=== PATIENT | male | born 1965 | race Two or more races ===

== ENCOUNTER 2025-02-01 17:58 | Inpatient (IN) | payer OTHER, MEDICAID ==
[~2025-02-01] VITALS: Ht 167.6 cm; Wt 49.5 kg
[2025-02-01 19:24] LABS: Hematocrit 41.7 % (41.0-53.0); Hemoglobin 14.3 g/dL (13.5-17.5); Mean Corpuscular Hemoglobin 30.1 pg (28.0-32.0); Mean Corpuscular Volume 87.8 fL (80.0-100.0); Nucleated Red Blood Cells % 0.0 %
[2025-02-01 19:42] LABS: Potassium 4.9 mmol/L (3.5-5.1)
[2025-02-01 19:43] LABS: Anion Gap 16 (5-15); Calcium 9.7 mg/dL (8.7-10.4); Carbon Dioxide 25 mmol/L (20-31)
[2025-02-01 19:47] LABS: Chloride 94 mmol/L (98-107); Sodium 135 mmol/L (136-145)
--- NOTE | 2025-02-01 19:47 | ED.PDOC ---
History of Present Illness HPI Comments 59-year-old male is brought in by ambulance from private residence for chief complaint of generalized weakness and hypertension. Per EMS report, patient is a poor historian and family called on patient's behalf. 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 Patient is reported to have missed today's and last Saturday's dialysis session. Vitals were noted to have been stable within normal limits, with the exception of the blood glucose of 305 and a hypertensive blood pressure at 170's systolically. We will to ED, patient had a blood pressure of 177/116 and a blood glucose of 331. Unable to obtain further information from patient, due to him being a poor historian. Further history is limited, due to patient's current condition and absence of family/business employment specialist historians. REVIEW OF SYSTEMS: Unable to obtain ROS PHYSICAL EXAM: General: Awake, alert and oriented. No acute distress. Skin: Skin in warm, dry and intact without rashes or lesions. HEENT: The head is normocephalic and atraumatic. Conjunctivae are clear without exudates or hemorrhage. Sclera is non-icteric. Neck: Normal range of motion. No JVD. Cardiac: Regular rate Respiratory: No signs of respiratory distress. No Stridor. Extremities: Upper and lower extremities are atraumatic in appearance without deformity. Neurological: The patient is awake, alert and oriented to person, place, and ti me with normal speech. Speech is clear. There is no facial asymmetry. Psychiatric: Appropriate mood and affect. Good judgement and insight. 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 Was a procedure done?: No Differential Dx Considerations may include: Differential diagnosis considered includes but not limited to intracranial hemorrhage, stroke, head injury, seizure, metabolic disturbance, electrolyte imbalance, infection, substance intoxication, psychiatric cause, noncompliance, hypertensive emergency, hyperglycemia, other systemic illness, other X-Ray, Labs, Meds, VS Vital Signs Date Time Temp Pulse Resp B/P (MAP) Pulse Ox O2 Delivery O2 Flow Rate FiO2 02/01/25 20:17 98.6 86 17 146/95 (112) 98 98.6 02/01/25 18:00 98.0 86 18 177/116 96 98.0 Lab Test 02/01/25 19:00 Range/Units White Blood Count 9.1 4.4-10.8 10^3/uL Red Blood Count 4.75 4.5-5.90 10^6/uL Hemoglobin 14.3 13.5-17.5 g/dL Hematocrit 41.7 41.0-53.0 % Mean Corpuscular Volume 87.8 80.0-100.0 fL Mean Corpuscular Hemoglobin 30.1 28.0-32.0 pg Mean Corpuscular Hemoglobin Concent 34.3 32.0-36.0 g/dL Red Cell Distribution Width 13.9 11.8-14.3 % Platelet Count 374 140-450 10^3/uL Mean Platelet Volume 8.9 6.9-10.8 fL Neutrophils (%) (Auto) 85.8 H 37.0-80.0 % Lymphocytes (%) (Auto) 6.0 L 10.0-50.0 % Monocytes (%) (Auto) 7.5 0.0-12.0 % Eosinophils (%) (Auto) 0.2 0.0-7.0 % Basophils (%) (Auto) 0.5 0.0-2.0 % Neutrophils # (Auto) 7.8 1.6-8.6 10 ^3/uL Lymphocytes # (Auto) 0.5 0.4-5.4 10 ^3/uL Monocytes # (Auto) 0.7 0-1.3 10 ^3/uL Eosinophils # (Auto) 0 0-0.8 10 ^3/uL Basophils # (Auto) 0 0-0.2 10 ^3/uL Nucleated Red Blood Cells 0.0 % Sodium Level 135 L 136-145 mmol/L Potassium Level 4.9 3.5-5.1 mmol/L Chloride Level 94 L 98-107 mmol/L Carbon Dioxide Level 25 20-31 mmol/L Anion Gap 16 H 5-15 Blood Urea Nitrogen 112 *H 9-23 mg/dL Creatinine 6.45 H 0.700-1.30 mg/dL Glomerular Filtration Rate Calc 9 >90 mL/min BUN/Creatinine Ratio 17.4 10.0-20.0 Serum Glucose 331 H 74-106 mg/dL Calcium Level 9.7 8.7-10.4 mg/dL Troponin I High Sensitivity 7 </=54 ng/L Plasma/Serum Blood Alcohol < 3.0 <10 mg/dL Current Medications Medications (Trade) Dose Ordered Sig/Kellen Route Start Time Stop Time Status Last Admin Sodium Chloride 250 ml @ 1,000 mls/hr Q15M ONCE IV 02/01/25 22:15 02/01/25 22:29 DC 02/02/25 01:30 Time of 1ST Reevaluation: 18:42 Reevaluation 1ST: Unchanged Patient Education/Counseling: Other (Need for admission) Family Education/Counseling: No Family Present SEPSIS Sepsis Screen Date sepsis recognized/suspect: Feb 01, 2025 Time Sepsis recognized/suspect: 1800 Recent Procedure: No On Antibiotic Therapy: No Respiratory Rate >20: No Heart Rate >90: No Temp<36 C (96.8 F) or >38.3 C: No SBP <90 or MAP <65 mmHG: No New Acute Mental Status Change: No Is the patient on CPAP, BIPAP,: No Physician Orders Electrocardigram (02/01/25 18:10) Vital Signs Date Time Temp Pulse Resp B/P (MAP) Pulse Ox O2 Delivery O2 Flow Rate FiO2 02/01/25 20:17 98.6 86 17 146/95 (112) 98 98.6 02/01/25 18:00 98.0 86 18 177/116 96 98.0 Laboratory Tests Test 02/01/25 19:00 White Blood Count 9.1 10^3/uL (4.4-10.8) Medications Medications Dose Ordered Sig/Kellen Route Start Time Stop Time Status Last Admin Dose Admin Sodium Chloride 250 ml @ 1,000 mls/hr Q15M ONCE IV 02/01/25 22:15 02/01/25 22:29 DC 02/02/25 01:30 Departure 1 Departure Time of Disposition: 20:00 Impression: Primary Impression: Missed dialysis Additional Impression: Hyperglycemia Disposition: 01 HOME / SELF CARE / HOMELESS Condition: Stable Comments MDM: 59-year-old male with a history of end-stage renal disease who missed several dialysis sessions. Patient presents with altered mental status, generalized weakness. Patient admitted to hospitalist service for dialysis, further treatment, evaluation and monitoring. Extensive evaluation was performed in attempt to identify or rule out: (See differential diagnosis section) The following tests were ordered, and results were reviewed by me and discussed with patient: (See diagnostic results section) The following test were independently interpreted by me: N/A I reviewed and agreed with the following test results read by other providers: N/A I reviewed the following notes from the pt's past medical encounters: N/A Additional information was gathered from interviewing the following independent historians: EMS personnel Discussion of management or test interpretation with external physician/other qualified health customer care representative: N/A Addressed one or more chronic illnesses with severe exacerbation, progression, or side effects of treatment: End-stage renal disease, an acute or chronic illness that poses a threat to life or bodily function: Uremia Decision regarding hospitalization or escalation of hospital level of care: Risk and benefits of admission for further treatment of patient's condition was considered. Due to patient's current clinical condition, high risk of decline and poor outcome if discharged and need for further inpatient management and monitoring, patient will be admitted to the hospital. Critical Care Note Critical Care Time?: No Stability Stability form required: No Heart Score Heart Score: Heart Score Response (Comments) Value History N/A 0 EKG N/A 0 Age N/A 0 Risk Factors N/A 0 Troponin N/A 0 Total 0 I personally scribed for HALLIE PERERA MD ([email or web address]) on 02/01/25 at 19:47. Electronically submitted by Juan Veloz ([email or web address]). I personally scribed for HALLIE PERERA MD ([email or web address]) on 02/01/25 at 21:55. Electronically submitted by Juan Veloz ([email or web address]). HALLIE PERERA MD Feb 01, 2025 19:47
[2025-02-01 19:48] LABS: BUN/Creatinine Ratio 17.4 (10.0-20.0)
[2025-02-01 20:05] LABS: Glucose 331 mg/dL (74-106)
[2025-02-01 20:08] LABS: Blood Urea Nitrogen 112 mg/dL (9-23)
[2025-02-02] VITALS (8 sets, daily range): BP systolic 141–170; BP diastolic 72–96; PULSE 75–94; RESP 17–22; TEMP 97.1–98.5; O2SAT 97–99
[2025-02-02] MEDS ORDERED: DEXTROSE (50%) 50ML SYRG IV PRN (01:00)
[2025-02-02] MEDS: SODIUM CHLORIDE 0.9% 250 ML IV ONE (01:30)
[2025-02-02] MEDS: PANTOPRAZOLE 40 MG TAB PO ONE (01:30)
--- NOTE | 2025-02-02 01:44 | DVH ---
EXAM: CT HEAD WITHOUT CONTRAST INDICATION: Confusion, history of previos ACV TECHNIQUE: CT of the head without intravenous contrast. Radiation Dose : 1. Head: CT Dose: CTDI volume is 55.31 mGy. Dose-length product is 886.72 mGy*cm The dose indicators for CT are the volume Computed Tomography (CT) Dose Index (CTDIvol) and the Dose Length Product (DLP), and are measured in units of mGy and mGy-cm, respectively. These indicators are not patient dose, but values generated from the CT scanner acquisition factors. The report includes radiation exposure data for exposures received during this examination. COMPARISON: None FINDINGS: Brain: 8 mm hyperattenuating focus within the body of the right internal capsule/lateral thalamus. N o other evidence of intracranial hemorrhage. No mass effect. Numerous hypodense foci along the coron a radiata, internal capsules, and within the basal ganglia as well as senescent calcification. Mild p eriventricular white matter hypodensity and global volume loss. CSF Spaces: Mild symmetric enlargement. Bones/Soft Tissues: No acute findings. Orbits/Sinuses/Mastoids: No acute findings as visualized. Right lens replacement. IMPRESSION: 1. Subcentimeter hyperattenuating focus within the right internal capsule/thalamus may represent smal l intraparenchymal hemorrhage, or calcification. Correlate with symptoms and consider 6-8 hour follow -up head CT for reassessment. 2. Numerous hypodense foci within deep white matter and basal ganglia consistent with age indetermina te, but probably chronic lacunar infarcts. 3. Underlying sequela of mild chronic microangiopathy. The above critical finding was communicated with Dr. Balbuena at 3:41 a.m. On 02/02/2025, who communica chang understanding with positive read back. Radiation optimization: All CT scans at this facility use at least one of these dose optimization jazmin hniques: automated exposure control mA and/or kV adjustment per patient size (includes targeted exam s where dose is matched to clinical indication) or iterative reconstruction.
--- NOTE | 2025-02-02 01:51 | DVHHPRES ---
History of Present Illness Resident Creating Document: NELLY HUI RESIDENT History of Present Illness Siddhartha Whaley is a 59 year old male with past medical history of DM2, HTN, CVA (2023), Dementia and, CKD stage 5 (Dialysis MWF at [facility]). The patient was brought to the ED by the EMS team with chief complaint of 3 days of generalized weakness, difficulty to swallow and high blood pressure. Family member on site reports that the patient has missed his last 2 dialysis session due to feeling weak and tired. Initial evaluation in the ED showed blood pressure of 177/116 an d a blood glucose of 331 mg/dl. Non contrast head CT scan showed: Subcentimeter hyperattenuating focus within the right internal capsule/thalamus may represent small intraparenchymal hemorrhage, or calcification. Correlate with symptoms and consider 6-8 hour follow-up head CT for reassessment, numerous hypodense foci within deep white matter and basal ganglia consistent with age indeterminate, but probably chronic lacunar infarcts. Underlying sequela of mild chronic microangiopathy. The patient denies fever, chills, diarrhea, nausea, vomit, sick contacts or other symptoms. Cardiovascular: HTN KETTLE CLEANER: CVA (in 2023 and hx of Dementia) Renal/: Benign prostatic enlarg. Endocrine: Diabetes Past Surgical History: None Family History: Hypertension Smoke: No ALCOHOL: none Lives: with Family Review of Systems Constitutional: Yes: Weakness, Malaise; No: Fever, Chills, Sweats, Other Eyes: No: Pain, Vision change, Conjunctivae inflammation, Eyelid inflammation, Other, Redness Cardiovascular: No: Chest Pain, Palpitations, Orthopnea, Paroxysmal Noc. Dyspnea, Edema, Lt Headedness, Other Gastrointestinal: No: Nausea, Vomiting, Abdominal Pain, Diarrhea, Constipation, Melena, Hematochezia, Other Genitourinary: No Dysuria, No Frequency, No Incontinence, No Hematuria, No Retention, No Other Musculoskeletal: No: other, neck pain, shoulder pain, arm pain, back pain, hand pain, leg pain, foot pain Skin: No: Rash, Lesions, Jaundice, Bruising, Other Neurological: Weakness; No: Numbness, Incoordination, Change in speech, Confusion, Seizures, Other Allergies: Coded Allergies: NO KNOWN ALLERGIES (Unverified , 02/01/25) Medications Current Medications Medications Dose Ordered Sig/Kellen Route Start Time Stop Time Status Last Admin Dose Admin Diagnostic Test (Pha) 1 strip IQ4HR 02/02/25 04:00 Insulin Human Regular IQ4HR SC 02/02/25 04:00 Dextrose 50 ml UD PRN IV 02/02/25 01:00 Exam Vital Signs Vital Signs Date Time Temp Pulse Resp B/P (MAP) Pulse Ox O2 Delivery O2 Flow Rate FiO2 02/02/25 01:19 98.8 88 16 148/92 (110) 97 98.8 General Appearance: Alert, Cooperative, mild distress HEENT: Atraumatic, Mucous membr. moist/pink Respiratory: Clear to auscultation, Normal air movement Cardiovascular: Normal S1, Normal S2, No murmurs Abdominal: Normal bowel sounds, Soft, No tenderness, No hepatospenomegaly, No masses Extremities: No clubbing, No cyanosis, No edema, Normal pulses, No tenderness/swelling Skin: No rashes, No breakdown, No significant lesion Neuro: Normal gait, Strength at 5/5 X4 ext, Normal tone, Sensation intact, Cranial nerves 3-12 NL, Other (Slow speach, patient oriented in person and place, confused in time. ) Psych/Mental Status: Other (Memory, short term impairment.) Labs/Xrays Labs Test 02/01/25 19:00 Range/Units White Blood Count 9.1 4.4-10.8 10^3/uL Red Blood Count 4.75 4.5-5.90 10^6/uL Hemoglobin 14.3 13.5-17.5 g/dL Hematocrit 41.7 41.0-53.0 % Mean Corpuscular Volume 87.8 80.0-100.0 fL Mean Corpuscular Hemoglobin 30.1 28.0-32.0 pg Mean Corpuscular Hemoglobin Concent 34.3 32.0-36.0 g/dL Red Cell Distribution Width 13.9 11.8-14.3 % Platelet Count 374 140-450 10^3/uL Mean Platelet Volume 8.9 6.9-10.8 fL Neutrophils (%) (Auto) 85.8 H 37.0-80.0 % Lymphocytes (%) (Auto) 6.0 L 10.0-50.0 % Monocytes (%) (Auto) 7.5 0.0-12.0 % Eosinophils (%) (Auto) 0.2 0.0-7.0 % Basophils (%) (Auto) 0.5 0.0-2.0 % Neutrophils # (Auto) 7.8 1.6-8.6 10 ^3/uL Lymphocytes # (Auto) 0.5 0.4-5.4 10 ^3/uL Monocytes # (Auto) 0.7 0-1.3 10 ^3/uL Eosinophils # (Auto) 0 0-0.8 10 ^3/uL Basophils # (Auto) 0 0-0.2 10 ^3/uL Nucleated Red Blood Cells 0.0 % Sodium Level 135 L 136-145 mmol/L Potassium Level 4.9 3.5-5.1 mmol/L Chloride Level 94 L 98-107 mmol/L Carbon Dioxide Level 25 20-31 mmol/L Anion Gap 16 H 5-15 Blood Urea Nitrogen 112 *H 9-23 mg/dL Creatinine 6.45 H 0.700-1.30 mg/dL Glomerular Filtration Rate Calc 9 >90 mL/min BUN/Creatinine Ratio 17.4 10.0-20.0 Serum Glucose 331 H 74-106 mg/dL Calcium Level 9.7 8.7-10.4 mg/dL Troponin I High Sensitivity 7 </=54 ng/L Plasma/Serum Blood Alcohol < 3.0 <10 mg/dL SEPSIS Sepsis Screen Date sepsis recognized/suspect: Feb 01, 2025 Time Sepsis recognized/suspect: 1800 Recent Procedure: No On Antibiotic Therapy: No Respiratory Rate >20: No Heart Rate >90: No Temp<36 C (96.8 F) or >38.3 C: No SBP <90 or MAP <65 mmHG: No New Acute Mental Status Change: No Is the patient on CPAP, BIPAP,: No Physician Orders Electrocardigram (02/01/25 18:10) Admit (02/02/25 00:42) Code Status (02/02/25 00:42) Vital Signs .PER UNIT PROTOCOL (02/02/25 00:42) Review Orders With Adm. (02/02/25 00:42) Bedrest With Bathroom Privileg (02/02/25 00:42) [facility])Diabetes (02/02/25 Breakfast) Notify Md Of Changes From Base (02/02/25 00:42) Advance Directive (02/02/25 00:42) Urinalysis (02/02/25 00:42) Patient Condition (02/02/25 00:42) Allergies (02/02/25 00:42) Notify Md Of Changes From Base (02/02/25 00:42) Head Without Contrast (02/02/25 00:42) Complete Blood Count (02/02/25 04:00) Comprehensive Metabolic Panel (02/02/25 04:00) Blood Culture (02/02/25 00:53) Glucose Blood (Accu-Chek Comfort Curve T (02/02/25 04:00) Insulin R (Human) (Insulin R) (02/02/25 04:00) Dextrose 50% Syringe (02/02/25 01:00) Sodium Chloride 0.9% (02/02/25 01:00) Hemoglobin A1c (02/02/25 01:02) Ondansetron Hcl (Zofran) (02/02/25 02:00) * Swallow Request (02/02/25 01:49) Vital Signs Date Time Temp Pulse Resp B/P (MAP) Pulse Ox O2 Delivery O2 Flow Rate FiO2 02/02/25 01:19 98.8 88 16 148/92 (110) 97 98.8 02/01/25 20:17 98.6 86 17 146/95 (112) 98 98.6 02/01/25 18:00 98.0 86 18 177/116 96 98.0 Laboratory Tests Test 02/01/25 19:00 White Blood Count 9.1 10^3/uL (4.4-10.8) Medications Medications Dose Ordered Sig/Kellen Route Start Time Stop Time Status Last Admin Dose Admin Pantoprazole Sodium 40 mg ONCE ONCE PO 02/02/25 00:45 02/02/25 00:55 DC 02/02/25 01:30 40 MG Sodium Chloride 250 ml @ 1,000 mls/hr Q15M ONCE IV 02/01/25 22:15 02/01/25 22:29 DC 02/02/25 01:30 1,000 MLS/HR Assessment/Plan Assessment/Plan #Hypertensive urgency Amlodipine 10 mg po #Generalized weakness, rule out CVA Head CT scan #Hyponantremia IV fluids: NS #DM2 with hyperglycemia Insulin sliding scale HbA1C #CKD Stage 5 Dialysis MWF at [facility] #BPH Tamsulosin (Medication reconciliation) Low Carbohydrate/Diabetic diet DVT prophylaxis-Deambulating PUD prophylaxis Protonic Goals of care discussed with the patient > 35 min. Discussed plan of care with Dr. Fuentes Code status: DNR PCP: Does not recall name Plan discussed with: Patient, the patient agrees with admission the plan. Plan discussed with: Patient, Daughter My Orders Orders - NELLY HUI RESIDENT Procedure Category Date Status Time Admit ADMIT 02/02/25 Transmitted 00:42 Code Status CODE 02/02/25 Transmitted 00:42 Vital Signs NEHEMIAS 02/02/25 In Process 00:42 Review Orders With [facility] 02/02/25 In Process Adm.Md 00:42 Bedrest With Bathroom NEHEMIAS 02/02/25 In Process Privileg 00:42 Consistent DIET 02/02/25 Transmitted Carb(Ccho)Diabetes Breakfast Notify Md Of Changes [facility] 02/02/25 In Process From Base 00:42 Advance Directive NEHEMIAS 02/02/25 In Process 00:42 Urinalysis LAB 02/02/25 Logged 00:42 Patient Condition ORDERS 02/02/25 Transmitted 00:42 Allergies NEHEMIAS 02/02/25 In Process 00:42 Notify Md Of Changes [facility] 02/02/25 In Process From Base 00:[address] 02/02/25 Resulted 00:42 Complete Blood Count LAB 02/02/25 Logged 04:00 Comprehensive LAB 02/02/25 Logged Metabolic Panel 04:00 Blood Culture [facility] 02/02/25 In Process 00:53 Glucose Blood PHA 02/02/25 In Process (Accu-Chek Comfort 04:00 Insulin R (Human) PHA 02/02/25 In Process (Insulin R) 04:00 Dextrose 50% Syringe PHA 02/02/25 In Process 01:00 Sodium Chloride 0.9% PHA 02/02/25 In Process 01:00 Hemoglobin A1c LAB 02/02/25 Logged 01:02 Ondansetron Hcl PHA 02/02/25 In Process (Zofran) 02:00 * Swallow Request ST 02/02/25 Transmitted 01:49 Common Visit Codes: 49270-CVEFQVV INP/OBS CARE (HIGH) Secondary Visit Codes: 36143-[id number] CARE PLAN 30 MINUTES NELLY HUI RESIDENT Feb 02, 2025 01:51
[2025-02-02] MEDS: ONDANSETRON HCL 4 MG/2 ML VIAL IV ONE (02:00)
[2025-02-02] MEDS: InsuLIN REG 1unit/0.01ml Soln (100units/ml) SC SCH (04:00)
[2025-02-02] MEDS: ACCU-CHEK COMFORT CURVE STRIP VI SCH (04:00)
[2025-02-02] MEDS: SODIUM CHLORIDE 0.9% 1,000 ML IV ONE (04:10)
[2025-02-02 09:27] LABS: Hematocrit 37.5 % (41.0-53.0); Hemoglobin 13.0 g/dL (13.5-17.5); Mean Corpuscular Hemoglobin 30.2 pg (28.0-32.0); Mean Corpuscular Volume 87.3 fL (80.0-100.0); Nucleated Red Blood Cells % 0.0 %
[2025-02-02 09:34] LABS: Albumin 4.0 g/dL (3.2-4.8); Alkaline Phosphatase 61 U/L (46-116); Anion Gap 16 (5-15); BUN/Creatinine Ratio 15.8 (10.0-20.0); Calcium 9.3 mg/dL (8.7-10.4); Carbon Dioxide 23 mmol/L (20-31); Chloride 99 mmol/L (98-107); Potassium 3.9 mmol/L (3.5-5.1); Sodium 138 mmol/L (136-145); Total Protein 6.7 g/dL (5.7-8.2)
[2025-02-02 10:23] LABS: Alanine Aminotransferase < 9 U/L (7-40); Bilirubin, Total 0.3 mg/dL (0.2-1.0); Glucose 67 mg/dL (74-106)
[2025-02-02 10:25] LABS: Blood Urea Nitrogen 110 mg/dL (9-23)
--- NOTE | 2025-02-02 10:34 | DVH ---
EXAM: CT HEAD WITHOUT CONTRAST INDICATION: Reassesment, first CT inconclusive TECHNIQUE: CT of the head without intravenous contrast. Coronal and sagittal reformatted images are s ubmitted. Radiation Dose : 1. Head: CT Dose: CTDI volume is 53.68 mGy. Dose-length product is 1.71 mGy*cm The dose indicators for CT are the volume Computed Tomography (CT) Dose Index (CTDIvol) and the Dose Length Product (DLP), and are measured in units of mGy and mGy-cm, respectively. These indicators are not patient dose, but values generated from the CT scanner acquisition factors. The report includes radiation exposure data for exposures received during this examination. All CT scans at this medical facility are performed using dose modulation techniques as appropriate to a performed exam including the following: Automated exposure control was utilized; adjustment of the MA and/or KV according to patient size; and use of iterative reconstruction technique. COMPARISON: CT HEAD WITHOUT CONTRAST on DOS: 02/02/25 FINDINGS: 8 x 8 mm rounded hyperattenuating focus in the right thalamus / internal capsule is similar in appear ance and size compared to the prior study. Chronic lacunar infarcts in the bilateral basal ganglia and thalami. There are periventricular and subcortical hypodensities, nonspecific, but likely reflecting sequelae of chronic microvascular ischemic changes. The ventricles, sulci and cisterns are age appropriate. The hruley-white differentiation is intact. The visualized paranasal sinuses and mastoid air cells are clear. No depressed calvarial fracture. The surrounding soft tissues are unremarkable. IMPRESSION: 1. Stable 8 mm hyperattenuating focus in the right internal capsule/ thalamus without any significant change. The etiology remains unclear since this has not changed. Continued short-term follow-up wit h noncontrast CT of the head in 6-8 hours is suggested. 2. Additional nonacute findings similar to prior CT performed earlier same date.
[2025-02-02 11:52] LABS: COVID19 ANTIGEN SOFIA FIA NEGATIVE (NEGATIVE)
--- NOTE | 2025-02-02 17:03 | DVHINCON2 ---
Date of service: Feb 02, [address] Olsen History of Present Illness 55 minutes with the patient with significant history of end-stage renal disease on hemodialysis Saturday, CVA, dementia, diabetes type 2, hypertension who presents to the hospital by ambulance complaining of generalized weakness and reason why he could not go to his dialysis unit he missed two sessions. The patient is not a good historian but admits to feeling generalized weakness associated with the elevated blood pressure, hiccups, nausea. Patient was admitted he underwent CT scan showing chronic lacunar infarct and hypo hyperattenuating focus right internal capsule. Findings also of uremia with elevated BUN Past Medical History Diabetes type 2, hypertension, end-stage renal disease, dementia, CVA Past Surgical History Left upper arm AV fistula creation Allergies: Coded Allergies: NO KNOWN ALLERGIES (Unverified , 02/01/25) Current Medications Current Medications Medications (Trade) Dose Ordered Sig/Kellen Route PRN Reason Start Time Stop Time Status Last Admin Diagnostic Test (Pha) (Accu-Chek Comfort Curve T) 1 strip IQ4HR 02/02/25 04:00 02/02/25 16:04 Insulin Human Regular (InsuLIN R) IQ4HR SC 02/02/25 04:00 02/02/25 16:04 Dextrose 50 ml UD PRN IV Blood Sugar LESS THAN 60 02/02/25 01:00 Family History: Cerebrovascular accident (CVA) G8 FATHER FH: dementia G8 MOTHER Ischemic heart disease G8 FATHER Family History Unable to obtain patient does not recall Social History Denies smoking alcohol or drug abuse Review of Systems HEENT: Oral mucosa dry Neck no JVD Cardiovascular: Denies for chest pain denies orthopnea or PND Respiratory: Denies cough or shortness of breath Gastrointestinal: positive for hiccups and nausea Musculoskeletal: Denies myalgias Neurological: Denies focal weakness Dermatological: Denies any rash Positive for generalized weakness, hiccups The rest of the review of systems were reviewed pertinent positives and pertinent negatives are as per HPI up to 12 points review of systems H&P Exam Vital Signs/I&O Vital Sign Date Time Temp Pulse Resp B/P (MAP) Pulse Ox O2 Delivery O2 Flow Rate FiO2 02/02/25 15:43 89 148/72 (97) 02/02/25 13:00 98.5 22 97 98.5 02/02/25 08:00 Room Air* 0 21 Physical Exam Chronically ill-appearing patient HEENT: No evidence of JVD, no oral ulcers. Pulmonary: Lungs are clear on auscultation bilaterally Cardiovascular S1-S2, no S3 or S4 Abdomen: Bowel sounds positive, soft no rebound tenderness Skin: No rash Neurological: Alert, oriented, no focal weakness Actually having hiccups Labs/Diagnostic Data Labs/Diagnostic Data Laboratory Tests Test 02/02/25 15:54 02/02/25 11:40 02/02/25 09:47 02/02/25 08:30 Range/Units POC Glucose 255 H 220 H 70-106 mg/dl Influenza Type A Antigen Negative Negative Influenza Type B Antigen Negative Negative SARS-CoV-2 Antigen (Rapid) Negative NEGATIVE White Blood Count 14.4 #H 4.4-10.8 10^3/uL Red Blood Count 4.30 L 4.5-5.90 10^6/uL Hemoglobin 13.0 L 13.5-17.5 g/dL Hematocrit 37.5 #L 41.0-53.0 % Mean Corpuscular Volume 87.3 80.0-100.0 fL Mean Corpuscular Hemoglobin 30.2 28.0-32.0 pg Mean Corpuscular Hemoglobin Concent 34.6 32.0-36.0 g/dL Red Cell Distribution Width 14.0 11.8-14.3 % Platelet Count 398 140-450 10^3/uL Mean Platelet Volume 8.5 6.9-10.8 fL Neutrophils (%) (Auto) 74.4 37.0-80.0 % Lymphocytes (%) (Auto) 12.3 10.0-50.0 % Monocytes (%) (Auto) 13.0 H 0.0-12.0 % Eosinophils (%) (Auto) 0.2 0.0-7.0 % Basophils (%) (Auto) 0.1 0.0-2.0 % Neutrophils # (Auto) 10.7 H 1.6-8.6 10 ^3/uL Lymphocytes # (Auto) 1.8 0.4-5.4 10 ^3/uL Monocytes # (Auto) 1.9 H 0-1.3 10 ^3/uL Eosinophils # (Auto) 0 0-0.8 10 ^3/uL Basophils # (Auto) 0 0-0.2 10 ^3/uL Nucleated Red Blood Cells 0.0 % Sodium Level 138 136-145 mmol/L Potassium Level 3.9 3.5-5.1 mmol/L Chloride Level 99 98-107 mmol/L Carbon Dioxide Level 23 20-31 mmol/L Anion Gap 16 H 5-15 Blood Urea Nitrogen 110 *H 9-23 mg/dL Creatinine 6.97 H 0.700-1.30 mg/dL Glomerular Filtration Rate Calc 9 >90 mL/min BUN/Creatinine Ratio 15.8 10.0-20.0 Serum Glucose 67 #L 74-106 mg/dL Hemoglobin A1c 8.7 H <5.7 % A1C Calcium Level 9.3 8.7-10.4 mg/dL Total Bilirubin 0.3 0.2-1.0 mg/dL Aspartate Amino Transferase (AST) 14 13-40 U/L Alanine Aminotransferase (ALT) < 9 7-40 U/L Alkaline Phosphatase 61 46-116 U/L Ammonia < 10 L 11-32 umol/L Total Protein 6.7 5.7-8.2 g/dL Albumin 4.0 3.2-4.8 g/dL Vitamin D 25-Hydroxy 64.3 30.0-100 ng/mL Parathyroid Hormone (Intact) 94.7 H 18.4-80.1 pg/mL Test 02/02/25 07:50 02/02/25 05:00 02/01/25 19:00 Range/Units POC Glucose 127 H 333 H 70-106 mg/dl White Blood Count 9.1 4.4-10.8 10^3/uL Red Blood Count 4.75 4.5-5.90 10^6/uL Hemoglobin 14.3 13.5-17.5 g/dL Hematocrit 41.7 41.0-53.0 % Mean Corpuscular Volume 87.8 80.0-100.0 fL Mean Corpuscular Hemoglobin 30.1 28.0-32.0 pg Mean Corpuscular Hemoglobin Concent 34.3 32.0-36.0 g/dL Red Cell Distribution Width 13.9 11.8-14.3 % Platelet Count 374 140-450 10^3/uL Mean Platelet Volume 8.9 6.9-10.8 fL Neutrophils (%) (Auto) 85.8 H 37.0-80.0 % Lymphocytes (%) (Auto) 6.0 L 10.0-50.0 % Monocytes (%) (Auto) 7.5 0.0-12.0 % Eosinophils (%) (Auto) 0.2 0.0-7.0 % Basophils (%) (Auto) 0.5 0.0-2.0 % Neutrophils # (Auto) 7.8 1.6-8.6 10 ^3/uL Lymphocytes # (Auto) 0.5 0.4-5.4 10 ^3/uL Monocytes # (Auto) 0.7 0-1.3 10 ^3/uL Eosinophils # (Auto) 0 0-0.8 10 ^3/uL Basophils # (Auto) 0 0-0.2 10 ^3/uL Nucleated Red Blood Cells 0.0 % Sodium Level 135 L 136-145 mmol/L Potassium Level 4.9 3.5-5.1 mmol/L Chloride Level 94 L 98-107 mmol/L Carbon Dioxide Level 25 20-31 mmol/L Anion Gap 16 H 5-15 Blood Urea Nitrogen 112 *H 9-23 mg/dL Creatinine 6.45 H 0.700-1.30 mg/dL Glomerular Filtration Rate Calc 9 >90 mL/min BUN/Creatinine Ratio 17.4 10.0-20.0 Serum Glucose 331 H 74-106 mg/dL Calcium Level 9.7 8.7-10.4 mg/dL Troponin I High Sensitivity 7 </=54 ng/L Plasma/Serum Blood Alcohol < 3.0 <10 mg/dL CT head with hyperattenuating subcentimeter lesion on two CT Assessment End-stage renal disease Uremia Hypertension, uncontrolled Acidemia managed with dialysis Hyperkalemia managed with dialysis Subcentimeter hypoattenuating lesion on CT History of CVA Anemia of Chronic kidney disease Plan: Patient has missed two dialysis session proceed with dialysis today and tomorrow Fluid restriction less than 1 L per day Neurology consult We will not use heparin Resume antihypertensive meds Thank you very much for allowing us to participate in the care of this patient please contact if you have any questions. Plan discussed with: Patient CECIL BELL MD Feb 02, 2025 17:03
[2025-02-02] MEDS: GABAPENTIN 100 MG CAP PO ONE (18:15)
[2025-02-02] MEDS: BACLOFEN 10 MG TAB PO ONE (18:15)
[2025-02-02] MEDS ORDERED: PANT40TA2 PO (18:37)
[2025-02-02] MEDS ORDERED: DONE5TAB80 PO (18:37)
[2025-02-02] MEDS ORDERED: TAMS0.4C39 PO (18:37)
[2025-02-02] MEDS ORDERED: METO-289 PO (18:37)
[2025-02-02] MEDS ORDERED: NIFE1TAB30 PO (18:37)
[2025-02-02] MEDS ORDERED: SERT-206 PO (18:37)
[2025-02-02] MEDS ORDERED: ATOR40TA52 PO (18:37)
[2025-02-02] MEDS ORDERED: PIOG1TAB51 OR (18:37)
[2025-02-02] MEDS ORDERED: SUCR1TAB PO (18:37)
--- NOTE | 2025-02-02 18:39 | DVHPNRES ---
Progress Note Date Seen: Feb 02, 2025 Resident Creating Document: CHAU SYKES RESIDENT Medical Necessity Reason Pt with a Central, PICC or Fol: No Subjective Review of Systems Siddhartha Whaley is a 59 year old male with past medical history of DM2, HTN, CVA (2023), Dementia and, CKD stage 5 (Dialysis MWF at [facility]). The patient was brought to the ED by the EMS team with chief complaint of 3 days of generalized weakness, difficulty to swallow and high blood pressure. Family member on site reports that the patient has missed his last 2 dialysis session due to feeling weak and tired. Initial evaluation in the ED showed blood pressure of 177/116 and a blood glucose of 331 mg/dl. Non contrast head CT scan showed: Subcentimeter hyperattenuating focus within the right internal capsule/thalamus may represent small intraparenchymal hemorrhage, or calcification. Correlate with symptoms and consider 6-8 hour follow-up head CT for reassessment, numerous hypodense foci within deep white matter and basal ganglia consistent with age indeterminate, but probably chronic lacunar infarcts. Underlying sequela of mild chronic microangiopathy. The patient denies fever, chills, diarrhea, nausea, vomit, sick contacts or other symptoms. 02/02/25 Patient seen at bedside. Patient is alert times 1, he is not oriented to place or time. Patient is a poor historian. Talked to the sister and she states that the patient has been having hiccups since July, has had dementia since 1 year, and underwent a stroke last year and also started having choking symptoms and having trouble swallowing since 1 week. Last week he was walking fine but now has been having balance problems, and is a fall risk, has had no trauma to the head. Yesterday he was too weak to go to the dialysis appointment. Repeat head CT shows Stable 8 mm hyperattenuating focus in the right internal capsule/ thalamus without any significant change. The etiology remains unclear since this has not changed. Patient has undergone dialysis today. Given baclofen 5 mg b.i.d. and gabapentin 100 mg t.i.d. eval was placed. Pureed diet was started. Objective vital signs Vital Sign Date Time Temp Pulse Resp B/P (MAP) Pulse Ox O2 Delivery O2 Flow Rate FiO2 02/02/25 15:43 89 148/72 (97) 02/02/25 13:00 98.5 22 97 98.5 02/02/25 08:00 Room Air* 0 21 medications Current Medications Medications Dose Ordered Sig/Kellen Route Start Time Stop Time Status Last Admin Dose Admin Diagnostic Test (Pha) 1 strip IQ4HR 02/02/25 04:00 02/02/25 16:04 1 STRIP Insulin Human Regular IQ4HR SC 02/02/25 04:00 02/02/25 16:04 6 UNITS Dextrose 50 ml UD PRN IV 02/02/25 01:00 Examination General: Patient alert and oriented in person, place and time. Patient following commands. Constant hiccuping HEENT: Normocephalic, atraumatic, moist mucous membranes Respiratory/pulmonary: Clear lungs bilaterally, vesicular murmurs present in almost all lung islas, no associated crackles or wheezes. Cardiovascular: Normal heart sounds S1 and S2 with no associated murmurs Abdomen: Abdomen nondistended, there is no pain to palpation in any of the abdominal quadrants, no palpable masses. Extremities: There is no peripheral edema present at the lower extremities. Peripheral Pulses: 3+ Radial (R). 3+ Radial (L). 3+ Dorsalis pedis (R). 3+ Dorsalis pedis(L) Skin: Tunneled catheter, no draining pus, no signs of infection or inflammation Neurological: Intact cranial nerves with no focal neurologic deficits laboratory and microbiology Laboratory Tests 02/02/25 08:30 Test 02/02/25 08:30 Range/Units Serum Glucose 67 #L 74-106 mg/dL Problem List/Assessment/Plan Problem List/Assessment/Plan # Hypertensive urgency-resolving - Amlodipine 10 mg po - Monitor BP # Reactive leukocytosis- monitorlab # ESRD on HD # Missed HD # Non compliance with HD # Uremia # Acidemia managed with dialysis # Hyperkalemia managed with dialysis # Anemia of Chronic kidney disease from ESRD - Dialysis MWF at [facility] - Monitor lab - HD today and tommorrow # Generalized weakness, rule out CVA # Hx of CVA - Head CT scan ,stable 8 mm hyperattenuating focus in the right internal capsule/ thalamus without any significant change - ? neuro consult # Hyponantremia -monitor lab # DM2 with hyperglycemia - Insulin sliding scale - HbA1C- 8.7 Purred diet PPI prophylaxis: Protonix 40 mg DVT Prophylaxis: None Goals of care discussed with patient for 27 minutes Patient is CODE :DNR/DNI, confirmed with sister Plan discussed with Dr. Vargas Plan discussed with: Patient (RN) My Orders My Orders Orders - CHAU SYKES Procedure Category Date Status Time Drug Screen LAB 02/02/25 Logged 08:11 *Dr. [facility] -Da CONS 02/02/25 Transmitted Ingrid 08:13 Strict I & O NEHEMIAS 02/02/25 In Process 08:34 Pureed DIET 02/02/25 Transmitted Lunch Pt Request For Service PT 02/02/25 Logged 11:56 Date of Service: Feb 02, 2025 Billing Provider: KIMBER MORRIS MD Common Visit Codes: [id number] INP/OBS CARE(HIGH) CHAU SYKES Feb 02, 2025 18:39 KIMBER MORRIS MD Feb 15, 2025 02:24
--- NOTE | 2025-02-02 19:10 | DVHINCON2 ---
Date of service: Feb 02, [address] Mack Reason for Consultation Abnormal CT head History of Present Illness Mr. Torres is a 59 years old right-handed gentleman with a history of hypertension, diabetes, end-stage renal failure on hemodialysis, he was brought to the [facility] on 02/01/2025 with a chief complaint of general weakness, hypertension, dysphagia. At this time, he is awake, but is only oriented to person, place, he is a poor historian, I have interviewed his cousin, who is care provider, and his brother, both were not able to give a detailed history After he came to the hospital, the patient was found to have elevated blood pressure, with amnesia blood pressure 177/116, his CT scan showed I have attenuation in the left basal ganglia region, unknown etiology His CT scan showed multiple strokes, but he and his family only aware of one stroke in 2021, the patient has had imbalance, one-sided weakness, but they do not remember which side was affected. The patient was treated in the [facility], and he was said to have stroke. His CT brain scan showed multiple strokes involving both hemispheres and brainstem. I have reviewed his home medication, which included Lipitor 40 mg daily, but there was no aspirin, Plavix or antiplatelet or anticoagulant agents. Around 2020, his brother noticed the patient had difficulty to remember things happened within the last 10 years (such as visiting his hometown), around 2021- 2022, his family reported he developed progressive short-term memory difficulty, and he quit working because of cognitive dysfunction. According to the family, his baseline is oriented to person place only, but is with reasonable social skills. His home medication included Aricept 5 mg daily Plasma alcohol, 02/01/2025: <3 CBC, 02/01/2025: Unremarkable BUN/CR, 02/02/2025: 110/6.97 GFR, 02/02/2025: 9 HGB A1c, 02/02/2025: Able to seven CT head, 02/02/2025 0042: 1. Subcentimeter hyperattenuating focus within the right internal capsule/thalamus may represent small intraparenchymal hemorrhage, or calcification. Correlate with symptoms and consider 6-8 hour follow-up head CT for reassessment. 2. Numerous hypodense foci within deep white matter and basal ganglia consistent with age indeterminate, but probably chronic lacunar infarcts. 3. Underlying sequela of mild chronic microangiopathy. CT head, 02/02/2025 1100: 1. Stable 8 mm hyperattenuating focus in the right internal capsule/ thalamus without any significant change. The etiology remains unclear since this has not changed. Continued short-term follow-up with noncontrast CT of the head in 6-8 hours is suggested. 2. Additional nonacute findings similar to prior CT performed earlier same date. (Chronic lacunar infarcts in the bilateral basal ganglia and thalami, I also see evidence suggestive of of bilateral pontine lacunar strokes) Past Medical History Hypertension, diabetes, end-stage kidney failure, poor compliance Past Surgical History AV fistula Family History: Cerebrovascular accident (CVA) G8 FATHER FH: dementia G8 MOTHER Ischemic heart disease G8 FATHER Family History Hypertension, diabetes, coronary artery disease. Mother had stroke, she developed dementia around age of 65 after she already had stroke Social History No history of tobacco smoking, drug or alcohol abuse Allergies: Coded Allergies: NO KNOWN ALLERGIES (Unverified , 02/01/25) Home Meds Reported Medications Nifedipine (Nifedipine Er) 60 Mg Tab, 1 TAB PO DAILY, #30 TAB 5 Refills 02/02/25 Atorvastatin Calcium (ATORVASTATIN CALCIUM) 40 Mg Tab, 1 TAB PO QPM, #90 TAB 3 Refills 02/02/25 Tamsulosin Hcl (Tamsulosin Hcl) 0.4 Mg Cap, 0.4 MG PO QPM for 30 Days, MG 02/02/25 Donepezil Hydrochloride (DONEPEZIL HCL) 5 Mg Tab, 5 MG PO DAILY for 30 Days, MG 02/02/25 Pantoprazole Sodium Sesquihydr (Protonix) 40 Mg Tab, 40 MG PO, #30 TAB 02/02/25 Sucralfate (Sucralfate) 1 Gm Tab, 1 GM PO BID, GM 02/02/25 Sertraline Hcl (Sertraline Hcl) 50 Mg Tab, 50 MG PO DAILY for 30 Days, MG 02/02/25 Metoprolol Succinate (Metoprolol Succinate Er) 50 Mg Tab, 50 MG PO DAILY for 30 Days, MG 02/02/25 Pioglitazone Hydrochloride (PIOGLITAZONE HCL) 45 Mg Tab, 45 MG OR DAILY, TAB 02/02/25 Current Medications Current Medications Medications (Trade) Dose Ordered Sig/Kellen Route PRN Reason Start Time Stop Time Status Last Admin Diagnostic Test (Pha) (Accu-Chek Comfort Curve T) 1 strip IQ4HR 02/02/25 04:00 02/02/25 16:04 Insulin Human Regular (InsuLIN R) IQ4HR SC 02/02/25 04:00 02/02/25 16:04 Dextrose 50 ml UD PRN IV Blood Sugar LESS THAN 60 02/02/25 01:00 Baclofen (Liorisal Tablet) 5 mg BID PO 02/03/25 10:00 Gabapentin (Neurontin Capsule) 100 mg TID PO 02/03/25 06:00 Amlodipine Besylate (Norvasc Tablet) 10 mg DAILY PO 02/03/25 10:00 Pantoprazole Sodium (Protonix) 40 mg DAILY IV 02/03/25 10:00 Review of Systems As above, the other systems are negative Vital Signs Vital Signs Date Time Temp Pulse Resp B/P (MAP) Pulse Ox O2 Delivery O2 Flow Rate FiO2 02/02/25 17:00 98.4 85 17 141/81 (101) 99 98.4 02/02/25 08:00 Room Air* 0 21 Physical Exam GENERAL EXAM: General: the patient is well developed and nourished. No acute distress. HEENT: Normocephalic, neck is supple, no carotid bruits. No mass. The throat is Mallampati grade RESPIRATORY: Normal respiratory effort with symmetrical lung expansion. Lungs clear to auscultation. CARDIOVASCULAR: Regular rate and rhythm with no murmurs. S1, S2. ABDOMEN: Soft, nontender, normal bowel sound NEUROLOGICAL: MENTAL STATUS: Awake and alert. Oriented to person, place SPEECH, LANGUAGE, HIGHER CORTICAL FUNCTION: no aphasia or dysathria. CRANIAL NERVES: #2: Intact visual islas to confrontation. The optic discs were sharp. #3,4,6: Pupils are equal, round and reactive. EOMs full and conjugate. #5: Facial sensation intact in all three divisions bilaterally. Mandibular strength intact. #7: Facial muscles symmetrical and strength intact. #8: Hearing grossly normal to voice. #9,10: Uvula and soft palate rise in the midline. Swallow and voice are normal. #11: Trapezius and sternomastoid strength intact bilaterally. #12: Tongue midline. No fasciculations or atrophy. SENSATION: Sensation to touch and pinprick is unremarkable MOTOR: Normal tone in the upper and lower extremity. Normal muscle bulk. No fasciculations. No abnormal movements or posturing. Muscle strength of the major groups in the upper extremities is 4/5. Muscle strength of the major groups in the lower extremities is 4/5. REFLEXES: Deep tendon reflexes are symmetrical. No pathological reflexes. CEREBELLAR/COORDINATION: Finger to nose is normal bilaterally. GAIT/STATION: deferred. Labs/Diagnostic Data Labs Test 02/02/25 15:54 02/02/25 09:47 02/02/25 08:30 02/01/25 19:00 Range/Units POC Glucose 255 H 70-106 mg/dl Influenza Type A Antigen Negative Negative Influenza Type B Antigen Negative Negative SARS-CoV-2 Antigen (Rapid) Negative NEGATIVE White Blood Count 14.4 #H 4.4-10.8 10^3/uL Red Blood Count 4.30 L 4.5-5.90 10^6/uL Hemoglobin 13.0 L 13.5-17.5 g/dL Hematocrit 37.5 #L 41.0-53.0 % Mean Corpuscular Volume 87.3 80.0-100.0 fL Mean Corpuscular Hemoglobin 30.2 28.0-32.0 pg Mean Corpuscular Hemoglobin Concent 34.6 32.0-36.0 g/dL Red Cell Distribution Width 14.0 11.8-14.3 % Platelet Count 398 140-450 10^3/uL Mean Platelet Volume 8.5 6.9-10.8 fL Neutrophils (%) (Auto) 74.4 37.0-80.0 % Lymphocytes (%) (Auto) 12.3 10.0-50.0 % Monocytes (%) (Auto) 13.0 H 0.0-12.0 % Eosinophils (%) (Auto) 0.2 0.0-7.0 % Basophils (%) (Auto) 0.1 0.0-2.0 % Neutrophils # (Auto) 10.7 H 1.6-8.6 10 ^3/uL Lymphocytes # (Auto) 1.8 0.4-5.4 10 ^3/uL Monocytes # (Auto) 1.9 H 0-1.3 10 ^3/uL Eosinophils # (Auto) 0 0-0.8 10 ^3/uL Basophils # (Auto) 0 0-0.2 10 ^3/uL Nucleated Red Blood Cells 0.0 % Sodium Level 138 136-145 mmol/L Potassium Level 3.9 3.5-5.1 mmol/L Chloride Level 99 98-107 mmol/L Carbon Dioxide Level 23 20-31 mmol/L Anion Gap 16 H 5-15 Blood Urea Nitrogen 110 *H 9-23 mg/dL Creatinine 6.97 H 0.700-1.30 mg/dL Glomerular Filtration Rate Calc 9 >90 mL/min BUN/Creatinine Ratio 15.8 10.0-20.0 Serum Glucose 67 #L 74-106 mg/dL Hemoglobin A1c 8.7 H <5.7 % A1C Calcium Level 9.3 8.7-10.4 mg/dL Total Bilirubin 0.3 0.2-1.0 mg/dL Aspartate Amino Transferase (AST) 14 13-40 U/L Alanine Aminotransferase (ALT) < 9 7-40 U/L Alkaline Phosphatase 61 46-116 U/L Ammonia < 10 L 11-32 umol/L Total Protein 6.7 5.7-8.2 g/dL Albumin 4.0 3.2-4.8 g/dL Vitamin D 25-Hydroxy 64.3 30.0-100 ng/mL Parathyroid Hormone (Intact) 94.7 H 18.4-80.1 pg/mL Troponin I High Sensitivity 7 </=54 ng/L Plasma/Serum Blood Alcohol < 3.0 <10 mg/dL Assessment This is a difficult consultation Abnormal CT brain scan, the high attenuation lesion in the right basal ganglia region is likely calcification, less likely hemorrhage He had a stroke syndrome in 2020, but his CT brain scan showed multiple strokes involving bilateral basal ganglia regions, brainstem Dementia, likely vascular dementia, but need to rule out Alzheimer disease and other etiology Dysphagia, possibly secondary to multiple strokes Hypertensive encephalopathy Posterior reversible encephalopathy Plan/Recommendation Monitoring Supportive treatment Telemetry Vitamin B12, folic acid, TSH, FT4 MR head Aspirin 81 mg daily Lipitor 40 mg daily Aricept 5 mg daily Pantoprazole 40 mg daily Up to chair Physical therapy Nephrology on case/hemodialysis More recommendation per clinical course Progress: Poor This medical document was created using an electronic medical record system with [employer] dictation system. Although this document has been carefully reviewed, there may still be some phonetic and typographical errors. These areas are purely typographical due to imperfections of the software programs, and do not reflect any compromise in the patient's medical care. Plan discussed with: Other YURY MARQUEZ MD Feb 02, 2025 19:10
[2025-02-02] MEDS ORDERED: LORazepam 2MG/ML-1ML VIAL IV PRN (20:00)
[2025-02-02 20:40] LABS: Cholesterol 124 mg/dL (< 200)
[2025-02-02 20:43] LABS: HDL Cholesterol 38 mg/dL (40-59); Triglycerides 174 mg/dL (< 150)
[2025-02-02 20:44] LABS: Free T4 (Free Thyroxine) 1.26 ng/dL (0.89-1.76)
[2025-02-02] MEDS: SODIUM CHL 0.9% 1000 ML BAG XX ONE (22:29)
[2025-02-03] VITALS (8 sets, daily range): BP systolic 108–137; BP diastolic 62–83; PULSE 104–115; RESP 16–18; TEMP 97.7–98.6; O2SAT 94–99
[2025-02-03] MEDS: GABAPENTIN 100 MG CAP PO SCH (06:00)
[2025-02-03] MEDS: SODIUM CHL 0.9% 1000 ML BAG XX ONE (07:00)
[2025-02-03 08:33] LABS: Hematocrit 37.0 % (41.0-53.0); Hemoglobin 12.9 g/dL (13.5-17.5); Mean Corpuscular Hemoglobin 30.9 pg (28.0-32.0); Mean Corpuscular Volume 89.0 fL (80.0-100.0); Nucleated Red Blood Cells % 0.0 %
[2025-02-03 08:50] LABS: Anion Gap 14 (5-15); Carbon Dioxide 25 mmol/L (20-31); Potassium 3.6 mmol/L (3.5-5.1); Sodium 137 mmol/L (136-145)
[2025-02-03 08:52] LABS: Calcium 9.0 mg/dL (8.7-10.4)
[2025-02-03 08:54] LABS: Chloride 98 mmol/L (98-107)
--- NOTE | 2025-02-03 08:56 | DVH ---
EXAM: CT HEAD WITHOUT CONTRAST INDICATION: F/u on subcm focus in R IC/thalamus r/o hemmorhage TECHNIQUE: CT of the head without intravenous contrast. Coronal and sagittal reformatted images are s ubmitted. Radiation Dose : 1. Head: CT Dose: CTDI volume is 51.7 mGy. Dose-length product is 826.9 mGy*cm The dose indicators for CT are the volume Computed Tomography (CT) Dose Index (CTDIvol) and the Dose Length Product (DLP), and are measured in units of mGy and mGy-cm, respectively. These indicators are not patient dose, but values generated from the CT scanner acquisition factors. The report includes radiation exposure data for exposures received during this examination. All CT scans at this medical facility are performed using dose modulation techniques as appropriate to a performed exam including the following: Automated exposure control was utilized; adjustment of the MA and/or KV according to patient size; and use of iterative reconstruction technique. COMPARISON: CT HEAD WITHOUT CONTRAST on DOS: 02/02/25, CT HEAD WITHOUT CONTRAST on DOS: 02/02/25 FINDINGS: 8 x 8 mm rounded hyperattenuating focus in the right thalamus / internal capsule is similar in appear ance and size compared to the prior study. No new intracranial hemorrhage. There is no evidence of a cute extra-axial collection, mass effect, midline shift, herniation or hydrocephalus. Chronic lacunar infarcts in the bilateral basal ganglia and thalami. The ventricles, sulci and cisterns are age appropriate. The hurley-white differentiation is intact. The visualized paranasal sinuses and mastoid air cells are clear. No depressed calvarial fracture. The surrounding soft tissues are unremarkable. IMPRESSION: 1. No significant interval change.
[2025-02-03 08:57] LABS: BUN/Creatinine Ratio 12.1 (10.0-20.0)
[2025-02-03 09:00] LABS: Blood Urea Nitrogen 57 mg/dL (9-23); Glucose 160 mg/dL (74-106)
--- NOTE | 2025-02-03 09:46 | DVH ---
CLINICAL INDICATION: CVA, abnormal CT head COMPARISON: CT HEAD WITHOUT CONTRAST on DOS: 02/03/25, CT HEAD WITHOUT CONTRAST on DOS: 02/02/25, CT HEAD WITHOUT CONTRAST on DOS: 02/02/25 TECHNIQUE: Multisequence multiplanar MRI images of the brain were obtained without contrast. FINDINGS: Acute lacunar infarct in the right side of the nancy measuring up to 0.6 cm. Acute lacunar infarct in the left periventricular white matter adjacent to the body of the left ventricle measuring up to 0.8 cm. Multifocal small areas of hypointense gradient echo signal, including in the bilateral basal ganglia, bilateral thalami, right greater than left, posterior left temporal lobe, and nancy fr om prior hemorrhage, with likely small subacute hemorrhage in the right thalamus when correlated with recent CT exams. Scattered areas of T2/FLAIR hyperintense signal in the periventricular and subcorti calos white matter, as well as in the nancy and basal ganglia are nonspecific, but most likely sequelae of chronic small vessel ischemic disease and lacunar infarcts. No mass or midline shift. Ventricles a nd sulci are within normal limits. Basal cisterns are patent. Paranasal sinuses are clear. Right batsheva s prosthesis incidentally noted. Orbits are otherwise grossly unremarkable. IMPRESSION: 1. Small chronic lacunar infarcts are seen in the right side of the nancy and left periventricular whi te matter. 2. Multifocal chronic ischemic changes as detailed above. 3. Multifocal areas of hemosiderin deposition from prior small hemorrhages. 4. Additional findings as detailed above.
[2025-02-03 11:34] LABS: Hepatitis B Surface Antigen Negative (Negative); Hepatitis C Antibody Negative (Negative)
[2025-02-03] MEDS: PANTOPRAZOLE 40 MG/10 ML VIAL INJ IV SCH (13:54)
[2025-02-03] MEDS: BACLOFEN 10 MG TAB PO SCH (13:55)
--- NOTE | 2025-02-03 16:47 | DVHPN2 ---
Progress Note - Dictate Date Seen: Feb 03, 2025 Medical Necessity Reason Pt with a Central, PICC or Fol: No vital signs Vital Sign Date Time Temp Pulse Resp B/P (MAP) Pulse Ox O2 Delivery O2 Flow Rate FiO2 02/03/25 13:00 98.6 115 16 118/64 (82) 95 98.6 02/03/25 08:00 Room Air* 0 21 Total Intake and Output 02/02/25 02/02/25 02/03/25 15:00 23:00 07:00 Intake Total 250 ml 0 ml Output Total 450 ml 50 ml Balance -200 ml -50 ml medications Current Medications Medications Dose Ordered Sig/Kellen Route Start Time Stop Time Status Last Admin Dose Admin Diagnostic Test (Pha) 1 strip IQ4HR 02/02/25 04:00 02/03/25 12:13 1 STRIP Insulin Human Regular IQ4HR SC 02/02/25 04:00 02/03/25 12:13 2 UNITS Dextrose 50 ml UD PRN IV 02/02/25 01:00 Baclofen 5 mg BID PO 02/03/25 10:00 02/03/25 13:55 5 MG Gabapentin 100 mg TID PO 02/03/25 06:00 02/03/25 13:54 100 MG Amlodipine Besylate 10 mg DAILY PO 02/03/25 10:00 Pantoprazole Sodium 40 mg DAILY IV 02/03/25 10:00 02/03/25 13:54 40 MG Lorazepam 1 mg ONCE PRN IV 02/02/25 20:00 Aspirin 81 mg DAILY PO 02/03/25 10:00 02/03/25 13:54 81 MG Atorvastatin Calcium 40 mg HS PO 02/03/25 22:00 Donepezil HCl 5 mg HS PO 02/03/25 22:00 objective Chronically ill-appearing patient HEENT: No evidence of JVD, no oral ulcers. Pulmonary: Lungs are clear on auscultation bilaterally Cardiovascular S1-S2, no S3 or S4 Abdomen: Bowel sounds positive, soft no rebound tenderness Skin: No rash Neurological: Alert, oriented, no focal weakness laboratory and microbiology Laboratory Tests 02/03/25 06:59 Test 02/03/25 06:59 Range/Units Serum Glucose 160 H 74-106 mg/dL Assessment/Plan Assessment: End-stage renal disease Improving uremia Hypertension, uncontrolled Acidemia managed with dialysis Hyperkalemia managed with dialysis Subcentimeter hypoattenuating lesion on CT History of CVA Anemia of Chronic kidney disease Plan: Hemodialysis today then Saturday Fluid restriction less than 1 L per day Neurology consult We will not use heparin Resume antihypertensive meds Thank you very much for allowing us to participate in the care of this patient please contact if you have any questions. Plan discussed with: Patient CECIL BELL MD Feb 03, 2025 16:47
--- NOTE | 2025-02-03 19:38 | DVHPNRES ---
Progress Note Date Seen: Feb 03, 2025 Resident Creating Document: CHAU SYKES RESIDENT Medical Necessity Reason Pt with a Central, PICC or Fol: No Subjective Review of Systems Siddhartha Whaley is a 59 year old male with past medical history of DM2, HTN, CVA (2023), Dementia and, CKD stage 5 (Dialysis MWF at [facility]). The patient was brought to the ED by the EMS team with chief complaint of 3 days of generalized weakness, difficulty to swallow and high blood pressure. Family member on site reports that the patient has missed his last 2 dialysis session due to feeling weak and tired. Initial evaluation in the ED showed blood pressure of 177/116 and a blood glucose of 331 mg/dl. Non contrast head CT scan showed: Subcentimeter hyperattenuating focus within the right internal capsule/thalamus may represent small intraparenchymal hemorrhage, or calcification. Correlate with symptoms and consider 6-8 hour follow-up head CT for reassessment, numerous hypodense foci within deep white matter and basal ganglia consistent with age indeterminate, but probably chronic lacunar infarcts. Underlying sequela of mild chronic microangiopathy. The patient denies fever, chills, diarrhea, nausea, vomit, sick contacts or other symptoms. 02/02/25 Patient seen at bedside. Patient is alert times 1, he is not oriented to place or time. Patient is a poor historian. Talked to the sister and she states that the patient has been having hiccups since July, has had dementia since 1 year, and underwent a stroke last year and also started having choking symptoms and having trouble swallowing since 1 week. Last week he was walking fine but now has been having balance problems, and is a fall risk, has had no trauma to the head. Yesterday he was too weak to go to the dialysis appointment. Repeat head CT shows Stable 8 mm hyperattenuating focus in the right internal capsule/ thalamus without any significant change. The etiology remains unclear since this has not changed. Patient has undergone dialysis today. Given baclofen 5 mg b.i.d. and gabapentin 100 mg t.i.d. eval was placed. Pureed diet was started. 02/03/2025 Patient seen at bedside. Patient is alert x1. General appearance is better than yesterday. PT eval medical driver. Social service consult case SNF placement. Wound consult placed for redness in the sacrum. Alvino Francesca 5 mg p.o., atorvastatin 40 mg p.o., aspirin 81 mg p.o. started. Richardson's was placed. hepatitis panel negative, influenza and COVID negative. Neuro on board. Nephrology on board. Objective vital signs Vital Sign Date Time Temp Pulse Resp B/P (MAP) Pulse Ox O2 Delivery O2 Flow Rate FiO2 02/03/25 17:00 98.3 105 18 129/80 (96) 99 98.3 02/03/25 08:00 Room Air* 0 21 Total Intake and Output 02/02/25 02/02/25 02/03/25 15:00 23:00 07:00 Intake Total 250 ml 0 ml Output Total 450 ml 50 ml Balance -200 ml -50 ml medications Current Medications Medications Dose Ordered Sig/Kellen Route Start Time Stop Time Status Last Admin Dose Admin Diagnostic Test (Pha) 1 strip IQ4HR 02/02/25 04:00 02/03/25 16:00 1 STRIP Insulin Human Regular IQ4HR SC 02/02/25 04:00 02/03/25 17:30 2 UNITS Dextrose 50 ml UD PRN IV 02/02/25 01:00 Baclofen 5 mg BID PO 02/03/25 10:00 02/03/25 13:55 5 MG Gabapentin 100 mg TID PO 02/03/25 06:00 02/03/25 13:54 100 MG Amlodipine Besylate 10 mg DAILY PO 02/03/25 10:00 Pantoprazole Sodium 40 mg DAILY IV 02/03/25 10:00 02/03/25 13:54 40 MG Lorazepam 1 mg ONCE PRN IV 02/02/25 20:00 Aspirin 81 mg DAILY PO 02/03/25 10:00 02/03/25 13:54 81 MG Atorvastatin Calcium 40 mg HS PO 02/03/25 22:00 Donepezil HCl 5 mg HS PO 02/03/25 22:00 Examination General: Patient alert and oriented in person, place and time. Patient following commands. Constant hiccuping HEENT: Normocephalic, atraumatic, moist mucous membranes Respiratory/pulmonary: Clear lungs bilaterally, vesicular murmurs present in almost all lung islas, no associated crackles or wheezes. Cardiovascular: Normal heart sounds S1 and S2 with no associated murmurs Abdomen: Abdomen nondistended, there is no pain to palpation in any of the abdominal quadrants, no palpable masses. Extremities: There is no peripheral edema present at the lower extremities. Peripheral Pulses: 3+ Radial (R). 3+ Radial (L). 3+ Dorsalis pedis (R). 3+ Dorsalis pedis(L) Skin: Tunneled catheter, no draining pus, no signs of infection or inflammation Neurological: Intact cranial nerves with no focal neurologic deficits laboratory and microbiology Laboratory Tests 02/03/25 06:59 Test 02/03/25 06:59 Range/Units Serum Glucose 160 H 74-106 mg/dL Microbiology Date/Time Source Procedure Growth Status 02/02/25 01:36 Blood Blood Culture - Preliminary NO GROWTH AFTER 24 HOURS OF INCUBATION. Resulted Problem List/Assessment/Plan Problem List/Assessment/Plan # Hypertensive urgency-resolving - Amlodipine 10 mg po - Monitor BP # Reactive leukocytosis- monitorlab # ESRD on HD # Missed HD # Non compliance with HD # Uremia # Acidemia managed with dialysis # Hyperkalemia managed with dialysis # Anemia of Chronic kidney disease from ESRD - Dialysis MWF at [facility] - Monitor lab - HD today and [facility] - nephro consulted and stated Hemodialysis today then Saturday, Fluid restriction less than 1 L per day # Generalized weakness, rule out CVA # Hx of CVA - Head CT scan ,stable 8 mm hyperattenuating focus in the right internal capsule/ thalamus without any significant change - neuro consulted and recommended to give us a Aspirin 81 mg daily, Lipitor 40 mg daily, Aricept 5 mg daily # Hyponantremia -monitor lab # DM2 with hyperglycemia - Insulin sliding scale - HbA1C- 8.7 Purred diet PPI prophylaxis: Protonix 40 mg DVT Prophylaxis: None Goals of care discussed with patient for 27 minutes Patient is CODE :DNR/DNI, confirmed with sister Plan discussed with Dr. Vargas Plan discussed with: Patient My Orders My Orders Orders - CHAU SYKES Procedure Category Date Status Time Aspirin Tablet PHA 02/03/25 In Process 10:00 Atorvastatin (Lipitor) PHA 02/03/25 In Process 22:00 Donepezil Tablet PHA 02/03/25 In Process (Aricept Tablet) 22:00 * Wound Consult CONS 02/03/25 Transmitted * Rotary Bar Operator CONS 02/03/25 Transmitted Consult Apply Z-Guard NEHEMIAS 02/03/25 In Process 11:27 Date of Service: Feb 03, 2025 Billing Provider: KIMBER MORRIS MD Common Visit Codes: [id number] INP/OBS CARE(HIGH) CHAU SYKES RESIDENT Feb 03, 2025 19:38 KIMBER MORRIS MD Feb 15, 2025 02:44
--- NOTE | 2025-02-03 21:01 | DVHPN2 ---
Progress Note - Dictate Date Seen: Feb 03, 2025 Medical Necessity Reason Pt with a Central, PICC or Fol: No Subjective Mr. Torres is a 59 years old right-handed gentleman with a history of hypertension, diabetes, end-stage renal failure on hemodialysis, he was brought to the [facility] on 02/01/2025 with a chief complaint of general weakness, hypertension, dysphagia. I have seen and examined the patient, discussed with his nurse, he is awake, oriented to person place, his voice is very weak, he can only use sign to express himself Plasma alcohol, 02/01/2025: <3 CBC, 02/01/2025: Unremarkable BUN/CR, 02/02/2025: 110/6.97 GFR, 02/02/2025: 9 HGB A1c, 02/02/2025: Able to seven TG/HDL/LDL/HDL, 02/02/2025: 174/124/56/38 Vitamin B12, 02/03/25: 676 Folic acid, 02/03/2025: 9.28 TSH, 02/03/2025: 0.23 FT4, 02/03/2025: 1.26 CT head, 02/02/2025 0042: 1. Subcentimeter hyperattenuating focus within the right internal capsule/thalamus may represent small intraparenchymal hemorrhage, or calcification. Correlate with symptoms and consider 6-8 hour follow-up head CT for reassessment. 2. Numerous hypodense foci within deep white matter and basal ganglia consistent with age indeterminate, but probably chronic lacunar infarcts. 3. Underlying sequela of mild chronic microangiopathy. CT head, 02/02/2025 1100: 1. Stable 8 mm hyperattenuating focus in the right internal capsule/ thalamus without any significant change. The etiology remains unclear since this has not changed. Continued short-term follow-up with noncontrast CT of the head in 6-8 hours is suggested. 2. Additional nonacute findings similar to prior CT performed earlier same date. (Chronic lacunar infarcts in the bilateral basal ganglia and thalami, I also see evidence suggestive of of bilateral pontine lacunar strokes) MRI head, 02/03/2025: 1. Small chronic lacunar infarcts are seen in the right side of the nancy and left periventricular white matter. 2. Multifocal chronic ischemic changes as detailed above. 3. Multifocal areas of hemosiderin deposition from prior small hemorrhages. 4. Additional findings as detailed above. (Acute lacunar infarct in the right side of the nancy measuring up to 0.6 cm. Acute lacunar infarct in the left periventricular white matter adjacent to the body of the left ventricle measuring up to 0.8 cm.) vital signs Vital Sign Date Time Temp Pulse Resp B/P (MAP) Pulse Ox O2 Delivery O2 Flow Rate FiO2 02/03/25 20:41 98.2 112 18 108/63 (78) 98 98.2 02/03/25 08:00 Room Air* 0 21 Total Intake and Output 02/02/25 02/02/25 02/03/25 15:00 23:00 07:00 Intake Total 250 ml 0 ml Output Total 450 ml 50 ml Balance -200 ml -50 ml medications Current Medications Medications Dose Ordered Sig/Kellen Route Start Time Stop Time Status Last Admin Dose Admin Diagnostic Test (Pha) 1 strip IQ4HR 02/02/25 04:00 02/03/25 20:25 1 STRIP Insulin Human Regular IQ4HR SC 02/02/25 04:00 02/03/25 20:26 3 UNITS Dextrose 50 ml UD PRN IV 02/02/25 01:00 Baclofen 5 mg BID PO 02/03/25 10:00 02/03/25 13:55 5 MG Gabapentin 100 mg TID PO 02/03/25 06:00 02/03/25 13:54 100 MG Amlodipine Besylate 10 mg DAILY PO 02/03/25 10:00 Pantoprazole Sodium 40 mg DAILY IV 02/03/25 10:00 02/03/25 13:54 40 MG Lorazepam 1 mg ONCE PRN IV 02/02/25 20:00 Aspirin 81 mg DAILY PO 02/03/25 10:00 02/03/25 13:54 81 MG Atorvastatin Calcium 40 mg HS PO 02/03/25 22:00 Donepezil HCl 5 mg HS PO 02/03/25 22:00 objective General: the patient is well developed and nourished. No acute distress. MENTAL STATUS: Awake and alert. Oriented to person, place SPEECH, LANGUAGE, HIGHER CORTICAL FUNCTION: no aphasia or dysathria. CRANIAL NERVES: Pupils are equal, round and reactive. EOMs full and conjugate. Facial sensation intact in all three divisions bilaterally. Mandibular strength intact. Facial muscles symmetrical and strength intact. Tongue midline. No fasciculations or atrophy. SENSATION: Sensation to touch and pinprick is unremarkable MOTOR: Normal tone in the upper and lower extremity. Normal muscle bulk. No fasciculations. No abnormal movements or posturing. Muscle strength of the major groups in the extremities is 4/5. REFLEXES: Deep tendon reflexes are symmetrical. No pathological reflexes. CEREBELLAR/COORDINATION: Finger to nose is normal bilaterally. GAIT/STATION: deferred laboratory and microbiology Laboratory Tests 02/03/25 06:59 Test 02/03/25 06:59 Range/Units Serum Glucose 160 H 74-106 mg/dL Problem List A high attenuation CT lesion in the right basal ganglia region is likely calcification Acute stroke in the nancy and left basal ganglia region Chronic multiple strokes/lacunar infarcts in bilateral basal ganglia reason Dementia, likely vascular dementia, but need to rule out Alzheimer disease and other etiology Dysphagia, possibly secondary to multiple strokes Hypertensive encephalopathy Assessment/Plan Monitoring Supportive treatment Telemetry UDS SHARMILA Aspirin 81 mg daily Plavix 75 mg q.d. for 21 days Lipitor 40 mg daily Aricept 5 mg daily Pantoprazole 40 mg daily Up to chair Physical therapy Nephrology on case/hemodialysis More recommendation per clinical course This medical document was created using an electronic medical record system with [employer] dictation system. Although this document has been carefully reviewed, there may still be some phonetic and typographical errors. These areas are purely typographical due to imperfections of the software programs, and do not reflect any compromise in the patient's medical care Prognosis poor Plan discussed with: Other Total Time (mins): 35 YURY MARQUEZ MD Feb 03, 2025 21:01
--- NOTE | 2025-02-03 21:58 | DVH ---
Carotid Duplex Date: 02/03/2025 09:26 PM Clinical History: CVA Comparison: None Technique: Duplex Doppler evaluation of the extracranial carotid and vertebral arteries including col or Doppler and spectral/pulsed waveform analysis was performed. Findings: RIGHT SIDE: The peak systolic velocities are 67 cm/s in the distal CCA and 75 cm/s in the proximal ICA.The ICA/CC A ratio is normal. The distal right ICA is not visualized The external carotid artery is patent with peak systolic velocity of 67 cm/s proximally. There is appropriate antegrade flow in the right vertebral artery. LEFT SIDE: The peak systolic velocities are 72 cm/s in the distal CCA and 32 cm/s in the proximal ICA. The ICA/C CA ratio is normal. The mid and distal left ICA is not visualized The external carotid artery is patent with peak systolic velocity of 42 cm/s proximally. There is appropriate antegrade flow in the left vertebral artery. IMPRESSION: Left mid and distal ICAs are not well-visualized with the distal right ICA not well-visualized. Othe rwise, No hemodynamically significant stenosis within the visualized bilateral carotid arterial syste ms. Reference: Radiology 2003; 229:340-346
[2025-02-03] MEDS: DONEPEZIL HYDROCHLORIDE 5 MG TAB PO SCH (22:21)
[2025-02-03] MEDS: ATORVASTATIN 20 MG TAB PO SCH (22:21)
[2025-02-03] MEDS: CLOPIDOGREL BISULFATE 75 MG TAB PO ONE (22:32)
[2025-02-04] VITALS (8 sets, daily range): BP systolic 105–145; BP diastolic 62–93; PULSE 91–136; RESP 14–18; TEMP 97.4–98.2; O2SAT 94–99
[2025-02-04 06:47] LABS: Hematocrit 37.4 % (41.0-53.0); Hemoglobin 12.9 g/dL (13.5-17.5); Mean Corpuscular Hemoglobin 30.5 pg (28.0-32.0); Mean Corpuscular Volume 88.3 fL (80.0-100.0); Nucleated Red Blood Cells % 0.0 %
[2025-02-04 06:58] LABS: Potassium 3.6 mmol/L (3.5-5.1); Sodium 138 mmol/L (136-145)
[2025-02-04 06:59] LABS: Anion Gap 14 (5-15); Carbon Dioxide 28 mmol/L (20-31)
[2025-02-04 07:00] LABS: Calcium 9.0 mg/dL (8.7-10.4)
[2025-02-04 07:05] LABS: BUN/Creatinine Ratio 8.3 (10.0-20.0); Blood Urea Nitrogen 39 mg/dL (9-23); Chloride 96 mmol/L (98-107); Glucose 131 mg/dL (74-106)
--- NOTE | 2025-02-04 07:27 | ECG ---
[facility] Test Date: 2025-02-02 Test Time: 10:04:23 Pat Name: ALEJANDRA MEJIA Department: Room: 0292 A Gender: M Emt P: rubén DE JESUS : 1965 Requested By: CHAU SYKES Order Number: [id number] Reading MD: Kapil Stout Measurements Intervals Bois D Arc Rate: 87 P: 85 IL: 152 QRS: 61 QRSD: 80 T: 84 QT: 374 QTc: 450 Interpretive Statements Sinus rhythm Anteroseptal infarct, old Electronically Signed On 02-08-2025 18:31:21 PDT by Kapil Stout Please click the below link to view image of tracing.
[2025-02-04] MEDS: CLOPIDOGREL BISULFATE 75 MG TAB PO SCH (12:36)
--- NOTE | 2025-02-04 14:04 | DVHPN2 ---
Progress Note - Dictate Date Seen: Feb 04, 2025 Medical Necessity Reason Pt with a Central, PICC or Fol: No Subjective Patient is sleeping today has no complaints vital signs Vital Sign Date Time Temp Pulse Resp B/P (MAP) Pulse Ox O2 Delivery O2 Flow Rate FiO2 02/04/25 12:39 137/83 02/04/25 09:00 97.4 107 18 96 97.4 02/03/25 20:00 Room Air* 0 21 Total Intake and Output 02/03/25 02/03/25 02/04/25 15:00 23:00 07:00 Intake Total 240 ml 760 ml 175 ml Output Total 25 ml 20 ml Balance 240 ml 735 ml 155 ml medications Current Medications Medications Dose Ordered Sig/Kellen Route Start Time Stop Time Status Last Admin Dose Admin Diagnostic Test (Pha) 1 strip IQ4HR 02/02/25 04:00 02/04/25 12:00 1 STRIP Insulin Human Regular IQ4HR SC 02/02/25 04:00 02/04/25 00:12 2 UNITS Dextrose 50 ml UD PRN IV 02/02/25 01:00 Baclofen 5 mg BID PO 02/03/25 10:00 02/04/25 12:36 5 MG Gabapentin 100 mg TID PO 02/03/25 06:00 02/04/25 06:04 100 MG Amlodipine Besylate 10 mg DAILY PO 02/03/25 10:00 02/04/25 12:39 10 MG Pantoprazole Sodium 40 mg DAILY IV 02/03/25 10:00 02/04/25 12:35 40 MG Lorazepam 1 mg ONCE PRN IV 02/02/25 20:00 Aspirin 81 mg DAILY PO 02/03/25 10:00 02/04/25 12:36 81 MG Atorvastatin Calcium 40 mg HS PO 02/03/25 22:00 02/03/25 22:21 40 MG Donepezil HCl 5 mg HS PO 02/03/25 22:00 02/03/25 22:21 5 MG Clopidogrel Bisulfate 75 mg DAILY PO 02/04/25 10:00 02/24/25 09:59 02/04/25 12:36 75 MG objective Chronically ill-appearing patient HEENT: No evidence of JVD, no oral ulcers. Pulmonary: Lungs are clear on auscultation bilaterally Cardiovascular S1-S2, no S3 or S4 Abdomen: Bowel sounds positive, soft no rebound tenderness Skin: No rash Neurological: Alert, oriented, no focal weakness laboratory and microbiology Laboratory Tests 02/04/25 05:45 Test 02/04/25 05:45 Range/Units Serum Glucose 131 H 74-106 mg/dL Assessment/Plan Assessment: End-stage renal disease Improving uremia Hypertension, uncontrolled Acidemia managed with dialysis Hyperkalemia managed with dialysis Subcentimeter hypoattenuating lesion on CT History of CVA Anemia of Chronic kidney disease Plan: Hemodialysis Saturday Fluid restriction less than 1 L per day Neurology consult We will not use heparin Resume antihypertensive meds Stable from the renal perspective Thank you very much for allowing us to participate in the care of this patient please contact if you have any questions. Plan discussed with: Patient CECIL BELL MD Feb 04, 2025 14:04
--- NOTE | 2025-02-04 15:59 | DVHINCON2 ---
Date Seen: Feb 04, 2025 Referring Physician MD Sunil Reason for Consultation Multiple strokes History of Present Illness This is a 59-year-old man who presented to the emergency room via EMS with a chief complaint of generalized weakness. The patient is somewhat a poor historian, he is A&O x 2. Per records family called 911 given generalized weakness for which he underwent a blood glucose level of 305 mg/dL. It appears he missed his hemodialysis treatment this past Saturday. He underwent a brain MRI revealing a right-sided acute lacunar infarct with small chronic lacunar infarcts in the right side of the anncy and left periventricular white matter as well as multifocal chronic ischemic changes. Neurology team referring patient for a transesophageal echocardiogram to rule out cardioembolic source. A 12 lead electrocardiogram revealed a sinus rhythm suggestive of left ventricular hypertrophy. Significant medical history includes history of cerebrovascular accident, hypertension, dyslipidemia, diabetes mellitus type 2, benign prostatic hyperplasia, end-stage renal disease on hemodialysis on , and dementia. Past Medical History Past medical history reviewed. No other significant than mentioned above. Past Surgical History Right upper chest Lane catheter Family History: Cerebrovascular accident (CVA) G8 FATHER FH: dementia G8 MOTHER Ischemic heart disease G8 FATHER Family History Unknown family history. Social History Per records there is no use of illicit drugs, tobacco, or alcohol. Allergies: Coded Allergies: NO KNOWN ALLERGIES (Unverified , 02/01/25) Home Meds Reported Medications Nifedipine (Nifedipine Er) 60 Mg Tab, 1 TAB PO DAILY, #30 TAB 5 Refills 02/02/25 Atorvastatin Calcium (ATORVASTATIN CALCIUM) 40 Mg Tab, 1 TAB PO QPM, #90 TAB 3 Refills 02/02/25 Tamsulosin Hcl (Tamsulosin Hcl) 0.4 Mg Cap, 0.4 MG PO QPM for 30 Days, MG 02/02/25 Donepezil Hydrochloride (DONEPEZIL HCL) 5 Mg Tab, 5 MG PO DAILY for 30 Days, MG 02/02/25 Pantoprazole Sodium Sesquihydr (Protonix) 40 Mg Tab, 40 MG PO, #30 TAB 02/02/25 Sucralfate (Sucralfate) 1 Gm Tab, 1 GM PO BID, GM 02/02/25 Sertraline Hcl (Sertraline Hcl) 50 Mg Tab, 50 MG PO DAILY for 30 Days, MG 02/02/25 Metoprolol Succinate (Metoprolol Succinate Er) 50 Mg Tab, 50 MG PO DAILY for 30 Days, MG 02/02/25 Pioglitazone Hydrochloride (PIOGLITAZONE HCL) 45 Mg Tab, 45 MG OR DAILY, TAB 02/02/25 Home Meds Home medications reviewed. Current Medications Current Medications Medications (Trade) Dose Ordered Sig/Kellen Route PRN Reason Start Time Stop Time Status Last Admin Atorvastatin Calcium (Lipitor) 40 mg HS PO 02/03/25 22:00 02/03/25 22:21 Donepezil HCl (Aricept Tablet) 5 mg HS PO 02/03/25 22:00 02/03/25 22:21 Clopidogrel Bisulfate (Plavix) 75 mg DAILY PO 02/04/25 10:00 02/24/25 09:59 02/04/25 12:36 Review of Systems Constitutional: Generalized weakness Ears, Nose, & Throat: No symptom reported Eyes: No symptom reported Neurological: No symptoms reported Pulmonary/Respiratory: No symptom reported Cardiovascular: No symptom reported Gastrointestinal: No symptom reported Genitourinary: No symptom reported Musculoskeletal: No symptom reported Skin: No symptom reported Psychiatric: No symptom reported Endocrine: No symptom reported Hemotologic/Lymphatic: No symptom reported Vital Signs Vital Signs Date Time Temp Pulse Resp B/P (MAP) Pulse Ox O2 Delivery O2 Flow Rate FiO2 02/04/25 13:00 97.7 91 14 137/83 (101) 97 97.7 02/03/25 20:00 Room Air* 0 21 Physical Exam General Appearance: Cooperative. +Dysphagia. Thin. In no acute distress Head Exam: Normal inspection Neck Exam: Normal inspection. Non-tender. Normal alignment Pulmonary/Respiratory: Chest non-tender. Clear bilateral breath sounds Cardiovascular/Chest: Regular rate and rhythm. S1, S2. SR suggestive of LVH. No murmurs. No JVD. Peripheral Pulses: 2+ Radial (R). 2+ Radial (L). 2+ Pedal (R). 2+ Pedal (L) Abdominal Exam: Normal bowel sounds. Soft. Nontender. No hepatospenomegaly. No masses Ankle Exam: Negative ankle edema Lower extremities: Negative lower extremity edema Neuro/Mental Status: A&O x2. Somewhat non-verbal, +dysphagia Thoughts/Psych: Unable to asses. Passive Appearance: In no acute distress Skin Exam: Normal inspection. Normal color. Warm. Dry Labs/Diagnostic Data Labs Test 02/04/25 11:35 02/04/25 05:45 02/03/25 06:59 02/02/25 09:47 Range/Units POC Glucose 138 H 70-106 mg/dl White Blood Count 10.1 4.4-10.8 10^3/uL Red Blood Count 4.24 L 4.5-5.90 10^6/uL Hemoglobin 12.9 L 13.5-17.5 g/dL Hematocrit 37.4 L 41.0-53.0 % Mean Corpuscular Volume 88.3 80.0-100.0 fL Mean Corpuscular Hemoglobin 30.5 28.0-32.0 pg Mean Corpuscular Hemoglobin Concent 34.6 32.0-36.0 g/dL Red Cell Distribution Width 14.1 11.8-14.3 % Platelet Count 317 140-450 10^3/uL Mean Platelet Volume 8.6 6.9-10.8 fL Neutrophils (%) (Auto) 72.0 37.0-80.0 % Lymphocytes (%) (Auto) 13.2 10.0-50.0 % Monocytes (%) (Auto) 13.6 H 0.0-12.0 % Eosinophils (%) (Auto) 0.8 0.0-7.0 % Basophils (%) (Auto) 0.4 0.0-2.0 % Neutrophils # (Auto) 7.3 1.6-8.6 10 ^3/uL Lymphocytes # (Auto) 1.3 0.4-5.4 10 ^3/uL Monocytes # (Auto) 1.4 H 0-1.3 10 ^3/uL Eosinophils # (Auto) 0.1 0-0.8 10 ^3/uL Basophils # (Auto) 0 0-0.2 10 ^3/uL Nucleated Red Blood Cells 0.0 % Sodium Level 138 136-145 mmol/L Potassium Level 3.6 3.5-5.1 mmol/L Chloride Level 96 L 98-107 mmol/L Carbon Dioxide Level 28 20-31 mmol/L Anion Gap 14 5-15 Blood Urea Nitrogen 39 #H 9-23 mg/dL Creatinine 4.72 H 0.700-1.30 mg/dL Glomerular Filtration Rate Calc 14 >90 mL/min BUN/Creatinine Ratio 8.3 L 10.0-20.0 Serum Glucose 131 H 74-106 mg/dL Calcium Level 9.0 8.7-10.4 mg/dL Hepatitis A IgM Antibody Negative Hepatitis B Surface Antigen Negative Negative Hepatitis B Core IgM Antibody Negative Negative Hepatitis C Antibody Negative Negative Influenza Type A Antigen Negative Negative Influenza Type B Antigen Negative Negative SARS-CoV-2 Antigen (Rapid) Negative NEGATIVE Test 02/02/25 08:30 02/01/25 19:00 Range/Units Hemoglobin A1c 8.7 H <5.7 % A1C Total Bilirubin 0.3 0.2-1.0 mg/dL Aspartate Amino Transferase (AST) 14 13-40 U/L Alanine Aminotransferase (ALT) < 9 7-40 U/L Alkaline Phosphatase 61 46-116 U/L Ammonia < 10 L 11-32 umol/L Total Protein 6.7 5.7-8.2 g/dL Albumin 4.0 3.2-4.8 g/dL Triglycerides Level 174 H < 150 mg/dL Cholesterol Level 124 < 200 mg/dL LDL Cholesterol 56 < 100 mg/dL HDL Cholesterol 38 L 40-59 mg/dL Vitamin B12 Level 676 211-911 pg/mL Vitamin D 25-Hydroxy 64.3 30.0-100 ng/mL Folic Acid 9.28 >5.38 ng/mL Thyroid Stimulating Hormone (TSH) 0.23 L 0.55-4.78 uIU/mL Free Thyroxine (T4) Calculated 1.26 0.89-1.76 ng/dL Parathyroid Hormone (Intact) 94.7 H 18.4-80.1 pg/mL Troponin I High Sensitivity 7 </=54 ng/L Plasma/Serum Blood Alcohol < 3.0 <10 mg/dL Microbiology Date/Time Source Procedure Growth Status 02/02/25 01:36 Blood Blood Culture - Preliminary NO GROWTH AFTER 48 HOURS OF INCUBATION. Resulted Assessment Acute CVA rule out cardioembolic source Hx of multiple chronic strokes Hypertensive urgency Diabetes mellitus type 2 ESRD on HD Medical noncompliance (missed HD) Plan/Recommendation (Dr. Orellana) Scheduled for a transesophageal echocardiogram at first available. All risks and benefits of the procedure were discussed with next of kin Jocelyne Garcia (sister) who agrees to proceed with intervention. All questions answered. In the meantime, continue aggressive blood pressure control and neurological/Nephrology recommendations. Thank you for allowing us to participate in this patient's care. Please call if you have any questions or concerns. This medical document was created using an electronic medical record system with voice recognition software and computerized dictation system. Although this document has been carefully reviewed, there might still be some phonetic and typographical errors. Occasional wrong-word or ``sound-alike substitutions may have occurred due to the inherent limitations of voice recognition software. These areas are purely typographical due to imperfections of the software programs and do not reflect any compromise in the patient's medical care. Please read the chart carefully and recognize, using context, where these substitutions have occurred. Plan discussed with: Patient, Other NYHA Physical activity limitations: NA Date of Service: Feb 04, 2025 Billing Provider: ELBA GONZALEZ Cardiology Common Codes: [id number] INP/OBS CARE (High) ELBA GONZALEZ Feb 04, 2025 15:59
--- NOTE | 2025-02-04 17:44 | DVHPNRES ---
Progress Note Date Seen: Feb 04, 2025 Resident Creating Document: CHAU SYKES RESIDENT Medical Necessity Reason Pt with a Central, PICC or Fol: No Subjective Review of Systems Siddhartha Whaley is a 59 year old male with past medical history of DM2, HTN, CVA (2023), Dementia and, CKD stage 5 (Dialysis MWF at [facility]). The patient was brought to the ED by the EMS team with chief complaint of 3 days of generalized weakness, difficulty to swallow and high blood pressure. Family member on site reports that the patient has missed his last 2 dialysis session due to feeling weak and tired. Initial evaluation in the ED showed blood pressure of 177/116 and a blood glucose of 331 mg/dl. Non contrast head CT scan showed: Subcentimeter hyperattenuating focus within the right internal capsule/thalamus may represent small intraparenchymal hemorrhage, or calcification. Correlate with symptoms and consider 6-8 hour follow-up head CT for reassessment, numerous hypodense foci within deep white matter and basal ganglia consistent with age indeterminate, but probably chronic lacunar infarcts. Underlying sequela of mild chronic microangiopathy. The patient denies fever, chills, diarrhea, nausea, vomit, sick contacts or other symptoms. 02/02/25 Patient seen at bedside. Patient is alert times 1, he is not oriented to place or time. Patient is a poor historian. Talked to the sister and she states that the patient has been having hiccups since July, has had dementia since 1 year, and underwent a stroke last year and also started having choking symptoms and having trouble swallowing since 1 week. Last week he was walking fine but now has been having balance problems, and is a fall risk, has had no trauma to the head. Yesterday he was too weak to go to the dialysis appointment. Repeat head CT shows Stable 8 mm hyperattenuating focus in the right internal capsule/ thalamus without any significant change. The etiology remains unclear since this has not changed. Patient has undergone dialysis today. Given baclofen 5 mg b.i.d. and gabapentin 100 mg t.i.d. eval was placed. Pureed diet was started. 02/03/2025 Patient seen at bedside. Patient is alert x1. General appearance is better than yesterday. PT eval placed. Social service consult case SNF placement. Wound consult placed for redness in the sacrum. Alvino September 5 mg p.o., atorvastatin 40 mg p.o., aspirin 81 mg p.o. started. [facility] was placed. hepatitis panel negative, influenza and COVID negative. Neuro on board. Nephrology on board. 02/04/25 Patient seen at bedside. Patient is alert x1. General appearance is better than yesterday. Patient stopped hicupping, as per nurse patient had trouble s wallowing 1 pill and coughed a few times but after giving a 2nd pill slowly he was fine. PT eval placed . Neuro on board. Nephrology on board. On word and recommended TTE. Waiting for SNF placement consult. Objective vital signs Vital Sign Date Time Temp Pulse Resp B/P (MAP) Pulse Ox O2 Delivery O2 Flow Rate FiO2 02/04/25 16:57 98.1 101 18 120/69 (86) 99 98.1 02/03/25 20:00 Room Air* 0 21 Total Intake and Output 02/03/25 02/03/25 02/04/25 15:00 23:00 07:00 Intake Total 240 ml 760 ml 175 ml Output Total 25 ml 20 ml Balance 240 ml 735 ml 155 ml medications Current Medications Medications Dose Ordered Sig/Kellen Route Start Time Stop Time Status Last Admin Dose Admin Diagnostic Test (Pha) 1 strip IQ4HR 02/02/25 04:00 02/04/25 12:00 1 STRIP Insulin Human Regular IQ4HR SC 02/02/25 04:00 02/04/25 00:12 2 UNITS Dextrose 50 ml UD PRN IV 02/02/25 01:00 Baclofen 5 mg BID PO 02/03/25 10:00 02/04/25 12:36 5 MG Gabapentin 100 mg TID PO 02/03/25 06:00 02/04/25 06:04 100 MG Amlodipine Besylate 10 mg DAILY PO 02/03/25 10:00 02/04/25 12:39 10 MG Pantoprazole Sodium 40 mg DAILY IV 02/03/25 10:00 02/04/25 12:35 40 MG Lorazepam 1 mg ONCE PRN IV 02/02/25 20:00 Aspirin 81 mg DAILY PO 02/03/25 10:00 02/04/25 12:36 81 MG Atorvastatin Calcium 40 mg HS PO 02/03/25 22:00 02/03/25 22:21 40 MG Donepezil HCl 5 mg HS PO 02/03/25 22:00 02/03/25 22:21 5 MG Clopidogrel Bisulfate 75 mg DAILY PO 02/04/25 10:00 02/24/25 09:59 02/04/25 12:36 75 MG Examination General: Patient alert and oriented in person, place and time. Patient following commands. HEENT: Normocephalic, atraumatic, moist mucous membranes Respiratory/pulmonary: Clear lungs bilaterally, vesicular murmurs present in almost all lung islas, no associated crackles or wheezes. Cardiovascular: Normal heart sounds S1 and S2 with no associated murmurs Abdomen: Abdomen nondistended, there is no pain to palpation in any of the abdominal quadrants, no palpable masses. Extremities: There is no peripheral edema present at the lower extremities. Peripheral Pulses: 3+ Radial (R). 3+ Radial (L). 3+ Dorsalis pedis (R). 3+ Dorsalis pedis(L) Skin: Tunneled catheter, no draining pus, no signs of infection or inflammation Neurological: Intact cranial nerves with no focal neurologic deficits laboratory and microbiology Laboratory Tests 02/04/25 05:45 Test 02/04/25 05:45 Range/Units Serum Glucose 131 H 74-106 mg/dL Microbiology Date/Time Source Procedure Growth Status 02/02/25 01:36 Blood Blood Culture - Preliminary NO GROWTH AFTER 48 HOURS OF INCUBATION. Resulted Problem List/Assessment/Plan Problem List/Assessment/Plan # Hypertensive urgency-resolving - Amlodipine 10 mg po - Monitor BP # Reactive leukocytosis- monitorlab # ESRD on HD # Missed HD # Non compliance with HD # Uremia # Acidemia managed with dialysis # Hyperkalemia managed with dialysis # Anemia of Chronic kidney disease from ESRD - Dialysis MWF at [facility] - Monitor lab - HD today and tommorrow - nephro consulted and stated Hemodialysis today then Saturday, Fluid restriction less than 1 L per day # Generalized weakness, rule out CVA # Hx of CVA - Head CT scan ,stable 8 mm hyperattenuating focus in the right internal capsule/ thalamus without any significant change - neuro consulted and recommended to give us a Aspirin 81 mg daily, Lipitor 40 mg daily, Aricept 5 mg daily - cardio consulted and recommended transesophageal echocardiogram at first available # Hyponantremia -monitor lab # DM2 with hyperglycemia - Insulin sliding scale - HbA1C- 8.7 Purred diet PPI prophylaxis: Protonix 40 mg DVT Prophylaxis: None Goals of care discussed with patient for 27 minutes Patient is CODE :DNR/DNI, confirmed with sister Plan discussed with Dr. Vargas Plan discussed with: Patient, Other (RN) My Orders My Orders Orders - CHAU SYKES Procedure Category Date Status Time Apply [facility] 02/03/25 In Process 11:27 Date of Service: Feb 04, 2025 Billing Provider: KIMBER MORRIS MD Common Visit Codes: [id number] INP/OBS CARE(HIGH) CHAU SYKES Feb 04, 2025 17:44 KIMBER MORRIS MD Feb 15, 2025 02:52
--- NOTE | 2025-02-04 21:13 | DVHINCON2 ---
Date Seen: Feb 04, 2025 Referring Physician MD Sunil Reason for Consultation Multiple strokes History of Present Illness This is a 59-year-old male with a PMH of cerebrovascular accident, hypertension, dyslipidemia, diabetes mellitus type 2, benign prostatic hyperplasia, end-stage renal disease on hemodialysis on , and dementia who is brought in by EMS with complaint of generalized weakness. The patient is somewhat a poor historian, he is A&O x 2. Per records family called 911 given generalized weakness for which he underwent a blood glucose level of 305 mg/dL. It appears he missed his hemodialysis treatment this past Saturday. He underwent a brain MRI revealing a right-sided acute lacunar infarct with small chronic lacunar infarcts in the right side of the nancy and left periventricular white matter as well as multifocal chronic ischemic changes. Neurology team referring patient for a transesophageal echocardiogram to rule out cardioembolic source. A 12 lead electrocardiogram revealed a sinus rhythm suggestive of left ventricular hypertrophy. Past Medical History Past medical history reviewed. No other significant than mentioned above. Past Surgical History Right upper chest Lane catheter Family History: Cerebrovascular accident (CVA) G8 FATHER FH: dementia G8 MOTHER Ischemic heart disease G8 FATHER Allergies: Coded Allergies: NO KNOWN ALLERGIES (Unverified , 02/01/25) Home Meds Reported Medications Nifedipine (Nifedipine Er) 60 Mg Tab, 1 TAB PO DAILY, #30 TAB 5 Refills 02/02/25 Atorvastatin Calcium (ATORVASTATIN CALCIUM) 40 Mg Tab, 1 TAB PO QPM, #90 TAB 3 Refills 02/02/25 Tamsulosin Hcl (Tamsulosin Hcl) 0.4 Mg Cap, 0.4 MG PO QPM for 30 Days, MG 02/02/25 Donepezil Hydrochloride (DONEPEZIL HCL) 5 Mg Tab, 5 MG PO DAILY for 30 Days, MG 02/02/25 Pantoprazole Sodium Sesquihydr (Protonix) 40 Mg Tab, 40 MG PO, #30 TAB 02/02/25 Sucralfate (Sucralfate) 1 Gm Tab, 1 GM PO BID, GM 02/02/25 Sertraline Hcl (Sertraline Hcl) 50 Mg Tab, 50 MG PO DAILY for 30 Days, MG 02/02/25 Metoprolol Succinate (Metoprolol Succinate Er) 50 Mg Tab, 50 MG PO DAILY for 30 Days, MG 02/02/25 Pioglitazone Hydrochloride (PIOGLITAZONE HCL) 45 Mg Tab, 45 MG OR DAILY, TAB 02/02/25 Current Medications Current Medications Medications (Trade) Dose Ordered Sig/Kellen Route PRN Reason Start Time Stop Time Status Last Admin Atorvastatin Calcium (Lipitor) 40 mg HS PO 02/03/25 22:00 02/03/25 22:21 Donepezil HCl (Aricept Tablet) 5 mg HS PO 02/03/25 22:00 02/03/25 22:21 Clopidogrel Bisulfate (Plavix) 75 mg DAILY PO 02/04/25 10:00 02/24/25 09:59 02/04/25 12:36 Review of Systems Constitutional: Generalized weakness Ears, Nose, & Throat: No symptom reported Eyes: No symptom reported Neurological: No symptoms reported Pulmonary/Respiratory: No symptom reported Cardiovascular: No symptom reported Gastrointestinal: No symptom reported Genitourinary: No symptom reported Musculoskeletal: No symptom reported Skin: No symptom reported Psychiatric: No symptom reported Endocrine: No symptom reported Hemotologic/Lymphatic: No symptom reported Vital Signs Vital Signs Date Time Temp Pulse Resp B/P (MAP) Pulse Ox O2 Delivery O2 Flow Rate FiO2 02/04/25 16:57 98.1 101 18 120/69 (86) 99 98.1 02/04/25 08:00 Room Air* 0 21 Physical Exam GENERAL: A&O x2. Somewhat non-verbal, +dysphagia EYES: PERRL, EOMI. Anicteric. HENT: Moist mucous membranes. LUNGS: Clear to auscultation bilaterally. CARDIOVASCULAR: Regular rate and rhythm. ABDOMEN: Soft, non-tender and non-distended. EXTREMITIES: No edema. SKIN: Warm, dry. Labs/Diagnostic Data Labs Test 02/04/25 18:08 02/04/25 05:45 02/03/25 06:59 02/02/25 09:47 Range/Units POC Glucose 320 H 70-106 mg/dl White Blood Count 10.1 4.4-10.8 10^3/uL Red Blood Count 4.24 L 4.5-5.90 10^6/uL Hemoglobin 12.9 L 13.5-17.5 g/dL Hematocrit 37.4 L 41.0-53.0 % Mean Corpuscular Volume 88.3 80.0-100.0 fL Mean Corpuscular Hemoglobin 30.5 28.0-32.0 pg Mean Corpuscular Hemoglobin Concent 34.6 32.0-36.0 g/dL Red Cell Distribution Width 14.1 11.8-14.3 % Platelet Count 317 140-450 10^3/uL Mean Platelet Volume 8.6 6.9-10.8 fL Neutrophils (%) (Auto) 72.0 37.0-80.0 % Lymphocytes (%) (Auto) 13.2 10.0-50.0 % Monocytes (%) (Auto) 13.6 H 0.0-12.0 % Eosinophils (%) (Auto) 0.8 0.0-7.0 % Basophils (%) (Auto) 0.4 0.0-2.0 % Neutrophils # (Auto) 7.3 1.6-8.6 10 ^3/uL Lymphocytes # (Auto) 1.3 0.4-5.4 10 ^3/uL Monocytes # (Auto) 1.4 H 0-1.3 10 ^3/uL Eosinophils # (Auto) 0.1 0-0.8 10 ^3/uL Basophils # (Auto) 0 0-0.2 10 ^3/uL Nucleated Red Blood Cells 0.0 % Sodium Level 138 136-145 mmol/L Potassium Level 3.6 3.5-5.1 mmol/L Chloride Level 96 L 98-107 mmol/L Carbon Dioxide Level 28 20-31 mmol/L Anion Gap 14 5-15 Blood Urea Nitrogen 39 #H 9-23 mg/dL Creatinine 4.72 H 0.700-1.30 mg/dL Glomerular Filtration Rate Calc 14 >90 mL/min BUN/Creatinine Ratio 8.3 L 10.0-20.0 Serum Glucose 131 H 74-106 mg/dL Calcium Level 9.0 8.7-10.4 mg/dL Hepatitis A IgM Antibody Negative Hepatitis B Surface Antigen Negative Negative Hepatitis B Core IgM Antibody Negative Negative Hepatitis C Antibody Negative Negative Influenza Type A Antigen Negative Negative Influenza Type B Antigen Negative Negative SARS-CoV-2 Antigen (Rapid) Negative NEGATIVE Test 02/02/25 08:30 02/01/25 19:00 Range/Units Hemoglobin A1c 8.7 H <5.7 % A1C Total Bilirubin 0.3 0.2-1.0 mg/dL Aspartate Amino Transferase (AST) 14 13-40 U/L Alanine Aminotransferase (ALT) < 9 7-40 U/L Alkaline Phosphatase 61 46-116 U/L Ammonia < 10 L 11-32 umol/L Total Protein 6.7 5.7-8.2 g/dL Albumin 4.0 3.2-4.8 g/dL Triglycerides Level 174 H < 150 mg/dL Cholesterol Level 124 < 200 mg/dL LDL Cholesterol 56 < 100 mg/dL HDL Cholesterol 38 L 40-59 mg/dL Vitamin B12 Level 676 211-911 pg/mL Vitamin D 25-Hydroxy 64.3 30.0-100 ng/mL Folic Acid 9.28 >5.38 ng/mL Thyroid Stimulating Hormone (TSH) 0.23 L 0.55-4.78 uIU/mL Free Thyroxine (T4) Calculated 1.26 0.89-1.76 ng/dL Parathyroid Hormone (Intact) 94.7 H 18.4-80.1 pg/mL Troponin I High Sensitivity 7 </=54 ng/L Plasma/Serum Blood Alcohol < 3.0 <10 mg/dL Microbiology Date/Time Source Procedure Growth Status 02/02/25 01:36 Blood Blood Culture - Preliminary NO GROWTH AFTER 48 HOURS OF INCUBATION. Resulted Assessment Acute CVA rule out cardioembolic source. History of multiple chronic strokes. Hypertensive urgency. Diabetes mellitus type 2. ESRD on HD. Medical noncompliance (missed HD). Plan/Recommendation I agree with your ongoing assessment and care of plan. Patient has been seen by Henny Dominguez NP on my behalf. We have discussed the plan with the patient. Scheduled for a transesophageal echocardiogram at first available. All risks and benefits of the procedure were discussed with next of kin Jocelyne Garcia (sister) who agrees to proceed with intervention. All questions answered. In the meantime, continue aggressive blood pressure control and neurological/Nephrology recommendations. Additional plan as per the hospital course. Plan discussed with: Patient, Other NYHA Physical activity limitations: NA Date of Service: Feb 04, 2025 Billing Provider: DESIREE BERNAL MD Cardiology Common Codes: [id number] INP/OBS CARE (High) Cardiology Consultation Codes: [id number] CONSULT <45MIN DESIREE BERNAL MD Feb 04, 2025 21:13
--- NOTE | 2025-02-04 22:37 | DVHPN2 ---
Progress Note - Dictate Date Seen: Feb 04, 2025 Medical Necessity Reason Pt with a Central, PICC or Fol: No Subjective Mr. Torres is a 59 years old right-handed gentleman with a history of hypertension, diabetes, end-stage renal failure on hemodialysis, he was brought to the [facility] on 02/01/2025 with a chief complaint of general weakness, hypertension, dysphagia. I have seen and examined the patient, discussed with his nurse, he is awake, oriented to person place, his voice is very weak, he can not express him properly Cardiology input appreciated Plasma alcohol, 02/01/2025: <3 CBC, 02/01/2025: Unremarkable BUN/CR, 02/02/2025: 110/6.97 GFR, 02/02/2025: 9 HGB A1c, 02/02/2025: Able to seven TG/HDL/LDL/HDL, 02/02/2025: 174/124/56/38 Vitamin B12, 02/03/25: 676 Folic acid, 02/03/2025: 9.28 TSH, 02/03/2025: 0.23 FT4, 02/03/2025: 1.26 Carotid doctor, 02/03/2025: Left mid and distal ICAs are not well-visualized with the distal right ICA not well-visualized. Otherwise, No hemodynamically significant stenosis within the visualized bilateral carotid arterial systems CT head, 02/02/2025 0042: 1. Subcentimeter hyperattenuating focus within the right internal capsule/thalamus may represent small intraparenchymal hemorrhage, or calcification. Correlate with symptoms and consider 6-8 hour follow-up head CT for reassessment. 2. Numerous hypodense foci within deep white matter and basal ganglia consistent with age indeterminate, but probably chronic lacunar infarcts. 3. Underlying sequela of mild chronic microangiopathy. CT head, 02/02/2025 1100: 1. Stable 8 mm hyperattenuating focus in the right internal capsule/ thalamus without any significant change. The etiology remains unclear since this has not changed. Continued short-term follow-up with noncontrast CT of the head in 6-8 hours is suggested. 2. Additional nonacute findings similar to prior CT performed earlier same date. (Chronic lacunar infarcts in the bilateral basal ganglia and thalami, I also see evidence suggestive of of bilateral pontine lacunar strokes) MRI head, 02/03/2025: 1. Small chronic lacunar infarcts are seen in the right side of the nancy and left periventricular white matter. 2. Multifocal chronic ischemic changes as detailed above. 3. Multifocal areas of hemosiderin deposition from prior small hemorrhages. 4. Additional findings as detailed above. (Acute lacunar infarct in the right side of the nancy measuring up to 0.6 cm. Acute lacunar infarct in the left periventricular white matter adjacent to the body of the left ventricle measuring up to 0.8 cm.) vital signs Vital Sign Date Time Temp Pulse Resp B/P (MAP) Pulse Ox O2 Delivery O2 Flow Rate FiO2 02/04/25 21:00 97.9 136 16 136/90 (105) 94 97.9 02/04/25 08:00 Room Air* 0 21 Total Intake and Output 02/03/25 02/03/25 02/04/25 15:00 23:00 07:00 Intake Total 240 ml 760 ml 175 ml Output Total 25 ml 20 ml Balance 240 ml 735 ml 155 ml medications Current Medications Medications Dose Ordered Sig/Kellen Route Start Time Stop Time Status Last Admin Dose Admin Diagnostic Test (Pha) 1 strip IQ4HR 02/02/25 04:00 02/04/25 21:32 1 STRIP Insulin Human Regular IQ4HR SC 02/02/25 04:00 02/04/25 21:44 4 UNITS Dextrose 50 ml UD PRN IV 02/02/25 01:00 Baclofen 5 mg BID PO 02/03/25 10:00 02/04/25 21:45 5 MG Gabapentin 100 mg TID PO 02/03/25 06:00 02/04/25 06:04 100 MG Amlodipine Besylate 10 mg DAILY PO 02/03/25 10:00 02/04/25 12:39 10 MG Pantoprazole Sodium 40 mg DAILY IV 02/03/25 10:00 02/04/25 12:35 40 MG Lorazepam 1 mg ONCE PRN IV 02/02/25 20:00 Aspirin 81 mg DAILY PO 02/03/25 10:00 02/04/25 12:36 81 MG Atorvastatin Calcium 40 mg HS PO 02/03/25 22:00 02/04/25 21:45 40 MG Donepezil HCl 5 mg HS PO 02/03/25 22:00 02/04/25 21:45 5 MG Clopidogrel Bisulfate 75 mg DAILY PO 02/04/25 10:00 02/24/25 09:59 02/04/25 12:36 75 MG objective General: the patient is well developed and nourished. No acute distress. MENTAL STATUS: Awake and alert. Oriented to person, place SPEECH, LANGUAGE, HIGHER CORTICAL FUNCTION: no aphasia or dysathria. CRANIAL NERVES: Pupils are equal, round and reactive. EOMs full and conjugate. Facial sensation intact in all three divisions bilaterally. Mandibular strength intact. Facial muscles symmetrical and strength intact. Tongue midline. No fasciculations or atrophy. SENSATION: Sensation to touch and pinprick is unremarkable MOTOR: Normal tone in the upper and lower extremity. Normal muscle bulk. No fasciculations. No abnormal movements or posturing. Muscle strength of the major groups in the extremities is 4/5. REFLEXES: Deep tendon reflexes are symmetrical. No pathological reflexes. CEREBELLAR/COORDINATION: Finger to nose is normal bilaterally. GAIT/STATION: deferred laboratory and microbiology Laboratory Tests 02/04/25 05:45 Test 02/04/25 05:45 Range/Units Serum Glucose 131 H 74-106 mg/dL Problem List A high attenuation CT lesion in the right basal ganglia region is likely calcification Acute stroke in the nancy and left basal ganglia region Chronic multiple strokes/lacunar infarcts in bilateral basal ganglia reason Dementia, likely vascular dementia, but need to rule out Alzheimer disease and other etiology Dysphagia, possibly secondary to multiple strokes Hypertensive encephalopathy Assessment/Plan Monitoring Supportive treatment Telemetry UDS SHARMILA Aspirin 81 mg daily Plavix 75 mg q.d. for 21 days Lipitor 40 mg daily Aricept 5 mg daily Pantoprazole 40 mg daily Up to chair Physical therapy Nephrology on case/hemodialysis More recommendation per clinical course This medical document was created using an electronic medical record system with [employer] dictation system. Although this document has been carefully reviewed, there may still be some phonetic and typographical errors. These areas are purely typographical due to imperfections of the software programs, and do not reflect any compromise in the patient's medical care Prognosis poor Plan discussed with: Other YURY MARQUEZ MD Feb 04, 2025 22:37
[2025-02-05] VITALS (12 sets, daily range): BP systolic 110–148; BP diastolic 61–98; PULSE 66–107; RESP 14–24; TEMP 97.3–98; O2SAT 92–99
[2025-02-05 04:58] LABS: Amphetamine Screen, Urine Neg (NEGATIVE); Barbiturate Scree,Urine Neg (NEGATIVE); Benzodiazephine Screen, Urine Neg (NEGATIVE); Cannabinoid Screen, Urine Neg (NEGATIVE); Cocaine Screen, Urine Neg (NEGATIVE); Opiate Scree,Urine Neg (NEGATIVE); Phencyclidine Screen, Urine Neg (NEGATIVE)
[2025-02-05 05:02] LABS: Urine Amorphous Crystal FEW /hpf (None Seen); Urine Protein, UAD 1+ (Negative)
[2025-02-05 06:40] LABS: Hematocrit 38.8 % (41.0-53.0); Hemoglobin 13.6 g/dL (13.5-17.5); Mean Corpuscular Hemoglobin 31.2 pg (28.0-32.0); Mean Corpuscular Volume 89.0 fL (80.0-100.0); Nucleated Red Blood Cells % 0.0 %
[2025-02-05 06:50] LABS: Calcium 9.1 mg/dL (8.7-10.4); Potassium 3.8 mmol/L (3.5-5.1)
[2025-02-05 06:51] LABS: Anion Gap 12 (5-15); Carbon Dioxide 27 mmol/L (20-31)
[2025-02-05 06:52] LABS: INR 0.98 (0.9-1.15); Partial Thromboplastin Time 28.0 SEC (24.5-34.5); Prothrombin Time 10.4 sec (9.3-11.8)
[2025-02-05 06:56] LABS: BUN/Creatinine Ratio 8.8 (10.0-20.0); Glucose 99 mg/dL (74-106)
[2025-02-05 06:57] LABS: Blood Urea Nitrogen 49 mg/dL (9-23); Chloride 96 mmol/L (98-107); Sodium 135 mmol/L (136-145)
--- NOTE | 2025-02-05 08:38 | DVH ---
INDICATION: per protocol surgery TECHNIQUE: Frontal view of the chest. COMPARISON: None FINDINGS: Tunneled right hemodialysis catheter with tip in the SVC. The heart and mediastinal contours are felix sly unremarkable. There is no evidence of pleural disease. The lungs are clear. The bony structur es of the chest are intact without fracture. IMPRESSION: 1. No evidence of acute disease.
--- NOTE | 2025-02-05 09:54 | DVHPNRES ---
Progress Note Date Seen: Feb 05, 2025 Resident Creating Document: CHAU SYKES RESIDENT Medical Necessity Reason Pt with a Central, PICC or Fol: No Subjective Review of Systems Siddhartha Whaley is a 59 year old male with past medical history of DM2, HTN, CVA (2023), Dementia and, CKD stage 5 (Dialysis MWF at [facility]). The patient was brought to the ED by the EMS team with chief complaint of 3 days of generalized weakness, difficulty to swallow and high blood pressure. Family member on site reports that the patient has missed his last 2 dialysis session due to feeling weak and tired. Initial evaluation in the ED showed blood pressure of 177/116 and a blood glucose of 331 mg/dl. Non contrast head CT scan showed: Subcentimeter hyperattenuating focus within the right internal capsule/thalamus may represent small intraparenchymal hemorrhage, or calcification. Correlate with symptoms and consider 6-8 hour follow-up head CT for reassessment, numerous hypodense foci within deep white matter and basal ganglia consistent with age indeterminate, but probably chronic lacunar infarcts. Underlying sequela of mild chronic microangiopathy. The patient denies fever, chills, diarrhea, nausea, vomit, sick contacts or other symptoms. 02/02/25 Patient seen at bedside. Patient is alert times 1, he is not oriented to place or time. Patient is a poor historian. Talked to the sister and she states that the patient has been having hiccups since July, has had dementia since 1 year, and underwent a stroke last year and also started having choking symptoms and having trouble swallowing since 1 week. Last week he was walking fine but now has been having balance problems, and is a fall risk, has had no trauma to the head. Yesterday he was too weak to go to the dialysis appointment. Repeat head CT shows Stable 8 mm hyperattenuating focus in the right internal capsule/ thalamus without any significant change. The etiology remains unclear since this has not changed. Patient has undergone dialysis today. Given baclofen 5 mg b.i.d. and gabapentin 100 mg t.i.d. eval was placed. Pureed diet was started. 02/03/2025 Patient seen at bedside. Patient is alert x1. General appearance is better than yesterday. PT eval placed. Social service consult case SNF placement. Wound consult placed for redness in the sacrum. Alvino September 5 mg p.o., atorvastatin 40 mg p.o., aspirin 81 mg p.o. started. Richardson's was placed. hepatitis panel negative, influenza and COVID negative. Neuro on board. Nephrology on board. 02/04/25 Patient seen at bedside. Patient is alert x1. General appearance is better than yesterday. Patient stopped hicupping, as per nurse patient had trouble swallowing 1 pill and coughed a few times but after giving a 2nd pill slowly he was fine. PT eval placed . Neuro on board. Nephrology on board. Cardiology On word and recommended TTE. Waiting for SNF placement. 02/05/25 Patient seen at bedside. He is Alert x1, is talking and appears better. No overnight events reported. Patient is not hiccuping, still taking thickened liquids to swallow pills and sometimes has cough when swallowing. He denies any pain, nausea, vomiting. TTE pending, waiting for SNF placement. Objective vital signs Vital Sign Date Time Temp Pulse Resp B/P (MAP) Pulse Ox O2 Delivery O2 Flow Rate FiO2 02/05/25 09:00 97.5 92 20 136/98 (111) 99 97.5 02/04/25 20:00 Room Air* 0 21 Total Intake and Output 02/04/25 02/04/25 02/05/25 15:00 23:00 07:00 Intake Total 360 ml 600 ml 240 ml Output Total 125 ml 200 ml Balance 360 ml 475 ml 40 ml medications Current Medications Medications Dose Ordered Sig/Kellen Route Start Time Stop Time Status Last Admin Dose Admin Diagnostic Test (Pha) 1 strip IQ4HR 02/02/25 04:00 02/05/25 04:07 1 STRIP Insulin Human Regular IQ4HR SC 02/02/25 04:00 02/05/25 00:37 4 UNITS Dextrose 50 ml UD PRN IV 02/02/25 01:00 Baclofen 5 mg BID PO 02/03/25 10:00 02/04/25 21:45 5 MG Gabapentin 100 mg TID PO 02/03/25 06:00 02/04/25 06:04 100 MG Amlodipine Besylate 10 mg DAILY PO 02/03/25 10:00 02/04/25 12:39 10 MG Pantoprazole Sodium 40 mg DAILY IV 02/03/25 10:00 02/04/25 12:35 40 MG Lorazepam 1 mg ONCE PRN IV 02/02/25 20:00 Aspirin 81 mg DAILY PO 02/03/25 10:00 02/04/25 12:36 81 MG Atorvastatin Calcium 40 mg HS PO 02/03/25 22:00 02/04/25 21:45 40 MG Donepezil HCl 5 mg HS PO 02/03/25 22:00 02/04/25 21:45 5 MG Clopidogrel Bisulfate 75 mg DAILY PO 02/04/25 10:00 02/24/25 09:59 02/04/25 12:36 75 MG Examination General: Patient alert and oriented in person, place and time. Patient following commands. HEENT: Normocephalic, atraumatic, moist mucous membranes Respiratory/pulmonary: Clear lungs bilaterally, vesicular murmurs present in almost all lung islas, no associated crackles or wheezes. Cardiovascular: Normal heart sounds S1 and S2 with no associated murmurs Abdomen: Abdomen nondistended, there is no pain to palpation in any of the abdominal quadrants, no palpable masses. Richardson catheter in place, with yellow urine. Extremities: There is no peripheral edema present at the lower extremities. Peripheral Pulses: 3+ Radial (R). 3+ Radial (L). 3+ Dorsalis pedis (R). 3+ Dorsalis pedis(L) Skin: Tunneled catheter, no draining pus, no signs of infection or inflammation Neurological: Intact cranial nerves with no focal neurologic deficits laboratory and microbiology Laboratory Tests 02/05/25 05:40 Test 02/05/25 05:40 Range/Units Serum Glucose 99 74-106 mg/dL Microbiology Date/Time Source Procedure Growth Status 02/02/25 01:36 Blood Blood Culture - Preliminary NO GROWTH AFTER 72 HOURS OF INCUBATION. Resulted Problem List/Assessment/Plan Problem List/Assessment/Plan # Hypertensive urgency-resolving - Amlodipine 10 mg po - Monitor BP # Reactive leukocytosis- monitorlab # ESRD on HD # Missed HD # Non compliance with HD # Uremia # Acidemia managed with dialysis # Hyperkalemia managed with dialysis # Anemia of Chronic kidney disease from ESRD - Dialysis MWF at [facility] - Monitor lab - HD today and tommorrow - nephro consulted and stated Hemodialysis today then Saturday, Fluid restriction less than 1 L per day # Generalized weakness, rule out CVA # Hx of CVA - Head CT scan ,stable 8 mm hyperattenuating focus in the right internal capsule/ thalamus without any significant change - neuro consulted and recommended to give us a Aspirin 81 mg daily, Lipitor 40 mg daily, Aricept 5 mg daily - cardio consulted and recommended transesophageal echocardiogram at first availablity. TTE pending # Hyponantremia -monitor lab # DM2 with hyperglycemia - Insulin sliding scale - HbA1C- 8.7 Purred diet PPI prophylaxis: Protonix 40 mg DVT Prophylaxis: None Goals of care discussed with patient for 27 minutes Patient is CODE :DNR/DNI, confirmed with sister Plan discussed with Dr. Vargas Plan discussed with: Patient Date of Service: Feb 05, 2025 Billing Provider: KIMBER MORRIS MD Common Visit Codes: [id number] INP/OBS CARE(HIGH) CHAU SYKES RESIDENT Feb 05, 2025 09:54 KIMBER MORRIS MD Feb 15, 2025 03:24
[2025-02-05] MEDS: ONDANSETRON HCL 4 MG/2 ML VIAL IV ONE (11:30)
[2025-02-05] MEDS: LIDOCAINE VISCOUS 2% 15ML UD PO ONE (12:40)
[2025-02-05] MEDS: fentaNYL CITRATE 100 MCG/2 ML VL IV ONE (12:47)
[2025-02-05] MEDS: MIDAZOLAM HCL 2MG/2ML 2ml VIAL (1mg/ml) IV ONE (12:50)
--- NOTE | 2025-02-05 18:01 | DVHPN2 ---
Progress Note - Dictate Date Seen: Feb 05, 2025 Has the PT tested + for MRSA If YES, has PT been informed?: Yes Medical Necessity Reason Pt with a Central, PICC or Fol: Yes Subjective Patient feels generalized weakness vital signs Vital Sign Date Time Temp Pulse Resp B/P (MAP) Pulse Ox O2 Delivery O2 Flow Rate FiO2 02/05/25 17:00 97.3 95 18 144/89 (107) 92 97.3 02/05/25 08:00 Room Air* 0 21 Total Intake and Output 02/04/25 02/04/25 02/05/25 15:00 23:00 07:00 Intake Total 360 ml 600 ml 240 ml Output Total 125 ml 200 ml Balance 360 ml 475 ml 40 ml medications Current Medications Medications Dose Ordered Sig/Kellen Route Start Time Stop Time Status Last Admin Dose Admin Diagnostic Test (Pha) 1 strip IQ4HR 02/02/25 04:00 02/05/25 16:00 1 STRIP Insulin Human Regular IQ4HR SC 02/02/25 04:00 02/05/25 00:37 4 UNITS Dextrose 50 ml UD PRN IV 02/02/25 01:00 Baclofen 5 mg BID PO 02/03/25 10:00 02/04/25 21:45 5 MG Gabapentin 100 mg TID PO 02/03/25 06:00 02/04/25 06:04 100 MG Amlodipine Besylate 10 mg DAILY PO 02/03/25 10:00 02/04/25 12:39 10 MG Pantoprazole Sodium 40 mg DAILY IV 02/03/25 10:00 02/04/25 12:35 40 MG Lorazepam 1 mg ONCE PRN IV 02/02/25 20:00 Aspirin 81 mg DAILY PO 02/03/25 10:00 02/04/25 12:36 81 MG Atorvastatin Calcium 40 mg HS PO 02/03/25 22:00 02/04/25 21:45 40 MG Donepezil HCl 5 mg HS PO 02/03/25 22:00 02/04/25 21:45 5 MG Clopidogrel Bisulfate 75 mg DAILY PO 02/04/25 10:00 02/24/25 09:59 02/04/25 12:36 75 MG objective Chronically ill-appearing patient HEENT: No evidence of JVD, no oral ulcers. Pulmonary: Lungs are clear on auscultation bilaterally Cardiovascular S1-S2, no S3 or S4 Abdomen: Bowel sounds positive, soft no rebound tenderness Skin: No rash Neurological: Alert, oriented, no focal weakness laboratory and microbiology Laboratory Tests 02/05/25 05:40 Test 02/05/25 05:40 Range/Units Serum Glucose 99 74-106 mg/dL Assessment/Plan Assessment: End-stage renal disease Improving uremia Hypertension, uncontrolled Acidemia managed with dialysis Hyperkalemia managed with dialysis Subcentimeter hypoattenuating lesion on CT History of CVA Anemia of Chronic kidney disease Plan: Hemodialysis Saturday Fluid restriction less than 1 L per day Neurology consult We will not use heparin Resume antihypertensive meds Stable from the renal perspective Thank you very much for allowing us to participate in the care of this patient please contact if you have any questions. Plan discussed with: Patient CECIL BELL MD Feb 05, 2025 18:01
--- NOTE | 2025-02-05 18:22 | DVHOP ---
PROCEDURE PERFORMED: Transesophageal echocardiogram. INDICATION: CVA. DESCRIPTION OF PROCEDURE: Prior full informed consent was obtained. The patient was prepped and draped in the usual fashion. A transesophageal probe was passed without difficulty. Standard views were obtained. CONCLUSIONS: * Technically good study. The patient was in a sinus rhythm. * Chamber dimension evaluation was within normal limits. * Valves appear to be structurally normal. * Left ventricular systolic function is preserved. EF is about 55% with normal RV function. * Doppler reveals mild TR, mild MR. No intraatrial or intraventricular shunt noted. * There is a small pericardial effusion, not hemodynamically significant. * No intracardiac masses, thrombi, and/or vegetation discernible. The atrial appendage is within normal limits without thrombi. * Bubble study also performed, showing no significant abnormalities. The patient tolerated the procedure well, there were no complications. MD JOHN Leyva/KELY TID: [id number] RECEIPT: [id number]
--- NOTE | 2025-02-05 22:54 | DVHPN2 ---
Progress Note - Dictate Date Seen: Feb 05, 2025 Has the PT tested + for MRSA If YES, has PT been informed?: Yes Medical Necessity Reason Pt with a Central, PICC or Fol: Yes Subjective Patient was seen and evaluated in follow up. Patient awake, alert to self only. Transesophageal echocardiogram shows an EF of 55%. Bubble study also performed, showing no significant abnormalities. Patient taking thickened liquids to swallow pills and sometimes has cough when swallowing. Awaiting for SNF placement. vital signs Vital Sign Date Time Temp Pulse Resp B/P (MAP) Pulse Ox O2 Delivery O2 Flow Rate FiO2 02/05/25 21:00 98.0 66 15 110/75 (87) 97 98.0 02/05/25 08:00 Room Air* 0 21 Total Intake and Output 02/04/25 02/04/25 02/05/25 15:00 23:00 07:00 Intake Total 360 ml 600 ml 240 ml Output Total 125 ml 200 ml Balance 360 ml 475 ml 40 ml medications Current Medications Medications Dose Ordered Sig/Kellen Route Start Time Stop Time Status Last Admin Dose Admin Diagnostic Test (Pha) 1 strip IQ4HR 02/02/25 04:00 02/05/25 21:18 1 STRIP Insulin Human Regular IQ4HR SC 02/02/25 04:00 02/05/25 21:21 3 UNITS Dextrose 50 ml UD PRN IV 02/02/25 01:00 Baclofen 5 mg BID PO 02/03/25 10:00 02/05/25 22:11 5 MG Gabapentin 100 mg TID PO 02/03/25 06:00 02/05/25 22:11 100 MG Amlodipine Besylate 10 mg DAILY PO 02/03/25 10:00 02/04/25 12:39 10 MG Pantoprazole Sodium 40 mg DAILY IV 02/03/25 10:00 02/04/25 12:35 40 MG Lorazepam 1 mg ONCE PRN IV 02/02/25 20:00 Aspirin 81 mg DAILY PO 02/03/25 10:00 02/04/25 12:36 81 MG Atorvastatin Calcium 40 mg HS PO 02/03/25 22:00 02/05/25 22:11 40 MG Donepezil HCl 5 mg HS PO 02/03/25 22:00 02/05/25 22:11 5 MG Clopidogrel Bisulfate 75 mg DAILY PO 02/04/25 10:00 02/24/25 09:59 02/04/25 12:36 75 MG objective GENERAL: A&O x2. Somewhat non-verbal, +dysphagia EYES: PERRL, EOMI. Anicteric. HENT: Moist mucous membranes. LUNGS: Clear to auscultation bilaterally. CARDIOVASCULAR: Regular rate and rhythm. ABDOMEN: Soft, non-tender and non-distended. EXTREMITIES: No edema. SKIN: Warm, dry. laboratory and microbiology Laboratory Tests 02/05/25 05:40 Test 02/05/25 05:40 Range/Units Serum Glucose 99 74-106 mg/dL Problem List Acute CVA rule out cardioembolic source. History of multiple chronic strokes. Hypertensive urgency. Diabetes mellitus type 2. ESRD on HD. Medical noncompliance (missed HD). Assessment/Plan Continued all current supportive medical care. Amlodipine. Aspirin, Lipitor, Plavix. GI prophylactics. Additional plan as per the hospital course. Plan discussed with: Other DESIREE BERNAL MD Feb 05, 2025 22:51
[2025-02-06] VITALS (7 sets, daily range): BP systolic 123–146; BP diastolic 70–90; PULSE 87–107; RESP 15–18; TEMP 97.4–98; O2SAT 95–100
--- NOTE | 2025-02-06 00:30 | DVHPN2 ---
Progress Note - Dictate Date Seen: Feb 05, 2025 Has the PT tested + for MRSA If YES, has PT been informed?: Yes Medical Necessity Reason Pt with a Central, PICC or Fol: Yes Subjective Mr. Torres is a 59 years old right-handed gentleman with a history of hypertension, diabetes, end-stage renal failure on hemodialysis, he was brought to the [facility] on 02/01/2025 with a chief complaint of general weakness, hypertension, dysphagia. I was asked to see the patient because he has been doing well. In the room, he looks confused, he took his oxygen from his face, he took his pejama off and put it around his head, but he has reasonable social skills, he is oriented to the person, possibly to place as well Plasma alcohol, 02/01/2025: <3 UDS, 02/05/2025: Negative CBC, 02/01/2025: Unremarkable BUN/CR, 02/02/2025: 110/6.97 GFR, 02/02/2025: 9 HGB A1c, 02/02/2025: Able to seven TG/HDL/LDL/HDL, 02/02/2025: 174/124/56/38 Vitamin B12, 02/03/25: 676 Folic acid, 02/03/2025: 9.28 TSH, 02/03/2025: 0.23 FT4, 02/03/2025: 1.26 SHARMILA, 02/05/2025: * Technically good study. The patient was in a sinus rhythm. * Chamber dimension evaluation was within normal limits. * Valves appear to be structurally normal. * Left ventricular systolic function is preserved. EF is about 55% with normal RV function. * Doppler reveals mild TR, mild MR. No intraatrial or intraventricular shunt noted. * There is a small pericardial effusion, not hemodynamically significant. * No intracardiac masses, thrombi, and/or vegetation discernible. The atrial appendage is within normal limits without thrombi. * Bubble study also performed, showing no significant abnormalities Carotid doctor, 02/03/2025: Left mid and distal ICAs are not well-visualized with the distal right ICA not well-visualized. Otherwise, No hemodynamically significant stenosis within the visualized bilateral carotid arterial systems CT head, 02/02/2025 0042: 1. Subcentimeter hyperattenuating focus within the right internal capsule/thalamus may represent small intraparenchymal hemorrhage, or calcification. Correlate with symptoms and consider 6-8 hour follow-up head CT for reassessment. 2. Numerous hypodense foci within deep white matter and basal ganglia consistent with age indeterminate, but probably chronic lacunar infarcts. 3. Underlying sequela of mild chronic microangiopathy. CT head, 02/02/2025 1100: 1. Stable 8 mm hyperattenuating focus in the right internal capsule/ thalamus without any significant change. The etiology remains unclear since this has not changed. Continued short-term follow-up with noncontrast CT of the head in 6-8 hours is suggested. 2. Additional nonacute findings similar to prior CT performed earlier same date. (Chronic lacunar infarcts in the bilateral basal ganglia and thalami, I also see evidence suggestive of of bilateral pontine lacunar strokes) MRI head, 02/03/2025: 1. Small chronic lacunar infarcts are seen in the right side of the nancy and left periventricular white matter. 2. Multifocal chronic ischemic changes as detailed above. 3. Multifocal areas of hemosiderin deposition from prior small hemorrhages. 4. Additional findings as detailed above. (Acute lacunar infarct in the right side of the nancy measuring up to 0.6 cm. Acute lacunar infarct in the left periventricular white matter adjacent to the body of the left ventricle measuring up to 0.8 cm.) vital signs Vital Sign Date Time Temp Pulse Resp B/P (MAP) Pulse Ox O2 Delivery O2 Flow Rate FiO2 02/05/25 21:00 98.0 66 15 110/75 (87) 97 98.0 02/05/25 20:00 Nasal Cannula* 2 28 Total Intake and Output 02/05/25 02/05/25 02/06/25 15:00 23:00 07:00 Intake Total 650 ml Balance 650 ml medications Current Medications Medications Dose Ordered Sig/Kellen Route Start Time Stop Time Status Last Admin Dose Admin Diagnostic Test (Pha) 1 strip IQ4HR 02/02/25 04:00 02/06/25 00:23 1 STRIP Insulin Human Regular IQ4HR SC 02/02/25 04:00 02/05/25 21:21 3 UNITS Dextrose 50 ml UD PRN IV 02/02/25 01:00 Baclofen 5 mg BID PO 02/03/25 10:00 02/05/25 22:11 5 MG Gabapentin 100 mg TID PO 02/03/25 06:00 02/05/25 22:11 100 MG Amlodipine Besylate 10 mg DAILY PO 02/03/25 10:00 02/04/25 12:39 10 MG Pantoprazole Sodium 40 mg DAILY IV 02/03/25 10:00 02/04/25 12:35 40 MG Lorazepam 1 mg ONCE PRN IV 02/02/25 20:00 Aspirin 81 mg DAILY PO 02/03/25 10:00 02/04/25 12:36 81 MG Atorvastatin Calcium 40 mg HS PO 02/03/25 22:00 02/05/25 22:11 40 MG Donepezil HCl 5 mg HS PO 02/03/25 22:00 02/05/25 22:11 5 MG Clopidogrel Bisulfate 75 mg DAILY PO 02/04/25 10:00 02/24/25 09:59 02/04/25 12:36 75 MG objective General: the patient is well developed and nourished. No acute distress. MENTAL STATUS: Awake and alert. Oriented to person, place SPEECH, LANGUAGE, HIGHER CORTICAL FUNCTION: no aphasia or dysathria. CRANIAL NERVES: Pupils are equal, round and reactive. EOMs full and conjugate. Facial sensation intact in all three divisions bilaterally. Mandibular strength intact. Facial muscles symmetrical and strength intact. Tongue midline. No fasciculations or atrophy. SENSATION: Sensation to touch and pinprick is unremarkable MOTOR: Normal tone in the upper and lower extremity. Normal muscle bulk. No fasciculations. No abnormal movements or posturing. Muscle strength of the major groups in the extremities is 4/5. REFLEXES: Deep tendon reflexes are symmetrical. No pathological reflexes. CEREBELLAR/COORDINATION: Finger to nose is normal bilaterally. GAIT/STATION: deferred laboratory and microbiology Laboratory Tests 02/05/25 05:40 Test 02/05/25 05:40 Range/Units Serum Glucose 99 74-106 mg/dL Problem List A high attenuation CT lesion in the right basal ganglia region is likely calcification Acute stroke in the nancy and left basal ganglia region Chronic multiple strokes/lacunar infarcts in bilateral basal ganglia reason Dementia, likely vascular dementia, but need to rule out Alzheimer disease and other etiology Dysphagia, possibly secondary to multiple strokes Hypertensive encephalopathy Assessment/Plan Monitoring Supportive treatment Telemetry Aspirin 81 mg daily Plavix 75 mg q.d. for 21 days Lipitor 40 mg daily Aricept 5 mg daily Pantoprazole 40 mg daily Up to chair Physical therapy Nephrology on case/hemodialysis More recommendation per clinical course This medical document was created using an electronic medical record system with [employer] dictation system. Although this document has been carefully reviewed, there may still be some phonetic and typographical errors. These areas are purely typographical due to imperfections of the software programs, and do not reflect any compromise in the patient's medical care Prognosis poor Plan discussed with: Other YURY MARQUEZ MD Feb 06, 2025 00:30
[2025-02-06 07:36] LABS: Hematocrit 39.0 % (41.0-53.0); Hemoglobin 13.4 g/dL (13.5-17.5); Mean Corpuscular Hemoglobin 30.6 pg (28.0-32.0); Mean Corpuscular Volume 89.1 fL (80.0-100.0); Nucleated Red Blood Cells % 0.0 %
[2025-02-06 07:43] LABS: Anion Gap 14 (5-15); Carbon Dioxide 28 mmol/L (20-31); Potassium 4.6 mmol/L (3.5-5.1); Sodium 139 mmol/L (136-145)
[2025-02-06 07:44] LABS: Calcium 8.7 mg/dL (8.7-10.4)
[2025-02-06 07:49] LABS: BUN/Creatinine Ratio 9.0 (10.0-20.0)
[2025-02-06 07:51] LABS: Blood Urea Nitrogen 39 mg/dL (9-23); Chloride 97 mmol/L (98-107); Glucose 108 mg/dL (74-106)
--- NOTE | 2025-02-06 15:16 | DVHPN2 ---
Progress Note - Dictate Date Seen: Feb 06, 2025 Has the PT tested + for MRSA If YES, has PT been informed?: Yes Medical Necessity Reason Pt with a Central, PICC or Fol: Yes Subjective Patient overall feeling better. vital signs Vital Sign Date Time Temp Pulse Resp B/P (MAP) Pulse Ox O2 Delivery O2 Flow Rate FiO2 02/06/25 12:40 98.0 94 18 142/86 (104) 99 98.0 02/06/25 07:40 Nasal Cannula* 2 28 Total Intake and Output 02/05/25 02/05/25 02/06/25 15:00 23:00 07:00 Intake Total 650 ml 945 ml Output Total 800 ml Balance 650 ml 145 ml medications Current Medications Medications Dose Ordered Sig/Kellen Route Start Time Stop Time Status Last Admin Dose Admin Diagnostic Test (Pha) 1 strip IQ4HR 02/02/25 04:00 02/06/25 11:23 1 STRIP Insulin Human Regular IQ4HR SC 02/02/25 04:00 02/06/25 11:23 4 UNITS Dextrose 50 ml UD PRN IV 02/02/25 01:00 Baclofen 5 mg BID PO 02/03/25 10:00 02/06/25 09:21 5 MG Gabapentin 100 mg TID PO 02/03/25 06:00 02/05/25 22:11 100 MG Amlodipine Besylate 10 mg DAILY PO 02/03/25 10:00 02/06/25 09:21 10 MG Pantoprazole Sodium 40 mg DAILY IV 02/03/25 10:00 02/06/25 09:22 40 MG Lorazepam 1 mg ONCE PRN IV 02/02/25 20:00 Aspirin 81 mg DAILY PO 02/03/25 10:00 02/06/25 09:22 81 MG Atorvastatin Calcium 40 mg HS PO 02/03/25 22:00 02/05/25 22:11 40 MG Donepezil HCl 5 mg HS PO 02/03/25 22:00 02/05/25 22:11 5 MG Clopidogrel Bisulfate 75 mg DAILY PO 02/04/25 10:00 02/24/25 09:59 02/06/25 09:22 75 MG objective Chronically ill-appearing patient HEENT: No evidence of JVD, no oral ulcers. Pulmonary: Lungs are clear on auscultation bilaterally Cardiovascular S1-S2, no S3 or S4 Abdomen: Bowel sounds positive, soft no rebound tenderness Skin: No rash Neurological: Alert, oriented, no focal weakness laboratory and microbiology Laboratory Tests 02/06/25 06:22 Test 02/06/25 06:22 Range/Units Serum Glucose 108 H 74-106 mg/dL Assessment/Plan Assessment: End-stage renal disease TTS Uremia managed with dialysis Hypertension, uncontrolled Acidemia managed with dialysis Hyperkalemia managed with dialysis Subcentimeter hypoattenuating lesion on CT History of CVA Anemia of Chronic kidney disease Plan: Hemodialysis tomorrow Fluid restriction less than 1 L per day Neurology consult We will not use heparin Resume antihypertensive meds Stable from the renal perspective Thank you very much for allowing us to participate in the care of this patient please contact if you have any questions. Dietary Evaluation Review Comments: 1) Add 60g CCHO renal restriction to pureed diet 2) Initiate Nepro CarbSteady bid 3) Encourage optimal PO intake 4) Follow-up with nephrology and neurology 4) Continue to monitor I&O, labs, and skin integrity Expected Outcomes/Goals: 1) appetite and labs to improve 2) f/u in 3-5 days Plan discussed with: Patient CECIL BELL MD Feb 06, 2025 15:16
--- NOTE | 2025-02-06 16:22 | DVHPNRES ---
Progress Note Date Seen: Feb 06, 2025 Resident Creating Document: MADI CONDE RESIDENT Has the PT tested + for MRSA If YES, has PT been informed?: Yes Medical Necessity Reason Pt with a Central, PICC or Fol: Yes Subjective Review of Systems Siddhartha Whaley is a 59 year old male with past medical history of DM2, HTN, CVA (2023), Dementia and, CKD stage 5 (Dialysis MWF at [facility]). The patient was brought to the ED by the EMS team with chief complaint of 3 days of generalized weakness, difficulty to swallow and high blood pressure. Family member on site reports that the patient has missed his last 2 dialysis session due to feeling weak and tired. Initial evaluation in the ED showed blood pressure of 177/116 and a blood glucose of 331 mg/dl. Non contrast head CT scan showed: Subcentimeter hyperattenuating focus within the right internal capsule/thalamus may represent small intraparenchymal hemorrhage, or calcification. Correlate with symptoms and consider 6-8 hour follow-up head CT for reassessment, numerous hypodense foci within deep white matter and basal ganglia consistent with age indeterminate, but probably chronic lacunar infarcts. Underlying sequela of mild chronic microangiopathy. The patient denies fever, chills, diarrhea, nausea, vomit, sick contacts or other symptoms. 02/02/25 Patient seen at bedside. Patient is alert times 1, he is not oriented to place or time. Patient is a poor historian. Talked to the sister and she states that the patient has been having hiccups since July, has had dementia since 1 year, and underwent a stroke last year and also started having choking symptoms and having trouble swallowing since 1 week. Last week he was walking fine but now has been having balance problems, and is a fall risk, has had no trauma to the head. Yesterday he was too weak to go to the dialysis appointment. Repeat head CT shows Stable 8 mm hyperattenuating focus in the right internal capsule/ thalamus without any significant change. The etiology remains unclear since this has not changed. Patient has undergone dialysis today. Given baclofen 5 mg b.i.d. and gabapentin 100 mg t.i.d. eval was placed. Pureed diet was started. 02/03/2025 Patient seen at bedside. Patient is alert x1. General appearance is better than yesterday. PT eval placed. Social service consult case SNF placement. Wound consult placed for redness in the sacrum. Alvino September 5 mg p.o., atorvastatin 40 mg p.o., aspirin 81 mg p.o. started. Richardson's was placed. hepatitis panel negative, influenza and COVID negative. Neuro on board. Nephrology on board. 02/04/25 Patient seen at bedside. Patient is alert x1. General appearance is better than yesterday. Patient stopped hicupping, as per nurse patient had trouble swallowing 1 pill and coughed a few times but after giving a 2nd pill slowly he was fine. PT eval placed . Neuro on board. Nephrology on board. Cardiology On word and recommended TTE. Waiting for SNF placement. 02/05/25 Patient seen at bedside. He is Alert x1, is talking and appears better. No overnight events reported. Patient is not hiccuping, still taking thickened liquids to swallow pills and sometimes has cough when swallowing. He denies any pain, nausea, vomiting. TTE pending, waiting for SNF placement. 02/06/25 Patient was seen at the bedside. He is alert x1. No overnight events were reported. Patient is not hiccupping. He is unable to swallow much and coughs even with a few sips of water. We have ordered a swallow test with pureed diet, suggested patient can not take nectar thick pureed diet. Objective vital signs Vital Sign Date Time Temp Pulse Resp B/P (MAP) Pulse Ox O2 Delivery O2 Flow Rate FiO2 02/06/25 12:40 98.0 94 18 142/86 (104) 99 98.0 02/06/25 07:40 Nasal Cannula* 2 28 Total Intake and Output 02/05/25 02/05/25 02/06/25 15:00 23:00 07:00 Intake Total 650 ml 945 ml Output Total 800 ml Balance 650 ml 145 ml medications Current Medications Medications Dose Ordered Sig/Kellen Route Start Time Stop Time Status Last Admin Dose Admin Diagnostic Test (Pha) 1 strip IQ4HR 02/02/25 04:00 02/06/25 11:23 1 STRIP Insulin Human Regular IQ4HR SC 02/02/25 04:00 02/06/25 11:23 4 UNITS Dextrose 50 ml UD PRN IV 02/02/25 01:00 Baclofen 5 mg BID PO 02/03/25 10:00 02/06/25 09:21 5 MG Gabapentin 100 mg TID PO 02/03/25 06:00 02/05/25 22:11 100 MG Amlodipine Besylate 10 mg DAILY PO 02/03/25 10:00 02/06/25 09:21 10 MG Pantoprazole Sodium 40 mg DAILY IV 02/03/25 10:00 02/06/25 09:22 40 MG Lorazepam 1 mg ONCE PRN IV 02/02/25 20:00 Aspirin 81 mg DAILY PO 02/03/25 10:00 02/06/25 09:22 81 MG Atorvastatin Calcium 40 mg HS PO 02/03/25 22:00 02/05/25 22:11 40 MG Donepezil HCl 5 mg HS PO 02/03/25 22:00 02/05/25 22:11 5 MG Clopidogrel Bisulfate 75 mg DAILY PO 02/04/25 10:00 02/24/25 09:59 02/06/25 09:22 75 MG Examination General: Patient alert and oriented in person, place and time. Patient following commands. HEENT: Normocephalic, atraumatic, moist mucous membranes Respiratory/pulmonary: Clear lungs bilaterally, vesicular murmurs present in almost all lung islas, no associated crackles or wheezes. Cardiovascular: Normal heart sounds S1 and S2 with no associated murmurs Abdomen: Abdomen nondistended, there is no pain to palpation in any of the abdominal quadrants, no palpable masses. Richardson catheter in place, with yellow urine. Extremities: There is no peripheral edema present at the lower extremities. Peripheral Pulses: 3+ Radial (R). 3+ Radial (L). 3+ Dorsalis pedis (R). 3+ Dorsalis pedis(L) Skin: Tunneled catheter, no draining pus, no signs of infection or inflammation Neurological: Intact cranial nerves with no focal neurologic deficits laboratory and microbiology Laboratory Tests 02/06/25 06:22 Test 02/06/25 06:22 Range/Units Serum Glucose 108 H 74-106 mg/dL Microbiology Date/Time Source Procedure Growth Status 02/02/25 01:36 Blood Blood Culture - Preliminary NO GROWTH AFTER 72 HOURS OF INCUBATION. Resulted Labs and/or images reviewed: Labs reviewed by me, Image(s) reviewed by me Problem List/Assessment/Plan Problem List/Assessment/Plan # Hypertensive urgency-resolving - Amlodipine 10 mg po - Monitor BP # Reactive leukocytosis- monitorlab # ESRD on HD # Missed HD # Non compliance with HD # Uremia # Acidemia managed with dialysis # Hyperkalemia managed with dialysis # Anemia of Chronic kidney disease from ESRD - Dialysis MWF at [facility] - Monitor lab - HD today and tommorrow - nephro consulted and stated Hemodialysis today then Saturday, Fluid restriction less than 1 L per day # Generalized weakness, rule out CVA # Hx of CVA - Head CT scan ,stable 8 mm hyperattenuating focus in the right internal capsule/ thalamus without any significant change - neuro consulted and recommended to give us a Aspirin 81 mg daily, Lipitor 40 mg daily, Aricept 5 mg daily - cardio consulted and recommended transesophageal echocardiogram at first availablity. TTE pending - Swallow evaluation with puree diet, suggested patient can take nectar thick pureed diet # Hyponantremia -monitor lab # DM2 with hyperglycemia - Insulin sliding scale - HbA1C- 8.7 Pureed diet PPI prophylaxis: Protonix 40 mg DVT Prophylaxis: None Goals of care discussed with the patient for more than 27 minutes: Full code status Case discussed with , patient and nurse. Plan discussed with: Patient, Other (rn) My Orders My Orders Orders - MADI CONDE Procedure Category Date Status Time Pureed DIET 02/06/25 Transmitted Dinner Communication Order ORDERS 02/06/25 Transmitted 16:16 Dietary Evaluation Review Comments: 1) Add 60g CCHO renal restriction to pureed diet 2) Initiate Nepro CarbSteady bid 3) Encourage optimal PO intake 4) Follow-up with nephrology and neurology 4) Continue to monitor I&O, labs, and skin integrity Expected Outcomes/Goals: 1) appetite and labs to improve 2) f/u in 3-5 days Date of Service: Feb 06, 2025 Billing Provider: BRISEYDA DONALD MD Common Visit Codes: [id number] INP/OBS CARE(HIGH) MADI CONDE Feb 06, 2025 16:22 BRISEYDA DONALD MD Feb 08, 2025 21:11
--- NOTE | 2025-02-06 21:33 | DVHPN2 ---
Progress Note - Dictate Date Seen: Feb 06, 2025 Has the PT tested + for MRSA If YES, has PT been informed?: Yes Medical Necessity Reason Pt with a Central, PICC or Fol: Yes Subjective Patient was seen and evaluated in follow up. Patient is on 2 LPM NC. Patient alert to self only. [employer] recommended for nectar thick pureed diet. BUN 39, Nursing Home Director 4.32. Awaiting for SNF placement. vital signs Vital Sign Date Time Temp Pulse Resp B/P (MAP) Pulse Ox O2 Delivery O2 Flow Rate FiO2 02/06/25 17:00 97.4 87 16 146/86 (106) 95 97.4 02/06/25 07:40 Nasal Cannula* 2 28 Total Intake and Output 02/05/25 02/05/25 02/06/25 15:00 23:00 07:00 Intake Total 650 ml 945 ml Output Total 800 ml Balance 650 ml 145 ml medications Current Medications Medications Dose Ordered Sig/Kellen Route Start Time Stop Time Status Last Admin Dose Admin Diagnostic Test (Pha) 1 strip IQ4HR 02/02/25 04:00 02/06/25 20:37 1 STRIP Insulin Human Regular IQ4HR SC 02/02/25 04:00 02/06/25 20:53 4 UNITS Dextrose 50 ml UD PRN IV 02/02/25 01:00 Baclofen 5 mg BID PO 02/03/25 10:00 02/06/25 09:21 5 MG Gabapentin 100 mg TID PO 02/03/25 06:00 02/05/25 22:11 100 MG Amlodipine Besylate 10 mg DAILY PO 02/03/25 10:00 02/06/25 09:21 10 MG Pantoprazole Sodium 40 mg DAILY IV 02/03/25 10:00 02/06/25 09:22 40 MG Lorazepam 1 mg ONCE PRN IV 02/02/25 20:00 Aspirin 81 mg DAILY PO 02/03/25 10:00 02/06/25 09:22 81 MG Atorvastatin Calcium 40 mg HS PO 02/03/25 22:00 02/05/25 22:11 40 MG Donepezil HCl 5 mg HS PO 02/03/25 22:00 02/05/25 22:11 5 MG Clopidogrel Bisulfate 75 mg DAILY PO 02/04/25 10:00 02/24/25 09:59 02/06/25 09:22 75 MG objective GENERAL: A&O x2. Somewhat non-verbal, +dysphagia EYES: PERRL, EOMI. Anicteric. HENT: Moist mucous membranes. LUNGS: Clear to auscultation bilaterally. CARDIOVASCULAR: Regular rate and rhythm. ABDOMEN: Soft, non-tender and non-distended. EXTREMITIES: No edema. SKIN: Warm, dry. laboratory and microbiology Laboratory Tests 02/06/25 06:22 Test 02/06/25 06:22 Range/Units Serum Glucose 108 H 74-106 mg/dL Problem List Acute CVA rule out cardioembolic source. History of multiple chronic strokes. Hypertensive urgency. Diabetes mellitus type 2. ESRD on HD. Medical noncompliance (missed HD). Assessment/Plan Continued all current supportive medical care. Amlodipine. Aspirin, Lipitor, Plavix. GI prophylactics. Additional plan as per the hospital course. Dietary Evaluation Review Comments: 1) Add 60g CCHO renal restriction to pureed diet 2) Initiate Nepro CarbSteady bid 3) Encourage optimal PO intake 4) Follow-up with nephrology and neurology 4) Continue to monitor I&O, labs, and skin integrity Expected Outcomes/Goals: 1) appetite and labs to improve 2) f/u in 3-5 days Plan discussed with: DESIREE Shay MD Feb 06, 2025 21:33
[2025-02-07] VITALS (7 sets, daily range): BP systolic 105–153; BP diastolic 82–91; PULSE 95–108; RESP 15–20; TEMP 97.3–98; O2SAT 93–99
[2025-02-07 07:30] LABS: Hematocrit 39.5 % (41.0-53.0); Hemoglobin 13.6 g/dL (13.5-17.5); Mean Corpuscular Hemoglobin 30.6 pg (28.0-32.0); Mean Corpuscular Volume 89.0 fL (80.0-100.0); Nucleated Red Blood Cells % 0.1 %
[2025-02-07 07:43] LABS: Alkaline Phosphatase 81 U/L (46-116); Anion Gap 12 (5-15); BUN/Creatinine Ratio 6.5 (10.0-20.0); Calcium 9.1 mg/dL (8.7-10.4); Carbon Dioxide 28 mmol/L (20-31); Glucose 85 mg/dL (74-106); Potassium 3.5 mmol/L (3.5-5.1); Sodium 138 mmol/L (136-145); Total Protein 6.9 g/dL (5.7-8.2)
[2025-02-07 07:44] LABS: Alanine Aminotransferase < 9 U/L (7-40); Bilirubin, Total 0.3 mg/dL (0.2-1.0); Blood Urea Nitrogen 32 mg/dL (9-23); Chloride 98 mmol/L (98-107)
[2025-02-07 07:52] LABS: Albumin 3.9 g/dL (3.2-4.8)
--- NOTE | 2025-02-07 14:59 | DVHPN2 ---
Progress Note - Dictate Date Seen: Feb 07, 2025 Has the PT tested + for MRSA If YES, has PT been informed?: Yes Medical Necessity Reason Pt with a Central, PICC or Fol: Yes Subjective Patient undergoing dialysis, remains confused. vital signs Vital Sign Date Time Temp Pulse Resp B/P (MAP) Pulse Ox O2 Delivery O2 Flow Rate FiO2 02/07/25 09:00 98.0 98 18 136/82 (100) 97 98.0 02/07/25 08:18 Nasal Cannula* 2 28 Total Intake and Output 02/06/25 02/06/25 02/07/25 15:00 23:00 07:00 Intake Total 250 ml 345 ml Output Total 151 ml 250 ml Balance 99 ml 95 ml medications Current Medications Medications Dose Ordered Sig/Kellen Route Start Time Stop Time Status Last Admin Dose Admin Diagnostic Test (Pha) 1 strip IQ4HR 02/02/25 04:00 02/07/25 12:02 1 STRIP Insulin Human Regular IQ4HR SC 02/02/25 04:00 02/07/25 04:25 2 UNITS Dextrose 50 ml UD PRN IV 02/02/25 01:00 Baclofen 5 mg BID PO 02/03/25 10:00 02/07/25 08:52 5 MG Gabapentin 100 mg TID PO 02/03/25 06:00 02/06/25 23:01 100 MG Amlodipine Besylate 10 mg DAILY PO 02/03/25 10:00 02/07/25 08:54 10 MG Pantoprazole Sodium 40 mg DAILY IV 02/03/25 10:00 02/07/25 08:55 40 MG Lorazepam 1 mg ONCE PRN IV 02/02/25 20:00 Aspirin 81 mg DAILY PO 02/03/25 10:00 02/07/25 10:18 81 MG Atorvastatin Calcium 40 mg HS PO 02/03/25 22:00 02/06/25 23:01 40 MG Donepezil HCl 5 mg HS PO 02/03/25 22:00 02/06/25 23:01 5 MG Clopidogrel Bisulfate 75 mg DAILY PO 02/04/25 10:00 02/24/25 09:59 02/06/25 09:22 75 MG objective Chronically ill-appearing patient HEENT: No evidence of JVD, no oral ulcers. Pulmonary: Lungs are clear on auscultation bilaterally Cardiovascular S1-S2, no S3 or S4 Abdomen: Bowel sounds positive, soft no rebound tenderness Skin: No rash Neurological: Alert, oriented, no focal weakness laboratory and microbiology Laboratory Tests 02/07/25 06:40 Test 02/07/25 06:40 Range/Units Serum Glucose 85 74-106 mg/dL Assessment/Plan Assessment: End-stage renal disease TTS Uremia managed with dialysis Hypertension, uncontrolled Acidemia managed with dialysis Hyperkalemia managed with dialysis Subcentimeter hypoattenuating lesion on CT History of CVA Anemia of Chronic kidney disease Plan: Hemodialysis today then TTS Fluid restriction less than 1 L per day Neurology following We will not use heparin Resume antihypertensive meds Stable from the renal perspective Thank you very much for allowing us to participate in the care of this patient please contact if you have any questions. Dietary Evaluation Review Comments: 1) Add 60g CCHO renal restriction to pureed diet 2) Initiate Nepro CarbSteady bid 3) Encourage optimal PO intake 4) Follow-up with nephrology and neurology 4) Continue to monitor I&O, labs, and skin integrity Expected Outcomes/Goals: 1) appetite and labs to improve 2) f/u in 3-5 days Plan discussed with: Patient CECIL BELL MD Feb 07, 2025 14:59
--- NOTE | 2025-02-07 16:00 | DVHPNRES ---
Progress Note Date Seen: Feb 07, 2025 Resident Creating Document: CHAU SYKES RESIDENT Has the PT tested + for MRSA If YES, has PT been informed?: Yes Medical Necessity Reason Pt with a Central, PICC or Fol: Yes Subjective Review of Systems Siddhartha Whaley is a 59 year old male with past medical history of DM2, HTN, CVA (2023), Dementia and, CKD stage 5 (Dialysis MWF at [facility]). The patient was brought to the ED by the EMS team with chief complaint of 3 days of generalized weakness, difficulty to swallow and high blood pressure. Family member on site reports that the patient has missed his last 2 dialysis session due to feeling weak and tired. Initial evaluation in the ED showed blood pressure of 177/116 and a blood glucose of 331 mg/dl. Non contrast head CT scan showed: Subcentimeter hyperattenuating focus within the right internal capsule/thalamus may represent small intraparenchymal hemorrhage, or calcification. Correlate with symptoms and consider 6-8 hour follow-up head CT for reassessment, numerous hypodense foci within deep white matter and basal ganglia consistent with age indeterminate, but probably chronic lacunar infarcts. Underlying sequela of mild chronic microangiopathy. The patient denies fever, chills, diarrhea, nausea, vomit, sick contacts or other symptoms. 02/02/25 Patient seen at bedside. Patient is alert times 1, he is not oriented to place or time. Patient is a poor historian. Talked to the sister and she states that the patient has been having hiccups since July, has had dementia since 1 year, and underwent a stroke last year and also started having choking symptoms and having trouble swallowing since 1 week. Last week he was walking fine but now has been having balance problems, and is a fall risk, has had no trauma to the head. Yesterday he was too weak to go to the dialysis appointment. Repeat head CT shows Stable 8 mm hyperattenuating focus in the right internal capsule/ thalamus without any significant change. The etiology remains unclear since this has not changed. Patient has undergone dialysis today. Given baclofen 5 mg b.i.d. and gabapentin 100 mg t.i.d. eval was placed. Pureed diet was started. 02/03/2025 Patient seen at bedside. Patient is alert x1. General appearance is better than yesterday. PT eval placed. Social service consult case SNF placement. Wound consult placed for redness in the sacrum. Alvino September 5 mg p.o., atorvastatin 40 mg p.o., aspirin 81 mg p.o. started. Richardson's was placed. hepatitis panel negative, influenza and COVID negative. Neuro on board. Nephrology on board. 02/04/25 Patient seen at bedside. Patient is alert x1. General appearance is better than yesterday. Patient stopped hicupping, as per nurse patient had trouble swallowing 1 pill and coughed a few times but after giving a 2nd pill slowly he was fine. PT eval placed . Neuro on board. Nephrology on board. Cardiology On word and recommended TTE. Waiting for SNF placement. 02/05/25 Patient seen at bedside. He is Alert x1, is talking and appears better. No overnight events reported. Patient is not hiccuping, still taking thickened liquids to swallow pills and sometimes has cough when swallowing. He denies any pain, nausea, vomiting. TTE pending, waiting for SNF placement. 02/06/25 Patient was seen at the bedside. He is alert x1. No overnight events were reported. Patient is not hiccupping. He is unable to swallow much and coughs even with a few sips of water. We have ordered a swallow test with pureed diet, suggested patient can not take nectar thick pureed diet. 02/07/2025 Patient seen at bedside. He is alert x1, no overnight events were reported. Patient is taking pureed diet, still coughing after taking sips of water. SHARMILA shows EF of 55%. Waiting for SNF placement. Objective vital signs Vital Sign Date Time Temp Pulse Resp B/P (MAP) Pulse Ox O2 Delivery O2 Flow Rate FiO2 02/07/25 15:00 100 18 105/84 (91) 02/07/25 09:00 98.0 97 98.0 02/07/25 08:18 Nasal Cannula* 2 28 Total Intake and Output 02/06/25 02/06/25 02/07/25 15:00 23:00 07:00 Intake Total 250 ml 345 ml Output Total 151 ml 250 ml Balance 99 ml 95 ml medications Current Medications Medications Dose Ordered Sig/Kellen Route Start Time Stop Time Status Last Admin Dose Admin Diagnostic Test (Pha) 1 strip IQ4HR 02/02/25 04:00 02/07/25 12:02 1 STRIP Insulin Human Regular IQ4HR SC 02/02/25 04:00 02/07/25 04:25 2 UNITS Dextrose 50 ml UD PRN IV 02/02/25 01:00 Baclofen 5 mg BID PO 02/03/25 10:00 02/07/25 08:52 5 MG Gabapentin 100 mg TID PO 02/03/25 06:00 02/06/25 23:01 100 MG Amlodipine Besylate 10 mg DAILY PO 02/03/25 10:00 02/07/25 08:54 10 MG Pantoprazole Sodium 40 mg DAILY IV 02/03/25 10:00 02/07/25 08:55 40 MG Lorazepam 1 mg ONCE PRN IV 02/02/25 20:00 Aspirin 81 mg DAILY PO 02/03/25 10:00 02/07/25 10:18 81 MG Atorvastatin Calcium 40 mg HS PO 02/03/25 22:00 02/06/25 23:01 40 MG Donepezil HCl 5 mg HS PO 02/03/25 22:00 02/06/25 23:01 5 MG Clopidogrel Bisulfate 75 mg DAILY PO 02/04/25 10:00 02/24/25 09:59 02/06/25 09:22 75 MG Examination General: Patient alert and oriented in person, place and time. Patient following commands. HEENT: Normocephalic, atraumatic, moist mucous membranes Respiratory/pulmonary: Clear lungs bilaterally, vesicular murmurs present in almost all lung islas, no associated crackles or wheezes. Cardiovascular: Normal heart sounds S1 and S2 with no associated murmurs Abdomen: Abdomen nondistended, there is no pain to palpation in any of the abdominal quadrants, no palpable masses. Richardson catheter in place, with yellow urine. Extremities: There is no peripheral edema present at the lower extremities. Peripheral Pulses: 3+ Radial (R). 3+ Radial (L). 3+ Dorsalis pedis (R). 3+ Dorsalis pedis(L) Skin: No rashes or pruritus, there is no sacral edema present at this time. Neurological: Intact cranial nerves with no focal neurologic deficits laboratory and microbiology Laboratory Tests 02/07/25 06:40 Test 02/07/25 06:40 Range/Units Serum Glucose 85 74-106 mg/dL Microbiology Date/Time Source Procedure Growth Status 02/02/25 01:36 Blood Blood Culture - Final NO GROWTH AFTER 5 DAYS OF INCUBATION. Complete Problem List/Assessment/Plan Problem List/Assessment/Plan # Hypertensive urgency-resolving - Amlodipine 10 mg po - Monitor BP # Reactive leukocytosis- monitorlab # ESRD on HD # Missed HD # Non compliance with HD # Uremia # Acidemia managed with dialysis # Hyperkalemia managed with dialysis # Anemia of Chronic kidney disease from ESRD - Dialysis MWF at [facility] - Monitor lab - HD today and tommorrow - nephro consulted and stated Hemodialysis today then Saturday, Fluid restriction less than 1 L per day # Generalized weakness, rule out CVA # Hx of CVA - Head CT scan ,stable 8 mm hyperattenuating focus in the right internal capsule/ thalamus without any significant change - neuro consulted and recommended to give us a Aspirin 81 mg daily, Lipitor 40 mg daily, Aricept 5 mg daily - cardio consulted and recommended transesophageal echocardiogram at first availablity. TTE shows EF of 55%. # Hyponantremia -monitor lab # DM2 with hyperglycemia - Insulin sliding scale - HbA1C- 8.7 Purred diet PPI prophylaxis: Protonix 40 mg DVT Prophylaxis: None Goals of care discussed with patient for 27 minutes Patient is CODE :DNR/DNI, confirmed with sister Plan discussed with Dr. Andino Plan discussed with: Other (RN, Sister) Dietary Evaluation Review Comments: 1) Add 60g CCHO renal restriction to pureed diet 2) Initiate Nepro CarbSteady bid 3) Encourage optimal PO intake 4) Follow-up with nephrology and neurology 4) Continue to monitor I&O, labs, and skin integrity Expected Outcomes/Goals: 1) appetite and labs to improve 2) f/u in 3-5 days Date of Service: Feb 07, 2025 Billing Provider: BRISEYDA ANDINO MD Common Visit Codes: [id number] INP/OBS CARE(HIGH) CHAU SYKES RESIDENT Feb 07, 2025 16:00 BRISEYDA ANDINO MD Feb 12, 2025 21:28
--- NOTE | 2025-02-07 21:19 | DVHPN2 ---
Progress Note - Dictate Date Seen: Feb 07, 2025 Has the PT tested + for MRSA If YES, has PT been informed?: Yes Medical Necessity Reason Pt with a Central, PICC or Fol: Yes Subjective Patient was seen and evaluated in follow up. Patient is on 2 LPM NC. Patent remains confused. Patient on pureed diet. Awaiting SNF placement. BUN 32, Clin Asst 4.95. BS in the 170s. vital signs Vital Sign Date Time Temp Pulse Resp B/P (MAP) Pulse Ox O2 Delivery O2 Flow Rate FiO2 02/07/25 17:00 98.0 108 18 145/91 (109) 96 98.0 02/07/25 08:18 Nasal Cannula* 2 28 Total Intake and Output 02/06/25 02/06/25 02/07/25 15:00 23:00 07:00 Intake Total 250 ml 345 ml Output Total 151 ml 250 ml Balance 99 ml 95 ml medications Current Medications Medications Dose Ordered Sig/Kellen Route Start Time Stop Time Status Last Admin Dose Admin Diagnostic Test (Pha) 1 strip IQ4HR 02/02/25 04:00 02/07/25 19:59 1 STRIP Insulin Human Regular IQ4HR SC 02/02/25 04:00 02/07/25 20:06 3 UNITS Dextrose 50 ml UD PRN IV 02/02/25 01:00 Baclofen 5 mg BID PO 02/03/25 10:00 02/07/25 08:52 5 MG Gabapentin 100 mg TID PO 02/03/25 06:00 02/06/25 23:01 100 MG Amlodipine Besylate 10 mg DAILY PO 02/03/25 10:00 02/07/25 08:54 10 MG Pantoprazole Sodium 40 mg DAILY IV 02/03/25 10:00 02/07/25 08:55 40 MG Lorazepam 1 mg ONCE PRN IV 02/02/25 20:00 Aspirin 81 mg DAILY PO 02/03/25 10:00 02/07/25 10:18 81 MG Atorvastatin Calcium 40 mg HS PO 02/03/25 22:00 02/06/25 23:01 40 MG Donepezil HCl 5 mg HS PO 02/03/25 22:00 02/06/25 23:01 5 MG Clopidogrel Bisulfate 75 mg DAILY PO 02/04/25 10:00 02/24/25 09:59 02/06/25 09:22 75 MG objective GENERAL: A&O x2. Somewhat non-verbal, +dysphagia EYES: PERRL, EOMI. Anicteric. HENT: Moist mucous membranes. LUNGS: Clear to auscultation bilaterally. CARDIOVASCULAR: Regular rate and rhythm. ABDOMEN: Soft, non-tender and non-distended. EXTREMITIES: No edema. SKIN: Warm, dry. laboratory and microbiology Laboratory Tests 02/07/25 06:40 Test 02/07/25 06:40 Range/Units Serum Glucose 85 74-106 mg/dL Problem List Acute CVA rule out cardioembolic source. History of multiple chronic strokes. Hypertensive urgency. Diabetes mellitus type 2. ESRD on HD. Medical noncompliance (missed HD). Assessment/Plan Continued all current supportive medical care. Amlodipine. Aspirin, Lipitor, Plavix. GI prophylactics. Additional plan as per the hospital course. Dietary Evaluation Review Comments: 1) Add 60g CCHO renal restriction to pureed diet 2) Initiate Nepro CarbSteady bid 3) Encourage optimal PO intake 4) Follow-up with nephrology and neurology 4) Continue to monitor I&O, labs, and skin integrity Expected Outcomes/Goals: 1) appetite and labs to improve 2) f/u in 3-5 days Plan discussed with: DESIREE Shay MD Feb 07, 2025 21:19
[2025-02-08] VITALS (7 sets, daily range): BP systolic 121–157; BP diastolic 76–86; PULSE 91–105; RESP 16–18; TEMP 97.2–98.1; O2SAT 96–100
[2025-02-08 08:26] LABS: Hematocrit 38.6 % (41.0-53.0); Hemoglobin 12.9 g/dL (13.5-17.5); Mean Corpuscular Hemoglobin 30.3 pg (28.0-32.0); Mean Corpuscular Volume 90.8 fL (80.0-100.0); Nucleated Red Blood Cells % 0.0 %
[2025-02-08 08:42] LABS: Carbon Dioxide 22 mmol/L (20-31); Chloride 98 mmol/L (98-107); Potassium 4.7 mmol/L (3.5-5.1)
[2025-02-08 08:43] LABS: Calcium 9.3 mg/dL (8.7-10.4)
[2025-02-08 08:48] LABS: BUN/Creatinine Ratio 7.6 (10.0-20.0); Blood Urea Nitrogen 31 mg/dL (9-23); Glucose 189 mg/dL (74-106)
[2025-02-08 11:00] LABS: Anion Gap 17 (5-15); Sodium 137 mmol/L (136-145)
--- NOTE | 2025-02-08 14:55 | DVHPNRES ---
Progress Note Date Seen: Feb 08, 2025 Resident Creating Document: CHAU SYKES RESIDENT Has the PT tested + for MRSA If YES, has PT been informed?: Yes Medical Necessity Reason Pt with a Central, PICC or Fol: Yes Subjective Review of Systems Siddhartha Whaley is a 59 year old male with past medical history of DM2, HTN, CVA (2023), Dementia and, CKD stage 5 (Dialysis MWF at [facility]). The patient was brought to the ED by the EMS team with chief complaint of 3 days of generalized weakness, difficulty to swallow and high blood pressure. Family member on site reports that the patient has missed his last 2 dialysis session due to feeling weak and tired. Initial evaluation in the ED showed blood pressure of 177/116 and a blood glucose of 331 mg/dl. Non contrast head CT scan showed: Subcentimeter hyperattenuating focus within the right internal capsule/thalamus may represent small intraparenchymal hemorrhage, or calcification. Correlate with symptoms and consider 6-8 hour follow-up head CT for reassessment, numerous hypodense foci within deep white matter and basal ganglia consistent with age indeterminate, but probably chronic lacunar infarcts. Underlying sequela of mild chronic microangiopathy. The patient denies fever, chills, diarrhea, nausea, vomit, sick contacts or other symptoms. 02/02/25 Patient seen at bedside. Patient is alert times 1, he is not oriented to place or time. Patient is a poor historian. Talked to the sister and she states that the patient has been having hiccups since July, has had dementia since 1 year, and underwent a stroke last year and also started having choking symptoms and having trouble swallowing since 1 week. Last week he was walking fine but now has been having balance problems, and is a fall risk, has had no trauma to the head. Yesterday he was too weak to go to the dialysis appointment. Repeat head CT shows Stable 8 mm hyperattenuating focus in the right internal capsule/ thalamus without any significant change. The etiology remains unclear since this has not changed. Patient has undergone dialysis today. Given baclofen 5 mg b.i.d. and gabapentin 100 mg t.i.d. eval was placed. Pureed diet was started. 02/03/2025 Patient seen at bedside. Patient is alert x1. General appearance is better than yesterday. PT eval placed. Social service consult case SNF placement. Wound consult placed for redness in the sacrum. Alvino September 5 mg p.o., atorvastatin 40 mg p.o., aspirin 81 mg p.o. started. Richardson's was placed. hepatitis panel negative, influenza and COVID negative. Neuro on board. Nephrology on board. 02/04/25 Patient seen at bedside. Patient is alert x1. General appearance is better than yesterday. Patient stopped hicupping, as per nurse patient had trouble swallowing 1 pill and coughed a few times but after giving a 2nd pill slowly he was fine. PT eval placed . Neuro on board. Nephrology on board. Cardiology On word and recommended TTE. Waiting for SNF placement. 02/05/25 Patient seen at bedside. He is Alert x1, is talking and appears better. No overnight events reported. Patient is not hiccuping, still taking thickened liquids to swallow pills and sometimes has cough when swallowing. He denies any pain, nausea, vomiting. TTE pending, waiting for SNF placement. 02/06/25 Patient was seen at the bedside. He is alert x1. No overnight events were reported. Patient is not hiccupping. He is unable to swallow much and coughs even with a few sips of water. We have ordered a swallow test with pureed diet, suggested patient can not take nectar thick pureed diet. 02/07/2025 Patient seen at bedside. He is alert x1, no overnight events were reported. Patient is taking pureed diet, still coughing after taking sips of water. SHARMILA shows EF of 55%. Waiting for SNF placement. 02/07/2025 Patient seen at bedside. She is alert x1, no overnight events were reported, bedside swallow study showed and failed. GI was consulted for possible PEG tube placement. Waiting for SNF placement. Objective vital signs Vital Sign Date Time Temp Pulse Resp B/P (MAP) Pulse Ox O2 Delivery O2 Flow Rate FiO2 02/08/25 09:00 97.8 105 18 157/77 (103) 100 97.8 02/07/25 20:00 Nasal Cannula* 2 28 Total Intake and Output 02/07/25 02/07/25 02/08/25 15:00 23:00 07:00 Intake Total 430 ml 0 ml Output Total 500 ml 150 ml Balance -70 ml -150 ml medications Current Medications Medications Dose Ordered Sig/Kellen Route Start Time Stop Time Status Last Admin Dose Admin Diagnostic Test (Pha) 1 strip IQ4HR 02/02/25 04:00 02/08/25 12:34 1 STRIP Insulin Human Regular IQ4HR SC 02/02/25 04:00 02/08/25 12:34 3 UNITS Dextrose 50 ml UD PRN IV 02/02/25 01:00 Baclofen 5 mg BID PO 02/03/25 10:00 02/07/25 21:24 5 MG Gabapentin 100 mg TID PO 02/03/25 06:00 02/07/25 21:24 100 MG Amlodipine Besylate 10 mg DAILY PO 02/03/25 10:00 02/07/25 08:54 10 MG Pantoprazole Sodium 40 mg DAILY IV 02/03/25 10:00 02/08/25 09:18 40 MG Lorazepam 1 mg ONCE PRN IV 02/02/25 20:00 Aspirin 81 mg DAILY PO 02/03/25 10:00 02/07/25 10:18 81 MG Atorvastatin Calcium 40 mg HS PO 02/03/25 22:00 02/07/25 21:24 40 MG Donepezil HCl 5 mg HS PO 02/03/25 22:00 02/07/25 21:24 5 MG Clopidogrel Bisulfate 75 mg DAILY PO 02/04/25 10:00 02/24/25 09:59 02/06/25 09:22 75 MG Examination General: Patient alert and oriented in person, place and time. Patient following commands. HEENT: Normocephalic, atraumatic, moist mucous membranes Respiratory/pulmonary: Clear lungs bilaterally, vesicular murmurs present in almost all lung islas, no associated crackles or wheezes. Cardiovascular: Normal heart sounds S1 and S2 with no associated murmurs Abdomen: Abdomen nondistended, there is no pain to palpation in any of the abdominal quadrants, no palpable masses. Richardson catheter in place, with yellow urine. Extremities: There is no peripheral edema present at the lower extremities. Peripheral Pulses: 3+ Radial (R). 3+ Radial (L). 3+ Dorsalis pedis (R). 3+ Dorsalis pedis(L) Skin: No rashes or pruritus, there is no sacral edema present at this time. Neurological: Intact cranial nerves with no focal neurologic deficits laboratory and microbiology Laboratory Tests 02/08/25 08:11 Test 02/08/25 08:11 Range/Units Serum Glucose 189 #H 74-106 mg/dL Microbiology Date/Time Source Procedure Growth Status 02/02/25 01:36 Blood Blood Culture - Final NO GROWTH AFTER 5 DAYS OF INCUBATION. Complete Problem List/Assessment/Plan Problem List/Assessment/Plan # Hypertensive urgency-resolving - Amlodipine 10 mg po - Monitor BP # Reactive leukocytosis- monitorlab # ESRD on HD # Missed HD # Non compliance with HD # Uremia # Acidemia managed with dialysis # Hyperkalemia managed with dialysis # Anemia of Chronic kidney disease from ESRD - Dialysis MWF at [facility] - Monitor lab - HD today and tommorrow - nephro consulted and stated Hemodialysis today then Saturday, Fluid restriction less than 1 L per day - GI consulted for possible PEG tube placement because patient is unable to swallow # Generalized weakness, rule out CVA # Hx of CVA - Head CT scan ,stable 8 mm hyperattenuating focus in the right internal capsule/ thalamus without any significant change - neuro consulted and recommended to give us a Aspirin 81 mg daily, Lipitor 40 mg daily, Aricept 5 mg daily - cardio consulted and recommended transesophageal echocardiogram at first availablity. TTE shows EF of 55%. # Hyponantremia -monitor lab # DM2 with hyperglycemia - Insulin sliding scale - HbA1C- 8.7 Purred diet PPI prophylaxis: Protonix 40 mg DVT Prophylaxis: None Goals of care discussed with patient for 27 minutes Patient is CODE :DNR/DNI, confirmed with sister Case discussed with Dr. Gastelum Plan discussed with: Patient My Orders My Orders Orders - CHAU SYKES RESIDENT Procedure Category Date Status Time Npo (Nothing By DIET 02/08/25 Transmitted Mouth) Diet Lunch * Swallow Request ST 02/08/25 Transmitted 12:24 * Gi D[facility] [employer] CONS 02/08/25 Transmitted 14:12 Dietary Evaluation Review Comments: 1) Add 60g CCHO renal restriction to pureed diet 2) Initiate Nepro CarbSteady bid 3) Encourage optimal PO intake 4) Follow-up with nephrology and neurology 4) Continue to monitor I&O, labs, and skin integrity Expected Outcomes/Goals: 1) appetite and labs to improve 2) f/u in 3-5 days Date of Service: Feb 08, 2025 Billing Provider: SERGEY GASTELUM MD Common Visit Codes: [id number] INP/OBS CARE(HIGH) GUEROLALAAnishCHAU RESIDENT Feb 08, 2025 14:55 SERGEY GASTELUM MD Feb 09, 2025 18:09
--- NOTE | 2025-02-08 16:44 | DVHPN2 ---
Progress Note - Dictate Date Seen: Feb 08, 2025 Has the PT tested + for MRSA If YES, has PT been informed?: Yes Medical Necessity Reason Pt with a Central, PICC or Fol: Yes Subjective On and off confused vital signs Vital Sign Date Time Temp Pulse Resp B/P (MAP) Pulse Ox O2 Delivery O2 Flow Rate FiO2 02/08/25 09:00 97.8 105 18 157/77 (103) 100 97.8 02/07/25 20:00 Nasal Cannula* 2 28 Total Intake and Output 02/07/25 02/07/25 02/08/25 15:00 23:00 07:00 Intake Total 430 ml 0 ml Output Total 500 ml 150 ml Balance -70 ml -150 ml medications Current Medications Medications Dose Ordered Sig/Kellen Route Start Time Stop Time Status Last Admin Dose Admin Diagnostic Test (Pha) 1 strip IQ4HR 02/02/25 04:00 02/08/25 12:34 1 STRIP Insulin Human Regular IQ4HR SC 02/02/25 04:00 02/08/25 12:34 3 UNITS Dextrose 50 ml UD PRN IV 02/02/25 01:00 Baclofen 5 mg BID PO 02/03/25 10:00 02/07/25 21:24 5 MG Gabapentin 100 mg TID PO 02/03/25 06:00 02/07/25 21:24 100 MG Amlodipine Besylate 10 mg DAILY PO 02/03/25 10:00 02/07/25 08:54 10 MG Pantoprazole Sodium 40 mg DAILY IV 02/03/25 10:00 02/08/25 09:18 40 MG Lorazepam 1 mg ONCE PRN IV 02/02/25 20:00 Aspirin 81 mg DAILY PO 02/03/25 10:00 02/07/25 10:18 81 MG Atorvastatin Calcium 40 mg HS PO 02/03/25 22:00 02/07/25 21:24 40 MG Donepezil HCl 5 mg HS PO 02/03/25 22:00 02/07/25 21:24 5 MG Clopidogrel Bisulfate 75 mg DAILY PO 02/04/25 10:00 02/24/25 09:59 02/06/25 09:22 75 MG objective Chronically ill-appearing patient HEENT: No evidence of JVD, no oral ulcers. Pulmonary: Lungs are clear on auscultation bilaterally Cardiovascular S1-S2, no S3 or S4 Abdomen: Bowel sounds positive, soft no rebound tenderness Skin: No rash Neurological: Alert, oriented, no focal weakness laboratory and microbiology Laboratory Tests 02/08/25 08:11 Test 02/08/25 08:11 Range/Units Serum Glucose 189 #H 74-106 mg/dL Problem List Assessment: End-stage renal disease TTS Uremia managed with dialysis Hypertension, improving Acidemia managed with dialysis Hyperkalemia managed with dialysis Subcentimeter hypoattenuating lesion on CT History of CVA Anemia of Chronic kidney disease Plan: Hemodialysis to continue on TTS schedule UF goal for tomorrow: 3 L Fluid restriction less than 1 L per day Neurology following We will not use heparin Dietary Evaluation Review Comments: 1) Add 60g CCHO renal restriction to pureed diet 2) Initiate Nepro CarbSteady bid 3) Encourage optimal PO intake 4) Follow-up with nephrology and neurology 4) Continue to monitor I&O, labs, and skin integrity Expected Outcomes/Goals: 1) appetite and labs to improve 2) f/u in 3-5 days Plan discussed with: Patient SABRINA DAVALOS MD Feb 08, 2025 16:44
[2025-02-08] MEDS ORDERED: CLINIMIX PER PHARMACY 0 ML IV SCH (16:45)
[2025-02-08 17:22] LABS: Magnesium 2.4 mg/dL (1.6-2.6)
--- NOTE | 2025-02-08 18:33 | DVHCONRES ---
Date Seen: Feb 08, 2025 Resident Creating Document: VANDA SMITH RESIDENT Referring Physician CHAU SYKES RESIDENT Reason for Consultation PEG Tube placement History of Present Illness The patient is a 59-year-old male with a history of end-stage renal disease (ESRD) on hemodialysis (Saturday, Saturday, Saturday), hypertension, type 2 diabetes mellitus, hyponatremia, prior cerebrovascular accident , and dementia, who is being seen in GI consultation for evaluation and management of severe dysphagia. The patient has been experiencing difficulty swallowing solids and liquids, with coughing even after minimal sips of water, and was noted to have failed a recent bedside swallow study. Symptoms have been ongoing for approximately one week and are associated with intermittent hiccups since December . He denies odynophagia, abdominal pain, nausea, vomiting, hematemesis, melena, or hematochezia. Due to high aspiration risk and inability to meet nutritional needs orally, he has been placed NPO and started on parenteral nutrition (Clinimix) . GI has been consulted for consideration of PEG tube placement once the patient is medically optimized. All anticoagulants and antiplatelets are being held in preparation for possible endoscopic placement. The patient recently missed two hemodialysis sessions due to generalized weakness but has since resumed schedule. No fevers or signs of infection reported. Hepatitis panel and liver enzymes are within normal limits. New/relevant data today * Diet/Nutrition: NPO; Clinimix PN started (route per primaryparenteral). * Labs (latest): Na 215676, K 3.54.7, CO? 2228, BUN 3132?, Cr 4.094.95? (ESRD), Ca 9.19.3, Phos 4.7, Mg 2.4; AST 21, ALT <9, Alk Phos 81, T. bili 0.3 (all within/near normal); Albumin 3.9. HbA1c 9.1. CBC without leukocytosis; platelets adequate. * Serologies: Hep A IgM, HBsAg, HBc IgM, HCV Ab negative. * Imaging: Prior head CT with stable small hyperattenuating focus; TTE/SHARMILA EF ~55%; carotid duplex without hemodynamically significant stenosis. Past Medical History * End-stage renal disease (ESRD) on chronic hemodialysis (MWF) * Hypertension * Type 2 diabetes mellitus, uncontrolled (HbA1c 9.1%) * Hyponatremia * Cerebrovascular accident (2023) residual mild cognitive impairment * Dementia (diagnosed 1 year ago) * Generalized weakness * History of hyperkalemia, uremia, and acidemia (managed with dialysis) Past Surgical History * None reported relevant to GI tract * No prior gastrostomy or abdominal surgery noted * Dialysis access creation (date not specified) Family History: Cerebrovascular accident (CVA) G8 FATHER FH: dementia G8 MOTHER Ischemic heart disease G8 FATHER Family History * No reported family history of gastrointestinal malignancy, inflammatory bowel disease, liver disease, or pancreatic disorders * No known hereditary dysphagia or neuromuscular disorders reported Social History * Resides in a detention facility / under family supervision for daily needs * Dependent for ADLs due to functional decline and cognitive impairment * Denies current tobacco, alcohol, or recreational drug use * No known occupational exposures to hepatotoxins or GI carcinogens * Diet prior to admission: regular solids; recently pureed diet prior to NPO status * Mobility limited; increased fall risk after recent neurologic decline Allergies: Coded Allergies: NO KNOWN ALLERGIES (Unverified , 02/01/25) Home Meds Reported Medications Nifedipine (Nifedipine Er) 60 Mg Tab, 1 TAB PO DAILY, #30 TAB 5 Refills 02/02/25 Atorvastatin Calcium (ATORVASTATIN CALCIUM) 40 Mg Tab, 1 TAB PO QPM, #90 TAB 3 Refills 02/02/25 Tamsulosin Hcl (Tamsulosin Hcl) 0.4 Mg Cap, 0.4 MG PO QPM for 30 Days, MG 02/02/25 Donepezil Hydrochloride (DONEPEZIL HCL) 5 Mg Tab, 5 MG PO DAILY for 30 Days, MG 02/02/25 Pantoprazole Sodium Sesquihydr (Protonix) 40 Mg Tab, 40 MG PO, #30 TAB 02/02/25 Sucralfate (Sucralfate) 1 Gm Tab, 1 GM PO BID, GM 02/02/25 Sertraline Hcl (Sertraline Hcl) 50 Mg Tab, 50 MG PO DAILY for 30 Days, MG 02/02/25 Metoprolol Succinate (Metoprolol Succinate Er) 50 Mg Tab, 50 MG PO DAILY for 30 Days, MG 02/02/25 Pioglitazone Hydrochloride (PIOGLITAZONE HCL) 45 Mg Tab, 45 MG OR DAILY, TAB 02/02/25 Current Medications Current Medications Medications (Trade) Dose Ordered Sig/Kellen Route PRN Reason Start Time Stop Time Status Last Admin Amino Acids 0 ml @ 0 mls/hr PER PHARMACY IV 02/08/25 16:45 Diagnostic Test (Pha) (Accu-Chek Comfort Curve T) 1 strip Q6HR 02/09/25 00:00 Insulin Human Regular (InsuLIN R) FOLLOW SLIDING SCALE Q6HR SC 02/09/25 00:00 Dextrose 50 ml UD IV 02/08/25 22:00 Amino Acids/ Electrolytes/ Dextrose 1,000 ml @ 41 mls/hr DAILY@2200 IV 02/08/25 22:00 Review of Systems * Positive: Dysphagia; intermittent hiccups. * Negative: Odynophagia, heartburn/regurgitation (today), abdominal pain, nausea/vomiting, melena/hematochezia, jaundice, pruritus, ascites/bloating. Vital Signs Vital Signs Date Time Temp Pulse Resp B/P (MAP) Pulse Ox O2 Delivery O2 Flow Rate FiO2 02/08/25 17:00 97.8 91 17 137/76 (96) 100 97.8 02/08/25 08:00 Nasal Cannula* 2 28 Physical Exam * Abdomen: Soft, nondistended, nontender, no masses or organomegaly; bowel s ounds present. * Skin: No jaundice or stigmata of chronic liver disease. Labs/Diagnostic Data Labs Test 02/08/25 16:45 02/08/25 08:11 02/07/25 06:40 02/05/25 05:40 Range/Units POC Glucose 135 H 70-106 mg/dl White Blood Count 12.5 H 4.4-10.8 10^3/uL Red Blood Count 4.25 L 4.5-5.90 10^6/uL Hemoglobin 12.9 L 13.5-17.5 g/dL Hematocrit 38.6 L 41.0-53.0 % Mean Corpuscular Volume 90.8 80.0-100.0 fL Mean Corpuscular Hemoglobin 30.3 28.0-32.0 pg Mean Corpuscular Hemoglobin Concent 33.4 32.0-36.0 g/dL Red Cell Distribution Width 14.0 11.8-14.3 % Platelet Count 482 H 140-450 10^3/uL Mean Platelet Volume 7.6 6.9-10.8 fL Neutrophils (%) (Auto) 84.4 H 37.0-80.0 % Lymphocytes (%) (Auto) 6.7 L 10.0-50.0 % Monocytes (%) (Auto) 7.7 0.0-12.0 % Eosinophils (%) (Auto) 0.9 0.0-7.0 % Basophils (%) (Auto) 0.3 0.0-2.0 % Neutrophils # (Auto) 10.5 H 1.6-8.6 10 ^3/uL Lymphocytes # (Auto) 0.8 0.4-5.4 10 ^3/uL Monocytes # (Auto) 1.0 0-1.3 10 ^3/uL Eosinophils # (Auto) 0.1 0-0.8 10 ^3/uL Basophils # (Auto) 0 0-0.2 10 ^3/uL Nucleated Red Blood Cells 0.0 % Sodium Level 137 136-145 mmol/L Potassium Level 4.7 3.5-5.1 mmol/L Chloride Level 98 98-107 mmol/L Carbon Dioxide Level 22 20-31 mmol/L Anion Gap 17 H 5-15 Blood Urea Nitrogen 31 H 9-23 mg/dL Creatinine 4.09 H 0.700-1.30 mg/dL Glomerular Filtration Rate Calc 16 >90 mL/min BUN/Creatinine Ratio 7.6 L 10.0-20.0 Serum Glucose 189 #H 74-106 mg/dL Calcium Level 9.3 8.7-10.4 mg/dL Phosphorus Level 4.7 2.4-5.1 mg/dL Magnesium Level 2.4 1.6-2.6 mg/dL Total Bilirubin 0.3 0.2-1.0 mg/dL Aspartate Amino Transferase (AST) 21 13-40 U/L Alanine Aminotransferase (ALT) < 9 7-40 U/L Alkaline Phosphatase 81 46-116 U/L Total Protein 6.9 5.7-8.2 g/dL Albumin 3.9 3.2-4.8 g/dL Prothrombin Time 10.4 9.3-11.8 sec Prothrombin Time INR 0.98 0.9-1.15 Activated Partial Thromboplast Time 28.0 24.5-34.5 SEC Test 02/05/25 04:00 02/03/25 06:59 02/02/25 09:47 02/02/25 08:30 Range/Units Urine Color Colorless Yellow Urine Clarity Turbid H Clear Urine pH 5.5 5.0-9.0 Urine Specific Taylor 1.014 1.001-1.035 Urine Protein 1+ H Negative Urine Ketones Negative Negative Urine Blood 3+ H Negative /uL Urine Nitrite Negative Negative Urine Bilirubin Negative Negative Urine Urobilinogen Normal Negative mg/dL Urine Leukocyte Esterase Trace Negative /uL Urine RBC 267 0 - 3 /hpf Urine Microscopic WBC 21 H 0-3 /HPF Urine Squamous Epithelial Cells Few <5 /hpf Urine Amorphous Crystals Few None Seen /hpf Urine Bacteria Few H None Seen /hpf Urine Hyaline Casts Few 0 - 2 /lpf Urine Glucose 2+ H Normal mg/dL Urine Opiates Screen Neg NEGATIVE Urine Fentanyl Screen Neg NEGATIVE Urine Barbiturates Screen Neg NEGATIVE Urine Phencyclidine Screen Neg NEGATIVE Urine Amphetamines Screen Neg NEGATIVE Urine Benzodiazepines Screen Neg NEGATIVE Urine Cocaine Screen Neg NEGATIVE Urine Cannabinoids Screen Neg NEGATIVE Hepatitis A IgM Antibody Negative Hepatitis B Surface Antigen Negative Negative Hepatitis B Core IgM Antibody Negative Negative Hepatitis C Antibody Negative Negative Influenza Type A Antigen Negative Negative Influenza Type B Antigen Negative Negative SARS-CoV-2 Antigen (Rapid) Negative NEGATIVE Hemoglobin A1c 8.7 H <5.7 % A1C Ammonia < 10 L 11-32 umol/L Triglycerides Level 174 H < 150 mg/dL Cholesterol Level 124 < 200 mg/dL LDL Cholesterol 56 < 100 mg/dL HDL Cholesterol 38 L 40-59 mg/dL Vitamin B12 Level 676 211-911 pg/mL Vitamin D 25-Hydroxy 64.3 30.0-100 ng/mL Folic Acid 9.28 >5.38 ng/mL Thyroid Stimulating Hormone (TSH) 0.23 L 0.55-4.78 uIU/mL Free Thyroxine (T4) Calculated 1.26 0.89-1.76 ng/dL Parathyroid Hormone (Intact) 94.7 H 18.4-80.1 pg/mL Test 02/01/25 19:00 Range/Units Troponin I High Sensitivity 7 </=54 ng/L Plasma/Serum Blood Alcohol < 3.0 <10 mg/dL Microbiology Date/Time Source Procedure Growth Status 02/02/25 01:36 Blood Blood Culture - Final NO GROWTH AFTER 5 DAYS OF INCUBATION. Complete Assessment 1. Oropharyngeal dysphagia with failed bedside swallow; high aspiration risk * Ruled in by failed bedside swallow, cough with minimal sips, medication swallowing difficulty. * /Consider: Esophageal structural disease (stricture/web/tumor), candidal esophagitis (immunocompromise not evident), dysmotility, cricopharyngeal dysfunction, post-CVA neurogenic dysphagia. * Needs durable enteral access for nutrition/meds. 2. Nutrition compromise in a hemodialysis patient; currently NPO on parenteral nutrition * At risk of protein-calorie malnutrition given prolonged poor PO and low body weight. 3. Reflux/GERD component & hiccups (intermittent) * Hiccups improved; reflux may contribute. * LFTs normal; hepatitis panel negativeno evidence of hepatic cause. 4. Luly-procedural anticoagulation/antiplatelet management for PEG * Procedure carries bleeding risk; hemodialysis also adds uremic platelet dysfunction risk. Plan/Recommendation Dysphagia / Enteral Access * EGD PEG placement once medically optimized. *continue current NPO otherwise. * Hold antiplatelets/anticoagulants *Monitor labs closely Nutrition (with ESRD) * Current feeds: NPO; Clinimix parenteral nutrition running per primary (route/infusion per order). Reflux & Hiccups * Continue IV pantoprazole 40 mg daily (stress/GERD prophylaxis). * Aspiration precautions: HOB >30, oral suction PRN, no PO meds. * For persistent hiccups impacting comfort: options low-dose chlorpromazine 1025 mg IV/PO (renal neutral) OR baclofen 5 mg with renal adjustment and monitoring for sedation; coordinate with nephrology. Case discussed in detail with the attending physician, including the clinical presentation, diagnostic workup, and comprehensive management plan. Plan discussed with: Other (RN) VANDA SMITH RESIDENT Feb 08, 2025 18:33
[2025-02-08] MEDS: AMINO ACID INFUSION IN D10W 1,000 ML IV SCH (21:20)
[2025-02-08] MEDS ORDERED: DEXTROSE (50%) 50ML SYRG IV SCH (22:00)
--- NOTE | 2025-02-08 23:44 | DVHPN2 ---
Progress Note - Dictate Date Seen: Feb 08, 2025 Has the PT tested + for MRSA If YES, has PT been informed?: Yes Medical Necessity Reason Pt with a Central, PICC or Fol: Yes Subjective Patient was seen and evaluated in follow up. Patient is on 2 LPM NC. Patent confused, failed swallow eval. GI was consulted for possible PEG tube placement. Waiting for SNF placement. vital signs Vital Sign Date Time Temp Pulse Resp B/P (MAP) Pulse Ox O2 Delivery O2 Flow Rate FiO2 02/08/25 21:00 98.1 100 17 140/81 (100) 99 98.1 02/08/25 20:00 Nasal Cannula* 2 28 Total Intake and Output 02/07/25 02/07/25 02/08/25 15:00 23:00 07:00 Intake Total 430 ml 0 ml Output Total 500 ml 150 ml Balance -70 ml -150 ml medications Current Medications Medications Dose Ordered Sig/Kellen Route Start Time Stop Time Status Last Admin Dose Admin Dextrose 50 ml UD PRN IV 02/02/25 01:00 Cancel Baclofen 5 mg BID PO 02/03/25 10:00 02/07/25 21:24 5 MG Gabapentin 100 mg TID PO 02/03/25 06:00 02/07/25 21:24 100 MG Amlodipine Besylate 10 mg DAILY PO 02/03/25 10:00 02/07/25 08:54 10 MG Pantoprazole Sodium 40 mg DAILY IV 02/03/25 10:00 02/08/25 09:18 40 MG Lorazepam 1 mg ONCE PRN IV 02/02/25 20:00 Atorvastatin Calcium 40 mg HS PO 02/03/25 22:00 02/07/25 21:24 40 MG Donepezil HCl 5 mg HS PO 02/03/25 22:00 02/07/25 21:24 5 MG Amino Acids 0 ml @ 0 mls/hr PER PHARMACY IV 02/08/25 16:45 Diagnostic Test (Pha) 1 strip Q6HR 02/09/25 00:00 Insulin Human Regular FOLLOW SLIDING SCALE Q6HR SC 02/09/25 00:00 Dextrose 50 ml UD IV 02/08/25 22:00 Amino Acids/ Electrolytes/ Dextrose 1,000 ml @ 41 mls/hr DAILY@2200 IV 02/08/25 22:00 02/08/25 21:20 41 MLS/HR objective GENERAL: A&O x2. Somewhat non-verbal, +dysphagia EYES: PERRL, EOMI. Anicteric. HENT: Moist mucous membranes. LUNGS: Clear to auscultation bilaterally. CARDIOVASCULAR: Regular rate and rhythm. ABDOMEN: Soft, non-tender and non-distended. EXTREMITIES: No edema. SKIN: Warm, dry. laboratory and microbiology Laboratory Tests 02/08/25 08:11 Test 02/08/25 08:11 Range/Units Serum Glucose 189 #H 74-106 mg/dL Problem List Acute CVA rule out cardioembolic source. History of multiple chronic strokes. Hypertensive urgency. Diabetes mellitus type 2. ESRD on HD. Medical noncompliance (missed HD). Assessment/Plan Continued all current supportive medical care. Amlodipine. Aspirin, Lipitor, Plavix. GI prophylactics. Additional plan as per the hospital course. Dietary Evaluation Review Comments: 1) Add 60g CCHO renal restriction to pureed diet 2) Initiate Nepro CarbSteady bid 3) Encourage optimal PO intake 4) Follow-up with nephrology and neurology 4) Continue to monitor I&O, labs, and skin integrity Expected Outcomes/Goals: 1) appetite and labs to improve 2) f/u in 3-5 days Plan discussed with: Other DESIREE BERNAL MD Feb 08, 2025 23:44
[2025-02-09] VITALS (8 sets, daily range): BP systolic 111–145; BP diastolic 62–92; PULSE 90–127; RESP 16–20; TEMP 97.8–98.1; O2SAT 96–100
[2025-02-09] MEDS: InsuLIN REG 1unit/0.01ml Soln (100units/ml) SC SCH
[2025-02-09] MEDS: ACCU-CHEK COMFORT CURVE STRIP VI SCH
[2025-02-09 07:49] LABS: Hematocrit 35.9 % (41.0-53.0); Hemoglobin 12.3 g/dL (13.5-17.5); Mean Corpuscular Hemoglobin 30.4 pg (28.0-32.0); Mean Corpuscular Volume 88.5 fL (80.0-100.0); Nucleated Red Blood Cells % 0.0 %
[2025-02-09 07:51] LABS: Albumin 4.0 g/dL (3.2-4.8); Alkaline Phosphatase 78 U/L (46-116); Anion Gap 13 (5-15); BUN/Creatinine Ratio 8.0 (10.0-20.0); Calcium 9.2 mg/dL (8.7-10.4); Carbon Dioxide 26 mmol/L (20-31); Chloride 98 mmol/L (98-107); Magnesium 2.4 mg/dL (1.6-2.6); Potassium 4.2 mmol/L (3.5-5.1); Sodium 137 mmol/L (136-145); Total Protein 7.0 g/dL (5.7-8.2)
[2025-02-09 07:52] LABS: Alanine Aminotransferase < 9 U/L (7-40); Bilirubin, Total 0.3 mg/dL (0.2-1.0); Blood Urea Nitrogen 45 mg/dL (9-23); Glucose 248 mg/dL (74-106)
--- NOTE | 2025-02-09 14:09 | DVHPN2 ---
Progress Note - Dictate Date Seen: Feb 09, 2025 Has the PT tested + for MRSA If YES, has PT been informed?: Yes Medical Necessity Reason Pt with a Central, PICC or Fol: Yes Subjective Less confused today vital signs Vital Sign Date Time Temp Pulse Resp B/P (MAP) Pulse Ox O2 Delivery O2 Flow Rate FiO2 02/09/25 13:00 97.8 114 19 115/62 (79) 97 97.8 02/09/25 08:00 Nasal Cannula* 2 28 Total Intake and Output 02/08/25 02/08/25 02/09/25 15:00 23:00 07:00 Intake Total 0 ml 0 ml Output Total 100 ml 450 ml Balance -100 ml -450 ml medications Current Medications Medications Dose Ordered Sig/Kellen Route Start Time Stop Time Status Last Admin Dose Admin Dextrose 50 ml UD PRN IV 02/02/25 01:00 Cancel Baclofen 5 mg BID PO 02/03/25 10:00 02/07/25 21:24 5 MG Gabapentin 100 mg TID PO 02/03/25 06:00 02/07/25 21:24 100 MG Amlodipine Besylate 10 mg DAILY PO 02/03/25 10:00 02/07/25 08:54 10 MG Pantoprazole Sodium 40 mg DAILY IV 02/03/25 10:00 02/09/25 08:31 40 MG Lorazepam 1 mg ONCE PRN IV 02/02/25 20:00 Atorvastatin Calcium 40 mg HS PO 02/03/25 22:00 02/07/25 21:24 40 MG Donepezil HCl 5 mg HS PO 02/03/25 22:00 02/07/25 21:24 5 MG Amino Acids 0 ml @ 0 mls/hr PER PHARMACY IV 02/08/25 16:45 Diagnostic Test (Pha) 1 strip Q6HR 02/09/25 00:00 02/09/25 11:49 1 STRIP Insulin Human Regular FOLLOW SLIDING SCALE Q6HR SC 02/09/25 00:00 02/09/25 05:42 16 UNITS Dextrose 50 ml UD IV 02/08/25 22:00 Amino Acids/ Electrolytes/ Dextrose 1,000 ml @ 41 mls/hr DAILY@2200 IV 02/08/25 22:00 02/08/25 21:20 41 MLS/HR objective Chronically ill-appearing patient HEENT: No evidence of JVD, no oral ulcers. Pulmonary: Lungs are clear on auscultation bilaterally Cardiovascular S1-S2, no S3 or S4 Abdomen: Bowel sounds positive, soft no rebound tenderness Skin: No rash Neurological: Alert, oriented, no focal weakness laboratory and microbiology Laboratory Tests 02/09/25 07:01 Test 02/09/25 07:01 Range/Units Serum Glucose 248 H 74-106 mg/dL Problem List Assessment: End-stage renal disease TTS Uremia managed with dialysis Hypertension, better controlled Hyperkalemia improved Subcentimeter hypoattenuating lesion on CT History of CVA Anemia of Chronic kidney disease Plan: Hemodialysis to continue on TTS schedule Fluid restriction less than 1 L per day Neurology following Dietary Evaluation Review Comments: 1) Add 60g CCHO renal restriction to pureed diet 2) Initiate Nepro CarbSteady bid 3) Encourage optimal PO intake 4) Follow-up with nephrology and neurology 4) Continue to monitor I&O, labs, and skin integrity Expected Outcomes/Goals: 1) appetite and labs to improve 2) f/u in 3-5 days Plan discussed with: Patient SABRINA DAVALOS MD Feb 09, 2025 14:09
--- NOTE | 2025-02-09 16:53 | DVHPNRES ---
Progress Note Date Seen: Feb 09, 2025 Resident Creating Document: CHAU SYKES RESIDENT Has the PT tested + for MRSA If YES, has PT been informed?: Yes Medical Necessity Reason Pt with a Central, PICC or Fol: Yes Subjective Review of Systems Siddhartha Whaley is a 59 year old male with past medical history of DM2, HTN, CVA (2023), Dementia and, CKD stage 5 (Dialysis MWF at [facility]). The patient was brought to the ED by the EMS team with chief complaint of 3 days of generalized weakness, difficulty to swallow and high blood pressure. Family member on site reports that the patient has missed his last 2 dialysis session due to feeling weak and tired. Initial evaluation in the ED showed blood pressure of 177/116 and a blood glucose of 331 mg/dl. Non contrast head CT scan showed: Subcentimeter hyperattenuating focus within the right internal capsule/thalamus may represent small intraparenchymal hemorrhage, or calcification. Correlate with symptoms and consider 6-8 hour follow-up head CT for reassessment, numerous hypodense foci within deep white matter and basal ganglia consistent with age indeterminate, but probably chronic lacunar infarcts. Underlying sequela of mild chronic microangiopathy. The patient denies fever, chills, diarrhea, nausea, vomit, sick contacts or other symptoms. 02/02/25 Patient seen at bedside. Patient is alert times 1, he is not oriented to place or time. Patient is a poor historian. Talked to the sister and she states that the patient has been having hiccups since July, has had dementia since 1 year, and underwent a stroke last year and also started having choking symptoms and having trouble swallowing since 1 week. Last week he was walking fine but now has been having balance problems, and is a fall risk, has had no trauma to the head. Yesterday he was too weak to go to the dialysis appointment. Repeat head CT shows Stable 8 mm hyperattenuating focus in the right internal capsule/ thalamus without any significant change. The etiology remains unclear since this has not changed. Patient has undergone dialysis today. Given baclofen 5 mg b.i.d. and gabapentin 100 mg t.i.d. eval was placed. Pureed diet was started. 02/03/2025 Patient seen at bedside. Patient is alert x1. General appearance is better than yesterday. PT eval placed. Social service consult case SNF placement. Wound consult placed for redness in the sacrum. Alvino September 5 mg p.o., atorvastatin 40 mg p.o., aspirin 81 mg p.o. started. Richardson's was placed. hepatitis panel negative, influenza and COVID negative. Neuro on board. Nephrology on board. 02/04/25 Patient seen at bedside. Patient is alert x1. General appearance is better than yesterday. Patient stopped hicupping, as per nurse patient had trouble swallowing 1 pill and coughed a few times but after giving a 2nd pill slowly he was fine. PT eval placed . Neuro on board. Nephrology on board. Cardiology On word and recommended TTE. Waiting for SNF placement. 02/05/25 Patient seen at bedside. He is Alert x1, is talking and appears better. No overnight events reported. Patient is not hiccuping, still taking thickened liquids to swallow pills and sometimes has cough when swallowing. He denies any pain, nausea, vomiting. TTE pending, waiting for SNF placement. 02/06/25 Patient was seen at the bedside. He is alert x1. No overnight events were reported. Patient is not hiccupping. He is unable to swallow much and coughs even with a few sips of water. We have ordered a swallow test with pureed diet, suggested patient can not take nectar thick pureed diet. 02/07/2025 Patient seen at bedside. He is alert x1, no overnight events were reported. Patient is taking pureed diet, still coughing after taking sips of water. SHARMILA shows EF of 55%. Waiting for SNF placement. 02/08/2025 Patient seen at bedside. He is alert x1, no overnight events were reported, bedside swallow study showed and failed. GI was consulted for possible PEG tube placement. Waiting for SNF placement. 02/09/25 Patient seen at bedside. He is alert x1, no overnight events were reported or. GI was consulted and pending PEG tube placement. Called the sister and informed of patient's condition. Waiting for SNF placement Objective vital signs Vital Sign Date Time Temp Pulse Resp B/P (MAP) Pulse Ox O2 Delivery O2 Flow Rate FiO2 02/09/25 13:00 97.8 114 19 115/62 (79) 97 97.8 02/09/25 08:00 Nasal Cannula* 2 28 Total Intake and Output 02/08/25 02/08/25 02/09/25 15:00 23:00 07:00 Intake Total 0 ml 0 ml Output Total 100 ml 450 ml Balance -100 ml -450 ml medications Current Medications Medications Dose Ordered Sig/Kellen Route Start Time Stop Time Status Last Admin Dose Admin Dextrose 50 ml UD PRN IV 02/02/25 01:00 Cancel Baclofen 5 mg BID PO 02/03/25 10:00 02/07/25 21:24 5 MG Gabapentin 100 mg TID PO 02/03/25 06:00 02/07/25 21:24 100 MG Amlodipine Besylate 10 mg DAILY PO 02/03/25 10:00 02/07/25 08:54 10 MG Pantoprazole Sodium 40 mg DAILY IV 02/03/25 10:00 02/09/25 08:31 40 MG Lorazepam 1 mg ONCE PRN IV 02/02/25 20:00 Atorvastatin Calcium 40 mg HS PO 02/03/25 22:00 02/07/25 21:24 40 MG Donepezil HCl 5 mg HS PO 02/03/25 22:00 02/07/25 21:24 5 MG Amino Acids 0 ml @ 0 mls/hr PER PHARMACY IV 02/08/25 16:45 Diagnostic Test (Pha) 1 strip Q6HR 02/09/25 00:00 02/09/25 11:49 1 STRIP Insulin Human Regular FOLLOW SLIDING SCALE Q6HR SC 02/09/25 00:00 02/09/25 05:42 16 UNITS Dextrose 50 ml UD IV 02/08/25 22:00 Amino Acids/ Electrolytes/ Dextrose 1,000 ml @ 41 mls/hr DAILY@2200 IV 02/08/25 22:00 02/08/25 21:20 41 MLS/HR Examination General: Patient alert and oriented in person, place and time. Patient following commands. HEENT: Normocephalic, atraumatic, moist mucous membranes Respiratory/pulmonary: Clear lungs bilaterally, vesicular murmurs present in almost all lung islas, no associated crackles or wheezes. Cardiovascular: Normal heart sounds S1 and S2 with no associated murmurs Abdomen: Abdomen nondistended, there is no pain to palpation in any of the abdominal quadrants, no palpable masses. Richardson catheter in place, with yellow urine. Extremities: There is no peripheral edema present at the lower extremities. Peripheral Pulses: 3+ Radial (R). 3+ Radial (L). 3+ Dorsalis pedis (R). 3+ Dorsalis pedis(L) Skin: No rashes or pruritus, there is no sacral edema present at this time. Neurological: Intact cranial nerves with no focal neurologic deficits laboratory and microbiology Laboratory Tests 02/09/25 07:01 Test 02/09/25 07:01 Range/Units Serum Glucose 248 H 74-106 mg/dL Microbiology Date/Time Source Procedure Growth Status 02/02/25 01:36 Blood Blood Culture - Final NO GROWTH AFTER 5 DAYS OF INCUBATION. Complete Problem List/Assessment/Plan Problem List/Assessment/Plan # Hypertensive urgency-resolving - Amlodipine 10 mg po - Monitor BP # Reactive leukocytosis- monitorlab # ESRD on HD # Missed HD # Non compliance with HD # Uremia # Acidemia managed with dialysis # Hyperkalemia managed with dialysis # Anemia of Chronic kidney disease from ESRD - Dialysis MWF at [facility] - Monitor lab - HD today and tommorrow - nephro consulted and stated Hemodialysis today then Saturday, Fluid restriction less than 1 L per day - GI consulted for possible PEG tube placement because patient is unable to swallow # Generalized weakness, rule out CVA # Hx of CVA - Head CT scan ,stable 8 mm hyperattenuating focus in the right internal capsule/ thalamus without any significant change - neuro consulted and recommended to give us a Aspirin 81 mg daily, Lipitor 40 mg daily, Aricept 5 mg daily - cardio consulted and recommended transesophageal echocardiogram at first availablity. TTE shows EF of 55%. # Hyponantremia -monitor lab # DM2 with hyperglycemia - Insulin sliding scale - HbA1C- 8.7 Purred diet PPI prophylaxis: Protonix 40 mg DVT Prophylaxis: None Goals of care discussed with patient for 27 minutes Patient is CODE :DNR/DNI, confirmed with sister Case discussed with Dr. Gastelum Plan discussed with: Other (RN, sister) Dietary Evaluation Review Comments: 1) Add 60g CCHO renal restriction to pureed diet 2) Initiate Nepro CarbSteady bid 3) Encourage optimal PO intake 4) Follow-up with nephrology and neurology 4) Continue to monitor I&O, labs, and skin integrity Expected Outcomes/Goals: 1) appetite and labs to improve 2) f/u in 3-5 days Date of Service: Feb 09, 2025 Billing Provider: SERGEY GASTELUM MD Common Visit Codes: [id number] INP/OBS CARE(HIGH) CHAU SYKES RESIDENT Feb 09, 2025 16:53 SERGEY GASTELUM MD Feb 09, 2025 18:11
--- NOTE | 2025-02-09 18:52 | DVHPN2 ---
Progress Note Date Seen: Feb 09, 2025 Resident Creating Document: VANDA SMITH RESIDENT Has the PT tested + for MRSA If YES, has PT been informed?: Yes Medical Necessity Reason Pt with a Central, PICC or Fol: Yes Subjective Review of Systems Today's progress- He remains nonverbal, intermittent grunting and discomfort, and appears somnolent but arousable. He underwent hemodialysis today with 2 L removal. Bedside swallow study remains failed, with high aspiration risk. He is currently NPO and receiving parenteral nutrition with Clinimix on IV route. No enteral feeds at present. No vomiting, hematemesis or abdominal pain reported. Plan is for PEG tube placement tomorrow with NPO after midnight. All anticoagulants and antiplatelets have been held in preparation. Post PEG, goal is to resume enteral renal appropriate formula feed and discontinue PN once stable Patient is being considered for SNF placement after PEG tube for ongoing care and dialysis coordination. Objective vital signs Vital Sign Date Time Temp Pulse Resp B/P (MAP) Pulse Ox O2 Delivery O2 Flow Rate FiO2 02/09/25 17:00 97.9 114 18 111/78 (89) 98 97.9 02/09/25 08:00 Nasal Cannula* 2 28 Total Intake and Output 02/08/25 02/08/25 02/09/25 15:00 23:00 07:00 Intake Total 0 ml 0 ml Output Total 100 ml 450 ml Balance -100 ml -450 ml medications Current Medications Medications Dose Ordered Sig/Kellen Route Start Time Stop Time Status Last Admin Dose Admin Dextrose 50 ml UD PRN IV 02/02/25 01:00 Cancel Baclofen 5 mg BID PO 02/03/25 10:00 02/07/25 21:24 5 MG Gabapentin 100 mg TID PO 02/03/25 06:00 02/07/25 21:24 100 MG Amlodipine Besylate 10 mg DAILY PO 02/03/25 10:00 02/07/25 08:54 10 MG Pantoprazole Sodium 40 mg DAILY IV 02/03/25 10:00 02/09/25 08:31 40 MG Lorazepam 1 mg ONCE PRN IV 02/02/25 20:00 Atorvastatin Calcium 40 mg HS PO 02/03/25 22:00 02/07/25 21:24 40 MG Donepezil HCl 5 mg HS PO 02/03/25 22:00 02/07/25 21:24 5 MG Amino Acids 0 ml @ 0 mls/hr PER PHARMACY IV 02/08/25 16:45 Diagnostic Test (Pha) 1 strip Q6HR 02/09/25 00:00 02/09/25 17:50 1 STRIP Insulin Human Regular FOLLOW SLIDING SCALE Q6HR SC 02/09/25 00:00 02/09/25 17:50 12 UNITS Dextrose 50 ml UD IV 02/08/25 22:00 Amino Acids/ Electrolytes/ Dextrose 1,000 ml @ 41 mls/hr DAILY@2200 IV 02/08/25 22:00 02/08/25 21:20 41 MLS/HR Examination * Abdomen: Soft, nondistended, nontender, no masses or organomegaly; bowel sounds present. * Skin: No jaundice or stigmata of chronic liver disease. laboratory and microbiology Laboratory Tests 02/09/25 07:01 Test 02/09/25 07:01 Range/Units Serum Glucose 248 H 74-106 mg/dL Microbiology Date/Time Source Procedure Growth Status 02/02/25 01:36 Blood Blood Culture - Final NO GROWTH AFTER 5 DAYS OF INCUBATION. Complete Problem List/Assessment/Plan Problem List/Assessment/Plan 1. Oropharyngeal dysphagia with failed bedside swallow; high aspiration risk * Ruled in by failed bedside swallow, cough with minimal sips, medication swallowing difficulty. * /Consider: Esophageal structural disease (stricture/web/tumor), candidal esophagitis (immunocompromise not evident), dysmotility, cricopharyngeal dysfunction, post-CVA neurogenic dysphagia. * Needs durable enteral access for nutrition/meds. 2. Nutrition compromise in a hemodialysis patient; currently NPO on parenteral nutrition * At risk of protein-calorie malnutrition given prolonged poor PO and low body weight. 3. Reflux/GERD component & hiccups (intermittent) * Hiccups improved; reflux may contribute. * LFTs normal; hepatitis panel negativeno evidence of hepatic cause. 4. Luly-procedural anticoagulation/antiplatelet management for PEG * Procedure carries bleeding risk; hemodialysis also adds uremic platelet dysfunction risk. Plan/Recommendation Dysphagia / Enteral Access * EGD PEG placement TOMORROW. NPO after midnight. *continue current NPO otherwise. * Hold antiplatelets/anticoagulants *Monitor labs closely Nutrition (with ESRD) * Current feeds: NPO; Clinimix parenteral nutrition running per primary (route/infusion per order). Reflux & Hiccups * Continue IV pantoprazole 40 mg daily (stress/GERD prophylaxis). * Aspiration precautions: HOB >30, oral suction PRN, no PO meds. * For persistent hiccups impacting comfort: options low-dose chlorpromazine 1025 mg IV/PO (renal neutral) OR baclofen 5 mg with renal adjustment and monitoring for sedation; coordinate with nephrology. Case discussed in detail with the attending physician, including the clinical presentation, diagnostic workup, and comprehensive management sully Plan discussed with: Other (RN) My Orders My Orders Orders - VANDA SMITH RESIDENT Procedure Category Date Status Time Npo After Midnight NEHEMIAS 02/09/25 Verified 18:49 Npo (Nothing By DIET 02/10/25 Verified Mouth) Diet Breakfast Dietary Evaluation Review Comments: 1) Add 60g CCHO renal restriction to pureed diet 2) Initiate Nepro CarbSteady bid 3) Encourage optimal PO intake 4) Follow-up with nephrology and neurology 4) Continue to monitor I&O, labs, and skin integrity Expected Outcomes/Goals: 1) appetite and labs to improve 2) f/u in 3-5 days VANDA SMITH RESIDENT Feb 09, 2025 18:52
[2025-02-09] MEDS: ceFAZolin 1GM/50ML 50 ML IV ONE (22:46)
--- NOTE | 2025-02-09 23:06 | DVHPN2 ---
Progress Note - Dictate Date Seen: Feb 09, 2025 Has the PT tested + for MRSA If YES, has PT been informed?: Yes Medical Necessity Reason Pt with a Central, PICC or Fol: Yes Subjective Patient was seen and evaluated in follow up. Patient is on 2 LPM NC. Patent is nonverbal, intermittent grunting and discomfort, and appears somnolent but arousable. He received HD with 2 L removed. Patient is scheduled for PEG tube placement tomorrow. Pending SNF after PEG tube. vital signs Vital Sign Date Time Temp Pulse Resp B/P (MAP) Pulse Ox O2 Delivery O2 Flow Rate FiO2 02/09/25 21:00 127 19 134/86 (102) 97 02/09/25 17:00 97.9 97.9 02/09/25 08:00 Nasal Cannula* 2 28 Total Intake and Output 02/08/25 02/08/25 02/09/25 15:00 23:00 07:00 Intake Total 0 ml 0 ml Output Total 100 ml 450 ml Balance -100 ml -450 ml medications Current Medications Medications Dose Ordered Sig/Kellen Route Start Time Stop Time Status Last Admin Dose Admin Dextrose 50 ml UD PRN IV 02/02/25 01:00 Cancel Baclofen 5 mg BID PO 02/03/25 10:00 02/07/25 21:24 5 MG Gabapentin 100 mg TID PO 02/03/25 06:00 02/07/25 21:24 100 MG Amlodipine Besylate 10 mg DAILY PO 02/03/25 10:00 02/07/25 08:54 10 MG Pantoprazole Sodium 40 mg DAILY IV 02/03/25 10:00 02/09/25 08:31 40 MG Lorazepam 1 mg ONCE PRN IV 02/02/25 20:00 Atorvastatin Calcium 40 mg HS PO 02/03/25 22:00 02/07/25 21:24 40 MG Donepezil HCl 5 mg HS PO 02/03/25 22:00 02/07/25 21:24 5 MG Amino Acids 0 ml @ 0 mls/hr PER PHARMACY IV 02/08/25 16:45 Diagnostic Test (Pha) 1 strip Q6HR 02/09/25 00:00 02/09/25 23:00 1 STRIP Insulin Human Regular FOLLOW SLIDING SCALE Q6HR SC 02/09/25 00:00 02/09/25 17:50 12 UNITS Dextrose 50 ml UD IV 02/08/25 22:00 Amino Acids/ Electrolytes/ Dextrose 1,000 ml @ 41 mls/hr DAILY@2200 IV 02/08/25 22:00 02/09/25 22:46 41 MLS/HR objective GENERAL: A&O x2. Somewhat non-verbal, +dysphagia EYES: PERRL, EOMI. Anicteric. HENT: Moist mucous membranes. LUNGS: Clear to auscultation bilaterally. CARDIOVASCULAR: Regular rate and rhythm. ABDOMEN: Soft, non-tender and non-distended. EXTREMITIES: No edema. SKIN: Warm, dry. laboratory and microbiology Laboratory Tests 02/09/25 07:01 Test 02/09/25 07:01 Range/Units Serum Glucose 248 H 74-106 mg/dL Problem List Acute CVA rule out cardioembolic source. History of multiple chronic strokes. Hypertensive urgency. Diabetes mellitus type 2. ESRD on HD. Medical noncompliance (missed HD). Assessment/Plan Continued all current supportive medical care. Amlodipine. Aspirin, Lipitor, Plavix. GI prophylactics. Additional plan as per the hospital course. Dietary Evaluation Review Comments: 1) Add 60g CCHO renal restriction to pureed diet 2) Initiate Nepro CarbSteady bid 3) Encourage optimal PO intake 4) Follow-up with nephrology and neurology 4) Continue to monitor I&O, labs, and skin integrity Expected Outcomes/Goals: 1) appetite and labs to improve 2) f/u in 3-5 days Plan discussed with: DESIREE Shay MD Feb 09, 2025 23:06
--- NOTE | 2025-02-09 23:31 | DVHPN2 ---
Progress Note - Dictate Date Seen: Feb 09, 2025 Has the PT tested + for MRSA If YES, has PT been informed?: Yes Medical Necessity Reason Pt with a Central, PICC or Fol: Yes Subjective Mr. Torres is a 59 years old right-handed gentleman with a history of hypertension, diabetes, end-stage renal failure on hemodialysis, he was brought to the [facility] on 02/01/2025 with a chief complaint of general weakness, hypertension, dysphagia. I have seen examined the patient, I have talked his nurse, he was sleepy today, this evening, he is responsive to verbal stimuli, but he does not talk, only follows a little bit. He may only oriented to himself He used sign or gesture to asking me to turn off the lights Plasma alcohol, 02/01/2025: <3 UDS, 02/05/2025: Negative CBC, 02/01/2025: Unremarkable BUN/CR, 02/02/2025: 110/6.97 GFR, 02/02/2025: 9 HGB A1c, 02/02/2025: Able to seven TG/HDL/LDL/HDL, 02/02/2025: 174/124/56/38 Vitamin B12, 02/03/25: 676 Folic acid, 02/03/2025: 9.28 TSH, 02/03/2025: 0.23 FT4, 02/03/2025: 1.26 SHARMILA, 02/05/2025: * Technically good study. The patient was in a sinus rhythm. * Chamber dimension evaluation was within normal limits. * Valves appear to be structurally normal. * Left ventricular systolic function is preserved. EF is about 55% with normal RV function. * Doppler reveals mild TR, mild MR. No intraatrial or intraventricular shunt noted. * There is a small pericardial effusion, not hemodynamically significant. * No intracardiac masses, thrombi, and/or vegetation discernible. The atrial appendage is within normal limits without thrombi. * Bubble study also performed, showing no significant abnormalities Carotid doctor, 02/03/2025: Left mid and distal ICAs are not well-visualized with the distal right ICA not well-visualized. Otherwise, No hemodynamically significant stenosis within the visualized bilateral carotid arterial systems CT head, 02/02/2025 0042: 1. Subcentimeter hyperattenuating focus within the right internal capsule/thalamus may represent small intraparenchymal hemorrhage, or calcification. Correlate with symptoms and consider 6-8 hour follow-up head CT for reassessment. 2. Numerous hypodense foci within deep white matter and basal ganglia consistent with age indeterminate, but probably chronic lacunar infarcts. 3. Underlying sequela of mild chronic microangiopathy. CT head, 02/02/2025 1100: 1. Stable 8 mm hyperattenuating focus in the right internal capsule/ thalamus without any significant change. The etiology remains unclear since this has not changed. Continued short-term follow-up with noncontrast CT of the head in 6-8 hours is suggested. 2. Additional nonacute findings similar to prior CT performed earlier same date. (Chronic lacunar infarcts in the bilateral basal ganglia and thalami, I also see evidence suggestive of of bilateral pontine lacunar strokes) MRI head, 02/03/2025: 1. Small chronic lacunar infarcts are seen in the right side of the nancy and left periventricular white matter. 2. Multifocal chronic ischemic changes as detailed above. 3. Multifocal areas of hemosiderin deposition from prior small hemorrhages. 4. Additional findings as detailed above. (Acute lacunar infarct in the right side of the nancy measuring up to 0.6 cm. Acute lacunar infarct in the left periventricular white matter adjacent to the body of the left ventricle measuring up to 0.8 cm.) vital signs Vital Sign Date Time Temp Pulse Resp B/P (MAP) Pulse Ox O2 Delivery O2 Flow Rate FiO2 02/09/25 21:00 127 19 134/86 (102) 97 02/09/25 17:00 97.9 97.9 02/09/25 08:00 Nasal Cannula* 2 28 Total Intake and Output 02/08/25 02/08/25 02/09/25 15:00 23:00 07:00 Intake Total 0 ml 0 ml Output Total 100 ml 450 ml Balance -100 ml -450 ml medications Current Medications Medications Dose Ordered Sig/Kellen Route Start Time Stop Time Status Last Admin Dose Admin Dextrose 50 ml UD PRN IV 02/02/25 01:00 Cancel Baclofen 5 mg BID PO 02/03/25 10:00 02/07/25 21:24 5 MG Gabapentin 100 mg TID PO 02/03/25 06:00 02/07/25 21:24 100 MG Amlodipine Besylate 10 mg DAILY PO 02/03/25 10:00 02/07/25 08:54 10 MG Pantoprazole Sodium 40 mg DAILY IV 02/03/25 10:00 02/09/25 08:31 40 MG Lorazepam 1 mg ONCE PRN IV 02/02/25 20:00 Atorvastatin Calcium 40 mg HS PO 02/03/25 22:00 02/07/25 21:24 40 MG Donepezil HCl 5 mg HS PO 02/03/25 22:00 02/07/25 21:24 5 MG Amino Acids 0 ml @ 0 mls/hr PER PHARMACY IV 02/08/25 16:45 Diagnostic Test (Pha) 1 strip Q6HR 02/09/25 00:00 02/09/25 23:00 1 STRIP Insulin Human Regular FOLLOW SLIDING SCALE Q6HR SC 02/09/25 00:00 02/09/25 17:50 12 UNITS Dextrose 50 ml UD IV 02/08/25 22:00 Amino Acids/ Electrolytes/ Dextrose 1,000 ml @ 41 mls/hr DAILY@2200 IV 02/08/25 22:00 02/09/25 22:46 41 MLS/HR objective General: the patient is well developed and nourished. No acute distress. MENTAL STATUS: Awake and alert. Oriented to person, place SPEECH, LANGUAGE, HIGHER CORTICAL FUNCTION: no aphasia or dysathria. CRANIAL NERVES: Pupils are equal, round and reactive. EOMs full and conjugate. Facial sensation intact in all three divisions bilaterally. Mandibular strength intact. Facial muscles symmetrical and strength intact. Tongue midline. No fasciculations or atrophy. SENSATION: Sensation to touch and pinprick is unremarkable MOTOR: Normal tone in the upper and lower extremity. Normal muscle bulk. No fasciculations. No abnormal movements or posturing. Muscle strength of the major groups in the extremities is 4/5. REFLEXES: Deep tendon reflexes are symmetrical. No pathological reflexes. CEREBELLAR/COORDINATION: Finger to nose is normal bilaterally. GAIT/STATION: deferred laboratory and microbiology Laboratory Tests 02/09/25 07:01 Test 02/09/25 07:01 Range/Units Serum Glucose 248 H 74-106 mg/dL Problem List A high attenuation CT lesion in the right basal ganglia region is likely calcification Acute stroke in the nancy and left basal ganglia region Chronic multiple strokes/lacunar infarcts in bilateral basal ganglia reason Dementia, likely vascular dementia, but need to rule out Alzheimer disease and other etiology Dysphagia, possibly secondary to multiple strokes Hypertensive encephalopathy Assessment/Plan Monitoring Supportive treatment Telemetry Aspirin 81 mg daily Plavix 75 mg q.d. for 21 days Lipitor 40 mg daily Aricept 5 mg daily Pantoprazole 40 mg daily Up to chair Physical therapy Nephrology on case/hemodialysis More recommendation per clinical course This medical document was created using an electronic medical record system with [employer] dictation system. Although this document has been carefully reviewed, there may still be some phonetic and typographical errors. These areas are purely typographical due to imperfections of the software programs, and do not reflect any compromise in the patient's medical care Prognosis poor Dietary Evaluation Review Comments: 1) Add 60g CCHO renal restriction to pureed diet 2) Initiate Nepro CarbSteady bid 3) Encourage optimal PO intake 4) Follow-up with nephrology and neurology 4) Continue to monitor I&O, labs, and skin integrity Expected Outcomes/Goals: 1) appetite and labs to improve 2) f/u in 3-5 days Plan discussed with: Other YURY MARQUEZ MD Feb 09, 2025 23:31
[2025-02-10] VITALS (16 sets, daily range): BP systolic 90–143; BP diastolic 52–89; PULSE 78–113; RESP 12–20; TEMP 97.4–98.8; O2SAT 96–100
[2025-02-10] MEDS: SODIUM CHL 0.9% 1000 ML BAG XX ONE ×2 (07:15)
[2025-02-10 07:21] LABS: Albumin 3.7 g/dL (3.2-4.8); Alkaline Phosphatase 75 U/L (46-116); Anion Gap 15 (5-15); BUN/Creatinine Ratio 7.9 (10.0-20.0); Calcium 8.9 mg/dL (8.7-10.4); Carbon Dioxide 25 mmol/L (20-31); Magnesium 2.0 mg/dL (1.6-2.6); Potassium 3.7 mmol/L (3.5-5.1); Total Protein 6.9 g/dL (5.7-8.2)
[2025-02-10 07:22] LABS: Bilirubin, Total 0.3 mg/dL (0.2-1.0)
[2025-02-10 07:29] LABS: Alanine Aminotransferase < 9 U/L (7-40); Blood Urea Nitrogen 42 mg/dL (9-23); Chloride 94 mmol/L (98-107); Glucose 270 mg/dL (74-106); Sodium 134 mmol/L (136-145)
[2025-02-10 07:31] LABS: Hemoglobin 12.2 g/dL (13.5-17.5)
[2025-02-10 07:35] LABS: Hematocrit 35.1 % (41.0-53.0); Mean Corpuscular Hemoglobin 30.7 pg (28.0-32.0); Mean Corpuscular Volume 88.2 fL (80.0-100.0); Nucleated Red Blood Cells % 0.0 %
[2025-02-10 07:46] LABS: INR 1.03 (0.9-1.15); Partial Thromboplastin Time 32.0 SEC (24.5-34.5); Prothrombin Time 10.9 sec (9.3-11.8)
--- NOTE | 2025-02-10 12:47 | DVHPN2 ---
Progress Note - Dictate Date Seen: Feb 10, 2025 Has the PT tested + for MRSA If YES, has PT been informed?: Yes Medical Necessity Reason Pt with a Central, PICC or Fol: Yes Subjective Alert and oriented x 1 vital signs Vital Sign Date Time Temp Pulse Resp B/P (MAP) Pulse Ox O2 Delivery O2 Flow Rate FiO2 02/10/25 09:00 97.4 102 20 129/89 (102) 100 97.4 02/10/25 08:00 Nasal Cannula* 2 28 Total Intake and Output 02/09/25 02/09/25 02/10/25 15:00 23:00 07:00 Intake Total 0 ml 0 ml Output Total 50 ml 100 ml Balance -50 ml -100 ml medications Current Medications Medications Dose Ordered Sig/Kellen Route Start Time Stop Time Status Last Admin Dose Admin Dextrose 50 ml UD PRN IV 02/02/25 01:00 Cancel Baclofen 5 mg BID PO 02/03/25 10:00 02/07/25 21:24 5 MG Gabapentin 100 mg TID PO 02/03/25 06:00 02/07/25 21:24 100 MG Amlodipine Besylate 10 mg DAILY PO 02/03/25 10:00 02/07/25 08:54 10 MG Pantoprazole Sodium 40 mg DAILY IV 02/03/25 10:00 02/10/25 08:58 40 MG Lorazepam 1 mg ONCE PRN IV 02/02/25 20:00 Atorvastatin Calcium 40 mg HS PO 02/03/25 22:00 02/07/25 21:24 40 MG Donepezil HCl 5 mg HS PO 02/03/25 22:00 02/07/25 21:24 5 MG Amino Acids 0 ml @ 0 mls/hr PER PHARMACY IV 02/08/25 16:45 Diagnostic Test (Pha) 1 strip Q6HR 02/09/25 00:00 02/10/25 06:28 1 STRIP Insulin Human Regular FOLLOW SLIDING SCALE Q6HR SC 02/09/25 00:00 02/10/25 06:32 16 UNITS Dextrose 50 ml UD IV 02/08/25 22:00 Amino Acids/ Electrolytes/ Dextrose 1,000 ml @ 41 mls/hr DAILY@2200 IV 02/08/25 22:00 02/09/25 22:46 41 MLS/HR objective Chronically ill-appearing patient HEENT: No evidence of JVD, no oral ulcers. Pulmonary: Lungs are clear on auscultation bilaterally Cardiovascular S1-S2, no S3 or S4 Abdomen: Bowel sounds positive, soft no rebound tenderness Skin: No rash Neurological: Alert, oriented, no focal weakness laboratory and microbiology Laboratory Tests 02/10/25 04:43 Test 02/10/25 04:43 Range/Units Serum Glucose 270 H 74-106 mg/dL Problem List Assessment: End-stage renal disease TTS Uremia managed with dialysis Hypertension, better controlled Hyperkalemia improved Subcentimeter hypoattenuating lesion on CT, acute CVA History of CVA Anemia of Chronic kidney disease Plan: Hemodialysis to continue on TTS schedule Fluid restriction less than 1 L per day Neurology following Will need PEG tune placement and disposition to SNF Dietary Evaluation Review Comments: 1) Add 60g CCHO renal restriction to pureed diet 2) Initiate Nepro CarbSteady bid 3) Encourage optimal PO intake 4) Follow-up with nephrology and neurology 4) Continue to monitor I&O, labs, and skin integrity Expected Outcomes/Goals: 1) appetite and labs to improve 2) f/u in 3-5 days Plan discussed with: Patient SABRINA DAVALOS MD Feb 10, 2025 12:47
[2025-02-10] MEDS ORDERED: MIDAZOLAM HCL 2MG/2ML 2ml VIAL (1mg/ml) ONE (18:13)
[2025-02-10] MEDS ORDERED: fentaNYL CITRATE 100 MCG/2 ML VL ONE (18:13)
[2025-02-10] MEDS ORDERED: KETAMINE 50mg/ML 1ml syringe ONE (18:13)
--- NOTE | 2025-02-10 18:14 | DVHINCON2 ---
Date of service: Feb 10, 2025 Family History: Cerebrovascular accident (CVA) G8 FATHER FH: dementia G8 MOTHER Ischemic heart disease G8 FATHER Allergies: Coded Allergies: NO KNOWN ALLERGIES (Unverified , 02/01/25) Home Meds Reported Medications Nifedipine (Nifedipine Er) 60 Mg Tab, 1 TAB PO DAILY, #30 TAB 5 Refills 02/02/25 Atorvastatin Calcium (ATORVASTATIN CALCIUM) 40 Mg Tab, 1 TAB PO QPM, #90 TAB 3 Refills 02/02/25 Tamsulosin Hcl (Tamsulosin Hcl) 0.4 Mg Cap, 0.4 MG PO QPM for 30 Days, MG 02/02/25 Donepezil Hydrochloride (DONEPEZIL HCL) 5 Mg Tab, 5 MG PO DAILY for 30 Days, MG 02/02/25 Pantoprazole Sodium Sesquihydr (Protonix) 40 Mg Tab, 40 MG PO, #30 TAB 02/02/25 Sucralfate (Sucralfate) 1 Gm Tab, 1 GM PO BID, GM 02/02/25 Sertraline Hcl (Sertraline Hcl) 50 Mg Tab, 50 MG PO DAILY for 30 Days, MG 02/02/25 Metoprolol Succinate (Metoprolol Succinate Er) 50 Mg Tab, 50 MG PO DAILY for 30 Days, MG 02/02/25 Pioglitazone Hydrochloride (PIOGLITAZONE HCL) 45 Mg Tab, 45 MG OR DAILY, TAB 02/02/25 Vital Signs Vital Signs Date Time Temp Pulse Resp B/P (MAP) Pulse Ox O2 Delivery O2 Flow Rate FiO2 02/10/25 12:47 97.4 93 19 138/86 (103) 100 97.4 02/10/25 08:00 Nasal Cannula* 2 28 Labs/Diagnostic Data Labs Test 02/10/25 11:57 02/10/25 04:43 02/09/25 07:01 02/05/25 04:00 Range/Units POC Glucose 113 H 70-106 mg/dl White Blood Count 13.2 H 4.4-10.8 10^3/uL Red Blood Count 3.97 L 4.5-5.90 10^6/uL Hemoglobin 12.2 L 13.5-17.5 g/dL Hematocrit 35.1 L 41.0-53.0 % Mean Corpuscular Volume 88.2 80.0-100.0 fL Mean Corpuscular Hemoglobin 30.7 28.0-32.0 pg Mean Corpuscular Hemoglobin Concent 34.8 32.0-36.0 g/dL Red Cell Distribution Width 14.0 11.8-14.3 % Platelet Count 491 H 140-450 10^3/uL Mean Platelet Volume 7.7 6.9-10.8 fL Neutrophils (%) (Auto) 85.6 H 37.0-80.0 % Lymphocytes (%) (Auto) 5.9 L 10.0-50.0 % Monocytes (%) (Auto) 7.9 0.0-12.0 % Eosinophils (%) (Auto) 0.4 0.0-7.0 % Basophils (%) (Auto) 0.2 0.0-2.0 % Neutrophils # (Auto) 11.3 H 1.6-8.6 10 ^3/uL Lymphocytes # (Auto) 0.8 0.4-5.4 10 ^3/uL Monocytes # (Auto) 1.0 0-1.3 10 ^3/uL Eosinophils # (Auto) 0 0-0.8 10 ^3/uL Basophils # (Auto) 0 0-0.2 10 ^3/uL Nucleated Red Blood Cells 0.0 % Prothrombin Time 10.9 9.3-11.8 sec Prothrombin Time INR 1.03 0.9-1.15 Activated Partial Thromboplast Time 32.0 24.5-34.5 SEC Sodium Level 134 L 136-145 mmol/L Potassium Level 3.7 3.5-5.1 mmol/L Chloride Level 94 L 98-107 mmol/L Carbon Dioxide Level 25 20-31 mmol/L Anion Gap 15 5-15 Blood Urea Nitrogen 42 H 9-23 mg/dL Creatinine 5.31 H 0.700-1.30 mg/dL Glomerular Filtration Rate Calc 12 >90 mL/min BUN/Creatinine Ratio 7.9 L 10.0-20.0 Serum Glucose 270 H 74-106 mg/dL Calcium Level 8.9 8.7-10.4 mg/dL Magnesium Level 2.0 1.6-2.6 mg/dL Total Bilirubin 0.3 0.2-1.0 mg/dL Aspartate Amino Transferase (AST) 27 13-40 U/L Alanine Aminotransferase (ALT) < 9 7-40 U/L Alkaline Phosphatase 75 46-116 U/L Total Protein 6.9 5.7-8.2 g/dL Albumin 3.7 3.2-4.8 g/dL Phosphorus Level 4.1 2.4-5.1 mg/dL Urine Color Colorless Yellow Urine Clarity Turbid H Clear Urine pH 5.5 5.0-9.0 Urine Specific Ribera 1.014 1.001-1.035 Urine Protein 1+ H Negative Urine Ketones Negative Negative Urine Blood 3+ H Negative /uL Urine Nitrite Negative Negative Urine Bilirubin Negative Negative Urine Urobilinogen Normal Negative mg/dL Urine Leukocyte Esterase Trace Negative /uL Urine RBC 267 0 - 3 /hpf Urine Microscopic WBC 21 H 0-3 /HPF Urine Squamous Epithelial Cells Few <5 /hpf Urine Amorphous Crystals Few None Seen /hpf Urine Bacteria Few H None Seen /hpf Urine Hyaline Casts Few 0 - 2 /lpf Urine Glucose 2+ H Normal mg/dL Urine Opiates Screen Neg NEGATIVE Urine Fentanyl Screen Neg NEGATIVE Urine Barbiturates Screen Neg NEGATIVE Urine Phencyclidine Screen Neg NEGATIVE Urine Amphetamines Screen Neg NEGATIVE Urine Benzodiazepines Screen Neg NEGATIVE Urine Cocaine Screen Neg NEGATIVE Urine Cannabinoids Screen Neg NEGATIVE Test 02/03/25 06:59 02/02/25 09:47 02/02/25 08:30 02/01/25 19:00 Range/Units Hepatitis A IgM Antibody Negative Hepatitis B Surface Antigen Negative Negative Hepatitis B Core IgM Antibody Negative Negative Hepatitis C Antibody Negative Negative Influenza Type A Antigen Negative Negative Influenza Type B Antigen Negative Negative SARS-CoV-2 Antigen (Rapid) Negative NEGATIVE Hemoglobin A1c 8.7 H <5.7 % A1C Ammonia < 10 L 11-32 umol/L Triglycerides Level 174 H < 150 mg/dL Cholesterol Level 124 < 200 mg/dL LDL Cholesterol 56 < 100 mg/dL HDL Cholesterol 38 L 40-59 mg/dL Vitamin B12 Level 676 211-911 pg/mL Vitamin D 25-Hydroxy 64.3 30.0-100 ng/mL Folic Acid 9.28 >5.38 ng/mL Thyroid Stimulating Hormone (TSH) 0.23 L 0.55-4.78 uIU/mL Free Thyroxine (T4) Calculated 1.26 0.89-1.76 ng/dL Parathyroid Hormone (Intact) 94.7 H 18.4-80.1 pg/mL Troponin I High Sensitivity 7 </=54 ng/L Plasma/Serum Blood Alcohol < 3.0 <10 mg/dL Microbiology Date/Time Source Procedure Growth Status 02/02/25 01:36 Blood Blood Culture - Final NO GROWTH AFTER 5 DAYS OF INCUBATION. Complete Assessment [id number] DEHYDRATION MALNUTRITION NEUROLOGIC ISSUE CONSIDER PEG PLACEMENT IN CONJUNCTION WITH DR Sirena BHAKTA EGD Plan discussed with: ALISHA Garcia MD Feb 10, 2025 18:14
--- NOTE | 2025-02-10 18:20 | DVHINCON2 ---
DATE OF CONSULTATION: 02/10/2025 HISTORY OF PRESENT ILLNESS: This patient is 59 years old right-handed gentleman with history of hypertension, diabetes, end-stage renal failure, on hemodialysis, brought to the hospital with generalized weakness, hypertension, dysphagia and he is a poor historian. Most of the information obtained from the chart and CT of the head showed a left basal ganglia region, unknown etiology and a CT scan showed multiple strokes as well. He is on a lot of support due to his memory difficulty and cognitive dysfunction and I was asked to see him in regards to the placement of a PEG due to malnutrition and dehydration and unable to swallow. PHYSICAL EXAMINATION: VITAL SIGNS: Afebrile, stable signs. HEENT: With no evidence of pallor, cyanosis or jaundice. NECK: Supple and nontender, with no thyromegaly or lymphadenopathy. CHEST AND LUNGS: Clear. HEART: Within normal limits. NEUROLOGIC: Not assessed. CLINICAL IMPRESSION: Hypertension, diabetes, end-stage renal failure with dehydration and malnutrition. PLAN: Placement of PEG in conjunction with Dr. Mino Portillo's endoscopy. MD CHRISTINA Mijares/JUANA TID: [id number] RECEIPT: [id number] cc: Ken Joe
--- NOTE | 2025-02-10 18:38 | DVHOP2 ---
Operative Report [id number] DEHYDRATION MALNUTRITION PEG PLACEMENT EGD DR Sirena BHAKTA EBL 1 CC NO DRAINS NO COMPLICATION STABLE TRANSFER TO RECOVERY ROOM ALISHA BHAKTA MD Feb 10, 2025 18:38
--- NOTE | 2025-02-10 19:08 | DVHOP ---
DATE OF SURGERY: 02/10/2025 PREOPERATIVE DIAGNOSES: Dehydration and malnutrition. POSTOPERATIVE DIAGNOSES: Dehydration and malnutrition. PROCEDURE: Placement of PEG in conjunction with Dr. Mino Portillo's endoscopy. SURGEON: Harinder Portillo MD. CO-SURGEON: Dr. Mino Portillo. GEOTHERMAL SHEET METAL WORKER: None. ANESTHESIA: Local IV sedation. DESCRIPTION OF PROCEDURE: The patient was prepped and draped in the usual sterile fashion in the supine position. The upper abdomen was exposed and endoscopy was carried out and the light was seen shining through. A stool blood spot was selected in the upper abdomen. Lidocaine was infiltrated in the vicinity and a small incision was applied to allow the angiocatheter to be introduced into the anterior wall of the stomach. It was visualized by the endoscope. The needle was withdrawn. The trocar was left in place and the guidewire was advanced into position and grabbed by the endoscope pull out of the mouth and the PEG tube was engaged with the guidewire and pulled back into the mouth and into the anterior wall of the stomach. The cuff was well positioned. The PEG tube was obviously brought out through the anterior wall of the abdomen and final connection was established with a dressing applied. The patient tolerated the procedure well with no complications. MD CHRISTINA Mijares/ISAAK TID: [id number] RECEIPT: [id number] cc: Allison Portillo MD, Dr. Ken Joe
--- NOTE | 2025-02-10 20:00 | DVH ---
CHEST RADIOGRAPH Indication: POSTOP DESATURATIONS Technique: Single frontal view of the chest was obtained COMPARISON: XY CHEST PORTABLE on DOS: 02/05/25 FINDINGS: Lines and Tubes: Right tunneled central venous catheter in satisfactory position. Lungs: Clear Pleura: No effusion. No pneumothorax. Cardiomediastinal contours: Suggestion of possible trace free intraperitoneal air. Bones: Unremarkable IMPRESSION: Suggestion of possible trace free air under the diaphragm. This may be postoperative versus artifact. Clinical correlation advised. Otherwise, no acute findings.
[2025-02-10] MEDS ORDERED: PANTOPRAZOLE 40 MG/10 ML VIAL INJ IV ONE (20:15)
--- NOTE | 2025-02-10 20:30 | DVHPNRES ---
Progress Note Date Seen: Feb 10, 2025 Resident Creating Document: CHAU SYKES RESIDENT Has the PT tested + for MRSA If YES, has PT been informed?: Yes Medical Necessity Reason Pt with a Central, PICC or Fol: Yes Subjective Review of Systems Siddhartha Whaley is a 59 year old male with past medical history of DM2, HTN, CVA (2023), Dementia and, CKD stage 5 (Dialysis MWF at [facility]). The patient was brought to the ED by the EMS team with chief complaint of 3 days of generalized weakness, difficulty to swallow and high blood pressure. Family member on site reports that the patient has missed his last 2 dialysis session due to feeling weak and tired. Initial evaluation in the ED showed blood pressure of 177/116 and a blood glucose of 331 mg/dl. Non contrast head CT scan showed: Subcentimeter hyperattenuating focus within the right internal capsule/thalamus may represent small intraparenchymal hemorrhage, or calcification. Correlate with symptoms and consider 6-8 hour follow-up head CT for reassessment, numerous hypodense foci within deep white matter and basal ganglia consistent with age indeterminate, but probably chronic lacunar infarcts. Underlying sequela of mild chronic microangiopathy. The patient denies fever, chills, diarrhea, nausea, vomit, sick contacts or other symptoms. 02/02/25 Patient seen at bedside. Patient is alert times 1, he is not oriented to place or time. Patient is a poor historian. Talked to the sister and she states that the patient has been having hiccups since July, has had dementia since 1 year, and underwent a stroke last year and also started having choking symptoms and having trouble swallowing since 1 week. Last week he was walking fine but now has been having balance problems, and is a fall risk, has had no trauma to the head. Yesterday he was too weak to go to the dialysis appointment. Repeat head CT shows Stable 8 mm hyperattenuating focus in the right internal capsule/ thalamus without any significant change. The etiology remains unclear since this has not changed. Patient has undergone dialysis today. Given baclofen 5 mg b.i.d. and gabapentin 100 mg t.i.d. eval was placed. Pureed diet was started. 02/03/2025 Patient seen at bedside. Patient is alert x1. General appearance is better than yesterday. PT eval placed. Social service consult case SNF placement. Wound consult placed for redness in the sacrum. Alvino September 5 mg p.o., atorvastatin 40 mg p.o., aspirin 81 mg p.o. started. Richadrson's was placed. hepatitis panel negative, influenza and COVID negative. Neuro on board. Nephrology on board. 02/04/25 Patient seen at bedside. Patient is alert x1. General appearance is better than yesterday. Patient stopped hicupping, as per nurse patient had trouble swallowing 1 pill and coughed a few times but after giving a 2nd pill slowly he was fine. PT eval placed . Neuro on board. Nephrology on board. Cardiology On word and recommended TTE. Waiting for SNF placement. 02/05/25 Patient seen at bedside. He is Alert x1, is talking and appears better. No overnight events reported. Patient is not hiccuping, still taking thickened liquids to swallow pills and sometimes has cough when swallowing. He denies any pain, nausea, vomiting. TTE pending, waiting for SNF placement. 02/06/25 Patient was seen at the bedside. He is alert x1. No overnight events were reported. Patient is not hiccupping. He is unable to swallow much and coughs even with a few sips of water. We have ordered a swallow test with pureed diet, suggested patient can not take nectar thick pureed diet. 02/07/2025 Patient seen at bedside. He is alert x1, no overnight events were reported. Patient is taking pureed diet, still coughing after taking sips of water. SHARMILA shows EF of 55%. Waiting for SNF placement. 02/08/2025 Patient seen at bedside. He is alert x1, no overnight events were reported, bedside swallow study showed and failed. GI was consulted for possible PEG tube placement. Waiting for SNF placement. 02/09/25 Patient seen at bedside. He is alert x1, no overnight events were reported or. GI was consulted and pending PEG tube placement. Called the sister and informed of patient's condition. Waiting for SNF placement 02/10/25 Patient seen at Bedside. He is alert x1, no overnight event were reported. EGD, peg tube was placed. Waiting for SNF placement. Objective vital signs Vital Sign Date Time Temp Pulse Resp B/P (MAP) Pulse Ox O2 Delivery O2 Flow Rate FiO2 8/13/25 19:56 97.4 113 20 107/70 96 40 97.4 02/10/25 19:53 Facial BiPAP Mask 02/10/25 08:00 2 Total Intake and Output 02/09/25 02/09/25 02/10/25 15:00 23:00 07:00 Intake Total 0 ml 0 ml Output Total 50 ml 100 ml Balance -50 ml -100 ml medications Current Medications Medications Dose Ordered Sig/Kellen Route Start Time Stop Time Status Last Admin Dose Admin Dextrose 50 ml UD PRN IV 02/02/25 01:00 Cancel Baclofen 5 mg BID PO 02/03/25 10:00 02/07/25 21:24 5 MG Gabapentin 100 mg TID PO 02/03/25 06:00 02/07/25 21:24 100 MG Amlodipine Besylate 10 mg DAILY PO 02/03/25 10:00 02/07/25 08:54 10 MG Lorazepam 1 mg ONCE PRN IV 02/02/25 20:00 Atorvastatin Calcium 40 mg HS PO 02/03/25 22:00 02/07/25 21:24 40 MG Donepezil HCl 5 mg HS PO 02/03/25 22:00 02/07/25 21:24 5 MG Amino Acids 0 ml @ 0 mls/hr PER PHARMACY IV 02/08/25 16:45 Diagnostic Test (Pha) 1 strip Q6HR 02/09/25 00:00 02/10/25 12:00 1 STRIP Insulin Human Regular FOLLOW SLIDING SCALE Q6HR SC 02/09/25 00:00 02/10/25 06:32 16 UNITS Dextrose 50 ml UD IV 02/08/25 22:00 Amino Acids/ Electrolytes/ Dextrose 1,000 ml @ 41 mls/hr DAILY@2200 IV 02/08/25 22:00 02/09/25 22:46 41 MLS/HR Enteral Nutritional Formula 240 ml Q6HR PO 02/11/25 06:00 UNV Pantoprazole Sodium 40 mg BID IV 02/10/25 22:00 UNV Heparin Sodium (Porcine) 5,000 units Q12HR SC 02/10/25 22:00 UNV Pantoprazole Sodium 40 mg DAILY IV 02/11/25 10:00 UNV Examination General: Patient alert and oriented in person, place and time. Patient following commands. HEENT: Normocephalic, atraumatic, moist mucous membranes Respiratory/pulmonary: Clear lungs bilaterally, vesicular murmurs present in almost all lung islas, no associated crackles or wheezes. Cardiovascular: Normal heart sounds S1 and S2 with no associated murmurs Abdomen: Abdomen nondistended, there is no pain to palpation in any of the abdominal quadrants, no palpable masses. Richardson catheter in place, with yellow urine. Extremities: There is no peripheral edema present at the lower extremities. Peripheral Pulses: 3+ Radial (R). 3+ Radial (L). 3+ Dorsalis pedis (R). 3+ Dorsalis pedis(L) Skin: No rashes or pruritus, there is no sacral edema present at this time. Neurological: Intact cranial nerves with no focal neurologic deficits laboratory and microbiology Laboratory Tests 02/10/25 04:43 Test 02/10/25 04:43 Range/Units Serum Glucose 270 H 74-106 mg/dL Microbiology Date/Time Source Procedure Growth Status 02/02/25 01:36 Blood Blood Culture - Final NO GROWTH AFTER 5 DAYS OF INCUBATION. Complete Problem List/Assessment/Plan Problem List/Assessment/Plan # Hypertensive urgency-resolving - Amlodipine 10 mg po - Monitor BP # Reactive leukocytosis- monitorlab # ESRD on HD # Missed HD # Non compliance with HD # Uremia # Acidemia managed with dialysis # Hyperkalemia managed with dialysis # Anemia of Chronic kidney disease from ESRD - Dialysis MWF at [facility] - Monitor lab - HD today and tommorrow - nephro consulted and stated Hemodialysis today then Saturday, Fluid restriction less than 1 L per day - GI consulted for possible PEG tube placement because patient is unable to swallow # Generalized weakness, rule out CVA # Hx of CVA - Head CT scan ,stable 8 mm hyperattenuating focus in the right internal capsule/ thalamus without any significant change - neuro consulted and recommended to give us a Aspirin 81 mg daily, Lipitor 40 mg daily, Aricept 5 mg daily - cardio consulted and recommended transesophageal echocardiogram at first availablity. TTE shows EF of 55%. -EGD, PEG tube has been place. GI on board # Hyponantremia -monitor lab # DM2 with hyperglycemia - Insulin sliding scale - HbA1C- 8.7 Purred diet PPI prophylaxis: Protonix 40 mg DVT Prophylaxis: Heparin 5000, q.12 Goals of care discussed with patient for 27 minutes Patient is CODE :DNR/DNI, confirmed with sister Case discussed with Dr. Gastelum Plan discussed with: Patient, Other (RN) Dietary Evaluation Review Comments: 1) Add 60g CCHO renal restriction to pureed diet 2) Initiate Nepro CarbSteady bid 3) Encourage optimal PO intake 4) Follow-up with nephrology and neurology 4) Continue to monitor I&O, labs, and skin integrity Expected Outcomes/Goals: 1) appetite and labs to improve 2) f/u in 3-5 days Date of Service: Feb 10, 2025 Billing Provider: SERGEY GASTELUM MD Common Visit Codes: [id number] INP/OBS CARE(HIGH) CHAU SYKES RESIDENT Feb 10, 2025 20:30 SERGEY GASTELUM MD Feb 10, 2025 23:52
[2025-02-10] MEDS: PANTOPRAZOLE 40 MG/10 ML VIAL INJ IV SCH (22:35)
--- NOTE | 2025-02-10 22:36 | DVHOP2 ---
Operative Report DATE OF OPERATION: 02/10/25 6.30 pm PROCEDURE: Upper Endoscopy with PEG tube placement. PREOPERATIVE INDICATION: The patient is a 59 -year-old male undergoing endoscopy for altered level of consciousness oropharyngeal dysphagia hx CVA and to thrive POSTOPERATIVE DIAGNOSES: 1. 2-3 cm sliding-type hiatal hernia with moderate grade B to C erosive circumferential esophagitis extending half-way into the esophagus; biopsies obtained to rule out viral esophagitis 2. Mild gastritis otherwise normal examination up to the 2nd and 3rd part of the duodenal 3. PEG tube placed into the distal body of the stomach as per standard protocol using endoscopic guidance and assistance and placement of the tube was confirmed by repeat endoscopy PROCEDURE PERFORMED BY: Deborah Portillo GI NURSE: Silvia SCOPE: Olympus videoendoscope. ASA CLASS: 3. PREOPERATIVE MEDICATIONS: Mikey salazar, Dr. Brooks PROCEDURE IN DETAIL: After obtaining an informed consent, the patient was placed on left lateral decubitus position. The patient was then sedated with the above medications. A bite block was placed between his teeth. The endoscope was then passed through the oropharynx, into the esophagus, and through the stomach and pylorus up to the second and third part of the duodenum. The endoscope was then withdrawn. The 2nd and 3rd part of the duodenum and the duodenal bulb were normal. The pre-pyloric area antrum and body showed mild gastritis. On retroflexion the fundus and cardia were normal. Gastric biopsies were obtained The endoscope was then withdrawn into the distal esophagus where he had a 2-3 cm sliding-type hiatal hernia evidence of some hyperemia erythema mucosal edema Patient had circumferential esophagitis extending half-way up into the esophagus. Esophageal biopsies were obtained to rule out viral esophagitis The endoscope was passed back into the stomach and stomach was insufflated. Using the light from the endoscope a percutaneous gastrostomy tube was placed through the anterior abdominal wall under sterile conditions using endoscopic guidance and assistance as per standard protocol Repeat endoscopy was performed to confirmed adequate placement.The patient elvia erated the procedure well without difficulty accept were episodes of some sleep apnea Patient was being monitored carefully by anesthesia throughout the procedure. COMPLICATIONS : None SPECIMENS: Gastric biopsies Esophageal biopsies DISPOSITION: Transfer back to the floor Stable, transferred to [facility] for observation and CPAP use PLAN: 1. Await for biopsy result 2. Will place pt on Protonix 40 mg bid IV 3. Consider IV acyclovir pending biopsy results 4. See post PEG tube placement instructions 5. Monitor labs and supportive care DEBORAH PORTILLO MD Feb 10, 2025 22:36
[2025-02-10] MEDS: HEPARIN SODIUM (PORCINE) 5000 UNITS/ML 1ML VIAL SC SCH (22:43)
--- NOTE | 2025-02-10 23:10 | DVHPN2 ---
Progress Note - Dictate Date Seen: Feb 10, 2025 Has the PT tested + for MRSA If YES, has PT been informed?: Yes Medical Necessity Reason Pt with a Central, PICC or Fol: Yes Subjective Patient was seen and evaluated in follow up in the [facility]. Patient is on 2 LPM NC. Patent underwent upper endoscopy with PEG tube placement. Endoscopy showed a 2- 3 cm sliding-type hiatal hernia with moderate grade B to C erosive circumferential esophagitis extending care home into the esophagus and mild gastritis otherwise normal examination up to the 2nd and 3rd part of the duodenal. WBC 13.2, BUN 42, EMERGENCY MEDICINE NURSE PRACTITIONER 5.31. vital signs Vital Sign Date Time Temp Pulse Resp B/P (MAP) Pulse Ox O2 Delivery O2 Flow Rate FiO2 02/10/25 12:47 97.4 93 19 138/86 (103) 100 97.4 02/10/25 08:00 Nasal Cannula* 2 28 Total Intake and Output 02/09/25 02/09/25 02/10/25 15:00 23:00 07:00 Intake Total 0 ml 0 ml Output Total 50 ml 100 ml Balance -50 ml -100 ml medications Current Medications Medications Dose Ordered Sig/Kellen Route Start Time Stop Time Status Last Admin Dose Admin Dextrose 50 ml UD PRN IV 02/02/25 01:00 Cancel Baclofen 5 mg BID PO 02/03/25 10:00 02/07/25 21:24 5 MG Gabapentin 100 mg TID PO 02/03/25 06:00 02/07/25 21:24 100 MG Amlodipine Besylate 10 mg DAILY PO 02/03/25 10:00 02/07/25 08:54 10 MG Pantoprazole Sodium 40 mg DAILY IV 02/03/25 10:00 02/10/25 08:58 40 MG Lorazepam 1 mg ONCE PRN IV 02/02/25 20:00 Atorvastatin Calcium 40 mg HS PO 02/03/25 22:00 02/07/25 21:24 40 MG Donepezil HCl 5 mg HS PO 02/03/25 22:00 02/07/25 21:24 5 MG Amino Acids 0 ml @ 0 mls/hr PER PHARMACY IV 02/08/25 16:45 Diagnostic Test (Pha) 1 strip Q6HR 02/09/25 00:00 02/10/25 12:00 1 STRIP Insulin Human Regular FOLLOW SLIDING SCALE Q6HR SC 02/09/25 00:00 02/10/25 06:32 16 UNITS Dextrose 50 ml UD IV 02/08/25 22:00 Amino Acids/ Electrolytes/ Dextrose 1,000 ml @ 41 mls/hr DAILY@2200 IV 02/08/25 22:00 02/09/25 22:46 41 MLS/HR objective GENERAL: A&O x2. Somewhat non-verbal, +dysphagia EYES: PERRL, EOMI. Anicteric. HENT: Moist mucous membranes. LUNGS: Clear to auscultation bilaterally. CARDIOVASCULAR: Regular rate and rhythm. ABDOMEN: Soft, non-tender and non-distended. EXTREMITIES: No edema. SKIN: Warm, dry. laboratory and microbiology Laboratory Tests 02/10/25 04:43 Test 02/10/25 04:43 Range/Units Serum Glucose 270 H 74-106 mg/dL Problem List Acute CVA rule out cardioembolic source. History of multiple chronic strokes. Hypertensive urgency. Diabetes mellitus type 2. ESRD on HD. Medical noncompliance (missed HD). Assessment/Plan Continued all current supportive medical care. Amlodipine. Lipitor. GI prophylactics. Additional plan as per the hospital course. Critical care time of 45 minutes provided to include time spent evaluation of patient at bedside, when appropriate patient/family education for diagnosis, treatment plan, review of pertinent medical information and discussion of care with specialty providers and PCP Dietary Evaluation Review Comments: 1) Add 60g CCHO renal restriction to pureed diet 2) Initiate Nepro CarbSteady bid 3) Encourage optimal PO intake 4) Follow-up with nephrology and neurology 4) Continue to monitor I&O, labs, and skin integrity Expected Outcomes/Goals: 1) appetite and labs to improve 2) f/u in 3-5 days Plan discussed with: DESIREE Shay MD Feb 10, 2025 14:42
[2025-02-11] VITALS (51 sets, daily range): BP systolic 93–139; BP diastolic 32–101; PULSE 75–115; RESP 10–20; TEMP 97.7–98.2; O2SAT 96–100
[2025-02-11] MEDS: ENSURE CLEAR Apple 8oz Carton PO SCH (05:33)
[2025-02-11 06:45] LABS: Alanine Aminotransferase < 9 U/L (7-40); Albumin 3.5 g/dL (3.2-4.8); Alkaline Phosphatase 68 U/L (46-116); Anion Gap 15 (5-15); BUN/Creatinine Ratio 10.1 (10.0-20.0); Blood Urea Nitrogen 66 mg/dL (9-23); Calcium 8.7 mg/dL (8.7-10.4); Carbon Dioxide 22 mmol/L (20-31); Chloride 93 mmol/L (98-107); Glucose 286 mg/dL (74-106); Magnesium 2.1 mg/dL (1.6-2.6); Potassium 3.9 mmol/L (3.5-5.1); Sodium 130 mmol/L (136-145); Total Protein 6.4 g/dL (5.7-8.2)
[2025-02-11 06:47] LABS: Bilirubin, Total 0.3 mg/dL (0.2-1.0)
[2025-02-11] MEDS: SODIUM CHL 0.9% 1000 ML BAG XX ONE (07:00)
[2025-02-11] MEDS ORDERED: PANTOPRAZOLE 40 MG/10 ML VIAL INJ IV SCH (10:00)
--- NOTE | 2025-02-11 10:44 | DVHPN2 ---
Progress Note - Dictate Date Seen: Feb 11, 2025 Has the PT tested + for MRSA If YES, has PT been informed?: Yes Medical Necessity Reason Pt with a Central, PICC or Fol: Yes Subjective Mr. Torres is a 59 years old right-handed gentleman with a history of hypertension, diabetes, end-stage renal failure on hemodialysis, he was brought to the [facility] on 02/01/2025 with a chief complaint of general weakness, hypertension, dysphagia. I have seen examined the patient in the [facility], I have talked his nurse, he is awake, he recognized me, he waved his hand to me He was transferred to [facility] for respiratory distress He has a PEG tube insertion on 02/10/2025 Plasma alcohol, 02/01/2025: <3 UDS, 02/05/2025: Negative CBC, 02/01/2025: Unremarkable BUN/CR, 02/02/2025: 110/6.97 GFR, 02/02/2025: 9 HGB A1c, 02/02/2025: Able to seven TG/HDL/LDL/HDL, 02/02/2025: 174/124/56/38 Vitamin B12, 02/03/25: 676 Folic acid, 02/03/2025: 9.28 TSH, 02/03/2025: 0.23 FT4, 02/03/2025: 1.26 SHARMILA, 02/05/2025: * Technically good study. The patient was in a sinus rhythm. * Chamber dimension evaluation was within normal limits. * Valves appear to be structurally normal. * Left ventricular systolic function is preserved. EF is about 55% with normal RV function. * Doppler reveals mild TR, mild MR. No intraatrial or intraventricular shunt noted. * There is a small pericardial effusion, not hemodynamically significant. * No intracardiac masses, thrombi, and/or vegetation discernible. The atrial appendage is within normal limits without thrombi. * Bubble study also performed, showing no significant abnormalities Carotid doctor, 02/03/2025: Left mid and distal ICAs are not well-visualized with the distal right ICA not well-visualized. Otherwise, No hemodynamically significant stenosis within the visualized bilateral carotid arterial systems CT head, 02/02/2025 0042: 1. Subcentimeter hyperattenuating focus within the right internal capsule/thalamus may represent small intraparenchymal hemorrhage, or calcification. Correlate with symptoms and consider 6-8 hour follow-up head CT for reassessment. 2. Numerous hypodense foci within deep white matter and basal ganglia consistent with age indeterminate, but probably chronic lacunar infarcts. 3. Underlying sequela of mild chronic microangiopathy. CT head, 02/02/2025 1100: 1. Stable 8 mm hyperattenuating focus in the right internal capsule/ thalamus without any significant change. The etiology remains unclear since this has not changed. Continued short-term follow-up with noncontrast CT of the head in 6-8 hours is suggested. 2. Additional nonacute findings similar to prior CT performed earlier same date. (Chronic lacunar infarcts in the bilateral basal ganglia and thalami, I also see evidence suggestive of of bilateral pontine lacunar strokes) MRI head, 02/03/2025: 1. Small chronic lacunar infarcts are seen in the right side of the nancy and left periventricular white matter. 2. Multifocal chronic ischemic changes as detailed above. 3. Multifocal areas of hemosiderin deposition from prior small hemorrhages. 4. Additional findings as detailed above. (Acute lacunar infarct in the right side of the nancy measuring up to 0.6 cm. Acute lacunar infarct in the left periventricular white matter adjacent to the body of the left ventricle measuring up to 0.8 cm.) vital signs Vital Sign Date Time Temp Pulse Resp B/P (MAP) Pulse Ox O2 Delivery O2 Flow Rate FiO2 02/11/25 10:00 17 100 Oxymizer 6 N/A 02/11/25 10:00 81 127/73 (91) 02/11/25 08:00 97.7 97.7 Total Intake and Output 02/10/25 02/10/25 02/11/25 15:00 23:00 07:00 Intake Total 91 ml 328 ml Output Total 200 ml Balance 91 ml 128 ml medications Current Medications Medications Dose Ordered Sig/Kellen Route Start Time Stop Time Status Last Admin Dose Admin Dextrose 50 ml UD PRN IV 02/02/25 01:00 Cancel Baclofen 5 mg BID PO 02/03/25 10:00 02/07/25 21:24 5 MG Gabapentin 100 mg TID PO 02/03/25 06:00 02/07/25 21:24 100 MG Amlodipine Besylate 10 mg DAILY PO 02/03/25 10:00 02/07/25 08:54 10 MG Lorazepam 1 mg ONCE PRN IV 02/02/25 20:00 Atorvastatin Calcium 40 mg HS PO 02/03/25 22:00 02/07/25 21:24 40 MG Donepezil HCl 5 mg HS PO 02/03/25 22:00 02/07/25 21:24 5 MG Amino Acids 0 ml @ 0 mls/hr PER PHARMACY IV 02/08/25 16:45 Diagnostic Test (Pha) 1 strip Q6HR 02/09/25 00:00 02/11/25 05:32 1 STRIP Insulin Human Regular FOLLOW SLIDING SCALE Q6HR SC 02/09/25 00:00 02/11/25 05:34 16 UNITS Dextrose 50 ml UD IV 02/08/25 22:00 Amino Acids/ Electrolytes/ Dextrose 1,000 ml @ 41 mls/hr DAILY@2200 IV 02/08/25 22:00 02/10/25 22:36 41 MLS/HR Enteral Nutritional Formula 240 ml Q6HR PO 02/11/25 06:00 Pantoprazole Sodium 40 mg BID IV 02/10/25 22:00 02/11/25 09:28 40 MG Heparin Sodium (Porcine) 5,000 units Q12HR SC 02/10/25 22:00 02/11/25 09:28 5,000 UNITS Pantoprazole Sodium 40 mg DAILY IV 02/11/25 10:00 UNV objective General: the patient is well developed and nourished. No acute distress. MENTAL STATUS: Awake and alert. Oriented to person, place SPEECH, LANGUAGE, HIGHER CORTICAL FUNCTION: no aphasia or dysathria. CRANIAL NERVES: Pupils are equal, round and reactive. EOMs full and conjugate. Facial sensation intact in all three divisions bilaterally. Mandibular strength intact. Facial muscles symmetrical and strength intact. Tongue midline. No fasciculations or atrophy. SENSATION: Sensation to touch and pinprick is unremarkable MOTOR: Normal tone in the upper and lower extremity. Normal muscle bulk. No fasciculations. No abnormal movements or posturing. Muscle strength of the major groups in the extremities is 4/5. REFLEXES: Deep tendon reflexes are symmetrical. No pathological reflexes. CEREBELLAR/COORDINATION: Finger to nose is normal bilaterally. GAIT/STATION: deferred laboratory and microbiology Laboratory Tests 02/11/25 05:36 02/10/25 04:43 Test 02/11/25 05:36 Range/Units Serum Glucose 286 H 74-106 mg/dL Problem List A high attenuation CT lesion in the right basal ganglia region is likely calcification Acute stroke in the nancy and left basal ganglia region Chronic multiple strokes/lacunar infarcts in bilateral basal ganglia reason Dementia, likely vascular dementia, but need to rule out Alzheimer disease and other etiology Dysphagia, possibly secondary to multiple strokes Hypertensive encephalopathy Dysphagia status post PEG feeding tube Assessment/Plan Monitoring Supportive treatment [facility] care Aspirin 81 mg daily Plavix 75 mg q.d. for 21 days Lipitor 40 mg daily Aricept 5 mg daily Pantoprazole 40 mg daily Up to chair Physical therapy Nephrology on case/hemodialysis More recommendation per clinical course This medical document was created using an electronic medical record system with [employer] dictation system. Although this document has been carefully reviewed, there may still be some phonetic and typographical errors. These areas are purely typographical due to imperfections of the software programs, and do not reflect any compromise in the patient's medical care Prognosis poor Dietary Evaluation Review Comments: 1) Add 60g CCHO renal restriction to pureed diet 2) Initiate Nepro CarbSteady bid 3) Encourage optimal PO intake 4) Follow-up with nephrology and neurology 4) Continue to monitor I&O, labs, and skin integrity Expected Outcomes/Goals: 1) appetite and labs to improve 2) f/u in 3-5 days Plan discussed with: Other YURY MARQUEZ MD Feb 11, 2025 10:44
--- NOTE | 2025-02-11 19:51 | DVHPNRES ---
Progress Note Date Seen: Feb 11, 2025 Resident Creating Document: CHAU SYKES RESIDENT Has the PT tested + for MRSA If YES, has PT been informed?: Yes Medical Necessity Reason Pt with a Central, PICC or Fol: Yes Subjective Review of Systems Siddhartha Whaley is a 59 year old male with past medical history of DM2, HTN, CVA (2023), Dementia and, CKD stage 5 (Dialysis MWF at [facility]). The patient was brought to the ED by the EMS team with chief complaint of 3 days of generalized weakness, difficulty to swallow and high blood pressure. Family member on site reports that the patient has missed his last 2 dialysis session due to feeling weak and tired. Initial evaluation in the ED showed blood pressure of 177/116 and a blood glucose of 331 mg/dl. Non contrast head CT scan showed: Subcentimeter hyperattenuating focus within the right internal capsule/thalamus may represent small intraparenchymal hemorrhage, or calcification. Correlate with symptoms and consider 6-8 hour follow-up head CT for reassessment, numerous hypodense foci within deep white matter and basal ganglia consistent with age indeterminate, but probably chronic lacunar infarcts. Underlying sequela of mild chronic microangiopathy. The patient denies fever, chills, diarrhea, nausea, vomit, sick contacts or other symptoms. 02/02/25 Patient seen at bedside. Patient is alert times 1, he is not oriented to place or time. Patient is a poor historian. Talked to the sister and she states that the patient has been having hiccups since July, has had dementia since 1 year, and underwent a stroke last year and also started having choking symptoms and having trouble swallowing since 1 week. Last week he was walking fine but now has been having balance problems, and is a fall risk, has had no trauma to the head. Yesterday he was too weak to go to the dialysis appointment. Repeat head CT shows Stable 8 mm hyperattenuating focus in the right internal capsule/ thalamus without any significant change. The etiology remains unclear since this has not changed. Patient has undergone dialysis today. Given baclofen 5 mg b.i.d. and gabapentin 100 mg t.i.d. eval was placed. Pureed diet was started. 02/03/2025 Patient seen at bedside. Patient is alert x1. General appearance is better than yesterday. PT eval placed. Social service consult case SNF placement. Wound consult placed for redness in the sacrum. Alvino September 5 mg p.o., atorvastatin 40 mg p.o., aspirin 81 mg p.o. started. Richardson's was placed. hepatitis panel negative, influenza and COVID negative. Neuro on board. Nephrology on board. 02/04/25 Patient seen at bedside. Patient is alert x1. General appearance is better than yesterday. Patient stopped hicupping, as per nurse patient had trouble swallowing 1 pill and coughed a few times but after giving a 2nd pill slowly he was fine. PT eval placed . Neuro on board. Nephrology on board. Cardiology On word and recommended TTE. Waiting for SNF placement. 02/05/25 Patient seen at bedside. He is Alert x1, is talking and appears better. No overnight events reported. Patient is not hiccuping, still taking thickened liquids to swallow pills and sometimes has cough when swallowing. He denies any pain, nausea, vomiting. TTE pending, waiting for SNF placement. 02/06/25 Patient was seen at the bedside. He is alert x1. No overnight events were reported. Patient is not hiccupping. He is unable to swallow much and coughs even with a few sips of water. We have ordered a swallow test with pureed diet, suggested patient can not take nectar thick pureed diet. 02/07/2025 Patient seen at bedside. He is alert x1, no overnight events were reported. Patient is taking pureed diet, still coughing after taking sips of water. SHARMILA shows EF of 55%. Waiting for SNF placement. 02/08/2025 Patient seen at bedside. He is alert x1, no overnight events were reported, bedside swallow study showed and failed. GI was consulted for possible PEG tube placement. Waiting for SNF placement. 02/09/25 Patient seen at bedside. He is alert x1, no overnight events were reported or. GI was consulted and pending PEG tube placement. Called the sister and informed of patient's condition. Waiting for SNF placement 02/10/25 Patient seen at Bedside. He is alert x1, no overnight event were reported. EGD, peg tube was placed. Waiting for SNF placement. 02/11/25 Bedside patient seen at bedside. Patient is moved to the [facility]. Patient is started feeding from the PEG tube with Napro 50 mL/hour. Objective vital signs Vital Sign Date Time Temp Pulse Resp B/P (MAP) Pulse Ox O2 Delivery O2 Flow Rate FiO2 02/11/25 18:00 103 13 104/69 (81) 100 02/11/25 18:00 Oxymizer 6 N/A 02/11/25 16:00 98.0 98.0 Total Intake and Output 02/10/25 02/10/25 02/11/25 15:00 23:00 07:00 Intake Total 91 ml 328 ml Output Total 200 ml Balance 91 ml 128 ml medications Current Medications Medications Dose Ordered Sig/Kellen Route Start Time Stop Time Status Last Admin Dose Admin Dextrose 50 ml UD PRN IV 02/02/25 01:00 Cancel Baclofen 5 mg BID PO 02/03/25 10:00 02/07/25 21:24 5 MG Gabapentin 100 mg TID PO 02/03/25 06:00 02/11/25 14:00 100 MG Amlodipine Besylate 10 mg DAILY PO 02/03/25 10:00 02/07/25 08:54 10 MG Lorazepam 1 mg ONCE PRN IV 02/02/25 20:00 Atorvastatin Calcium 40 mg HS PO 02/03/25 22:00 02/07/25 21:24 40 MG Donepezil HCl 5 mg HS PO 02/03/25 22:00 02/07/25 21:24 5 MG Amino Acids 0 ml @ 0 mls/hr PER PHARMACY IV 02/08/25 16:45 Diagnostic Test (Pha) 1 strip Q6HR 02/09/25 00:00 02/11/25 17:55 1 STRIP Insulin Human Regular FOLLOW SLIDING SCALE Q6HR SC 02/09/25 00:00 02/11/25 17:56 2 UNITS Dextrose 50 ml UD IV 02/08/25 22:00 Amino Acids/ Electrolytes/ Dextrose 1,000 ml @ 41 mls/hr DAILY@2200 IV 02/08/25 22:00 02/10/25 22:36 41 MLS/HR Enteral Nutritional Formula 240 ml Q6HR PO 02/11/25 06:00 Pantoprazole Sodium 40 mg BID IV 02/10/25 22:00 02/11/25 09:28 40 MG Heparin Sodium (Porcine) 5,000 units Q12HR SC 02/10/25 22:00 02/11/25 09:28 5,000 UNITS Pantoprazole Sodium 40 mg DAILY IV 02/11/25 10:00 UNV Aspirin 81 mg DAILY PO 02/12/25 10:00 Clopidogrel Bisulfate 75 mg DAILY PO 02/12/25 10:00 02/24/25 23:00 Examination General: Patient alert and oriented in person, place and time. Patient following commands. HEENT: Normocephalic, atraumatic, moist mucous membranes Respiratory/pulmonary: Clear lungs bilaterally, vesicular murmurs present in almost all lung islas, no associated crackles or wheezes. Cardiovascular: Normal heart sounds S1 and S2 with no associated murmurs Abdomen: Peg tube placed for nutrition. Richardson catheter in place, with yellow urine. Extremities: There is no peripheral edema present at the lower extremities. Peripheral Pulses: 3+ Radial (R). 3+ Radial (L). 3+ Dorsalis pedis (R). 3+ Dorsalis pedis(L) Skin: No rashes or pruritus, there is no sacral edema present at this time. Neurological: Intact cranial nerves with no focal neurologic deficits laboratory and microbiology Laboratory Tests 02/11/25 05:36 02/10/25 04:43 Test 02/11/25 05:36 Range/Units Serum Glucose 286 H 74-106 mg/dL Microbiology Date/Time Source Procedure Growth Status 02/10/25 21:30 Nose MRSA Screen - Final Complete 02/02/25 01:36 Blood Blood Culture - Final NO GROWTH AFTER 5 DAYS OF INCUBATION. Complete Problem List/Assessment/Plan Problem List/Assessment/Plan # Hypertensive urgency-resolving - Amlodipine 10 mg po - Monitor BP # Reactive leukocytosis- monitorlab # ESRD on HD # Missed HD # Non compliance with HD # Uremia # Acidemia managed with dialysis # Hyperkalemia managed with dialysis # Anemia of Chronic kidney disease from ESRD - Dialysis MWF at [facility] - Monitor lab - HD today and tommorrow - nephro consulted and stated Hemodialysis today then Saturday, Fluid restriction less than 1 L per day - GI consulted for possible PEG tube placement because patient is unable to swallow # Generalized weakness, rule out CVA # Hx of CVA - Head CT scan ,stable 8 mm hyperattenuating focus in the right internal capsule/ thalamus without any significant change - neuro consulted and recommended to give us a Aspirin 81 mg daily, Lipitor 40 mg daily, Aricept 5 mg daily - cardio consulted and recommended transesophageal echocardiogram at first availablity. TTE shows EF of 55%. -EGD, PEG tube has been place. GI on board - patient started on Nepro # Hyponantremia -monitor lab # DM2 with hyperglycemia - Insulin sliding scale - HbA1C- 8.7 Purred diet PPI prophylaxis: Protonix 40 mg DVT Prophylaxis: Heparin 5000, q.12 Goals of care discussed with patient for 27 minutes Patient is CODE :DNR/DNI, confirmed with sister Case discussed with Dr. Gastelum Plan discussed with: Other (sister) Dietary Evaluation Review Comments: 1) Add 60g CCHO renal restriction to pureed diet 2) Initiate Nepro CarbSteady bid 3) Encourage optimal PO intake 4) Follow-up with nephrology and neurology 4) Continue to monitor I&O, labs, and skin integrity Expected Outcomes/Goals: 1) appetite and labs to improve 2) f/u in 3-5 days Date of Service: Feb 11, 2025 Billing Provider: SERGEY GASTELUM MD Common Visit Codes: [id number] INP/OBS CARE(HIGH) CHAU SYKES RESIDENT Feb 11, 2025 19:51 SERGEY GASTELUM MD Feb 11, 2025 21:27
--- NOTE | 2025-02-11 21:35 | DVHPN2 ---
Progress Note - Dictate Date Seen: Feb 11, 2025 Has the PT tested + for MRSA If YES, has PT been informed?: Yes Medical Necessity Reason Pt with a Central, PICC or Fol: Yes Subjective No new complaints Patient is awake and arousable Postop day 1. S/P endoscopy and PEG tube placement vital signs Vital Sign Date Time Temp Pulse Resp B/P (MAP) Pulse Ox O2 Delivery O2 Flow Rate FiO2 02/11/25 20:00 98.1 86 14 116/59 (78) 100 98.1 02/11/25 20:00 Oxymizer 6 N/A Total Intake and Output 02/10/25 02/10/25 02/11/25 15:00 23:00 07:00 Intake Total 91 ml 328 ml Output Total 200 ml Balance 91 ml 128 ml medications Current Medications Medications Dose Ordered Sig/Kellen Route Start Time Stop Time Status Last Admin Dose Admin Dextrose 50 ml UD PRN IV 02/02/25 01:00 Cancel Baclofen 5 mg BID PO 02/03/25 10:00 02/07/25 21:24 5 MG Gabapentin 100 mg TID PO 02/03/25 06:00 02/11/25 14:00 100 MG Amlodipine Besylate 10 mg DAILY PO 02/03/25 10:00 02/07/25 08:54 10 MG Lorazepam 1 mg ONCE PRN IV 02/02/25 20:00 Atorvastatin Calcium 40 mg HS PO 02/03/25 22:00 02/07/25 21:24 40 MG Donepezil HCl 5 mg HS PO 02/03/25 22:00 02/07/25 21:24 5 MG Amino Acids 0 ml @ 0 mls/hr PER PHARMACY IV 02/08/25 16:45 Diagnostic Test (Pha) 1 strip Q6HR 02/09/25 00:00 02/11/25 17:55 1 STRIP Insulin Human Regular FOLLOW SLIDING SCALE Q6HR SC 02/09/25 00:00 02/11/25 17:56 2 UNITS Dextrose 50 ml UD IV 02/08/25 22:00 Amino Acids/ Electrolytes/ Dextrose 1,000 ml @ 41 mls/hr DAILY@2200 IV 02/08/25 22:00 02/10/25 22:36 41 MLS/HR Enteral Nutritional Formula 240 ml Q6HR PO 02/11/25 06:00 Pantoprazole Sodium 40 mg BID IV 02/10/25 22:00 02/11/25 09:28 40 MG Heparin Sodium (Porcine) 5,000 units Q12HR SC 02/10/25 22:00 02/11/25 09:28 5,000 UNITS Pantoprazole Sodium 40 mg DAILY IV 02/11/25 10:00 UNV Aspirin 81 mg DAILY PO 02/12/25 10:00 Clopidogrel Bisulfate 75 mg DAILY PO 02/12/25 10:00 02/24/25 23:00 objective Awake and arousable, no acute distress Cardiovascular S1-S2 regular rate rhythm Abdomen is soft G-tube site is clean Extremities without clubbing cyanosis or edema laboratory and microbiology Laboratory Tests 02/11/25 05:36 02/10/25 04:43 Test 02/11/25 05:36 Range/Units Serum Glucose 286 H 74-106 mg/dL Problems(with codes): (1) Oropharyngeal dysphagia (2) Generalized weakness (3) Hyponatremia (4) Acute lacunar stroke Prognosis Plan Continue supportive care G-tube care by rotating G-tube twice a day and cleaning with dilute hydrogen peroxide Patient could be started on Nepro to 240 mL q.4 hours as bolus feedings At the moment patient has been started on Nepro via gastrostomy tube at 50 mL/hour I will follow up patient with you Dietary Evaluation Review Comments: 1) Add 60g CCHO renal restriction to pureed diet 2) Initiate Nepro CarbSteady bid 3) Encourage optimal PO intake 4) Follow-up with nephrology and neurology 4) Continue to monitor I&O, labs, and skin integrity Expected Outcomes/Goals: 1) appetite and labs to improve 2) f/u in 3-5 days Plan discussed with: Patient, Other (Nurse) DEBORAH BHAKTA MD Feb 11, 2025 21:35
--- NOTE | 2025-02-11 23:22 | DVHPN2 ---
Progress Note - Dictate Date Seen: Feb 11, 2025 Has the PT tested + for MRSA If YES, has PT been informed?: Yes Medical Necessity Reason Pt with a Central, PICC or Fol: Yes Subjective Patient was seen and evaluated in follow up in the [facility]. Patient is on 6 L Oxymizer. Patient appears sleepy. Patient is working with PT. CM is working on SNF placement, awaiting skilled to correction bed availability. BUN 66, MEDICAL FEE CLERK 6.51, GLUC 206. vital signs Vital Sign Date Time Temp Pulse Resp B/P (MAP) Pulse Ox O2 Delivery O2 Flow Rate FiO2 02/11/25 12:02 98.2 92 17 139/74 (95) 100 98.2 02/11/25 10:00 Oxymizer 6 N/A Total Intake and Output 02/10/25 02/10/25 02/11/25 14:59 22:59 06:59 Intake Total 50 ml 328 ml Output Total 200 ml Balance 50 ml 128 ml medications Current Medications Medications Dose Ordered Sig/Kellen Route Start Time Stop Time Status Last Admin Dose Admin Dextrose 50 ml UD PRN IV 02/02/25 01:00 Cancel Baclofen 5 mg BID PO 02/03/25 10:00 02/07/25 21:24 5 MG Gabapentin 100 mg TID PO 02/03/25 06:00 02/07/25 21:24 100 MG Amlodipine Besylate 10 mg DAILY PO 02/03/25 10:00 02/07/25 08:54 10 MG Lorazepam 1 mg ONCE PRN IV 02/02/25 20:00 Atorvastatin Calcium 40 mg HS PO 02/03/25 22:00 02/07/25 21:24 40 MG Donepezil HCl 5 mg HS PO 02/03/25 22:00 02/07/25 21:24 5 MG Amino Acids 0 ml @ 0 mls/hr PER PHARMACY IV 02/08/25 16:45 Diagnostic Test (Pha) 1 strip Q6HR 02/09/25 00:00 02/11/25 11:34 1 STRIP Insulin Human Regular FOLLOW SLIDING SCALE Q6HR SC 02/09/25 00:00 02/11/25 11:39 8 UNITS Dextrose 50 ml UD IV 02/08/25 22:00 Amino Acids/ Electrolytes/ Dextrose 1,000 ml @ 41 mls/hr DAILY@2200 IV 02/08/25 22:00 02/10/25 22:36 41 MLS/HR Enteral Nutritional Formula 240 ml Q6HR PO 02/11/25 06:00 Pantoprazole Sodium 40 mg BID IV 02/10/25 22:00 02/11/25 09:28 40 MG Heparin Sodium (Porcine) 5,000 units Q12HR SC 02/10/25 22:00 02/11/25 09:28 5,000 UNITS Pantoprazole Sodium 40 mg DAILY IV 02/11/25 10:00 UNV Aspirin 81 mg DAILY PO 02/12/25 10:00 Clopidogrel Bisulfate 75 mg DAILY PO 02/12/25 10:00 02/24/25 23:00 objective GENERAL: A&O x2. Somewhat non-verbal, +dysphagia EYES: PERRL, EOMI. Anicteric. HENT: Moist mucous membranes. LUNGS: Clear to auscultation bilaterally. CARDIOVASCULAR: Regular rate and rhythm. ABDOMEN: Soft, non-tender and non-distended. EXTREMITIES: No edema. SKIN: Warm, dry. laboratory and microbiology Laboratory Tests 02/11/25 05:36 02/10/25 04:43 Test 02/11/25 05:36 Range/Units Serum Glucose 286 H 74-106 mg/dL Problem List Acute CVA rule out cardioembolic source. History of multiple chronic strokes. Hypertensive urgency. Diabetes mellitus type 2. ESRD on HD. Medical noncompliance (missed HD). Assessment/Plan Continued all current supportive medical care. Aspirin, Plavix. GI prophylactics. Additional plan as per the hospital course. Critical care time of 45 minutes provided to include time spent evaluation of patient at bedside, when appropriate patient/family education for diagnosis, treatment plan, review of pertinent medical information and discussion of care with specialty providers and PCP Dietary Evaluation Review Comments: 1) Add 60g CCHO renal restriction to pureed diet 2) Initiate Nepro CarbSteady bid 3) Encourage optimal PO intake 4) Follow-up with nephrology and neurology 4) Continue to monitor I&O, labs, and skin integrity Expected Outcomes/Goals: 1) appetite and labs to improve 2) f/u in 3-5 days Plan discussed with: Patient DESIREE BERNAL MD Feb 11, 2025 12:54
[2025-02-12] VITALS (31 sets, daily range): BP systolic 94–134; BP diastolic 46–68; PULSE 62–116; RESP 9–21; TEMP 97.8–98.5; O2SAT 94–100
[2025-02-12 06:07] LABS: Hematocrit 34.1 % (41.0-53.0); Hemoglobin 11.5 g/dL (13.5-17.5); Mean Corpuscular Hemoglobin 30.9 pg (28.0-32.0); Mean Corpuscular Volume 91.2 fL (80.0-100.0); Nucleated Red Blood Cells % 0.1 %
[2025-02-12 06:20] LABS: Albumin 3.2 g/dL (3.2-4.8); Alkaline Phosphatase 79 U/L (46-116); Anion Gap 14 (5-15); BUN/Creatinine Ratio 11.5 (10.0-20.0); Carbon Dioxide 25 mmol/L (20-31); Magnesium 2.0 mg/dL (1.6-2.6); Total Protein 6.0 g/dL (5.7-8.2)
[2025-02-12 06:30] LABS: Alanine Aminotransferase < 9 U/L (7-40); Bilirubin, Total 0.3 mg/dL (0.2-1.0); Blood Urea Nitrogen 57 mg/dL (9-23); Calcium 8.5 mg/dL (8.7-10.4); Chloride 95 mmol/L (98-107); Glucose 167 mg/dL (74-106); Potassium 3.3 mmol/L (3.5-5.1); Sodium 134 mmol/L (136-145)
[2025-02-12] MEDS: POTASSIUM EFFERVESENT TAB 25 MEQ GT ONE (07:46)
[2025-02-12] MEDS ORDERED: Nepro With Carb Steady 1 Liter Bottle GT SCH (08:00)
[2025-02-12] MEDS: CLOPIDOGREL BISULFATE 75 MG TAB PO SCH (09:35)
[2025-02-12] MEDS ORDERED: Nepro With Carbsteady ButterPecan 8oz Carton PO SCH (12:00)
[2025-02-12] MEDS: Nepro With Carbsteady ButterPecan 8oz Carton PEG SCH (12:30)
--- NOTE | 2025-02-12 13:01 | DVHPN2 ---
Progress Note - Dictate Date Seen: Feb 12, 2025 Has the PT tested + for MRSA If YES, has PT been informed?: Yes Medical Necessity Reason Pt with a Central, PICC or Fol: Yes Subjective Alert and oriented x 1 vital signs Vital Sign Date Time Temp Pulse Resp B/P (MAP) Pulse Ox O2 Delivery O2 Flow Rate FiO2 02/12/25 12:00 98.2 90 15 131/65 (87) 96 98.2 02/12/25 10:00 Oxymizer 4 N/A Total Intake and Output 02/11/25 02/11/25 02/12/25 15:00 23:00 07:00 Intake Total 328 ml 287 ml 328 ml Output Total 100 ml Balance 328 ml 287 ml 228 ml medications Current Medications Medications Dose Ordered Sig/Kellen Route Start Time Stop Time Status Last Admin Dose Admin Dextrose 50 ml UD PRN IV 02/02/25 01:00 Cancel Baclofen 5 mg BID PO 02/03/25 10:00 02/12/25 09:35 5 MG Gabapentin 100 mg TID PO 02/03/25 06:00 02/12/25 05:39 100 MG Amlodipine Besylate 10 mg DAILY PO 02/03/25 10:00 02/07/25 08:54 10 MG Lorazepam 1 mg ONCE PRN IV 02/02/25 20:00 Atorvastatin Calcium 40 mg HS PO 02/03/25 22:00 02/11/25 21:47 40 MG Donepezil HCl 5 mg HS PO 02/03/25 22:00 02/11/25 21:47 5 MG Diagnostic Test (Pha) 1 strip Q6HR 02/09/25 00:00 02/12/25 11:31 1 STRIP Insulin Human Regular FOLLOW SLIDING SCALE Q6HR SC 02/09/25 00:00 02/12/25 11:35 8 UNITS Dextrose 50 ml UD IV 02/08/25 22:00 Amino Acids/ Electrolytes/ Dextrose 1,000 ml @ 41 mls/hr DAILY@2200 IV 02/08/25 22:00 02/11/25 21:46 41 MLS/HR Pantoprazole Sodium 40 mg BID IV 02/10/25 22:00 02/12/25 09:34 40 MG Heparin Sodium (Porcine) 5,000 units Q12HR SC 02/10/25 22:00 02/12/25 09:37 5,000 UNITS Pantoprazole Sodium 40 mg DAILY IV 02/11/25 10:00 UNV Aspirin 81 mg DAILY PO 02/12/25 10:00 02/12/25 09:44 81 MG Clopidogrel Bisulfate 75 mg DAILY PO 02/12/25 10:00 02/24/25 23:00 02/12/25 09:35 75 MG Enteral Nutritional Formula 240 ml IQ4HR PEG 02/12/25 12:00 02/12/25 12:30 240 ML objective Chronically ill-appearing patient HEENT: No evidence of JVD, no oral ulcers. Pulmonary: Lungs are clear on auscultation bilaterally Cardiovascular S1-S2, no S3 or S4 Abdomen: Bowel sounds positive, soft no rebound tenderness Skin: No rash Neurological: Alert, oriented, no focal weakness laboratory and microbiology Laboratory Tests 02/12/25 05:19 Test 02/12/25 05:19 Range/Units Serum Glucose 167 #H 74-106 mg/dL Problem List Assessment: End-stage renal disease TTS Uremia managed with dialysis Hypertension, better controlled Hyperkalemia improved Subcentimeter hypoattenuating lesion on CT, acute CVA History of CVA Anemia of Chronic kidney disease Plan: Hemodialysis to continue on TTS schedule Fluid restriction less than 1 L per day Neurology following Will need PEG tune placement and disposition to SNF Dietary Evaluation Review Comments: 1) Add 60g CCHO renal restriction to pureed diet 2) Initiate Nepro CarbSteady bid 3) Encourage optimal PO intake 4) Follow-up with nephrology and neurology 4) Continue to monitor I&O, labs, and skin integrity Expected Outcomes/Goals: 1) appetite and labs to improve 2) f/u in 3-5 days Plan discussed with: Patient SABRINA DAVALOS MD Feb 12, 2025 13:01
--- NOTE | 2025-02-12 15:39 | DVHPNRES ---
Progress Note Date Seen: Feb 12, 2025 Resident Creating Document: CHAU SYKES RESIDENT Has the PT tested + for MRSA If YES, has PT been informed?: Yes Medical Necessity Reason Pt with a Central, PICC or Fol: Yes Subjective Review of Systems Siddhartha Whaley is a 59 year old male with past medical history of DM2, HTN, CVA (2023), Dementia and, CKD stage 5 (Dialysis MWF at [facility]). The patient was brought to the ED by the EMS team with chief complaint of 3 days of generalized weakness, difficulty to swallow and high blood pressure. Family member on site reports that the patient has missed his last 2 dialysis session due to feeling weak and tired. Initial evaluation in the ED showed blood pressure of 177/116 and a blood glucose of 331 mg/dl. Non contrast head CT scan showed: Subcentimeter hyperattenuating focus within the right internal capsule/thalamus may represent small intraparenchymal hemorrhage, or calcification. Correlate with symptoms and consider 6-8 hour follow-up head CT for reassessment, numerous hypodense foci within deep white matter and basal ganglia consistent with age indeterminate, but probably chronic lacunar infarcts. Underlying sequela of mild chronic microangiopathy. The patient denies fever, chills, diarrhea, nausea, vomit, sick contacts or other symptoms. 02/02/25 Patient seen at bedside. Patient is alert times 1, he is not oriented to place or time. Patient is a poor historian. Talked to the sister and she states that the patient has been having hiccups since July, has had dementia since 1 year, and underwent a stroke last year and also started having choking symptoms and having trouble swallowing since 1 week. Last week he was walking fine but now has been having balance problems, and is a fall risk, has had no trauma to the head. Yesterday he was too weak to go to the dialysis appointment. Repeat head CT shows Stable 8 mm hyperattenuating focus in the right internal capsule/ thalamus without any significant change. The etiology remains unclear since this has not changed. Patient has undergone dialysis today. Given baclofen 5 mg b.i.d. and gabapentin 100 mg t.i.d. eval was placed. Pureed diet was started. 02/03/2025 Patient seen at bedside. Patient is alert x1. General appearance is better than yesterday. PT eval placed. Social service consult case SNF placement. Wound consult placed for redness in the sacrum. Alvino September 5 mg p.o., atorvastatin 40 mg p.o., aspirin 81 mg p.o. started. Richardson's was placed. hepatitis panel negative, influenza and COVID negative. Neuro on board. Nephrology on board. 02/04/25 Patient seen at bedside. Patient is alert x1. General appearance is better than yesterday. Patient stopped hicupping, as per nurse patient had trouble swallowing 1 pill and coughed a few times but after giving a 2nd pill slowly he was fine. PT eval placed . Neuro on board. Nephrology on board. Cardiology On word and recommended TTE. Waiting for SNF placement. 02/05/25 Patient seen at bedside. He is Alert x1, is talking and appears better. No overnight events reported. Patient is not hiccuping, still taking thickened liquids to swallow pills and sometimes has cough when swallowing. He denies any pain, nausea, vomiting. TTE pending, waiting for SNF placement. 02/06/25 Patient was seen at the bedside. He is alert x1. No overnight events were reported. Patient is not hiccupping. He is unable to swallow much and coughs even with a few sips of water. We have ordered a swallow test with pureed diet, suggested patient can not take nectar thick pureed diet. 02/07/2025 Patient seen at bedside. He is alert x1, no overnight events were reported. Patient is taking pureed diet, still coughing after taking sips of water. SHARMILA shows EF of 55%. Waiting for SNF placement. 02/08/2025 Patient seen at bedside. He is alert x1, no overnight events were reported, bedside swallow study showed and failed. GI was consulted for possible PEG tube placement. Waiting for SNF placement. 02/09/25 Patient seen at bedside. He is alert x1, no overnight events were reported or. GI was consulted and pending PEG tube placement. Called the sister and informed of patient's condition. Waiting for SNF placement 02/10/25 Patient seen at Bedside. He is alert x1, no overnight event were reported. EGD, peg tube was placed. Waiting for SNF placement. 02/11/25 Patient Bedside patient seen at bedside. Patient is moved to the [facility]. Patient is started feeding from the PEG tube with Napro 50 mL/hour. 02/12/25 Patient seen at bedside. patient is looking better today, patient had dialysis today, He had hypokalemia today and was given potassium. social service contacted for SNF placement. Objective vital signs Vital Sign Date Time Temp Pulse Resp B/P (MAP) Pulse Ox O2 Delivery O2 Flow Rate FiO2 02/12/25 15:00 105 15 113/53 (73) 99 02/12/25 14:00 Oxymizer 4 N/A 02/12/25 12:00 98.2 98.2 Total Intake and Output 02/11/25 02/11/25 02/12/25 15:00 23:00 07:00 Intake Total 328 ml 287 ml 328 ml Output Total 100 ml Balance 328 ml 287 ml 228 ml medications Current Medications Medications Dose Ordered Sig/Kellen Route Start Time Stop Time Status Last Admin Dose Admin Dextrose 50 ml UD PRN IV 02/02/25 01:00 Cancel Baclofen 5 mg BID PO 02/03/25 10:00 02/12/25 09:35 5 MG Gabapentin 100 mg TID PO 02/03/25 06:00 02/12/25 14:06 100 MG Amlodipine Besylate 10 mg DAILY PO 02/03/25 10:00 02/07/25 08:54 10 MG Lorazepam 1 mg ONCE PRN IV 02/02/25 20:00 Atorvastatin Calcium 40 mg HS PO 02/03/25 22:00 02/11/25 21:47 40 MG Donepezil HCl 5 mg HS PO 02/03/25 22:00 02/11/25 21:47 5 MG Diagnostic Test (Pha) 1 strip Q6HR 02/09/25 00:00 02/12/25 11:31 1 STRIP Insulin Human Regular FOLLOW SLIDING SCALE Q6HR SC 02/09/25 00:00 02/12/25 11:35 8 UNITS Dextrose 50 ml UD IV 02/08/25 22:00 Pantoprazole Sodium 40 mg BID IV 02/10/25 22:00 02/12/25 09:34 40 MG Heparin Sodium (Porcine) 5,000 units Q12HR SC 02/10/25 22:00 02/12/25 09:37 5,000 UNITS Pantoprazole Sodium 40 mg DAILY IV 02/11/25 10:00 UNV Aspirin 81 mg DAILY PO 02/12/25 10:00 02/12/25 09:44 81 MG Clopidogrel Bisulfate 75 mg DAILY PO 02/12/25 10:00 02/24/25 23:00 02/12/25 09:35 75 MG Enteral Nutritional Formula 240 ml IQ4HR PEG 02/12/25 12:00 02/12/25 12:30 240 ML Examination General: Patient alert and oriented in person, place and time. Patient following commands. HEENT: Normocephalic, atraumatic, moist mucous membranes Respiratory/pulmonary: Clear lungs bilaterally, vesicular murmurs present in almost all lung islas, no associated crackles or wheezes. Cardiovascular: Normal heart sounds S1 and S2 with no associated murmurs Abdomen: Peg tube placed for nutrition. Richardson catheter in place, with yellow urine. Extremities: There is no peripheral edema present at the lower extremities. Peripheral Pulses: 3+ Radial (R). 3+ Radial (L). 3+ Dorsalis pedis (R). 3+ Dorsalis pedis(L) Skin: No rashes or pruritus, there is no sacral edema present at this time. Neurological: Intact cranial nerves with no focal neurologic deficits laboratory and microbiology Laboratory Tests 02/12/25 05:19 Test 02/12/25 05:19 Range/Units Serum Glucose 167 #H 74-106 mg/dL Microbiology Date/Time Source Procedure Growth Status 02/10/25 21:30 Nose MRSA Screen - Final Complete 02/02/25 01:36 Blood Blood Culture - Final NO GROWTH AFTER 5 DAYS OF INCUBATION. Complete Problem List/Assessment/Plan Problem List/Assessment/Plan # Hypertensive urgency-resolving - Amlodipine 10 mg po - Monitor BP # Reactive leukocytosis- monitorlab # ESRD on HD # Missed HD # Non compliance with HD # Uremia # Acidemia managed with dialysis # Hyperkalemia managed with dialysis # Anemia of Chronic kidney disease from ESRD - Dialysis MWF at [facility] - Monitor lab - HD today and tommorrow - nephro consulted and stated Hemodialysis today then Saturday, Fluid restriction less than 1 L per day - GI consulted for possible PEG tube placement because patient is unable to swallow # Generalized weakness, rule out CVA # Hx of CVA - Head CT scan ,stable 8 mm hyperattenuating focus in the right internal capsule/ thalamus without any significant change - neuro consulted and recommended to give us a Aspirin 81 mg daily, Lipitor 40 mg daily, Aricept 5 mg daily - cardio consulted and recommended transesophageal echocardiogram at first availablity. TTE shows EF of 55%. -EGD, PEG tube has been place. GI on board - patient started on Nepro # Hyponantremia -monitor lab # DM2 with hyperglycemia - Insulin sliding scale - HbA1C- 8.7 Purred diet PPI prophylaxis: Protonix 40 mg DVT Prophylaxis: Heparin 5000, q.12 Goals of care discussed with patient for 27 minutes Patient is CODE :DNR/DNI, confirmed with sister Case discussed with Dr. Gastelum Plan discussed with: Other (RN) Dietary Evaluation Review Comments: 1) Add 60g CCHO renal restriction to pureed diet 2) Initiate Nepro CarbSteady bid 3) Encourage optimal PO intake 4) Follow-up with nephrology and neurology 4) Continue to monitor I&O, labs, and skin integrity Expected Outcomes/Goals: 1) appetite and labs to improve 2) f/u in 3-5 days Date of Service: Feb 12, 2025 Billing Provider: SERGEY GASTELUM MD Common Visit Codes: [id number] INP/OBS CARE(HIGH) CHAU SYKES RESIDENT Feb 12, 2025 15:39 SERGEY GASTELUM MD Feb 12, 2025 23:22
--- NOTE | 2025-02-12 20:09 | DVHPN2 ---
Progress Note - Dictate Date Seen: Feb 12, 2025 Has the PT tested + for MRSA If YES, has PT been informed?: Yes Medical Necessity Reason Pt with a Central, PICC or Fol: Yes Subjective No new complaints Patient is awake and arousable Postop day 2 S/P endoscopy and PEG tube placement vital signs Vital Sign Date Time Temp Pulse Resp B/P (MAP) Pulse Ox O2 Delivery O2 Flow Rate FiO2 02/12/25 19:01 100 19 134/68 (90) 100 02/12/25 18:00 Oxymizer 4 N/A 02/12/25 16:00 98.3 98.3 Total Intake and Output 02/11/25 02/11/25 02/12/25 15:00 23:00 07:00 Intake Total 328 ml 287 ml 328 ml Output Total 100 ml Balance 328 ml 287 ml 228 ml medications Current Medications Medications Dose Ordered Sig/Kellen Route Start Time Stop Time Status Last Admin Dose Admin Dextrose 50 ml UD PRN IV 02/02/25 01:00 Cancel Baclofen 5 mg BID PO 02/03/25 10:00 02/12/25 09:35 5 MG Gabapentin 100 mg TID PO 02/03/25 06:00 02/12/25 14:06 100 MG Amlodipine Besylate 10 mg DAILY PO 02/03/25 10:00 02/07/25 08:54 10 MG Lorazepam 1 mg ONCE PRN IV 02/02/25 20:00 Atorvastatin Calcium 40 mg HS PO 02/03/25 22:00 02/11/25 21:47 40 MG Donepezil HCl 5 mg HS PO 02/03/25 22:00 02/11/25 21:47 5 MG Diagnostic Test (Pha) 1 strip Q6HR 02/09/25 00:00 02/12/25 17:17 1 STRIP Insulin Human Regular FOLLOW SLIDING SCALE Q6HR SC 02/09/25 00:00 02/12/25 17:18 16 UNITS Dextrose 50 ml UD IV 02/08/25 22:00 Pantoprazole Sodium 40 mg BID IV 02/10/25 22:00 02/12/25 09:34 40 MG Heparin Sodium (Porcine) 5,000 units Q12HR SC 02/10/25 22:00 02/12/25 09:37 5,000 UNITS Pantoprazole Sodium 40 mg DAILY IV 02/11/25 10:00 UNV Aspirin 81 mg DAILY PO 02/12/25 10:00 02/12/25 09:44 81 MG Clopidogrel Bisulfate 75 mg DAILY PO 02/12/25 10:00 02/24/25 23:00 02/12/25 09:35 75 MG Enteral Nutritional Formula 240 ml IQ4HR PEG 02/12/25 12:00 02/12/25 15:46 240 ML objective Awake and arousable, no acute distress Cardiovascular S1-S2 regular rate rhythm Abdomen is soft G-tube site is clean Extremities without clubbing cyanosis or edema laboratory and microbiology Laboratory Tests 02/12/25 05:19 Test 02/12/25 05:19 Range/Units Serum Glucose 167 #H 74-106 mg/dL Problems(with codes): (1) Acute lacunar stroke (2) Hyponatremia (3) Generalized weakness (4) Oropharyngeal dysphagia Prognosis Plan Local G-tube care as instructed Patient can have bolus feedings with Nepro one can via G-tube q.4 hours Taper off IV Clinimix Okay to resume anticoagulant Dietary Evaluation Review Comments: 1) Add 60g CCHO renal restriction to pureed diet 2) Initiate Nepro CarbSteady bid 3) Encourage optimal PO intake 4) Follow-up with nephrology and neurology 4) Continue to monitor I&O, labs, and skin integrity Expected Outcomes/Goals: 1) appetite and labs to improve 2) f/u in 3-5 days Plan discussed with: Patient, Other (Nurse) DEBORAH BHAKTA MD Feb 12, 2025 20:09
--- NOTE | 2025-02-12 20:38 | DVHPN2 ---
Progress Note - Dictate Date Seen: Feb 12, 2025 Has the PT tested + for MRSA If YES, has PT been informed?: Yes Medical Necessity Reason Pt with a Central, PICC or Fol: Yes Subjective Patient was seen and evaluated in follow up in the [facility]. Patient is on 6 L Oxymizer during the day and transitions to BIPAP overnight. K 3.3, CL 95, BUN 57, COMPUTER AIDED DESIGN DESIGNER 4.94, GLUC 226. vital signs Vital Sign Date Time Temp Pulse Resp B/P (MAP) Pulse Ox O2 Delivery O2 Flow Rate FiO2 02/12/25 13:01 88 14 103/53 (70) 98 02/12/25 12:00 98.2 98.2 02/12/25 10:00 Oxymizer 4 N/A Total Intake and Output 02/11/25 02/11/25 02/12/25 15:00 23:00 07:00 Intake Total 328 ml 287 ml 328 ml Output Total 100 ml Balance 328 ml 287 ml 228 ml medications Current Medications Medications Dose Ordered Sig/Kellen Route Start Time Stop Time Status Last Admin Dose Admin Dextrose 50 ml UD PRN IV 02/02/25 01:00 Cancel Baclofen 5 mg BID PO 02/03/25 10:00 02/12/25 09:35 5 MG Gabapentin 100 mg TID PO 02/03/25 06:00 02/12/25 05:39 100 MG Amlodipine Besylate 10 mg DAILY PO 02/03/25 10:00 02/07/25 08:54 10 MG Lorazepam 1 mg ONCE PRN IV 02/02/25 20:00 Atorvastatin Calcium 40 mg HS PO 02/03/25 22:00 02/11/25 21:47 40 MG Donepezil HCl 5 mg HS PO 02/03/25 22:00 02/11/25 21:47 5 MG Diagnostic Test (Pha) 1 strip Q6HR 02/09/25 00:00 02/12/25 11:31 1 STRIP Insulin Human Regular FOLLOW SLIDING SCALE Q6HR SC 02/09/25 00:00 02/12/25 11:35 8 UNITS Dextrose 50 ml UD IV 02/08/25 22:00 Pantoprazole Sodium 40 mg BID IV 02/10/25 22:00 02/12/25 09:34 40 MG Heparin Sodium (Porcine) 5,000 units Q12HR SC 02/10/25 22:00 02/12/25 09:37 5,000 UNITS Pantoprazole Sodium 40 mg DAILY IV 02/11/25 10:00 UNV Aspirin 81 mg DAILY PO 02/12/25 10:00 02/12/25 09:44 81 MG Clopidogrel Bisulfate 75 mg DAILY PO 02/12/25 10:00 02/24/25 23:00 02/12/25 09:35 75 MG Enteral Nutritional Formula 240 ml IQ4HR PEG 02/12/25 12:00 02/12/25 12:30 240 ML objective GENERAL: A&O x2. Somewhat non-verbal, +dysphagia EYES: PERRL, EOMI. Anicteric. HENT: Moist mucous membranes. LUNGS: Clear to auscultation bilaterally. CARDIOVASCULAR: Regular rate and rhythm. ABDOMEN: Soft, non-tender and non-distended. EXTREMITIES: No edema. SKIN: Warm, dry. laboratory and microbiology Laboratory Tests 02/12/25 05:19 Test 02/12/25 05:19 Range/Units Serum Glucose 167 #H 74-106 mg/dL Problem List Acute CVA rule out cardioembolic source. History of multiple chronic strokes. Hypertensive urgency. Diabetes mellitus type 2. ESRD on HD. Medical noncompliance (missed HD). Assessment/Plan Continued all current supportive medical care. Aspirin, Plavix. GI prophylactics. Additional plan as per the hospital course. Critical care time of 45 minutes provided to include time spent evaluation of patient at bedside, when appropriate patient/family education for diagnosis, treatment plan, review of pertinent medical information and discussion of care with specialty providers and PCP Dietary Evaluation Review Comments: 1) Add 60g CCHO renal restriction to pureed diet 2) Initiate Nepro CarbSteady bid 3) Encourage optimal PO intake 4) Follow-up with nephrology and neurology 4) Continue to monitor I&O, labs, and skin integrity Expected Outcomes/Goals: 1) appetite and labs to improve 2) f/u in 3-5 days Plan discussed with: DESIREE Shay MD Feb 12, 2025 13:21
--- NOTE | 2025-02-12 23:54 | DVHPN2 ---
Progress Note - Dictate Date Seen: Feb 12, 2025 Has the PT tested + for MRSA If YES, has PT been informed?: Yes Medical Necessity Reason Pt with a Central, PICC or Fol: Yes Subjective Mr. Torres is a 59 years old right-handed gentleman with a history of hypertension, diabetes, end-stage renal failure on hemodialysis, he was brought to the [facility] on 02/01/2025 with a chief complaint of general weakness, hypertension, dysphagia. I have seen examined the patient in the [facility], I have talked his nurse, he is awake, respond to verbal stimuli He was transferred to [facility] for respiratory distress on 02/10/2025 He has a PEG tube insertion on 02/10/2025 Plasma alcohol, 02/01/2025: <3 UDS, 02/05/2025: Negative CBC, 02/01/2025: Unremarkable BUN/CR, 02/02/2025: 110/6.97 GFR, 02/02/2025: 9 HGB A1c, 02/02/2025: Able to seven TG/HDL/LDL/HDL, 02/02/2025: 174/124/56/38 Vitamin B12, 02/03/25: 676 Folic acid, 02/03/2025: 9.28 TSH, 02/03/2025: 0.23 FT4, 02/03/2025: 1.26 SHARMILA, 02/05/2025: * Technically good study. The patient was in a sinus rhythm. * Chamber dimension evaluation was within normal limits. * Valves appear to be structurally normal. * Left ventricular systolic function is preserved. EF is about 55% with normal RV function. * Doppler reveals mild TR, mild MR. No intraatrial or intraventricular shunt noted. * There is a small pericardial effusion, not hemodynamically significant. * No intracardiac masses, thrombi, and/or vegetation discernible. The atrial appendage is within normal limits without thrombi. * Bubble study also performed, showing no significant abnormalities Carotid doctor, 02/03/2025: Left mid and distal ICAs are not well-visualized with the distal right ICA not well-visualized. Otherwise, No hemodynamically significant stenosis within the visualized bilateral carotid arterial systems CT head, 02/02/2025 0042: 1. Subcentimeter hyperattenuating focus within the right internal capsule/thalamus may represent small intraparenchymal hemorrhage, or calcification. Correlate with symptoms and consider 6-8 hour follow-up head CT for reassessment. 2. Numerous hypodense foci within deep white matter and basal ganglia consistent with age indeterminate, but probably chronic lacunar infarcts. 3. Underlying sequela of mild chronic microangiopathy. CT head, 02/02/2025 1100: 1. Stable 8 mm hyperattenuating focus in the right internal capsule/ thalamus without any significant change. The etiology remains unclear since this has not changed. Continued short-term follow-up with noncontrast CT of the head in 6-8 hours is suggested. 2. Additional nonacute findings similar to prior CT performed earlier same date. (Chronic lacunar infarcts in the bilateral basal ganglia and thalami, I also see evidence suggestive of of bilateral pontine lacunar strokes) MRI head, 02/03/2025: 1. Small chronic lacunar infarcts are seen in the right side of the nancy and left periventricular white matter. 2. Multifocal chronic ischemic changes as detailed above. 3. Multifocal areas of hemosiderin deposition from prior small hemorrhages. 4. Additional findings as detailed above. (Acute lacunar infarct in the right side of the nancy measuring up to 0.6 cm. Acute lacunar infarct in the left periventricular white matter adjacent to the body of the left ventricle measuring up to 0.8 cm.) vital signs Vital Sign Date Time Temp Pulse Resp B/P (MAP) Pulse Ox O2 Delivery O2 Flow Rate FiO2 02/12/25 22:00 19 100 Oxymizer 4 N/A 02/12/25 20:00 104 02/12/25 19:01 134/68 (90) 02/12/25 16:00 98.3 98.3 Total Intake and Output 02/11/25 02/11/25 02/12/25 15:00 23:00 07:00 Intake Total 328 ml 287 ml 328 ml Output Total 100 ml Balance 328 ml 287 ml 228 ml medications Current Medications Medications Dose Ordered Sig/Kellen Route Start Time Stop Time Status Last Admin Dose Admin Dextrose 50 ml UD PRN IV 02/02/25 01:00 Cancel Baclofen 5 mg BID PO 02/03/25 10:00 02/12/25 22:58 5 MG Gabapentin 100 mg TID PO 02/03/25 06:00 02/12/25 22:58 100 MG Amlodipine Besylate 10 mg DAILY PO 02/03/25 10:00 02/07/25 08:54 10 MG Lorazepam 1 mg ONCE PRN IV 02/02/25 20:00 Atorvastatin Calcium 40 mg HS PO 02/03/25 22:00 02/12/25 22:58 40 MG Donepezil HCl 5 mg HS PO 02/03/25 22:00 02/12/25 22:58 5 MG Diagnostic Test (Pha) 1 strip Q6HR 02/09/25 00:00 02/12/25 17:17 1 STRIP Insulin Human Regular FOLLOW SLIDING SCALE Q6HR SC 02/09/25 00:00 02/12/25 17:18 16 UNITS Dextrose 50 ml UD IV 02/08/25 22:00 Pantoprazole Sodium 40 mg BID IV 02/10/25 22:00 02/12/25 22:57 40 MG Heparin Sodium (Porcine) 5,000 units Q12HR SC 02/10/25 22:00 02/12/25 22:57 5,000 UNITS Pantoprazole Sodium 40 mg DAILY IV 02/11/25 10:00 UNV Aspirin 81 mg DAILY PO 02/12/25 10:00 02/12/25 09:44 81 MG Clopidogrel Bisulfate 75 mg DAILY PO 02/12/25 10:00 02/24/25 23:00 02/12/25 09:35 75 MG Enteral Nutritional Formula 240 ml IQ4HR PEG 02/12/25 12:00 02/12/25 20:00 240 ML objective General: the patient is well developed and nourished. No acute distress. MENTAL STATUS: Awake and alert. Oriented to person, place SPEECH, LANGUAGE, HIGHER CORTICAL FUNCTION: no aphasia or dysathria. CRANIAL NERVES: Pupils are equal, round and reactive. EOMs full and conjugate. Facial sensation intact in all three divisions bilaterally. Mandibular strength intact. Facial muscles symmetrical and strength intact. Tongue midline. No fasciculations or atrophy. SENSATION: Sensation to touch and pinprick is unremarkable MOTOR: Normal tone in the upper and lower extremity. Normal muscle bulk. No fasciculations. No abnormal movements or posturing. Muscle strength of the major groups in the extremities is 4/5. REFLEXES: Deep tendon reflexes are symmetrical. No pathological reflexes. CEREBELLAR/COORDINATION: Finger to nose is normal bilaterally. GAIT/STATION: deferred laboratory and microbiology Laboratory Tests 02/12/25 05:19 Test 02/12/25 05:19 Range/Units Serum Glucose 167 #H 74-106 mg/dL Problem List A high attenuation CT lesion in the right basal ganglia region is likely calcification Acute stroke in the nancy and left basal ganglia region Chronic multiple strokes/lacunar infarcts in bilateral basal ganglia reason Dementia, likely vascular dementia, but need to rule out Alzheimer disease and other etiology Dysphagia, possibly secondary to multiple strokes Hypertensive encephalopathy Dysphagia status post PEG feeding tube Assessment/Plan Monitoring Supportive treatment [facility] care Aspirin 81 mg daily Plavix 75 mg q.d. for 21 days Lipitor 40 mg daily Aricept 5 mg daily Pantoprazole 40 mg daily Up to chair Physical therapy Nephrology on case/hemodialysis More recommendation per clinical course This medical document was created using an electronic medical record system with [employer] dictation system. Although this document has been carefully reviewed, there may still be some phonetic and typographical errors. These areas are purely typographical due to imperfections of the software programs, and do not reflect any compromise in the patient's medical care Dietary Evaluation Review Comments: 1) Add 60g CCHO renal restriction to pureed diet 2) Initiate Nepro CarbSteady bid 3) Encourage optimal PO intake 4) Follow-up with nephrology and neurology 4) Continue to monitor I&O, labs, and skin integrity Expected Outcomes/Goals: 1) appetite and labs to improve 2) f/u in 3-5 days Plan discussed with: Other YURY MARQUEZ MD Feb 12, 2025 23:54
[2025-02-13] VITALS (81 sets, daily range): BP systolic 81–146; BP diastolic 40–73; PULSE 86–117; RESP 8–27; TEMP 97.7–99.5; O2SAT 81–100
[2025-02-13] MEDS ORDERED: DEXTROSE (50%) 50ML SYRG IV SCH (04:45)
[2025-02-13] MEDS: ACCU-CHEK COMFORT CURVE STRIP VI SCH (06:00)
[2025-02-13] MEDS: InsuLIN REG 1unit/0.01ml Soln (100units/ml) SC SCH (06:00)
[2025-02-13 07:15] LABS: Hematocrit 31.5 % (41.0-53.0); Hemoglobin 11.1 g/dL (13.5-17.5); Mean Corpuscular Hemoglobin 30.4 pg (28.0-32.0); Mean Corpuscular Volume 86.1 fL (80.0-100.0); Nucleated Red Blood Cells % 0.0 %
[2025-02-13] MEDS: GABAPENTIN 100 MG CAP PO SCH (07:18)
[2025-02-13 07:26] LABS: Anion Gap 12 (5-15); Calcium 8.7 mg/dL (8.7-10.4); Carbon Dioxide 25 mmol/L (20-31)
[2025-02-13 07:32] LABS: BUN/Creatinine Ratio 13.1 (10.0-20.0); Blood Urea Nitrogen 74 mg/dL (9-23); Chloride 94 mmol/L (98-107); Glucose 199 mg/dL (74-106); Potassium 3.2 mmol/L (3.5-5.1); Sodium 131 mmol/L (136-145)
[2025-02-13] MEDS: POTASSIUM CHLORIDE 40 MEQ, LIDOCAINE 1% (LOCAL ANESTH.) 4 ML in SODIUM CHL 0.9% 250 ML IV ONE (09:45)
[2025-02-13] MEDS: BACLOFEN 10 MG TAB PO SCH (10:09)
[2025-02-13] MEDS: PANTOPRAZOLE 40 MG/10 ML VIAL INJ IV SCH (10:09)
[2025-02-13] MEDS: CLOPIDOGREL BISULFATE 75 MG TAB PO SCH (10:09)
[2025-02-13] MEDS: POTASSIUM CHL 20MEQ/100ML 0 ML IV ONE (10:11)
[2025-02-13] MEDS: HEPARIN SODIUM (PORCINE) 5000 UNITS/ML 1ML VIAL SC SCH (10:12)
[2025-02-13] MEDS: ALBUMIN 25% 100 ML IV ONE ×2 (12:30→16:00)
[2025-02-13] MEDS: SODIUM CHL 0.9% 1000 ML BAG XX ONE (12:30)
--- NOTE | 2025-02-13 13:58 | DVHPN2 ---
Progress Note - Dictate Date Seen: Feb 13, 2025 Has the PT tested + for MRSA If YES, has PT been informed?: Yes Medical Necessity Reason Pt with a Central, PICC or Fol: Yes Subjective Alert and oriented x 1 vital signs Vital Sign Date Time Temp Pulse Resp B/P (MAP) Pulse Ox O2 Delivery O2 Flow Rate FiO2 02/13/25 13:15 115 19 97/67 (77) 100 02/13/25 12:00 Oxymizer 6 N/A 02/13/25 12:00 99.5 99.5 Total Intake and Output 02/12/25 02/12/25 02/13/25 14:59 22:59 06:59 Intake Total 287 ml 240 ml 780 ml Output Total 100 ml 100 ml Balance 287 ml 140 ml 680 ml medications Current Medications Medications Dose Ordered Sig/Kellen Route Start Time Stop Time Status Last Admin Dose Admin Dextrose 50 ml UD PRN IV 02/02/25 01:00 Cancel Lorazepam 1 mg ONCE PRN IV 02/02/25 20:00 Pantoprazole Sodium 40 mg DAILY IV 02/11/25 10:00 UNV Enteral Nutritional Formula 240 ml IQ4HR PEG 02/12/25 12:00 02/13/25 08:00 240 ML Gabapentin 100 mg TID PO 02/13/25 06:00 02/13/25 07:18 100 MG Insulin Human Regular FOLLOW SLIDING SCALE Q6HR SC 02/13/25 06:00 02/13/25 11:56 2 UNITS Diagnostic Test (Pha) 1 strip Q6HR 02/13/25 06:00 02/13/25 11:55 1 STRIP Dextrose 50 ml UD IV 02/13/25 04:45 Baclofen 5 mg BID PO 02/13/25 10:00 02/13/25 10:09 5 MG Amlodipine Besylate 10 mg DAILY PO 02/13/25 10:00 Atorvastatin Calcium 40 mg HS PO 02/13/25 22:00 Aspirin 81 mg DAILY PO 02/13/25 10:00 02/13/25 10:10 81 MG Clopidogrel Bisulfate 75 mg DAILY PO 02/13/25 10:00 02/13/25 10:09 75 MG Donepezil HCl 5 mg HS PO 02/13/25 22:00 Pantoprazole Sodium 40 mg BID IV 02/13/25 10:00 02/13/25 10:09 40 MG Heparin Sodium (Porcine) 5,000 units Q12HR SC 02/13/25 10:00 02/13/25 10:12 5,000 UNITS objective Chronically ill-appearing patient HEENT: No evidence of JVD, no oral ulcers. Pulmonary: Lungs are clear on auscultation bilaterally Cardiovascular S1-S2, no S3 or S4 Abdomen: Bowel sounds positive, soft no rebound tenderness Skin: No rash Neurological: Alert, oriented, no focal weakness laboratory and microbiology Laboratory Tests 02/13/25 06:59 Test 02/13/25 06:59 Range/Units Serum Glucose 199 H 74-106 mg/dL Problem List Assessment: End-stage renal disease TTS Uremia managed with dialysis Hypertension, better controlled Hyperkalemia improved Subcentimeter hypoattenuating lesion on CT, acute CVA History of CVA Anemia of Chronic kidney disease Plan: Seen during HD today Using IV albumin during HD for hemodynamic support Fluid restriction less than 1 L per day Neurology following Will need PEG tube placement and disposition to SNF Dietary Evaluation Review Comments: 1) Add 60g CCHO renal restriction to pureed diet 2) Initiate Nepro CarbSteady bid 3) Encourage optimal PO intake 4) Follow-up with nephrology and neurology 4) Continue to monitor I&O, labs, and skin integrity Expected Outcomes/Goals: 1) appetite and labs to improve 2) f/u in 3-5 days Plan discussed with: Patient SABRINA DAVALOS MD Feb 13, 2025 13:58
[2025-02-13] MEDS: ONDANSETRON HCL 4 MG/2 ML VIAL IV PRN (14:30)
[2025-02-13] MEDS: ONDANSETRON HCL 4 MG/2 ML VIAL ONE (14:33)
--- NOTE | 2025-02-13 16:41 | DVHPNRES ---
Progress Note Date Seen: Feb 13, 2025 Resident Creating Document: [facility]DE RESIDENT Has the PT tested + for MRSA If YES, has PT been informed?: Yes Medical Necessity Reason Pt with a Central, PICC or Fol: Yes The following are medically ne: PICC Line, Richardson Catheter Subjective Review of Systems Siddhartha Whaley is a 59 year old male with past medical history of DM2, HTN, CVA (2023), Dementia and, CKD stage 5 (Dialysis MWF at [facility]). The patient was brought to the ED by the EMS team with chief complaint of 3 days of generalized weakness, difficulty to swallow and high blood pressure. Family member on site reports that the patient has missed his last 2 dialysis session due to feeling weak and tired. Initial evaluation in the ED showed blood pressure of 177/116 and a blood glucose of 331 mg/dl. Non contrast head CT scan showed: Subcentimeter hyperattenuating focus within the right internal capsule/thalamus may represent small intraparenchymal hemorrhage, or calcification. Correlate with symptoms and consider 6-8 hour follow-up head CT for reassessment, numerous hypodense foci within deep white matter and basal ganglia consistent with age indeterminate, but probably chronic lacunar infarcts. Underlying sequela of mild chronic microangiopathy. The patient denies fever, chills, diarrhea, nausea, vomit, sick contacts or other symptoms. 02/02/25 Patient seen at bedside. Patient is alert times 1, he is not oriented to place or time. Patient is a poor historian. Talked to the sister and she states that the patient has been having hiccups since July, has had dementia since 1 year, and underwent a stroke last year and also started having choking symptoms and having trouble swallowing since 1 week. Last week he was walking fine but now has been having balance problems, and is a fall risk, has had no trauma to the head. Yesterday he was too weak to go to the dialysis appointment. Repeat head CT shows Stable 8 mm hyperattenuating focus in the right internal capsule/ thalamus without any significant change. The etiology remains unclear since this has not changed. Patient has undergone dialysis today. Given baclofen 5 mg b.i.d. and gabapentin 100 mg t.i.d. eval was placed. Pureed diet was started. 02/03/2025 Patient seen at bedside. Patient is alert x1. General appearance is better than yesterday. PT eval placed. Social service consult case SNF placement. Wound consult placed for redness in the sacrum. Alvino September 5 mg p.o., atorvastatin 40 mg p.o., aspirin 81 mg p.o. started. Richardson's was placed. hepatitis panel negative, influenza and COVID negative. Neuro on board. Nephrology on board. 02/04/25 Patient seen at bedside. Patient is alert x1. General appearance is better than yesterday. Patient stopped hicupping, as per nurse patient had trouble swallowing 1 pill and coughed a few times but after giving a 2nd pill slowly he was fine. PT eval placed . Neuro on board. Nephrology on board. Cardiology On word and recommended TTE. Waiting for SNF placement. 02/05/25 Patient seen at bedside. He is Alert x1, is talking and appears better. No overnight events reported. Patient is not hiccuping, still taking thickened liquids to swallow pills and sometimes has cough when swallowing. He denies any pain, nausea, vomiting. TTE pending, waiting for SNF placement. 02/06/25 Patient was seen at the bedside. He is alert x1. No overnight events were reported. Patient is not hiccupping. He is unable to swallow much and coughs even with a few sips of water. We have ordered a swallow test with pureed diet, suggested patient can not take nectar thick pureed diet. 02/07/2025 Patient seen at bedside. He is alert x1, no overnight events were reported. Patient is taking pureed diet, still coughing after taking sips of water. SHARMILA shows EF of 55%. Waiting for SNF placement. 02/08/2025 Patient seen at bedside. He is alert x1, no overnight events were reported, bedside swallow study showed and failed. GI was consulted for possible PEG tube placement. Waiting for SNF placement. 02/09/25 Patient seen at bedside. He is alert x1, no overnight events were reported or. GI was consulted and pending PEG tube placement. Called the sister and informed of patient's condition. Waiting for SNF placement 02/10/25 Patient seen at Bedside. He is alert x1, no overnight event were reported. EGD, peg tube was placed. Waiting for SNF placement. 02/11/25 Patient Bedside patient seen at bedside. Patient is moved to the [facility]. Patient is started feeding from the PEG tube with Napro 50 mL/hour. 02/12/25 Patient seen at bedside. patient is looking better today, patient had dialysis today, He had hypokalemia today and was given potassium. social service contacted for SNF placement. 02/13/2025 Patient seen at bedside. He is drowsy. He did not have dialysis yesterday, but underwent dialysis today. Patient's code status has been modified to 'modified resuscitation with ACLS drugs and BiPAP' which was discussed with the daughter. I signed the documents for it. The ACLS drugs are being given as it was suggested patient required vasopressin drugs during hemodialysis because his systolic blood pressure went down to 88 during dialysis. Cover Maker have been contacted for SNF placement. the nurse told me that the patient was unable to tolerate the Nepro 240 mL q.4. As he has diarrhea. GI on board, Nurse will ask suggestions from Dr. Mino Portillo. Objective vital signs Vital Sign Date Time Temp Pulse Resp B/P (MAP) Pulse Ox O2 Delivery O2 Flow Rate FiO2 02/13/25 15:20 100 15 91/50 (64) 100 02/13/25 14:00 Oxymizer 6 N/A 02/13/25 12:00 99.5 99.5 Total Intake and Output 02/12/25 02/12/25 02/13/25 15:00 23:00 07:00 Intake Total 246 ml 240 ml 780 ml Output Total 100 ml 100 ml Balance 246 ml 140 ml 680 ml medications Current Medications Medications Dose Ordered Sig/Kellen Route Start Time Stop Time Status Last Admin Dose Admin Dextrose 50 ml UD PRN IV 02/02/25 01:00 Cancel Lorazepam 1 mg ONCE PRN IV 02/02/25 20:00 Pantoprazole Sodium 40 mg DAILY IV 02/11/25 10:00 UNV Enteral Nutritional Formula 240 ml IQ4HR PEG 02/12/25 12:00 02/13/25 08:00 240 ML Gabapentin 100 mg TID PO 02/13/25 06:00 02/13/25 07:18 100 MG Insulin Human Regular FOLLOW SLIDING SCALE Q6HR SC 02/13/25 06:00 02/13/25 11:56 2 UNITS Diagnostic Test (Pha) 1 strip Q6HR 02/13/25 06:00 02/13/25 11:55 1 STRIP Dextrose 50 ml UD IV 02/13/25 04:45 Baclofen 5 mg BID PO 02/13/25 10:00 02/13/25 10:09 5 MG Amlodipine Besylate 10 mg DAILY PO 02/13/25 10:00 Atorvastatin Calcium 40 mg HS PO 02/13/25 22:00 Aspirin 81 mg DAILY PO 02/13/25 10:00 02/13/25 10:10 81 MG Clopidogrel Bisulfate 75 mg DAILY PO 02/13/25 10:00 02/13/25 10:09 75 MG Donepezil HCl 5 mg HS PO 02/13/25 22:00 Pantoprazole Sodium 40 mg BID IV 02/13/25 10:00 02/13/25 10:09 40 MG Heparin Sodium (Porcine) 5,000 units Q12HR SC 02/13/25 10:00 02/13/25 10:12 5,000 UNITS Ondansetron HCl 4 mg Q6HPRN PRN IV 02/13/25 14:15 02/13/25 14:30 4 MG Examination General: Patient alert and oriented in person, place and time. Patient following commands, Drowsy HEENT: Normocephalic, atraumatic, moist mucous membranes Respiratory/pulmonary: Clear lungs bilaterally, vesicular murmurs present in almost all lung islas, no associated crackles or wheezes. Cardiovascular: Normal heart sounds S1 and S2 with no associated murmurs Abdomen: Peg tube placed for nutrition. Richardson catheter in place, with yellow urine. Extremities: There is no peripheral edema present at the lower extremities. Peripheral Pulses: 3+ Radial (R). 3+ Radial (L). 3+ Dorsalis pedis (R). 3+ Dorsalis pedis(L) Skin: No rashes or pruritus, there is no sacral edema present at this time. Neurological: Intact cranial nerves with no focal neurologic deficits laboratory and microbiology Laboratory Tests 02/13/25 06:59 Test 02/13/25 06:59 Range/Units Serum Glucose 199 H 74-106 mg/dL Microbiology Date/Time Source Procedure Growth Status 02/10/25 21:30 Nose MRSA Screen - Final Complete 02/02/25 01:36 Blood Blood Culture - Final NO GROWTH AFTER 5 DAYS OF INCUBATION. Complete Labs and/or images reviewed: Labs reviewed by me, Image(s) reviewed by me Problem List/Assessment/Plan Problem List/Assessment/Plan # Hypertensive urgency-resolving - Amlodipine 10 mg po - Monitor BP # Reactive leukocytosis- monitorlab # ESRD on HD # Missed HD # Non compliance with HD # Uremia # Acidemia managed with dialysis # Hyperkalemia managed with dialysis # Anemia of Chronic kidney disease from ESRD - Dialysis MWF at [facility] - Monitor lab - nephro consulted and stated Hemodialysis today then Saturday, Fluid restriction less than 1 L per day - GI consulted for possible PEG tube placement because patient is unable to swallow - hemodialysis done today on 02/13/2025 # Generalized weakness, rule out CVA # Hx of CVA - Head CT scan ,stable 8 mm hyperattenuating focus in the right internal capsule/ thalamus without any significant change - neuro consulted and recommended to give us a Aspirin 81 mg daily, Lipitor 40 mg daily, Aricept 5 mg daily - cardio consulted and recommended transesophageal echocardiogram at first availablity. TTE shows EF of 55%. - EGD, PEG tube has been place. GI on board - patient started on Nepro # Hyponatremia -monitor lab # DM2 with hyperglycemia - Insulin sliding scale - HbA1C- 8.7 Purred diet PPI prophylaxis: Protonix 40 mg DVT Prophylaxis: Heparin 5000, q.12 Goals of care discussed with patient for 27 minutes Patient is CODE :DNR/DNI, confirmed with sister Case discussed with Dr. Gastelum Plan discussed with: Patient, Other (rn) My Orders My Orders Orders - MADI CONDE Procedure Category Date Status Time Ondansetron Hcl PHA 02/13/25 In Process (Zofran) 14:15 Potassium LAB 02/13/25 Logged 17:30 Dietary Evaluation Review Comments: 1) Add 60g CCHO renal restriction to pureed diet 2) Initiate Nepro CarbSteady bid 3) Encourage optimal PO intake 4) Follow-up with nephrology and neurology 4) Continue to monitor I&O, labs, and skin integrity Expected Outcomes/Goals: 1) appetite and labs to improve 2) f/u in 3-5 days Date of Service: Feb 13, 2025 Billing Provider: SERGEY GASTELUM MD Common Visit Codes: 95221-[id number] INP/OBS CARE(HIGH) MADI CONDE Feb 13, 2025 16:41 SERGEY GASTELUM MD Feb 14, 2025 09:14
[2025-02-13] MEDS ORDERED: METOCLOPRAMIDE HCL 5MG/ml INJ 2ml VIAL IV PRN (17:00)
[2025-02-13] MEDS: NOREPINEPHRINE 8 MG/250ML KIT 250 ML IV SCH (17:00)
[2025-02-13] MEDS: ATORVASTATIN 20 MG TAB PO SCH (21:10)
[2025-02-13] MEDS: DONEPEZIL HYDROCHLORIDE 5 MG TAB PO SCH (21:11)
--- NOTE | 2025-02-13 23:54 | DVHPN2 ---
Progress Note - Dictate Date Seen: Feb 13, 2025 Has the PT tested + for MRSA If YES, has PT been informed?: Yes Medical Necessity Reason Pt with a Central, PICC or Fol: Yes Subjective Patient was seen and evaluated in follow up in the [facility]. Patient is on 6 L Oxymizer during the day and transitions to BIPAP overnight. K 3.2, CL 94, BUN 74, APPLICATIONS ARCHITECT 5.65. vital signs Vital Sign Date Time Temp Pulse Resp B/P (MAP) Pulse Ox O2 Delivery O2 Flow Rate FiO2 02/13/25 13:15 115 19 97/67 (77) 100 02/13/25 12:00 Oxymizer 6 N/A 02/13/25 12:00 99.5 99.5 Total Intake and Output 02/12/25 02/12/25 02/13/25 15:00 23:00 07:00 Intake Total 246 ml 240 ml 780 ml Output Total 100 ml 100 ml Balance 246 ml 140 ml 680 ml medications Current Medications Medications Dose Ordered Sig/Kellen Route Start Time Stop Time Status Last Admin Dose Admin Dextrose 50 ml UD PRN IV 02/02/25 01:00 Cancel Lorazepam 1 mg ONCE PRN IV 02/02/25 20:00 Pantoprazole Sodium 40 mg DAILY IV 02/11/25 10:00 UNV Enteral Nutritional Formula 240 ml IQ4HR PEG 02/12/25 12:00 02/13/25 08:00 240 ML Gabapentin 100 mg TID PO 02/13/25 06:00 02/13/25 07:18 100 MG Insulin Human Regular FOLLOW SLIDING SCALE Q6HR SC 02/13/25 06:00 02/13/25 11:56 2 UNITS Diagnostic Test (Pha) 1 strip Q6HR 02/13/25 06:00 02/13/25 11:55 1 STRIP Dextrose 50 ml UD IV 02/13/25 04:45 Baclofen 5 mg BID PO 02/13/25 10:00 02/13/25 10:09 5 MG Amlodipine Besylate 10 mg DAILY PO 02/13/25 10:00 Atorvastatin Calcium 40 mg HS PO 02/13/25 22:00 Aspirin 81 mg DAILY PO 02/13/25 10:00 02/13/25 10:10 81 MG Clopidogrel Bisulfate 75 mg DAILY PO 02/13/25 10:00 02/13/25 10:09 75 MG Donepezil HCl 5 mg HS PO 02/13/25 22:00 Pantoprazole Sodium 40 mg BID IV 02/13/25 10:00 02/13/25 10:09 40 MG Heparin Sodium (Porcine) 5,000 units Q12HR SC 02/13/25 10:00 02/13/25 10:12 5,000 UNITS objective GENERAL: A&O x2. Somewhat non-verbal, +dysphagia EYES: PERRL, EOMI. Anicteric. HENT: Moist mucous membranes. LUNGS: Clear to auscultation bilaterally. CARDIOVASCULAR: Regular rate and rhythm. ABDOMEN: Soft, non-tender and non-distended. EXTREMITIES: No edema. SKIN: Warm, dry. laboratory and microbiology Laboratory Tests 02/13/25 06:59 Test 02/13/25 06:59 Range/Units Serum Glucose 199 H 74-106 mg/dL Problem List Acute CVA rule out cardioembolic source. History of multiple chronic strokes. Hypertensive urgency. Diabetes mellitus type 2. ESRD on HD. Medical noncompliance (missed HD). Assessment/Plan Continued all current supportive medical care. Aspirin, Lipitor, Plavix. GI prophylactics. Additional plan as per the hospital course. Critical care time of 45 minutes provided to include time spent evaluation of patient at bedside, when appropriate patient/family education for diagnosis, treatment plan, review of pertinent medical information and discussion of care with specialty providers and PCP Dietary Evaluation Review Comments: 1) Add 60g CCHO renal restriction to pureed diet 2) Initiate Nepro CarbSteady bid 3) Encourage optimal PO intake 4) Follow-up with nephrology and neurology 4) Continue to monitor I&O, labs, and skin integrity Expected Outcomes/Goals: 1) appetite and labs to improve 2) f/u in 3-5 days Plan discussed with: Patient DESIREE BERNAL MD Feb 13, 2025 13:53
[2025-02-14] VITALS (40 sets, daily range): BP systolic 91–150; BP diastolic 43–80; PULSE 85–129; RESP 12–22; TEMP 98.1–101.1; O2SAT 96–100
[2025-02-14 06:38] LABS: Hematocrit 24.8 % (41.0-53.0); Hemoglobin 8.7 g/dL (13.5-17.5); Mean Corpuscular Hemoglobin 30.4 pg (28.0-32.0); Mean Corpuscular Volume 86.8 fL (80.0-100.0); Nucleated Red Blood Cells % 0.0 %
[2025-02-14 06:49] LABS: Sodium 137 mmol/L (136-145)
[2025-02-14 06:50] LABS: Anion Gap 11 (5-15); Carbon Dioxide 29 mmol/L (20-31)
[2025-02-14 06:51] LABS: Calcium 9.4 mg/dL (8.7-10.4)
[2025-02-14 06:54] LABS: Chloride 97 mmol/L (98-107); Potassium 3.5 mmol/L (3.5-5.1)
[2025-02-14 06:56] LABS: BUN/Creatinine Ratio 14.6 (10.0-20.0)
[2025-02-14 06:57] LABS: Blood Urea Nitrogen 66 mg/dL (9-23); Glucose 196 mg/dL (74-106)
--- NOTE | 2025-02-14 10:03 | DVH ---
CHEST RADIOGRAPH Indication: hemopysis Technique: Single frontal view of the chest was obtained COMPARISON: XY CHEST XRAY 1 VIEW on DOS: 02/10/25, XY CHEST PORTABLE on DOS: 02/05/25 FINDINGS: Lines and Tubes: Right PermCath is stable in position. Lungs: Clear Pleura: No effusion. No pneumothorax. Previously described potential postoperative pneumoperitoneum has resolved. Cardiomediastinal contours: Unremarkable Bones: Unremarkable IMPRESSION: 1. No acute disease. 2. Right PermCath. 3. Interval resolution of previously described potential postoperative pneumoperitoneum.
--- NOTE | 2025-02-14 10:04 | DVHPN2 ---
Progress Note - Dictate Date Seen: Feb 14, 2025 Has the PT tested + for MRSA If YES, has PT been informed?: Yes Medical Necessity Reason Pt with a Central, PICC or Fol: Yes The following are medically ne: PICC Line, Richardson Catheter Subjective Alert and oriented x 1 vital signs Vital Sign Date Time Temp Pulse Resp B/P (MAP) Pulse Ox O2 Delivery O2 Flow Rate FiO2 02/14/25 08:00 98.9 91 13 131/65 (87) 100 98.9 02/14/25 08:00 Oxymizer 3 N/A Total Intake and Output 02/13/25 02/13/25 02/14/25 15:00 23:00 07:00 Intake Total 480 ml 650 ml Output Total 980 ml 25 ml Balance -500 ml 625 ml medications Current Medications Medications Dose Ordered Sig/Kellen Route Start Time Stop Time Status Last Admin Dose Admin Dextrose 50 ml UD PRN IV 02/02/25 01:00 Cancel Lorazepam 1 mg ONCE PRN IV 02/02/25 20:00 Pantoprazole Sodium 40 mg DAILY IV 02/11/25 10:00 UNV Enteral Nutritional Formula 240 ml IQ4HR PEG 02/12/25 12:00 02/14/25 08:13 240 ML Gabapentin 100 mg TID PO 02/13/25 06:00 02/14/25 06:09 100 MG Insulin Human Regular FOLLOW SLIDING SCALE Q6HR SC 02/13/25 06:00 02/14/25 06:11 8 UNITS Diagnostic Test (Pha) 1 strip Q6HR 02/13/25 06:00 02/14/25 06:09 1 STRIP Dextrose 50 ml UD IV 02/13/25 04:45 Baclofen 5 mg BID PO 02/13/25 10:00 02/13/25 21:09 5 MG Amlodipine Besylate 10 mg DAILY PO 02/13/25 10:00 Atorvastatin Calcium 40 mg HS PO 02/13/25 22:00 02/13/25 21:10 40 MG Aspirin 81 mg DAILY PO 02/13/25 10:00 02/13/25 10:10 81 MG Clopidogrel Bisulfate 75 mg DAILY PO 02/13/25 10:00 02/13/25 10:09 75 MG Donepezil HCl 5 mg HS PO 02/13/25 22:00 02/13/25 21:11 5 MG Pantoprazole Sodium 40 mg BID IV 02/13/25 10:00 02/13/25 21:10 40 MG Ondansetron HCl 4 mg Q6HPRN PRN IV 02/13/25 14:15 02/13/25 14:30 4 MG Metoclopramide HCl 5 mg Q8HPRN PRN IV 02/13/25 17:00 Norepinephrine Bitartrate 250 ml @ 3.75 mls/hr Q24H IV 02/13/25 17:00 objective Chronically ill-appearing patient HEENT: No evidence of JVD, no oral ulcers. Pulmonary: Lungs are clear on auscultation bilaterally Cardiovascular S1-S2, no S3 or S4 Abdomen: Bowel sounds positive, soft no rebound tenderness Skin: No rash Neurological: Alert, oriented, no focal weakness laboratory and microbiology Laboratory Tests 02/14/25 06:19 Test 02/14/25 06:19 Range/Units Serum Glucose 196 H 74-106 mg/dL Problem List Assessment: End-stage renal disease TTS, stable from renal standpoint Hypertension, better controlled Hyperkalemia improved Subcentimeter hypoattenuating lesion on CT, acute CVA History of CVA Anemia of Chronic kidney disease patient remains encephalopathic Plan: HD on TTS schedule Using IV albumin during HD for hemodynamic support Fluid restriction less than 1 L per day Neurology following Will need PEG tube placement and disposition to SNF Dietary Evaluation Review Comments: 1) Add 60g CCHO renal restriction to pureed diet 2) Initiate Nepro CarbSteady bid 3) Encourage optimal PO intake 4) Follow-up with nephrology and neurology 4) Continue to monitor I&O, labs, and skin integrity Expected Outcomes/Goals: 1) appetite and labs to improve 2) f/u in 3-5 days Plan discussed with: Patient SABRINA DAVALOS MD Feb 14, 2025 10:04
[2025-02-14] MEDS: HEPARIN SODIUM (PORCINE) 5000 UNITS/ML 1ML VIAL ONE (10:23)
[2025-02-14] MEDS: cefTRIAXone 1GM/50ML D5W 50 ML IV ONE (13:03)
--- NOTE | 2025-02-14 14:01 | DVHPN2 ---
Progress Note - Dictate Date Seen: Feb 14, 2025 Has the PT tested + for MRSA If YES, has PT been informed?: Yes Medical Necessity Reason Pt with a Central, PICC or Fol: Yes The following are medically ne: PICC Line, Richardson Catheter Subjective No new complaints Patient is awake and arousable Some dried blood at the gastrostomy site on the dressing Patient is tolerating bolus G-tube feedings vital signs Vital Sign Date Time Temp Pulse Resp B/P (MAP) Pulse Ox O2 Delivery O2 Flow Rate FiO2 02/14/25 13:00 94 16 98/52 (67) 100 02/14/25 12:00 98.6 98.6 02/14/25 12:00 Oxymizer 6 N/A Total Intake and Output 02/13/25 02/13/25 02/14/25 15:00 23:00 07:00 Intake Total 480 ml 650 ml Output Total 980 ml 25 ml Balance -500 ml 625 ml medications Current Medications Medications Dose Ordered Sig/Kellen Route Start Time Stop Time Status Last Admin Dose Admin Dextrose 50 ml UD PRN IV 02/02/25 01:00 Cancel Lorazepam 1 mg ONCE PRN IV 02/02/25 20:00 Pantoprazole Sodium 40 mg DAILY IV 02/11/25 10:00 UNV Enteral Nutritional Formula 240 ml IQ4HR PEG 02/12/25 12:00 02/14/25 12:10 240 ML Gabapentin 100 mg TID PO 02/13/25 06:00 02/14/25 06:09 100 MG Insulin Human Regular FOLLOW SLIDING SCALE Q6HR SC 02/13/25 06:00 02/14/25 12:38 20 UNITS Diagnostic Test (Pha) 1 strip Q6HR 02/13/25 06:00 02/14/25 12:07 1 STRIP Dextrose 50 ml UD IV 02/13/25 04:45 Baclofen 5 mg BID PO 02/13/25 10:00 02/14/25 10:22 5 MG Amlodipine Besylate 10 mg DAILY PO 02/13/25 10:00 Atorvastatin Calcium 40 mg HS PO 02/13/25 22:00 02/13/25 21:10 40 MG Aspirin 81 mg DAILY PO 02/13/25 10:00 02/14/25 10:21 81 MG Clopidogrel Bisulfate 75 mg DAILY PO 02/13/25 10:00 02/14/25 10:23 75 MG Donepezil HCl 5 mg HS PO 02/13/25 22:00 02/13/25 21:11 5 MG Pantoprazole Sodium 40 mg BID IV 02/13/25 10:00 02/14/25 10:21 40 MG Ondansetron HCl 4 mg Q6HPRN PRN IV 02/13/25 14:15 02/13/25 14:30 4 MG Metoclopramide HCl 5 mg Q8HPRN PRN IV 02/13/25 17:00 Norepinephrine Bitartrate 250 ml @ 3.75 mls/hr Q24H IV 02/13/25 17:00 Ceftriaxone Sodium 50 ml @ 100 mls/hr DAILY@09 IV 02/15/25 09:00 objective Awake and arousable, no acute distress Cardiovascular S1-S2 regular rate rhythm Abdomen is soft G-tube site is clean Extremities without clubbing cyanosis or edema laboratory and microbiology Laboratory Tests 02/14/25 06:19 Test 02/14/25 06:19 Range/Units Serum Glucose 196 H 74-106 mg/dL Problems(with codes): (1) Status post gastrostomy (2) Acute lacunar stroke (3) Hyponatremia (4) Generalized weakness (5) Oropharyngeal dysphagia Prognosis Plan Local G-tube care with dilute hydrogen peroxide and rotating twice a day Continue G-tube feedings as tolerated Discharge planning and placement as per hospitalist Dietary Evaluation Review Comments: 1) Add 60g CCHO renal restriction to pureed diet 2) Initiate Nepro CarbSteady bid 3) Encourage optimal PO intake 4) Follow-up with nephrology and neurology 4) Continue to monitor I&O, labs, and skin integrity Expected Outcomes/Goals: 1) appetite and labs to improve 2) f/u in 3-5 days Plan discussed with: Patient, Other (Nurse Rohith) DEBORAH BHAKTA MD Feb 14, 2025 14:01
--- NOTE | 2025-02-14 14:37 | DVHPN2 ---
Progress Note Date Seen: Feb 14, 2025 Has the PT tested + for MRSA If YES, has PT been informed?: Yes Medical Necessity Reason Pt with a Central, PICC or Fol: Yes The following are medically ne: PICC Line, Richardson Catheter Objective vital signs Vital Sign Date Time Temp Pulse Resp B/P (MAP) Pulse Ox O2 Delivery O2 Flow Rate FiO2 02/14/25 13:00 94 16 98/52 (67) 100 02/14/25 12:00 98.6 98.6 02/14/25 12:00 Oxymizer 6 N/A Total Intake and Output 02/13/25 02/13/25 02/14/25 15:00 23:00 07:00 Intake Total 480 ml 650 ml Output Total 980 ml 25 ml Balance -500 ml 625 ml medications Current Medications Medications Dose Ordered Sig/Kellen Route Start Time Stop Time Status Last Admin Dose Admin Dextrose 50 ml UD PRN IV 02/02/25 01:00 Cancel Lorazepam 1 mg ONCE PRN IV 02/02/25 20:00 Pantoprazole Sodium 40 mg DAILY IV 02/11/25 10:00 UNV Enteral Nutritional Formula 240 ml IQ4HR PEG 02/12/25 12:00 02/14/25 12:10 240 ML Gabapentin 100 mg TID PO 02/13/25 06:00 02/14/25 14:32 100 MG Insulin Human Regular FOLLOW SLIDING SCALE Q6HR SC 02/13/25 06:00 02/14/25 12:38 20 UNITS Diagnostic Test (Pha) 1 strip Q6HR 02/13/25 06:00 02/14/25 12:07 1 STRIP Dextrose 50 ml UD IV 02/13/25 04:45 Baclofen 5 mg BID PO 02/13/25 10:00 02/14/25 10:22 5 MG Amlodipine Besylate 10 mg DAILY PO 02/13/25 10:00 Atorvastatin Calcium 40 mg HS PO 02/13/25 22:00 02/13/25 21:10 40 MG Aspirin 81 mg DAILY PO 02/13/25 10:00 02/14/25 10:21 81 MG Clopidogrel Bisulfate 75 mg DAILY PO 02/13/25 10:00 02/14/25 10:23 75 MG Donepezil HCl 5 mg HS PO 02/13/25 22:00 02/13/25 21:11 5 MG Pantoprazole Sodium 40 mg BID IV 02/13/25 10:00 02/14/25 10:21 40 MG Ondansetron HCl 4 mg Q6HPRN PRN IV 02/13/25 14:15 02/13/25 14:30 4 MG Metoclopramide HCl 5 mg Q8HPRN PRN IV 02/13/25 17:00 Norepinephrine Bitartrate 250 ml @ 3.75 mls/hr Q24H IV 02/13/25 17:00 Ceftriaxone Sodium 50 ml @ 100 mls/hr DAILY@09 IV 02/15/25 09:00 laboratory and microbiology Laboratory Tests 02/14/25 06:19 Test 02/14/25 06:19 Range/Units Serum Glucose 196 H 74-106 mg/dL Microbiology Date/Time Source Procedure Growth Status 02/10/25 21:30 Nose MRSA Screen - Final Complete 02/02/25 01:36 Blood Blood Culture - Final NO GROWTH AFTER 5 DAYS OF INCUBATION. Complete Problem List/Assessment/Plan Problem List/Assessment/Plan AFEBRILE VSS ABD SOFT PEG TUBE IN PLACE FUNCTIONAL NO COMPLICATIONS NURSE AND FAMILY AT BEDSIDE Plan discussed with: Other Dietary Evaluation Review Comments: 1) Add 60g CCHO renal restriction to pureed diet 2) Initiate Nepro CarbSteady bid 3) Encourage optimal PO intake 4) Follow-up with nephrology and neurology 4) Continue to monitor I&O, labs, and skin integrity Expected Outcomes/Goals: 1) appetite and labs to improve 2) f/u in 3-5 days ALISHA BHAKTA MD Feb 14, 2025 14:37
[2025-02-14] MEDS ORDERED: VANCOMYCIN PER PHARMACY 0 MG IV SCH (16:30)
[2025-02-14] MEDS: SODIUM CHLORIDE 0.9% 250 ML IV ONE (17:17)
--- NOTE | 2025-02-14 17:23 | DVHPNRES ---
Progress Note Date Seen: Feb 14, 2025 Resident Creating Document: CHAU SYKES RESIDENT Has the PT tested + for MRSA If YES, has PT been informed?: Yes Medical Necessity Reason Pt with a Central, PICC or Fol: Yes The following are medically ne: PICC Line, Richardson Catheter Subjective Review of Systems Siddhartha Whaley is a 59 year old male with past medical history of DM2, HTN, CVA (2023), Dementia and, CKD stage 5 (Dialysis MWF at [facility]). The patient was brought to the ED by the EMS team with chief complaint of 3 days of generalized weakness, difficulty to swallow and high blood pressure. Family member on site reports that the patient has missed his last 2 dialysis session due to feeling weak and tired. Initial evaluation in the ED showed blood pressure of 177/116 and a blood glucose of 331 mg/dl. Non contrast head CT scan showed: Subcentimeter hyperattenuating focus within the right internal capsule/thalamus may represent small intraparenchymal hemorrhage, or calcification. Correlate with symptoms and consider 6-8 hour follow-up head CT for reassessment, numerous hypodense foci within deep white matter and basal ganglia consistent with age indeterminate, but probably chronic lacunar infarcts. Underlying sequela of mild chronic microangiopathy. The patient denies fever, chills, diarrhea, nausea, vomit, sick contacts or other symptoms. 02/02/25 Patient seen at bedside. Patient is alert times 1, he is not oriented to place or time. Patient is a poor historian. Talked to the sister and she states that the patient has been having hiccups since July, has had dementia since 1 year, and underwent a stroke last year and also started having choking symptoms and having trouble swallowing since 1 week. Last week he was walking fine but now has been having balance problems, and is a fall risk, has had no trauma to the head. Yesterday he was too weak to go to the dialysis appointment. Repeat head CT shows Stable 8 mm hyperattenuating focus in the right internal capsule/ thalamus without any significant change. The etiology remains unclear since this has not changed. Patient has undergone dialysis today. Given baclofen 5 mg b.i.d. and gabapentin 100 mg t.i.d. eval was placed. Pureed diet was started. 02/03/2025 Patient seen at bedside. Patient is alert x1. General appearance is better than yesterday. PT eval placed. Social service consult case SNF placement. Wound consult placed for redness in the sacrum. Alvino September 5 mg p.o., atorvastatin 40 mg p.o., aspirin 81 mg p.o. started. Richardson's was placed. hepatitis panel negative, influenza and COVID negative. Neuro on board. Nephrology on board. 02/04/25 Patient seen at bedside. Patient is alert x1. General appearance is better than yesterday. Patient stopped hicupping, as per nurse patient had trouble swallowing 1 pill and coughed a few times but after giving a 2nd pill slowly he was fine. PT eval placed . Neuro on board. Nephrology on board. Cardiology On word and recommended TTE. Waiting for SNF placement. 02/05/25 Patient seen at bedside. He is Alert x1, is talking and appears better. No overnight events reported. Patient is not hiccuping, still taking thickened liquids to swallow pills and sometimes has cough when swallowing. He denies any pain, nausea, vomiting. TTE pending, waiting for SNF placement. 02/06/25 Patient was seen at the bedside. He is alert x1. No overnight events were reported. Patient is not hiccupping. He is unable to swallow much and coughs even with a few sips of water. We have ordered a swallow test with pureed diet, suggested patient can not take nectar thick pureed diet. 02/07/2025 Patient seen at bedside. He is alert x1, no overnight events were reported. Patient is taking pureed diet, still coughing after taking sips of water. SHARMILA shows EF of 55%. Waiting for SNF placement. 02/08/2025 Patient seen at bedside. He is alert x1, no overnight events were reported, bedside swallow study showed and failed. GI was consulted for possible PEG tube placement. Waiting for SNF placement. 02/09/25 Patient seen at bedside. He is alert x1, no overnight events were reported or. GI was consulted and pending PEG tube placement. Called the sister and informed of patient's condition. Waiting for SNF placement 02/10/25 Patient seen at Bedside. He is alert x1, no overnight event were reported. EGD, peg tube was placed. Waiting for SNF placement. 02/11/25 Patient Bedside patient seen at bedside. Patient is moved to the [facility]. Patient is started feeding from the PEG tube with Napro 50 mL/hour. 02/12/25 Patient seen at bedside. patient is looking better today, patient had dialysis today, He had hypokalemia today and was given potassium. social service contacted for SNF placement. 02/13/2025 Patient seen at bedside. He is drowsy. He did not have dialysis yesterday, but underwent dialysis today. Patient's code status has been modified to 'modified resuscitation with ACLS drugs and BiPAP' which was discussed with the daughter. I signed the documents for it. The ACLS drugs are being given as it was suggested patient required vasopressin drugs during hemodialysis because his systolic blood pressure went down to 88 during dialysis. [facility] [employer] have been contacted for SNF placement. the nurse told me that the patient was unable to tolerate the Nepro 240 mL q.4. As he has diarrhea. GI on board, Nurse will ask suggestions from Dr. Mino Portillo. 02/14/2025 Patient seen at bedside. he appears drowsy, patient had a fever with T-max of 100.4 overnight. He appeared tachycardic with a were temperature of 100.2 we ordered lactic acid, repeat CMP CBC started vancomycin, ceftriaxone IV. Ordered ABG, urine and blood concerns. Ordered chest CT without contrast for hemoptysis. Patient having brown reddish stool from PEG tube. Surgery on board, GI on board. Ordered repeat EKG,pending. Objective vital signs Vital Sign Date Time Temp Pulse Resp B/P (MAP) Pulse Ox O2 Delivery O2 Flow Rate FiO2 02/14/25 16:00 119 02/14/25 16:00 100.2 15 140/62 (88) 100 100.2 02/14/25 16:00 Oxymizer 2 N/A Total Intake and Output 02/13/25 02/13/25 02/14/25 15:00 23:00 07:00 Intake Total 480 ml 650 ml Output Total 980 ml 25 ml Balance -500 ml 625 ml medications Current Medications Medications Dose Ordered Sig/Kellen Route Start Time Stop Time Status Last Admin Dose Admin Dextrose 50 ml UD PRN IV 02/02/25 01:00 Cancel Lorazepam 1 mg ONCE PRN IV 02/02/25 20:00 Pantoprazole Sodium 40 mg DAILY IV 02/11/25 10:00 UNV Enteral Nutritional Formula 240 ml IQ4HR PEG 02/12/25 12:00 02/14/25 12:10 240 ML Gabapentin 100 mg TID PO 02/13/25 06:00 02/14/25 14:32 100 MG Insulin Human Regular FOLLOW SLIDING SCALE Q6HR SC 02/13/25 06:00 02/14/25 12:38 20 UNITS Diagnostic Test (Pha) 1 strip Q6HR 02/13/25 06:00 02/14/25 12:07 1 STRIP Dextrose 50 ml UD IV 02/13/25 04:45 Baclofen 5 mg BID PO 02/13/25 10:00 02/14/25 10:22 5 MG Amlodipine Besylate 10 mg DAILY PO 02/13/25 10:00 Atorvastatin Calcium 40 mg HS PO 02/13/25 22:00 02/13/25 21:10 40 MG Donepezil HCl 5 mg HS PO 02/13/25 22:00 02/13/25 21:11 5 MG Pantoprazole Sodium 40 mg BID IV 02/13/25 10:00 02/14/25 10:21 40 MG Ondansetron HCl 4 mg Q6HPRN PRN IV 02/13/25 14:15 02/13/25 14:30 4 MG Metoclopramide HCl 5 mg Q8HPRN PRN IV 02/13/25 17:00 Norepinephrine Bitartrate 250 ml @ 3.75 mls/hr Q24H IV 02/13/25 17:00 Ceftriaxone Sodium 50 ml @ 100 mls/hr DAILY@09 IV 02/15/25 09:00 Vancomycin HCl 0 ml @ 0 mls/hr UD IV 02/14/25 16:30 UNV Examination General: Patient alert and oriented in person, place and time. Patient following commands, Drowsy HEENT: Normocephalic, atraumatic, moist mucous membranes, hemoptysis Respiratory/pulmonary: Clear lungs bilaterally, vesicular murmurs present in almost all lung islas, no associated crackles or wheezes. Cardiovascular: Normal heart sounds S1 and S2 with no associated murmurs Abdomen: Peg tube placed for nutrition. Richardson catheter in place, with yellow urine. Extremities: There is no peripheral edema present at the lower extremities. Peripheral Pulses: 3+ Radial (R). 3+ Radial (L). 3+ Dorsalis pedis (R). 3+ Dorsalis pedis(L) Skin: No rashes or pruritus, there is no sacral edema present at this time. Neurological: Intact cranial nerves with no focal neurologic deficits laboratory and microbiology Laboratory Tests 02/14/25 06:19 Test 02/14/25 06:19 Range/Units Serum Glucose 196 H 74-106 mg/dL Microbiology Date/Time Source Procedure Growth Status 02/10/25 21:30 Nose MRSA Screen - Final Complete 02/02/25 01:36 Blood Blood Culture - Final NO GROWTH AFTER 5 DAYS OF INCUBATION. Complete Problem List/Assessment/Plan Problem List/Assessment/Plan # Hypertensive urgency-resolving - Amlodipine 10 mg po - Monitor BP # Reactive leukocytosis- monitorlab # ESRD on HD # Missed HD # Non compliance with HD # Uremia # Acidemia managed with dialysis # Hyperkalemia managed with dialysis # Anemia of Chronic kidney disease from ESRD - Dialysis MWF at [facility] - Monitor lab - HD today and tommorrow - nephro consulted and stated Hemodialysis today then Saturday, Fluid restriction less than 1 L per day - GI consulted for possible PEG tube placement because patient is unable to swallow -02/14/2025- patient having hemoptysis, heparin, Plavix, aspirin was held Patient has dark stool possibly blood, repeat CBC, CMP, ordered - ordered ABG, urine and blood cultures. -ordered chest CT without contrast, pending # Generalized weakness, rule out CVA # Hx of CVA - Head CT scan ,stable 8 mm hyperattenuating focus in the right internal capsule/ thalamus without any significant change - neuro consulted and recommended to give us a Aspirin 81 mg daily, Lipitor 40 mg daily, Aricept 5 mg daily - cardio consulted and recommended transesophageal echocardiogram at first availablity. TTE shows EF of 55%. -EGD, PEG tube has been place. GI on board - patient started on Nepro # Hyponantremia -monitor lab # DM2 with hyperglycemia - Insulin sliding scale - HbA1C- 8.7 Purred diet PPI prophylaxis: Protonix 40 mg DVT Prophylaxis: Heparin 5000, q.12 Goals of care discussed with patient for 27 minutes Patient is CODE :DNR/DNI, confirmed with sister Case discussed with Dr. Gastelum Plan discussed with: Patient, Other (RN) My Orders My Orders Orders - CHAU SYKES RESIDENT Procedure Category Date Status Time Chest Without Contrast CT 02/14/25 Logged 10:53 Ceftriaxone 1gm/50ml PHA 02/15/25 In Process D5w (Rocephin) 09:00 Blood Culture [place]LIN 02/14/25 Uncollected 12:23 Urine Bacterial [place]LIN 02/14/25 Logged Culture 16:17 Vancomycin Per PHA 02/14/25 Pending Pharmacy 16:30 Lactic Acid W/ Reflex LAB 02/14/25 Logged Order 16:23 Vancomycin 750mg Kit PHA 02/14/25 In Process (Vancomycin Hcl) 16:45 Electrocardigram EKG 02/14/25 Logged 17:17 Dietary Evaluation Review Comments: 1) Add 60g CCHO renal restriction to pureed diet 2) Initiate Nepro CarbSteady bid 3) Encourage optimal PO intake 4) Follow-up with nephrology and neurology 4) Continue to monitor I&O, labs, and skin integrity Expected Outcomes/Goals: 1) appetite and labs to improve 2) f/u in 3-5 days Date of Service: Feb 14, 2025 Billing Provider: SERGEY GASTELUM MD Common Visit Codes: [id number] INP/OBS CARE(HIGH) CHAU SYKES RESIDENT Feb 14, 2025 17:23 SERGEY GASTELUM MD Feb 15, 2025 09:59
[2025-02-14 17:34] LABS: Base Excess 2.3 mmol/L (-2.0-3.0)
[2025-02-14] MEDS: VANCOMYCIN 750MG KIT 100 ML IV ONE (17:46)
[2025-02-14 18:02] LABS: Hemoglobin 9.7 g/dL (13.5-17.5)
[2025-02-14 18:03] LABS: Hematocrit 29.1 % (41.0-53.0); Mean Corpuscular Hemoglobin 30.2 pg (28.0-32.0); Mean Corpuscular Volume 90.5 fL (80.0-100.0); Nucleated Red Blood Cells % 0.0 %
[2025-02-14 18:16] LABS: Alanine Aminotransferase 12 U/L (7-40); Albumin 4.2 g/dL (3.2-4.8); Anion Gap 14 (5-15); BUN/Creatinine Ratio 12.0 (10.0-20.0); Calcium 9.3 mg/dL (8.7-10.4); Carbon Dioxide 25 mmol/L (20-31); Potassium 3.8 mmol/L (3.5-5.1); Total Protein 6.9 g/dL (5.7-8.2)
[2025-02-14] MEDS: ACETAMINOPHEN 650 MG RECT SUPP PR PRN (18:17)
[2025-02-14 18:19] LABS: Alkaline Phosphatase 120 U/L (46-116); Bilirubin, Total < 0.2 mg/dL (0.2-1.0); Blood Urea Nitrogen 61 mg/dL (9-23); Chloride 97 mmol/L (98-107); Glucose 218 mg/dL (74-106); Sodium 136 mmol/L (136-145)
[2025-02-14 18:22] LABS: Lactic Acid w/Reflex 2.5 mmol/L (0.4-2.0)
--- NOTE | 2025-02-14 18:48 | DVHDSRES ---
Discharge Summary Date of Admission Resident Creating Document: CHAU SYKES Feb 02, 2025 at 00:42 Date of Discharge: Feb 14, 2025 Labs/Diagnostic Data: Laboratory Results Test 02/14/25 18:06 02/14/25 17:40 02/14/25 17:26 02/12/25 05:19 POC Glucose 194 mg/dl (70-106) White Blood Count 11.8 10^3/uL (4.4-10.8) Red Blood Count 3.22 10^6/uL (4.5-5.90) Hemoglobin 9.7 g/dL (13.5-17.5) Hematocrit 29.1 % (41.0-53.0) Mean Corpuscular Volume 90.5 fL (80.0-100.0) Mean Corpuscular Hemoglobin 30.2 pg (28.0-32.0) Mean Corpuscular Hemoglobin Concent 33.4 g/dL (32.0-36.0) Red Cell Distribution Width 13.6 % (11.8-14.3) Platelet Count 461 10^3/uL (140-450) Mean Platelet Volume 7.8 fL (6.9-10.8) Neutrophils (%) (Auto) 86.9 % (37.0-80.0) Lymphocytes (%) (Auto) 5.9 % (10.0-50.0) Monocytes (%) (Auto) 6.2 % (0.0-12.0) Eosinophils (%) (Auto) 0.7 % (0.0-7.0) Basophils (%) (Auto) 0.3 % (0.0-2.0) Neutrophils # (Auto) 10.3 10 ^3/uL (1.6-8.6) Lymphocytes # (Auto) 0.7 10 ^3/uL (0.4-5.4) Monocytes # (Auto) 0.7 10 ^3/uL (0-1.3) Eosinophils # (Auto) 0.1 10 ^3/uL (0-0.8) Basophils # (Auto) 0 10 ^3/uL (0-0.2) Nucleated Red Blood Cells 0.0 % Sodium Level 136 mmol/L (136-145) Potassium Level 3.8 mmol/L (3.5-5.1) Chloride Level 97 mmol/L (98-107) Carbon Dioxide Level 25 mmol/L (20-31) Anion Gap 14 (5-15) Blood Urea Nitrogen 61 mg/dL (9-23) Creatinine 5.09 mg/dL (0.700-1.30) Glomerular Filtration Rate Calc 12 mL/min (>90) BUN/Creatinine Ratio 12.0 (10.0-20.0) Serum Glucose 218 mg/dL (74-106) Lactic Acid Level 2.5 mmol/L (0.4-2.0) Calcium Level 9.3 mg/dL (8.7-10.4) Total Bilirubin < 0.2 mg/dL (0.2-1.0) Aspartate Amino Transferase (AST) 29 U/L (13-40) Alanine Aminotransferase (ALT) 12 U/L (7-40) Alkaline Phosphatase 120 U/L (46-116) Total Protein 6.9 g/dL (5.7-8.2) Albumin 4.2 g/dL (3.2-4.8) Blood Gas Specimen Type Arterial Blood Gas Sample Site Right radial Blood Gas Patient Temperature 37.0 Arterial Blood Date Drawn [id number] Arterial Blood pH 7.447 (7.350-7.450) Arterial Blood Partial Pressure CO2 39.3 mmHg (35.0-48.0) Arterial Blood Partial Pressure O2 108.0 mmHg (83.0-108.0) Arterial Blood HCO3 26.5 mmol/L (21.0-28.0) Arterial Blood Oxygen Saturation 97.4 % (94.0-98.0) Arterial Blood Base Excess 2.3 mmol/L (-2.0-3.0) Arterial Blood Oxyhemoglobin 96.5 % (94.0-98.0) Arterial Blood Carboxyhemoglobin 0.3 % (0.5-1.5) Arterial Blood Methemoglobin 0.6 % (0.0-1.5) Wale Test Yes Blood Gas Total Hemoglobin 8.80 g/dL (13.5-17.5) Blood Gas Liter Flow 2.00 Blood Gas Modality Oxymizer FiO2 % 32.0 Phosphorus Level 3.2 mg/dL (2.4-5.1) Magnesium Level 2.0 mg/dL (1.6-2.6) Test 02/10/25 04:43 02/05/25 04:00 02/03/25 06:59 02/02/25 09:47 Prothrombin Time 10.9 sec (9.3-11.8) Prothrombin Time INR 1.03 (0.9-1.15) Activated Partial Thromboplast Time 32.0 SEC (24.5-34.5) Urine Color Colorless (Yellow) Urine Clarity Turbid (Clear) Urine pH 5.5 (5.0-9.0) Urine Specific [place] 1.014 (1.001-1.035) Urine Protein 1+ (Negative) Urine Ketones Negative (Negative) Urine Blood 3+ /uL (Negative) Urine Nitrite Negative (Negative) Urine Bilirubin Negative (Negative) Urine Urobilinogen Normal mg/dL (Negative) Urine Leukocyte Esterase Trace /uL (Negative) Urine RBC 267 /hpf (0 - 3) Urine Microscopic WBC 21 /HPF (0-3) Urine Squamous Epithelial Cells Few /hpf (<5) Urine Amorphous Crystals Few /hpf (None Seen) Urine Bacteria Few /hpf (None Seen) Urine Hyaline Casts Few /lpf (0 - 2) Urine Glucose 2+ mg/dL (Normal) Urine Opiates Screen Neg (NEGATIVE) Urine Fentanyl Screen Neg (NEGATIVE) Urine Barbiturates Screen Neg (NEGATIVE) Urine Phencyclidine Screen Neg (NEGATIVE) Urine Amphetamines Screen Neg (NEGATIVE) Urine Benzodiazepines Screen Neg (NEGATIVE) Urine Cocaine Screen Neg (NEGATIVE) Urine Cannabinoids Screen Neg (NEGATIVE) Hepatitis A IgM Antibody Negative Hepatitis B Surface Antigen Negative (Negative) Hepatitis B Core IgM Antibody Negative (Negative) Hepatitis C Antibody Negative (Negative) Influenza Type A Antigen Negative (Negative) Influenza Type B Antigen Negative (Negative) SARS-CoV-2 Antigen (Rapid) Negative (NEGATIVE) Test 02/02/25 08:30 02/01/25 19:00 Hemoglobin A1c 8.7 % A1C (<5.7) Ammonia < 10 umol/L (11-32) Triglycerides Level 174 mg/dL (< 150) Cholesterol Level 124 mg/dL (< 200) LDL Cholesterol 56 mg/dL (< 100) HDL Cholesterol 38 mg/dL (40-59) Vitamin B12 Level 676 pg/mL (211-911) Vitamin D 25-Hydroxy 64.3 ng/mL (30.0-100) Folic Acid 9.28 ng/mL (>5.38) Thyroid Stimulating Hormone (TSH) 0.23 uIU/mL (0.55-4.78) Free Thyroxine (T4) Calculated 1.26 ng/dL (0.89-1.76) Parathyroid Hormone (Intact) 94.7 pg/mL (18.4-80.1) Troponin I High Sensitivity 7 ng/L (</=54) Plasma/Serum Blood Alcohol < 3.0 mg/dL (<10) Other Laboratory Tests 02/14/25 17:40 Condition at Discharge: Undetermined Final Diagnosis/Problems List Discharge Disposition: Home Discharge Instruct/Medications Scheduled Atorvastatin Calcium (Atorvastatin Calcium), 1 TAB PO QPM, (Reported) Donepezil Hydrochloride (Donepezil Hcl), 5 MG PO DAILY, (Reported) Metoprolol Succinate (Metoprolol Succinate Er), 50 MG PO DAILY, (Reported) Nifedipine (Nifedipine Er), 1 TAB PO DAILY, (Reported) Pioglitazone Hydrochloride (Pioglitazone Hcl), 45 MG OR DAILY, (Reported) Sertraline Hcl (Sertraline Hcl), 50 MG PO DAILY, (Reported) Sucralfate (Sucralfate), 1 GM PO BID, (Reported) Tamsulosin Hcl (Tamsulosin Hcl), 0.4 MG PO QPM, (Reported) Miscellaneous Medications Pantoprazole Sodium Sesquihydr (Protonix), 40 MG PO, (Reported) Discharge Statement: "Patient was advised to return to the ER or call 911 if any headaches, dizziness, shortness of breath, chest pain, abdominal pain, bleeding, fevers, or worsening of medical condition. Patient was counseled about treatment plan, medications, possible side effects, patientverbalized understanding. All questions were answered to the best of my ability. This discharge took greater then 30 minutes in planning, reviewing documentation, counseling the patient, and discussing with other team members." ASSESSMENT ASSESSMENT Assessment GLYNN SANTIAGO RESIDENT Feb 14, 2025 18:48
--- NOTE | 2025-02-14 19:16 | DVHPN2 ---
Progress Note - Dictate Date Seen: Feb 14, 2025 Has the PT tested + for MRSA If YES, has PT been informed?: Yes Medical Necessity Reason Pt with a Central, PICC or Fol: Yes The following are medically ne: PICC Line, Richardson Catheter Subjective Mr. Torres is a 59 years old right-handed gentleman with a history of hypertension, diabetes, end-stage renal failure on hemodialysis, he was brought to the [facility] on 02/01/2025 with a chief complaint of general weakness, hypertension, dysphagia. I have seen examined the patient in the [facility], I have talked his nurse, he is responsive to light touch, on waking up, he is on oriented to himself When he dozes off, he shows signs of sleep apnea NG feedings on hold He was transferred to [facility] for respiratory distress on 02/10/2025 He had a PEG tube insertion on 02/10/2025 Plasma alcohol, 02/01/2025: <3 UDS, 02/05/2025: Negative CBC, 02/01/2025: Unremarkable BUN/CR, 02/02/2025: 110/6.97 GFR, 02/02/2025: 9 HGB A1c, 02/02/2025: Able to seven TG/HDL/LDL/HDL, 02/02/2025: 174/124/56/38 Vitamin B12, 02/03/25: 676 Folic acid, 02/03/2025: 9.28 TSH, 02/03/2025: 0.23 FT4, 02/03/2025: 1.26 SHARMILA, 02/05/2025: * Technically good study. The patient was in a sinus rhythm. * Chamber dimension evaluation was within normal limits. * Valves appear to be structurally normal. * Left ventricular systolic function is preserved. EF is about 55% with normal RV function. * Doppler reveals mild TR, mild MR. No intraatrial or intraventricular shunt noted. * There is a small pericardial effusion, not hemodynamically significant. * No intracardiac masses, thrombi, and/or vegetation discernible. The atrial appendage is within normal limits without thrombi. * Bubble study also performed, showing no significant abnormalities Carotid doctor, 02/03/2025: Left mid and distal ICAs are not well-visualized with the distal right ICA not well-visualized. Otherwise, No hemodynamically significant stenosis within the visualized bilateral carotid arterial systems CT head, 02/02/2025 0042: 1. Subcentimeter hyperattenuating focus within the right internal capsule/thalamus may represent small intraparenchymal hemorrhage, or calcification. Correlate with symptoms and consider 6-8 hour follow-up head CT for reassessment. 2. Numerous hypodense foci within deep white matter and basal ganglia consistent with age indeterminate, but probably chronic lacunar infarcts. 3. Underlying sequela of mild chronic microangiopathy. CT head, 02/02/2025 1100: 1. Stable 8 mm hyperattenuating focus in the right internal capsule/ thalamus without any significant change. The etiology remains unclear since this has not changed. Continued short-term follow-up with noncontrast CT of the head in 6-8 hours is suggested. 2. Additional nonacute findings similar to prior CT performed earlier same date. (Chronic lacunar infarcts in the bilateral basal ganglia and thalami, I also see evidence suggestive of of bilateral pontine lacunar strokes) MRI head, 02/03/2025: 1. Small chronic lacunar infarcts are seen in the right side of the nancy and left periventricular white matter. 2. Multifocal chronic ischemic changes as detailed above. 3. Multifocal areas of hemosiderin deposition from prior small hemorrhages. 4. Additional findings as detailed above. (Acute lacunar infarct in the right side of the nancy measuring up to 0.6 cm. Acute lacunar infarct in the left periventricular white matter adjacent to the body of the left ventricle measuring up to 0.8 cm.) vital signs Vital Sign Date Time Temp Pulse Resp B/P (MAP) Pulse Ox O2 Delivery O2 Flow Rate FiO2 02/14/25 18:17 101.1 02/14/25 18:00 128 22 138/67 (90) 99 02/14/25 18:00 Oxymizer 2 N/A Total Intake and Output 02/13/25 02/13/25 02/14/25 15:00 23:00 07:00 Intake Total 480 ml 650 ml Output Total 980 ml 25 ml Balance -500 ml 625 ml medications Current Medications Medications Dose Ordered Sig/Kellen Route Start Time Stop Time Status Last Admin Dose Admin Dextrose 50 ml UD PRN IV 02/02/25 01:00 Cancel Lorazepam 1 mg ONCE PRN IV 02/02/25 20:00 Pantoprazole Sodium 40 mg DAILY IV 02/11/25 10:00 UNV Enteral Nutritional Formula 240 ml IQ4HR PEG 02/12/25 12:00 02/14/25 12:10 240 ML Gabapentin 100 mg TID PO 02/13/25 06:00 02/14/25 14:32 100 MG Insulin Human Regular FOLLOW SLIDING SCALE Q6HR SC 02/13/25 06:00 02/14/25 18:13 4 UNITS Diagnostic Test (Pha) 1 strip Q6HR 02/13/25 06:00 02/14/25 18:12 1 STRIP Dextrose 50 ml UD IV 02/13/25 04:45 Baclofen 5 mg BID PO 02/13/25 10:00 02/14/25 10:22 5 MG Amlodipine Besylate 10 mg DAILY PO 02/13/25 10:00 Atorvastatin Calcium 40 mg HS PO 02/13/25 22:00 02/13/25 21:10 40 MG Donepezil HCl 5 mg HS PO 02/13/25 22:00 02/13/25 21:11 5 MG Pantoprazole Sodium 40 mg BID IV 02/13/25 10:00 02/14/25 10:21 40 MG Ondansetron HCl 4 mg Q6HPRN PRN IV 02/13/25 14:15 Hold 02/13/25 14:30 4 MG Metoclopramide HCl 5 mg Q8HPRN PRN IV 02/13/25 17:00 Norepinephrine Bitartrate 250 ml @ 3.75 mls/hr Q24H IV 02/13/25 17:00 Ceftriaxone Sodium 50 ml @ 100 mls/hr DAILY@09 IV 02/15/25 09:00 Vancomycin HCl 0 ml @ 0 mls/hr UD IV 02/14/25 16:30 Acetaminophen 650 mg Q6HP PRN GA 02/14/25 17:45 02/14/25 18:17 650 MG objective General: the patient is well developed and nourished. No acute distress. MENTAL STATUS: Awake and alert. Oriented to person, place SPEECH, LANGUAGE, HIGHER CORTICAL FUNCTION: no aphasia or dysathria. CRANIAL NERVES: Pupils are equal, round and reactive. EOMs full and conjugate. Facial sensation intact in all three divisions bilaterally. Mandibular strength intact. Facial muscles symmetrical and strength intact. Tongue midline. No fasciculations or atrophy. SENSATION: Sensation to touch and pinprick is unremarkable MOTOR: Normal tone in the upper and lower extremity. Normal muscle bulk. No fasciculations. No abnormal movements or posturing. Muscle strength of the major groups in the extremities is 4/5. REFLEXES: Deep tendon reflexes are symmetrical. No pathological reflexes. CEREBELLAR/COORDINATION: Finger to nose is normal bilaterally. GAIT/STATION: deferred laboratory and microbiology Laboratory Tests 02/14/25 17:40 Test 02/14/25 17:40 Range/Units Serum Glucose 218 H 74-106 mg/dL Problem List A high attenuation CT lesion in the right basal ganglia region is likely calcification Acute stroke in the nancy and left basal ganglia region Chronic multiple strokes/lacunar infarcts in bilateral basal ganglia reason Dementia, likely vascular dementia, but need to rule out Alzheimer disease and other etiology Dysphagia, possibly secondary to multiple strokes Hypertensive encephalopathy Dysphagia status post PEG feeding tube Sleep-related breathing disorder/Sleep apnea Assessment/Plan Monitoring Supportive treatment [facility] care Aspirin 81 mg daily Plavix 75 mg q.d. for 21 days Lipitor 40 mg daily Aricept 5 mg daily Pantoprazole 40 mg daily IVF D5 NS 100ml/hr BiPAP 12/6 cmH2O Up to chair Physical therapy Nephrology on case/hemodialysis More recommendation per clinical course This medical document was created using an electronic medical record system with [employer] dictation system. Although this document has been carefully reviewed, there may still be some phonetic and typographical errors. These areas are purely typographical due to imperfections of the software programs, and do not reflect any compromise in the patient's medical care Prognosis Critical Dietary Evaluation Review Comments: 1) Add 60g CCHO renal restriction to pureed diet 2) Initiate Nepro CarbSteady bid 3) Encourage optimal PO intake 4) Follow-up with nephrology and neurology 4) Continue to monitor I&O, labs, and skin integrity Expected Outcomes/Goals: 1) appetite and labs to improve 2) f/u in 3-5 days Plan discussed with: Other Critical Care Time(min): 30 YURY MARQUEZ MD Feb 14, 2025 19:16
[2025-02-14] MEDS: D5W/SOD CHLO 0.9% 1,000 ML IV SCH (20:30)
[2025-02-14 20:34] LABS: Base Excess 1.5 mmol/L (-2.0-3.0)
--- NOTE | 2025-02-14 23:54 | DVHPN2 ---
Progress Note - Dictate Date Seen: Feb 14, 2025 Has the PT tested + for MRSA If YES, has PT been informed?: Yes Medical Necessity Reason Pt with a Central, PICC or Fol: Yes The following are medically ne: PICC Line, Richardson Catheter Subjective Patient was seen and evaluated in follow up in the [facility]. Overnight the patient had an episode of hemoptysis. Patient on 6 L Oxymizer during the day and transitions to BIPAP overnight. Per RN there is some dried blood at the gastrostomy site on the dressing. Patient is tolerating bolus G-tube feedings. HGB 8.7, HCT 24.8, BUN 66, ROOFING SUPERINTENDENT 4.51, GLUC 353. vital signs Vital Sign Date Time Temp Pulse Resp B/P (MAP) Pulse Ox O2 Delivery O2 Flow Rate FiO2 02/14/25 13:00 94 16 98/52 (67) 100 02/14/25 12:00 98.6 98.6 02/14/25 12:00 Oxymizer 6 N/A Total Intake and Output 02/13/25 02/13/25 02/14/25 15:00 23:00 07:00 Intake Total 480 ml 650 ml Output Total 980 ml 25 ml Balance -500 ml 625 ml medications Current Medications Medications Dose Ordered Sig/Kellen Route Start Time Stop Time Status Last Admin Dose Admin Dextrose 50 ml UD PRN IV 02/02/25 01:00 Cancel Lorazepam 1 mg ONCE PRN IV 02/02/25 20:00 Pantoprazole Sodium 40 mg DAILY IV 02/11/25 10:00 UNV Enteral Nutritional Formula 240 ml IQ4HR PEG 02/12/25 12:00 02/14/25 12:10 240 ML Gabapentin 100 mg TID PO 02/13/25 06:00 02/14/25 06:09 100 MG Insulin Human Regular FOLLOW SLIDING SCALE Q6HR SC 02/13/25 06:00 02/14/25 12:38 20 UNITS Diagnostic Test (Pha) 1 strip Q6HR 02/13/25 06:00 02/14/25 12:07 1 STRIP Dextrose 50 ml UD IV 02/13/25 04:45 Baclofen 5 mg BID PO 02/13/25 10:00 02/14/25 10:22 5 MG Amlodipine Besylate 10 mg DAILY PO 02/13/25 10:00 Atorvastatin Calcium 40 mg HS PO 02/13/25 22:00 02/13/25 21:10 40 MG Aspirin 81 mg DAILY PO 02/13/25 10:00 02/14/25 10:21 81 MG Clopidogrel Bisulfate 75 mg DAILY PO 02/13/25 10:00 02/14/25 10:23 75 MG Donepezil HCl 5 mg HS PO 02/13/25 22:00 02/13/25 21:11 5 MG Pantoprazole Sodium 40 mg BID IV 02/13/25 10:00 02/14/25 10:21 40 MG Ondansetron HCl 4 mg Q6HPRN PRN IV 02/13/25 14:15 02/13/25 14:30 4 MG Metoclopramide HCl 5 mg Q8HPRN PRN IV 02/13/25 17:00 Norepinephrine Bitartrate 250 ml @ 3.75 mls/hr Q24H IV 02/13/25 17:00 Ceftriaxone Sodium 50 ml @ 100 mls/hr DAILY@09 IV 02/15/25 09:00 objective GENERAL: A&O x2. Somewhat non-verbal, +dysphagia EYES: PERRL, EOMI. Anicteric. HENT: Moist mucous membranes. LUNGS: Clear to auscultation bilaterally. CARDIOVASCULAR: Regular rate and rhythm. ABDOMEN: Soft, non-tender and non-distended. EXTREMITIES: No edema. SKIN: Warm, dry. laboratory and microbiology Laboratory Tests 02/14/25 06:19 Test 02/14/25 06:19 Range/Units Serum Glucose 196 H 74-106 mg/dL Problem List Acute CVA rule out cardioembolic source. History of multiple chronic strokes. Hypertensive urgency. Diabetes mellitus type 2. ESRD on HD. Medical noncompliance (missed HD). Assessment/Plan Continued all current supportive medical care. Aspirin, Plavix. GI prophylactics. Additional plan as per the hospital course. Critical care time of 45 minutes provided to include time spent evaluation of patient at bedside, when appropriate patient/family education for diagnosis, treatment plan, review of pertinent medical information and discussion of care with specialty providers and PCP Dietary Evaluation Review Comments: 1) Add 60g CCHO renal restriction to pureed diet 2) Initiate Nepro CarbSteady bid 3) Encourage optimal PO intake 4) Follow-up with nephrology and neurology 4) Continue to monitor I&O, labs, and skin integrity Expected Outcomes/Goals: 1) appetite and labs to improve 2) f/u in 3-5 days Plan discussed with: Patient DESIREE BERNAL MD Feb 14, 2025 14:28
[2025-02-15] VITALS (49 sets, daily range): BP systolic 101–154; BP diastolic 44–75; PULSE 78–103; RESP 10–20; TEMP 98.1–98.8; O2SAT 100
--- NOTE | 2025-02-15 03:12 | DVH ---
CHEST RADIOGRAPH Indication: DOCTORS REQUEST Technique: Single frontal view of the chest was obtained COMPARISON: XY CHEST XRAY 1 VIEW on DOS: 02/14/25, XY CHEST XRAY 1 VIEW on DOS: 02/10/25, XY CHEST PORT ABLE on DOS: 02/05/25 FINDINGS: Lines and Tubes: Right permCath tip projects over the superior vena cava. Lungs: New ill-defined slightly nodular appearing opacity within the lateral left mid lung measures 2 .0 cm. Pleura: No effusion. No pneumothorax. Cardiomediastinal contours: Unremarkable Bones: Unremarkable IMPRESSION: 1. New ill-defined slightly nodular appearing lateral midlung opacity. 2. Right PermCath.
[2025-02-15] MEDS ORDERED: AZITHROMYCIN 500MG/ 250ML 250 ML IV ONE (06:45)
[2025-02-15 08:11] LABS: Mean Corpuscular Volume 88.8 fL (80.0-100.0); Nucleated Red Blood Cells % 0.0 %
[2025-02-15 08:14] LABS: Hematocrit 22.0 % (41.0-53.0); Hemoglobin 7.7 g/dL (13.5-17.5); Mean Corpuscular Hemoglobin 31.1 pg (28.0-32.0)
[2025-02-15] MEDS: cefTRIAXone 1GM/50ML D5W 50 ML IV SCH (09:21)
[2025-02-15] MEDS: AZITHROMYCIN 500MG/ 250ML 250 ML IV ONE (09:47)
[2025-02-15] MEDS ORDERED: AZITHROMYCIN 500MG/ 250ML 250 ML IV SCH (10:00)
[2025-02-15 11:18] LABS: Alanine Aminotransferase 9 U/L (7-40); Albumin 3.6 g/dL (3.2-4.8); Alkaline Phosphatase 80 U/L (46-116); Anion Gap 14 (5-15); BUN/Creatinine Ratio 15.1 (10.0-20.0); Calcium 8.8 mg/dL (8.7-10.4); Carbon Dioxide 25 mmol/L (20-31); Chloride 99 mmol/L (98-107); Glucose 321 mg/dL (74-106); Magnesium 2.2 mg/dL (1.6-2.6); Potassium 3.7 mmol/L (3.5-5.1); Sodium 138 mmol/L (136-145); Total Protein 6.1 g/dL (5.7-8.2)
[2025-02-15 11:19] LABS: Bilirubin, Total 0.2 mg/dL (0.2-1.0)
[2025-02-15 11:20] LABS: Blood Urea Nitrogen 84 mg/dL (9-23)
[2025-02-15] MEDS ORDERED: DEXTROSE (50%) 50ML SYRG IV PRN (11:45)
--- NOTE | 2025-02-15 13:50 | DVHSR ---
APPROVED REPORT EXAM: Two-dimensional and M-mode echocardiogram with Doppler and color Doppler. Blood Pressure: 131/57 mmHg INDICATION SOB, unable to lay flat R/O pericardial effusion RISK FACTORS Height: 5'6", Weight: 109 DIMENSIONS LVDd3.7 (3.8-5.7cm)LA (2D)3.8 (1.9-4.0cm)Aortic Root3.5 (2.0-3.7cm) LVDs1.9 (2.5-4.0cm)LA (MM) (1.9-4.0cm)Aortic Cusp Exc1.3 (1.5-2.0cm) EF (%) 80.0 (55-70%)Rt. Atrium4.2 (1.9-4.0cm)Asc. Aorta cm IVSd1.1 (0.7-1.1cm)RV (D) (1.8-2.4cm) PWd1.1 (0.7-1.1cm) Mitral Valve MitralMitral Stenosis E wave0.83m/sMV Mean GR.mmHg A wave0.87m/sMV Peak GR.mmHg E/A ratio1.02D MVAcm2 DECEL [id number] 1/2 Timems Aortic Valve Aortic ValveAortic Stenosis V10.99m/Alec Mean GR.5mmHg V21.55m/Alec Peak GR.10mmHg LVOT Diameter1.6 (1.8-2.4cm)Doppler AVA1.28cm2 Pulmonic Valve V21.02m/s Tricuspid Valve TR Velocity2.51m/s [id number] Other Information Technically limited study due to patient position. Conclusion lvef 65% moderate LVH normal rv function, mild enlarged normal atria no severe valve abnormalities noted
[2025-02-15] MEDS: ACCU-CHEK COMFORT CURVE STRIP VI SCH (16:13)
[2025-02-15] MEDS: InsuLIN REG 1unit/0.01ml Soln (100units/ml) SC SCH ×2 (16:23→21:45)
--- NOTE | 2025-02-15 17:15 | DVHPNRES ---
Progress Note Date Seen: Feb 15, 2025 Resident Creating Document: CHAU SYKES RESIDENT Has the PT tested + for MRSA If YES, has PT been informed?: Yes Medical Necessity Reason Pt with a Central, PICC or Fol: Yes The following are medically ne: PICC Line, Richardson Catheter Subjective Review of Systems Siddhartha Whaley is a 59 year old male with past medical history of DM2, HTN, CVA (2023), Dementia and, CKD stage 5 (Dialysis MWF at [facility]). The patient was brought to the ED by the EMS team with chief complaint of 3 days of generalized weakness, difficulty to swallow and high blood pressure. Family member on site reports that the patient has missed his last 2 dialysis session due to feeling weak and tired. Initial evaluation in the ED showed blood pressure of 177/116 and a blood glucose of 331 mg/dl. Non contrast head CT scan showed: Subcentimeter hyperattenuating focus within the right internal capsule/thalamus may represent small intraparenchymal hemorrhage, or calcification. Correlate with symptoms and consider 6-8 hour follow-up head CT for reassessment, numerous hypodense foci within deep white matter and basal ganglia consistent with age indeterminate, but probably chronic lacunar infarcts. Underlying sequela of mild chronic microangiopathy. The patient denies fever, chills, diarrhea, nausea, vomit, sick contacts or other symptoms. 02/02/25 Patient seen at bedside. Patient is alert times 1, he is not oriented to place or time. Patient is a poor historian. Talked to the sister and she states that the patient has been having hiccups since July, has had dementia since 1 year, and underwent a stroke last year and also started having choking symptoms and having trouble swallowing since 1 week. Last week he was walking fine but now has been having balance problems, and is a fall risk, has had no trauma to the head. Yesterday he was too weak to go to the dialysis appointment. Repeat head CT shows Stable 8 mm hyperattenuating focus in the right internal capsule/ thalamus without any significant change. The etiology remains unclear since this has not changed. Patient has undergone dialysis today. Given baclofen 5 mg b.i.d. and gabapentin 100 mg t.i.d. eval was placed. Pureed diet was started. 02/03/2025 Patient seen at bedside. Patient is alert x1. General appearance is better than yesterday. PT eval placed. Social service consult case SNF placement. Wound consult placed for redness in the sacrum. Alvino September 5 mg p.o., atorvastatin 40 mg p.o., aspirin 81 mg p.o. started. Richardson's was placed. hepatitis panel negative, influenza and COVID negative. Neuro on board. Nephrology on board. 02/04/25 Patient seen at bedside. Patient is alert x1. General appearance is better than yesterday. Patient stopped hicupping, as per nurse patient had trouble swallowing 1 pill and coughed a few times but after giving a 2nd pill slowly he was fine. PT eval placed . Neuro on board. Nephrology on board. Cardiology On word and recommended TTE. Waiting for SNF placement. 02/05/25 Patient seen at bedside. He is Alert x1, is talking and appears better. No overnight events reported. Patient is not hiccuping, still taking thickened liquids to swallow pills and sometimes has cough when swallowing. He denies any pain, nausea, vomiting. TTE pending, waiting for SNF placement. 02/06/25 Patient was seen at the bedside. He is alert x1. No overnight events were reported. Patient is not hiccupping. He is unable to swallow much and coughs even with a few sips of water. We have ordered a swallow test with pureed diet, suggested patient can not take nectar thick pureed diet. 02/07/2025 Patient seen at bedside. He is alert x1, no overnight events were reported. Patient is taking pureed diet, still coughing after taking sips of water. SHARMILA shows EF of 55%. Waiting for SNF placement. 02/08/2025 Patient seen at bedside. He is alert x1, no overnight events were reported, bedside swallow study showed and failed. GI was consulted for possible PEG tube placement. Waiting for SNF placement. 02/09/25 Patient seen at bedside. He is alert x1, no overnight events were reported or. GI was consulted and pending PEG tube placement. Called the sister and informed of patient's condition. Waiting for SNF placement 02/10/25 Patient seen at Bedside. He is alert x1, no overnight event were reported. EGD, peg tube was placed. Waiting for SNF placement. 02/11/25 Patient Bedside patient seen at bedside. Patient is moved to the [facility]. Patient is started feeding from the PEG tube with Napro 50 mL/hour. 02/12/25 Patient seen at bedside. patient is looking better today, patient had dialysis today, He had hypokalemia today and was given potassium. social service contacted for SNF placement. 02/13/2025 Patient seen at bedside. He is drowsy. He did not have dialysis yesterday, but underwent dialysis today. Patient's code status has been modified to 'modified resuscitation with ACLS drugs and BiPAP' which was discussed with the daughter. I signed the documents for it. The ACLS drugs are being given as it was suggested patient required vasopressin drugs during hemodialysis because his systolic blood pressure went down to 88 during dialysis. [employer] have been contacted for SNF placement. the nurse told me that the patient was unable to tolerate the Nepro 240 mL q.4. As he has diarrhea. GI on board, Nurse will ask suggestions from Dr. Mino Portillo. 02/14/2025 Patient seen at bedside. he appears drowsy, patient had a fever with T-max of 100.4 overnight. He appeared tachycardic with a were temperature of 100.2 we ordered lactic acid, repeat CMP CBC started vancomycin, ceftriaxone IV. Ordered ABG, urine and blood concerns. Ordered chest CT without contrast for hemoptysis. Patient having brown reddish stool from PEG tube. Surgery on board, GI on board. Ordered repeat EKG, pending. 02/15/2025 Patient seen at bedside. Patient was not opening his eyes Sluggish pupils but now is blinking and is moving his legs. patient when lying flat his tidal volume and oxygen saturation decreasing. So head CT was unable to be taken. on repeat chest x-ray showed New ill-defined slightly nodular appearing lateral midlung opacity. patient was started on azithromycin IV. echo showed LVEF of 65%, moderate LVH. neurology on board, cardiology on board, GI on board and recommended Trickle feeding via PEG tube 20 mL/hour, IV Protonix q.12 b.i.d., and to transfuse if hemoglobin is less than 7. Patient's PEG tube is on intermittent suction, with 150 mL output. Ordered Repeat H&H, pending. Blood cultures, urine cultures came back negative. Objective vital signs Vital Sign Date Time Temp Pulse Resp B/P (MAP) Pulse Ox O2 Delivery O2 Flow Rate FiO2 02/15/25 16:00 12 100 Oxymizer 3 N/A 02/15/25 16:00 93 02/15/25 14:00 138/64 (88) 02/15/25 12:00 98.1 98.1 Total Intake and Output 02/14/25 02/14/25 02/15/25 15:00 23:00 07:00 Intake Total 50 ml 1130 ml 800 ml Output Total 125 ml 250 ml Balance 50 ml 1005 ml 550 ml medications Current Medications Medications Dose Ordered Sig/Kellen Route Start Time Stop Time Status Last Admin Dose Admin Dextrose 50 ml UD PRN IV 02/02/25 01:00 Cancel Lorazepam 1 mg ONCE PRN IV 02/02/25 20:00 Pantoprazole Sodium 40 mg DAILY IV 02/11/25 10:00 UNV Enteral Nutritional Formula 240 ml IQ4HR PEG 02/12/25 12:00 02/14/25 12:10 240 ML Gabapentin 100 mg TID PO 02/13/25 06:00 02/14/25 14:32 100 MG Baclofen 5 mg BID PO 02/13/25 10:00 02/14/25 10:22 5 MG Amlodipine Besylate 10 mg DAILY PO 02/13/25 10:00 Atorvastatin Calcium 40 mg HS PO 02/13/25 22:00 02/13/25 21:10 40 MG Donepezil HCl 5 mg HS PO 02/13/25 22:00 02/13/25 21:11 5 MG Pantoprazole Sodium 40 mg BID IV 02/13/25 10:00 02/15/25 09:17 40 MG Ondansetron HCl 4 mg Q6HPRN PRN IV 02/13/25 14:15 Hold 02/13/25 14:30 4 MG Metoclopramide HCl 5 mg Q8HPRN PRN IV 02/13/25 17:00 Norepinephrine Bitartrate 250 ml @ 3.75 mls/hr Q24H IV 02/13/25 17:00 Ceftriaxone Sodium 50 ml @ 100 mls/hr DAILY@09 IV 02/15/25 09:00 02/15/25 09:21 100 MLS/HR Vancomycin HCl 0 ml @ 0 mls/hr UD IV 02/14/25 16:30 Acetaminophen 650 mg Q6HP PRN [place] 02/14/25 17:45 02/14/25 18:17 650 MG Dextrose/Sodium Chloride 1,000 ml @ 100 mls/hr Q10H IV 02/14/25 19:15 02/15/25 16:10 100 MLS/HR Azithromycin 250 ml @ 125 mls/hr DAILY IV 02/16/25 10:00 Diagnostic Test (Pha) 1 strip ACHS 02/15/25 17:00 02/15/25 16:13 1 STRIP Insulin Human Regular HS SC 02/15/25 22:00 Insulin Human Regular AC SC 02/15/25 17:00 02/15/25 16:23 3 UNITS Dextrose 50 ml UD PRN IV 02/15/25 11:45 Insulin Glargine 10 units HS SC 02/15/25 22:00 Examination General: Patient alert and oriented in person, place and time. Patient following commands, Drowsy HEENT: Normocephalic, atraumatic, moist mucous membranes, hemoptysis Respiratory/pulmonary: Clear lungs bilaterally, vesicular murmurs present in almost all lung islas, no associated crackles or wheezes. Cardiovascular: Normal heart sounds S1 and S2 with no associated murmurs Abdomen: Peg tube placed for nutrition with 150 ml with intermittent suction . Richardson catheter in place, with yellow urine. Extremities: There is no peripheral edema present at the lower extremities. Peripheral Pulses: 3+ Radial (R). 3+ Radial (L). 3+ Dorsalis pedis (R). 3+ Dorsalis pedis(L) Skin: No rashes or pruritus, there is no sacral edema present at this time. Neurological: Intact cranial nerves with no focal neurologic deficits laboratory and microbiology Laboratory Tests 02/15/25 06:21 Test 02/15/25 06:21 Range/Units Serum Glucose 321 #H 74-106 mg/dL Microbiology Date/Time Source Procedure Growth Status 02/14/25 16:13 Voided Urine Urine Culture - Preliminary Resulted 02/10/25 21:30 Nose MRSA Screen - Final Complete 02/02/25 01:36 Blood Blood Culture - Final NO GROWTH AFTER 5 DAYS OF INCUBATION. Complete Problem List/Assessment/Plan Problem List/Assessment/Plan # Hypertensive urgency-resolving - Amlodipine 10 mg po - Monitor BP # Reactive leukocytosis- monitorlab # ESRD on HD # Missed HD # Non compliance with HD # Uremia # Acidemia managed with dialysis # Hyperkalemia managed with dialysis # Anemia of Chronic kidney disease from ESRD - Dialysis MWF at [facility] - Monitor lab - HD today and tommorrow - nephro consulted and stated Hemodialysis today then Saturday, Fluid restriction less than 1 L per day - PEG tube placement done - GI on board and recommended Trickle feeding via PEG tube 20 mL/hour, IV Protonix q.12 b.i.d., and to transfuse if hemoglobin is less than 7. -02/14/2025- patient having hemoptysis, heparin, Plavix, aspirin was held Patient has dark stool possibly blood, repeat CBC, CMP, ordered - ordered ABG, urine and blood cultures. -ordered chest CT without contrast, pending - 02/15/25 - repeat chest x-ray showed New ill-defined slightly nodular appearing lateral midlung opacity. - patient was started on azithromycin IV -echo showed LVEF of 65%, moderate LVH - # Generalized weakness, rule out CVA # Hx of CVA - Head CT scan ,stable 8 mm hyperattenuating focus in the right internal capsule/ thalamus without any significant change - neuro consulted and recommended to give us a Aspirin 81 mg daily, Lipitor 40 mg daily, Aricept 5 mg daily - cardio consulted and recommended transesophageal echocardiogram at first availablity. TTE shows EF of 55%. -EGD, PEG tube has been place. GI on board - patient started on Nepro # Hyponantremia -monitor lab # DM2 with hyperglycemia - Insulin sliding scale - HbA1C- 8.7 Purred diet PPI prophylaxis: Protonix 40 mg DVT Prophylaxis: Heparin 5000, q.12 Goals of care discussed with patient for 27 minutes Patient is CODE :DNR/DNI, confirmed with sister Case discussed with Dr. Vargas Plan discussed with: Other (sister, RN) My Orders My Orders Orders - CHAU SYKES RESIDENT Procedure Category Date Status Time Electrocardigram EKG 02/14/25 Logged 17:17 Acetaminophen PHA 02/14/25 In Process Suppository (Tylenol 17:45 Stool Occult Blood LAB 02/15/25 Logged 04:00 Creatinine LAB 02/16/25 Verified 04:00 Vancomycin,Random LAB 02/16/25 Verified 04:00 Glucose Blood PHA 02/15/25 In Process (Accu-Chek Comfort 17:00 Insulin R (Human) PHA 02/15/25 In Process (Insulin R) 22:00 Insulin R (Human) PHA 02/15/25 In Process (Insulin R) 17:00 Dextrose 50% Syringe PHA 02/15/25 In Process 11:45 Insulin Lantus PHA 02/15/25 In Process (Glargine) (Lantus) 22:00 Hemoglobin & LAB 02/15/25 Logged Hematocrit 17:02 Dietary Evaluation Review Comments: 1) Add 60g CCHO renal restriction to pureed diet 2) Initiate Nepro CarbSteady bid 3) Encourage optimal PO intake 4) Follow-up with nephrology and neurology 4) Continue to monitor I&O, labs, and skin integrity Expected Outcomes/Goals: 1) appetite and labs to improve 2) f/u in 3-5 days Date of Service: Feb 15, 2025 Billing Provider: KIMBER MORRIS MD Common Visit Codes: [id number] INP/OBS CARE(HIGH) CHAU SYKES RESIDENT Feb 15, 2025 17:14 KIMBER MORRIS MD Feb 17, 2025 00:26
--- NOTE | 2025-02-15 17:16 | DVHPN2 ---
Progress Note - Dictate Date Seen: Feb 15, 2025 Has the PT tested + for MRSA If YES, has PT been informed?: Yes Medical Necessity Reason Pt with a Central, PICC or Fol: Yes The following are medically ne: PICC Line, Richardson Catheter Subjective no new symptoms vital signs Vital Sign Date Time Temp Pulse Resp B/P (MAP) Pulse Ox O2 Delivery O2 Flow Rate FiO2 02/15/25 16:00 12 100 Oxymizer 3 N/A 02/15/25 16:00 93 02/15/25 14:00 138/64 (88) 02/15/25 12:00 98.1 98.1 Total Intake and Output 02/14/25 02/14/25 02/15/25 15:00 23:00 07:00 Intake Total 50 ml 1130 ml 800 ml Output Total 125 ml 250 ml Balance 50 ml 1005 ml 550 ml medications Current Medications Medications Dose Ordered Sig/Kellen Route Start Time Stop Time Status Last Admin Dose Admin Dextrose 50 ml UD PRN IV 02/02/25 01:00 Cancel Lorazepam 1 mg ONCE PRN IV 02/02/25 20:00 Pantoprazole Sodium 40 mg DAILY IV 02/11/25 10:00 UNV Enteral Nutritional Formula 240 ml IQ4HR PEG 02/12/25 12:00 02/14/25 12:10 240 ML Gabapentin 100 mg TID PO 02/13/25 06:00 02/14/25 14:32 100 MG Baclofen 5 mg BID PO 02/13/25 10:00 02/14/25 10:22 5 MG Amlodipine Besylate 10 mg DAILY PO 02/13/25 10:00 Atorvastatin Calcium 40 mg HS PO 02/13/25 22:00 02/13/25 21:10 40 MG Donepezil HCl 5 mg HS PO 02/13/25 22:00 02/13/25 21:11 5 MG Pantoprazole Sodium 40 mg BID IV 02/13/25 10:00 02/15/25 09:17 40 MG Ondansetron HCl 4 mg Q6HPRN PRN IV 02/13/25 14:15 Hold 02/13/25 14:30 4 MG Metoclopramide HCl 5 mg Q8HPRN PRN IV 02/13/25 17:00 Norepinephrine Bitartrate 250 ml @ 3.75 mls/hr Q24H IV 02/13/25 17:00 Ceftriaxone Sodium 50 ml @ 100 mls/hr DAILY@09 IV 02/15/25 09:00 02/15/25 09:21 100 MLS/HR Vancomycin HCl 0 ml @ 0 mls/hr UD IV 02/14/25 16:30 Acetaminophen 650 mg Q6HP PRN ND 02/14/25 17:45 02/14/25 18:17 650 MG Dextrose/Sodium Chloride 1,000 ml @ 100 mls/hr Q10H IV 02/14/25 19:15 02/15/25 16:10 100 MLS/HR Azithromycin 250 ml @ 125 mls/hr DAILY IV 02/16/25 10:00 Diagnostic Test (Pha) 1 strip ACHS 02/15/25 17:00 02/15/25 16:13 1 STRIP Insulin Human Regular HS SC 02/15/25 22:00 Insulin Human Regular AC SC 02/15/25 17:00 02/15/25 16:23 3 UNITS Dextrose 50 ml UD PRN IV 02/15/25 11:45 Insulin Glargine 10 units HS SC 02/15/25 22:00 objective Chronically ill-appearing patient HEENT: No evidence of JVD, no oral ulcers. Pulmonary: Lungs are clear on auscultation bilaterally Cardiovascular S1-S2, no S3 or S4 Abdomen: Bowel sounds positive, soft no rebound tenderness Skin: No rash Neurological: Alert, oriented laboratory and microbiology Laboratory Tests 02/15/25 06:21 Test 02/15/25 06:21 Range/Units Serum Glucose 321 #H 74-106 mg/dL Assessment/Plan Assessment: End-stage renal disease TTS, stable from renal standpoint Hypertension, better controlled Hyperkalemia , resolved Subcentimeter hypoattenuating lesion on CT, acute CVA History of CVA Anemia of Chronic kidney disease patient remains encephalopathic Plan: Next HD on Saturday HD on TTS schedule Using IV albumin during HD for hemodynamic support Fluid restriction less than 1 L per day Neurology following Will need PEG tube placement and disposition to SNF Dietary Evaluation Review Comments: 1) Add 60g CCHO renal restriction to pureed diet 2) Initiate Nepro CarbSteady bid 3) Encourage optimal PO intake 4) Follow-up with nephrology and neurology 4) Continue to monitor I&O, labs, and skin integrity Expected Outcomes/Goals: 1) appetite and labs to improve 2) f/u in 3-5 days Plan discussed with: Patient DONATO RIVERA MD Feb 15, 2025 17:16
--- NOTE | 2025-02-15 17:21 | DVHPN2 ---
Progress Note Date Seen: Feb 15, 2025 Resident Creating Document: VANDA SMITH RESIDENT Has the PT tested + for MRSA If YES, has PT been informed?: Yes Medical Necessity Reason Pt with a Central, PICC or Fol: Yes The following are medically ne: PICC Line, Richardson Catheter Subjective Review of Systems * Symptoms: Neurologic decline yesterday, now improved; ongoing PEG output with brown fluid * Treatment today: Continue IV pantoprazole 40 q12h, trickle tube feeds (20 mL/hr), continued hemodialysis (TTS), IV hydration with D5W * Labs: Hb drop to 7.7 from 9.7; stool occult positive; lactic acid normal; * Imaging: Chest X-ray new nodular opacity lateral mid-lung * Plan: Monitor PEG output and Hb, transfuse if Hb <7, continue proton pump inhibitor, cautious advancement of PEG feeds, further evaluation for GI bleed, chest findings to be followed Objective vital signs Vital Sign Date Time Temp Pulse Resp B/P (MAP) Pulse Ox O2 Delivery O2 Flow Rate FiO2 02/15/25 16:00 12 100 Oxymizer 3 N/A 02/15/25 16:00 93 02/15/25 14:00 138/64 (88) 02/15/25 12:00 98.1 98.1 Total Intake and Output 02/14/25 02/14/25 02/15/25 15:00 23:00 07:00 Intake Total 50 ml 1130 ml 800 ml Output Total 125 ml 250 ml Balance 50 ml 1005 ml 550 ml medications Current Medications Medications Dose Ordered Sig/Kellen Route Start Time Stop Time Status Last Admin Dose Admin Dextrose 50 ml UD PRN IV 02/02/25 01:00 Cancel Lorazepam 1 mg ONCE PRN IV 02/02/25 20:00 Pantoprazole Sodium 40 mg DAILY IV 02/11/25 10:00 UNV Enteral Nutritional Formula 240 ml IQ4HR PEG 02/12/25 12:00 02/14/25 12:10 240 ML Gabapentin 100 mg TID PO 02/13/25 06:00 02/14/25 14:32 100 MG Baclofen 5 mg BID PO 02/13/25 10:00 02/14/25 10:22 5 MG Amlodipine Besylate 10 mg DAILY PO 02/13/25 10:00 Atorvastatin Calcium 40 mg HS PO 02/13/25 22:00 02/13/25 21:10 40 MG Donepezil HCl 5 mg HS PO 02/13/25 22:00 02/13/25 21:11 5 MG Pantoprazole Sodium 40 mg BID IV 02/13/25 10:00 02/15/25 09:17 40 MG Ondansetron HCl 4 mg Q6HPRN PRN IV 02/13/25 14:15 Hold 02/13/25 14:30 4 MG Metoclopramide HCl 5 mg Q8HPRN PRN IV 02/13/25 17:00 Norepinephrine Bitartrate 250 ml @ 3.75 mls/hr Q24H IV 02/13/25 17:00 Ceftriaxone Sodium 50 ml @ 100 mls/hr DAILY@09 IV 02/15/25 09:00 02/15/25 09:21 100 MLS/HR Vancomycin HCl 0 ml @ 0 mls/hr UD IV 02/14/25 16:30 Acetaminophen 650 mg Q6HP PRN [place] 02/14/25 17:45 02/14/25 18:17 650 MG Dextrose/Sodium Chloride 1,000 ml @ 100 mls/hr Q10H IV 02/14/25 19:15 02/15/25 16:10 100 MLS/HR Azithromycin 250 ml @ 125 mls/hr DAILY IV 02/16/25 10:00 Diagnostic Test (Pha) 1 strip ACHS 02/15/25 17:00 02/15/25 16:13 1 STRIP Insulin Human Regular HS SC 02/15/25 22:00 Insulin Human Regular AC SC 02/15/25 17:00 02/15/25 16:23 3 UNITS Dextrose 50 ml UD PRN IV 02/15/25 11:45 Insulin Glargine 10 units HS SC 02/15/25 22:00 Examination * General: Somnolent but arousable, nonverbal * Abdomen: PEG tube in place; draining brown fluid; abdomen soft, nondistended, non-tender, normal bowel sounds laboratory and microbiology Laboratory Tests 02/15/25 06:21 Test 02/15/25 06:21 Range/Units Serum Glucose 321 #H 74-106 mg/dL Microbiology Date/Time Source Procedure Growth Status 02/14/25 16:13 Voided Urine Urine Culture - Preliminary Resulted 02/10/25 21:30 Nose MRSA Screen - Final Complete 02/02/25 01:36 Blood Blood Culture - Final NO GROWTH AFTER 5 DAYS OF INCUBATION. Complete Problem List/Assessment/Plan Problem List/Assessment/Plan Assessment 1. Possible upper GI bleed post-PEG placement * Evidence: Brown fluid in PEG drainage, Hb drop (9.7 ? 7.7), positive stool occult * Rule in: Gastric mucosal trauma, stress ulcer, PEG site ulceration, reflux gastritis * Rule out: Peptic ulcer disease, variceal bleed, malignancy 2. Nutritional compromise in ESRD patient with PEG tube in place * Currently on trickle feeding (20 mL/hr renal formula) * Risk of refeeding, electrolyte shifts, and aspiration 3. Post-PEG care * Monitoring for bleeding, infection, dislodgement, aspiration 4. Chest X-ray abnormality Plan A. Upper GI Bleed / Anemia * Continue IV pantoprazole 40 mg q12h * Monitor PEG output closely (color, volume) * Serial hemoglobin/hematocrit q68h * Transfuse PRBC if Hb <7 g/dL or symptomatic * Hold NSAIDs and anticoagulants * Consider EGD if ongoing significant bleeding or Hb drop persists B. Nutrition (PEG Feeding) * Continue trickle feeds at 20 mL/hr renal formula * Advance slowly if tolerated and no ongoing bleeding * Continue daily monitoring of electrolytes, Mg, Phos (adjust for dialysis) * Strict aspiration precautions; HOB >30 * Flush PEG with sterile water 30 mL q46h (coordinate with nephrology for fluid restriction) C. Prophylaxis & Supportive Care * Stress ulcer prophylaxis: IV PPI continued * DVT prophylaxis: SCDs only (pharmacologic held due to bleeding risk) * Continue dialysis per TTS schedule * Monitor for PEG site infection; daily site care Case discussed in detail with the attending physician, including the clinical presentation, diagnostic workup, and comprehensive management sully Plan discussed with: Other (RN) Dietary Evaluation Review Comments: 1) Add 60g CCHO renal restriction to pureed diet 2) Initiate Nepro CarbSteady bid 3) Encourage optimal PO intake 4) Follow-up with nephrology and neurology 4) Continue to monitor I&O, labs, and skin integrity Expected Outcomes/Goals: 1) appetite and labs to improve 2) f/u in 3-5 days VANDA SMITH RESIDENT Feb 15, 2025 17:21
[2025-02-15 18:35] LABS: Hematocrit 20.6 % (41.0-53.0)
[2025-02-15 18:45] LABS: Hemoglobin 7.0 g/dL (13.5-17.5)
--- NOTE | 2025-02-15 21:15 | DVHPN2 ---
Progress Note - Dictate Date Seen: Feb 15, 2025 Has the PT tested + for MRSA If YES, has PT been informed?: Yes Medical Necessity Reason Pt with a Central, PICC or Fol: Yes The following are medically ne: PICC Line, Richardson Catheter Subjective Mr. Torres is a 59 years old right-handed gentleman with a history of hypertension, diabetes, end-stage renal failure on hemodialysis, he was brought to the [facility] on 02/01/2025 with a chief complaint of general weakness, hypertension, dysphagia. I have seen examined the patient in the [facility], I have talked his nurse, he is responsive to verbal stimuli, he is oriented to person, he knows that he is in the hospital, he follows verbal commands, he can speak He moves the extremities, with the right upper extremity weaker He was transferred to [facility] for respiratory distress on 02/10/2025 He had a PEG tube insertion on 02/10/2025 Plasma alcohol, 02/01/2025: <3 UDS, 02/05/2025: Negative CBC, 02/01/2025: Unremarkable BUN/CR, 02/02/2025: 110/6.97 GFR, 02/02/2025: 9 HGB A1c, 02/02/2025: Able to seven TG/HDL/LDL/HDL, 02/02/2025: 174/124/56/38 Vitamin B12, 02/03/25: 676 Folic acid, 02/03/2025: 9.28 TSH, 02/03/2025: 0.23 FT4, 02/03/2025: 1.26 SHARMILA, 02/05/2025: * Technically good study. The patient was in a sinus rhythm. * Chamber dimension evaluation was within normal limits. * Valves appear to be structurally normal. * Left ventricular systolic function is preserved. EF is about 55% with normal RV function. * Doppler reveals mild TR, mild MR. No intraatrial or intraventricular shunt noted. * There is a small pericardial effusion, not hemodynamically significant. * No intracardiac masses, thrombi, and/or vegetation discernible. The atrial appendage is within normal limits without thrombi. * Bubble study also performed, showing no significant abnormalities Carotid doctor, 02/03/2025: Left mid and distal ICAs are not well-visualized with the distal right ICA not well-visualized. Otherwise, No hemodynamically significant stenosis within the visualized bilateral carotid arterial systems CT head, 02/02/2025 0042: 1. Subcentimeter hyperattenuating focus within the right internal capsule/thalamus may represent small intraparenchymal hemorrhage, or calcification. Correlate with symptoms and consider 6-8 hour follow-up head CT for reassessment. 2. Numerous hypodense foci within deep white matter and basal ganglia consistent with age indeterminate, but probably chronic lacunar infarcts. 3. Underlying sequela of mild chronic microangiopathy. CT head, 02/02/2025 1100: 1. Stable 8 mm hyperattenuating focus in the right internal capsule/ thalamus without any significant change. The etiology remains unclear since this has not changed. Continued short-term follow-up with noncontrast CT of the head in 6-8 hours is suggested. 2. Additional nonacute findings similar to prior CT performed earlier same date. (Chronic lacunar infarcts in the bilateral basal ganglia and thalami, I also see evidence suggestive of of bilateral pontine lacunar strokes) MRI head, 02/03/2025: 1. Small chronic lacunar infarcts are seen in the right side of the nancy and left periventricular white matter. 2. Multifocal chronic ischemic changes as detailed above. 3. Multifocal areas of hemosiderin deposition from prior small hemorrhages. 4. Additional findings as detailed above. (Acute lacunar infarct in the right side of the nancy measuring up to 0.6 cm. Acute lacunar infarct in the left periventricular white matter adjacent to the body of the left ventricle measuring up to 0.8 cm.) vital signs Vital Sign Date Time Temp Pulse Resp B/P (MAP) Pulse Ox O2 Delivery O2 Flow Rate FiO2 02/15/25 20:00 100 02/15/25 20:00 15 100 Nasal Cannula* 2 28 02/15/25 20:00 98.8 127/51 (76) 98.8 Total Intake and Output 02/14/25 02/14/25 02/15/25 14:59 22:59 06:59 Intake Total 50 ml 1030 ml 800 ml Output Total 125 ml 250 ml Balance 50 ml 905 ml 550 ml medications Current Medications Medications Dose Ordered Sig/Kellen Route Start Time Stop Time Status Last Admin Dose Admin Dextrose 50 ml UD PRN IV 02/02/25 01:00 Cancel Lorazepam 1 mg ONCE PRN IV 02/02/25 20:00 Pantoprazole Sodium 40 mg DAILY IV 02/11/25 10:00 UNV Enteral Nutritional Formula 240 ml IQ4HR PEG 02/12/25 12:00 02/14/25 12:10 240 ML Gabapentin 100 mg TID PO 02/13/25 06:00 02/14/25 14:32 100 MG Baclofen 5 mg BID PO 02/13/25 10:00 02/14/25 10:22 5 MG Amlodipine Besylate 10 mg DAILY PO 02/13/25 10:00 Atorvastatin Calcium 40 mg HS PO 02/13/25 22:00 02/13/25 21:10 40 MG Donepezil HCl 5 mg HS PO 02/13/25 22:00 02/13/25 21:11 5 MG Pantoprazole Sodium 40 mg BID IV 02/13/25 10:00 02/15/25 09:17 40 MG Ondansetron HCl 4 mg Q6HPRN PRN IV 02/13/25 14:15 Hold 02/13/25 14:30 4 MG Metoclopramide HCl 5 mg Q8HPRN PRN IV 02/13/25 17:00 Norepinephrine Bitartrate 250 ml @ 3.75 mls/hr Q24H IV 02/13/25 17:00 Ceftriaxone Sodium 50 ml @ 100 mls/hr DAILY@09 IV 02/15/25 09:00 02/15/25 09:21 100 MLS/HR Vancomycin HCl 0 ml @ 0 mls/hr UD IV 02/14/25 16:30 Acetaminophen 650 mg Q6HP PRN DC 02/14/25 17:45 02/14/25 18:17 650 MG Dextrose/Sodium Chloride 1,000 ml @ 100 mls/hr Q10H IV 02/14/25 19:15 02/15/25 16:10 100 MLS/HR Azithromycin 250 ml @ 125 mls/hr DAILY IV 02/16/25 10:00 Diagnostic Test (Pha) 1 strip ACHS 02/15/25 17:00 02/15/25 16:13 1 STRIP Insulin Human Regular HS SC 02/15/25 22:00 Insulin Human Regular AC SC 02/15/25 17:00 02/15/25 16:23 3 UNITS Dextrose 50 ml UD PRN IV 02/15/25 11:45 Insulin Glargine 10 units [facility] 02/15/25 22:00 objective General: the patient is well developed and nourished. No acute distress. MENTAL STATUS: Subjective SPEECH, LANGUAGE, HIGHER CORTICAL FUNCTION: no aphasia CRANIAL NERVES: Pupils are equal, round and reactive. EOMs full and conjugate. Facial sensation intact in all three divisions bilaterally. Mandibular strength intact. Facial muscles symmetrical and strength intact. Tongue midline. No fasciculations or atrophy. SENSATION: Sensation to touch and pinprick is unremarkable MOTOR: Normal tone in the upper and lower extremity. Normal muscle bulk. No fasciculations. No abnormal movements or posturing. Muscle strength of the major groups in the extremities is 4/5 but is 2-3/5 in the right upper extremity REFLEXES: Deep tendon reflexes are symmetrical. No pathological reflexes. 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 for 21 days Lipitor 40 mg daily Aricept 5 mg daily Pantoprazole 40 mg daily BiPAP Up to chair Physical therapy Nephrology on case/hemodialysis More recommendation per clinical course This medical document was created using an electronic medical record system with [employer] dictation system. Although this document has been carefully reviewed, there may still be some phonetic and typographical errors. These areas are purely typographical due to imperfections of the software programs, and do not reflect any compromise in the patient's medical care Prognosis poor Dietary Evaluation Review Comments: 1) Add 60g CCHO renal restriction to pureed diet 2) Initiate Nepro CarbSteady bid 3) Encourage optimal PO intake 4) Follow-up with nephrology and neurology 4) Continue to monitor I&O, labs, and skin integrity Expected Outcomes/Goals: 1) appetite and labs to improve 2) f/u in 3-5 days Plan discussed with: Other YURY MARQUEZ MD Feb 15, 2025 21:15
[2025-02-15] MEDS: INSULIN LANTUS (GLARGINE) 1 /0.01ml (100units/ml) SC SCH (21:45)
[2025-02-15 22:47] LABS: Hematocrit 19.4 % (41.0-53.0)
[2025-02-15 23:05] LABS: Hemoglobin 6.7 g/dL (13.5-17.5)
[2025-02-16] VITALS (62 sets, daily range): BP systolic 109–164; BP diastolic 46–76; PULSE 69–121; RESP 8–18; TEMP 97.9–99.2; O2SAT 99–100
--- NOTE | 2025-02-16 00:08 | DVHPN2 ---
Progress Note - Dictate Date Seen: Feb 15, 2025 Has the PT tested + for MRSA If YES, has PT been informed?: Yes Medical Necessity Reason Pt with a Central, PICC or Fol: Yes The following are medically ne: PICC Line, Richardson Catheter Subjective Patient was seen and evaluated in follow up in the [facility]. Patient is on 2 LPM NC. Patient unable to lay flat for CT head. Echo showed LVEF of 65%, moderate LVH. Trickle feeding via PEG tube 20 mL/hour. HGB 6.7, HCT 19.4, CRP 6.30. vital signs Vital Sign Date Time Temp Pulse Resp B/P (MAP) Pulse Ox O2 Delivery O2 Flow Rate FiO2 02/15/25 22:00 11 100 Nasal Cannula* 2 28 02/15/25 20:00 100 02/15/25 20:00 98.8 127/51 (76) 98.8 Total Intake and Output 02/15/25 02/15/25 02/16/25 15:00 23:00 07:00 Intake Total 1000 ml 200 ml Output Total 425 ml Balance 1000 ml -225 ml medications Current Medications Medications Dose Ordered Sig/Kellen Route Start Time Stop Time Status Last Admin Dose Admin Dextrose 50 ml UD PRN IV 02/02/25 01:00 Cancel Lorazepam 1 mg ONCE PRN IV 02/02/25 20:00 Pantoprazole Sodium 40 mg DAILY IV 02/11/25 10:00 UNV Enteral Nutritional Formula 240 ml IQ4HR PEG 02/12/25 12:00 02/14/25 12:10 240 ML Gabapentin 100 mg TID PO 02/13/25 06:00 02/14/25 14:32 100 MG Baclofen 5 mg BID PO 02/13/25 10:00 02/14/25 10:22 5 MG Amlodipine Besylate 10 mg DAILY PO 02/13/25 10:00 Atorvastatin Calcium 40 mg HS PO 02/13/25 22:00 02/15/25 21:22 40 MG Donepezil HCl 5 mg HS PO 02/13/25 22:00 02/15/25 21:22 5 MG Pantoprazole Sodium 40 mg BID IV 02/13/25 10:00 02/15/25 21:22 40 MG Ondansetron HCl 4 mg Q6HPRN PRN IV 02/13/25 14:15 Hold 02/13/25 14:30 4 MG Metoclopramide HCl 5 mg Q8HPRN PRN IV 02/13/25 17:00 Norepinephrine Bitartrate 250 ml @ 3.75 mls/hr Q24H IV 02/13/25 17:00 Ceftriaxone Sodium 50 ml @ 100 mls/hr DAILY@09 IV 02/15/25 09:00 02/15/25 09:21 100 MLS/HR Vancomycin HCl 0 ml @ 0 mls/hr UD IV 02/14/25 16:30 Acetaminophen 650 mg Q6HP PRN TN 02/14/25 17:45 02/14/25 18:17 650 MG Dextrose/Sodium Chloride 1,000 ml @ 100 mls/hr Q10H IV 02/14/25 19:15 02/15/25 16:10 100 MLS/HR Azithromycin 250 ml @ 125 mls/hr DAILY IV 02/16/25 10:00 Diagnostic Test (Pha) 1 strip ACHS 02/15/25 17:00 02/15/25 21:38 1 STRIP Insulin Human Regular HS SC 02/15/25 22:00 02/15/25 21:45 6 UNITS Insulin Human Regular AC SC 02/15/25 17:00 02/15/25 16:23 3 UNITS Dextrose 50 ml UD PRN IV 02/15/25 11:45 Insulin Glargine 10 units HS SC 02/15/25 22:00 02/15/25 21:45 10 UNITS objective GENERAL: A&O x2. Somewhat non-verbal, +dysphagia EYES: PERRL, EOMI. Anicteric. HENT: Moist mucous membranes. LUNGS: Clear to auscultation bilaterally. CARDIOVASCULAR: Regular rate and rhythm. ABDOMEN: Soft, non-tender and non-distended. EXTREMITIES: No edema. SKIN: Warm, dry. laboratory and microbiology Laboratory Tests 02/15/25 22:27 02/15/25 06:21 Test 02/15/25 06:21 Range/Units Serum Glucose 321 #H 74-106 mg/dL Problem List Acute CVA rule out cardioembolic source. History of multiple chronic strokes. Hypertensive urgency. Diabetes mellitus type 2. ESRD on HD. Medical noncompliance (missed HD). Assessment/Plan Continued all current supportive medical care. Aspirin, Plavix. GI prophylactics. Additional plan as per the hospital course. Critical care time of 45 minutes provided to include time spent evaluation of patient at bedside, when appropriate patient/family education for diagnosis, treatment plan, review of pertinent medical information and discussion of care with specialty providers and PCP Dietary Evaluation Review Comments: 1) Add 60g CCHO renal restriction to pureed diet 2) Initiate Nepro CarbSteady bid 3) Encourage optimal PO intake 4) Follow-up with nephrology and neurology 4) Continue to monitor I&O, labs, and skin integrity Expected Outcomes/Goals: 1) appetite and labs to improve 2) f/u in 3-5 days Plan discussed with: Other DESIREE BERNAL MD Feb 16, 2025 00:08
--- NOTE | 2025-02-16 05:21 | DVH ---
EXAM: CT HEAD WITHOUT CONTRAST INDICATION: ALOC TECHNIQUE: CT of the head without intravenous contrast. Radiation Dose : 1. Head: CT Dose: CTDI volume is 53.95 mGy. Dose-length product is 1070.55 mGy*cm The dose indicators for CT are the volume Computed Tomography (CT) Dose Index (CTDIvol) and the Dose Length Product (DLP), and are measured in units of mGy and mGy-cm, respectively. These indicators are not patient dose, but values generated from the CT scanner acquisition factors. The report includes radiation exposure data for exposures received during this examination. COMPARISON: MRI BRAIN HEAD WO CONTRAST on DOS: 02/03/25, CT HEAD WITHOUT CONTRAST on DOS: 02/03/25, CT HE AD WITHOUT CONTRAST on DOS: 02/02/25, CT HEAD WITHOUT CONTRAST on DOS: 02/02/25 FINDINGS: There is no evidence of acute intracranial hemorrhage, extra-axial collection, mass effect, midline s hift, herniation or hydrocephalus. Unchanged subcentimeter foci of hyperattenuation in the right thal amus. The ventricles, sulci and cisterns are age appropriate. The hurley-white differentiation is intact. Patchy periventricular and subcortical white matter hypoattenuation is nonspecific but may be related to small vessel ischemic disease. The visualized paranasal sinuses and mastoid air cells are clear. The surrounding soft tissues and osseous structures are unremarkable. IMPRESSION: No acute intracranial abnormality. No significant interval change. Radiation optimization: All CT scans at this facility use at least one of these dose optimization jazmin hniques: automated exposure control mA and/or kV adjustment per patient size (includes targeted exam s where dose is matched to clinical indication) or iterative reconstruction.
--- NOTE | 2025-02-16 05:28 | DVH ---
Procedure: CT CHEST WITHOUT CONTRAST Reason for study/Clinical History: hemoptysis Comparison Study: XY CHEST PORTABLE on DOS: 02/15/25, XY CHEST XRAY 1 VIEW on DOS: 02/14/25, XY CHEST X RAY 1 VIEW on DOS: 02/10/25, XY CHEST PORTABLE on DOS: 02/05/25 TECHNIQUE: Multidetector CT of the chest was performed from the lung apices to the upper abdomen with out the use of intravenous contract. Axial, coronal and sagittal multiplanar reformats were performed . Radiation Dose Information: CT Dose: CTDI volume is 5.4 mGy. Dose-length product is 1070.6 mGy*cm The dose indicators for CT are the volume Computed Tomography (CT) Dose Index (CTDIvol) and the Dose Length Product (DLP), and are measured in units of mGy and mGy-cm, respectively. These indicators are not patient dose, but values generated from the CT scanner acquisition factors. The report includes radiation exposure data for exposures received during this examination. FINDINGS: Lower neck: Tunneled right central venous catheter in satisfactory position. Lungs: Multifocal airspace disease most prominent in the lower lobes, [id number]. Heart/Vascular Structures: Normal heart size. No pericardial effusion. Lymph Nodes: No adenopathy Pleura: No pleural effusion or significant pneumothorax. Musculoskeletal: No acute osseous abnormality. Soft tissues: Normal. Upper abdomen: Limited portions of the upper abdomen are unremarkable. IMPRESSION: Multifocal airspace disease most prominent in the lower lobes, [id number].
[2025-02-16 06:17] LABS: Hematocrit 23.1 % (41.0-53.0); Hemoglobin 8.1 g/dL (13.5-17.5); Mean Corpuscular Hemoglobin 30.2 pg (28.0-32.0); Mean Corpuscular Volume 85.9 fL (80.0-100.0); Nucleated Red Blood Cells % 0.0 %
[2025-02-16 06:25] LABS: Alanine Aminotransferase 10 U/L (7-40); Alkaline Phosphatase 66 U/L (46-116); Anion Gap 10 (5-15); BUN/Creatinine Ratio 16.0 (10.0-20.0); Bilirubin, Total 0.3 mg/dL (0.2-1.0); Carbon Dioxide 25 mmol/L (20-31); Potassium 3.7 mmol/L (3.5-5.1); Sodium 142 mmol/L (136-145)
[2025-02-16 06:28] LABS: Chloride 107 mmol/L (98-107); Glucose 268 mg/dL (74-106)
[2025-02-16 06:29] LABS: Albumin 2.9 g/dL (3.2-4.8); Calcium 8.3 mg/dL (8.7-10.4); Total Protein 5.0 g/dL (5.7-8.2)
[2025-02-16 06:32] LABS: Blood Urea Nitrogen 85 mg/dL (9-23)
[2025-02-16] MEDS: SODIUM CHL 0.9% 1000 ML BAG XX ONE (07:00)
[2025-02-16] MEDS: AZITHROMYCIN 500MG/ 250ML 250 ML IV SCH (09:30)
[2025-02-16] MEDS: GABAPENTIN 100 MG CAP PO SCH (10:00)
[2025-02-16] MEDS ORDERED: AZITHROMYCIN 500MG/ 250ML 250 ML IV SCH (10:00)
--- NOTE | 2025-02-16 10:35 | DVHPN2 ---
Progress Note - Dictate Date Seen: Feb 16, 2025 Has the PT tested + for MRSA If YES, has PT been informed?: Yes Medical Necessity Reason Pt with a Central, PICC or Fol: Yes The following are medically ne: PICC Line, Richardson Catheter Subjective Mr. Torres is a 59 years old right-handed gentleman with a history of hypertension, diabetes, end-stage renal failure on hemodialysis, he was brought to the [facility] on 02/01/2025 with a chief complaint of general weakness, hypertension, dysphagia. I have seen examined the patient in the [facility], I have talked his nurse, he is awake, oriented to person, place, he is able to talk with soft voice He moves the extremities, with the right upper extremity weaker He was transferred to [facility] for respiratory distress on 02/10/2025 He had a PEG tube insertion on 02/10/2025 RN: Gabapentin and baclofen may caused his mental status change Plasma alcohol, 02/01/2025: <3 UDS, 02/05/2025: Negative CBC, 02/01/2025: Unremarkable BUN/CR, 02/02/2025: 110/6.97 GFR, 02/02/2025: 9 HGB A1c, 02/02/2025: Able to seven TG/HDL/LDL/HDL, 02/02/2025: 174/124/56/38 Vitamin B12, 02/03/25: 676 Folic acid, 02/03/2025: 9.28 TSH, 02/03/2025: 0.23 FT4, 02/03/2025: 1.26 SHARMILA, 02/05/2025: * Technically good study. The patient was in a sinus rhythm. * Chamber dimension evaluation was within normal limits. * Valves appear to be structurally normal. * Left ventricular systolic function is preserved. EF is about 55% with normal RV function. * Doppler reveals mild TR, mild MR. No intraatrial or intraventricular shunt noted. * There is a small pericardial effusion, not hemodynamically significant. * No intracardiac masses, thrombi, and/or vegetation discernible. The atrial appendage is within normal limits without thrombi. * Bubble study also performed, showing no significant abnormalities Carotid doctor, 02/03/2025: Left mid and distal ICAs are not well-visualized with the distal right ICA not well-visualized. Otherwise, No hemodynamically significant stenosis within the visualized bilateral carotid arterial systems CT head, 02/02/2025 0042: 1. Subcentimeter hyperattenuating focus within the right internal capsule/thalamus may represent small intraparenchymal hemorrhage, or calcification. Correlate with symptoms and consider 6-8 hour follow-up head CT for reassessment. 2. Numerous hypodense foci within deep white matter and basal ganglia consistent with age indeterminate, but probably chronic lacunar infarcts. 3. Underlying sequela of mild chronic microangiopathy. CT head, 02/02/2025 1100: 1. Stable 8 mm hyperattenuating focus in the right internal capsule/ thalamus without any significant change. The etiology remains unclear since this has not changed. Continued short-term follow-up with noncontrast CT of the head in 6-8 hours is suggested. 2. Additional nonacute findings similar to prior CT performed earlier same date. (Chronic lacunar infarcts in the bilateral basal ganglia and thalami, I also see evidence suggestive of of bilateral pontine lacunar strokes) CT head, 02/16/2025: No acute intracranial abnormality. No significant interval change. MRI head, 02/03/2025: 1. Small chronic lacunar infarcts are seen in the right side of the nancy and left periventricular white matter. 2. Multifocal chronic ischemic changes as detailed above. 3. Multifocal areas of hemosiderin deposition from prior small hemorrhages. 4. Additional findings as detailed above. (Acute lacunar infarct in the right side of the nancy measuring up to 0.6 cm. Acute lacunar infarct in the left periventricular white matter adjacent to the body of the left ventricle measuring up to 0.8 cm.) vital signs Vital Sign Date Time Temp Pulse Resp B/P (MAP) Pulse Ox O2 Delivery O2 Flow Rate FiO2 02/16/25 10:01 14 100 Nasal Cannula* 2 28 02/16/25 09:30 147/61 02/16/25 08:00 97.9 80 97.9 Total Intake and Output 02/15/25 02/15/25 02/16/25 15:00 23:00 07:00 Intake Total 1000 ml 500 ml 1420 ml Output Total 425 ml 400 ml Balance 1000 ml 75 ml 1020 ml medications Current Medications Medications Dose Ordered Sig/Kellen Route Start Time Stop Time Status Last Admin Dose Admin Dextrose 50 ml UD PRN IV 02/02/25 01:00 Cancel Lorazepam 1 mg ONCE PRN IV 02/02/25 20:00 Pantoprazole Sodium 40 mg DAILY IV 02/11/25 10:00 UNV Enteral Nutritional Formula 240 ml IQ4HR PEG 02/12/25 12:00 02/16/25 08:00 240 ML Baclofen 5 mg BID PO 02/13/25 10:00 02/14/25 10:22 5 MG Amlodipine Besylate 10 mg DAILY PO 02/13/25 10:00 02/16/25 09:30 10 MG Atorvastatin Calcium 40 mg HS PO 02/13/25 22:00 02/15/25 21:22 40 MG Donepezil HCl 5 mg HS PO 02/13/25 22:00 02/15/25 21:22 5 MG Pantoprazole Sodium 40 mg BID IV 02/13/25 10:00 02/16/25 09:29 40 MG Ondansetron HCl 4 mg Q6HPRN PRN IV 02/13/25 14:15 Hold 02/13/25 14:30 4 MG Metoclopramide HCl 5 mg Q8HPRN PRN IV 02/13/25 17:00 Norepinephrine Bitartrate 250 ml @ 3.75 mls/hr Q24H IV 02/13/25 17:00 Ceftriaxone Sodium 50 ml @ 100 mls/hr DAILY@09 IV 02/15/25 09:00 02/16/25 08:39 100 MLS/HR Vancomycin HCl 0 ml @ 0 mls/hr UD IV 02/14/25 16:30 Acetaminophen 650 mg Q6HP PRN [place] 02/14/25 17:45 02/14/25 18:17 650 MG Azithromycin 250 ml @ 125 mls/hr DAILY IV 02/16/25 10:00 02/16/25 09:30 125 MLS/HR Diagnostic Test (Pha) 1 strip ACHS 02/15/25 17:00 02/16/25 06:06 1 STRIP Insulin Human Regular HS SC 02/15/25 22:00 02/15/25 21:45 6 UNITS Insulin Human Regular AC SC 02/15/25 17:00 02/16/25 06:06 9 UNITS Dextrose 50 ml UD PRN IV 02/15/25 11:45 Insulin Glargine 10 units HS SC 02/15/25 22:00 02/15/25 21:45 10 UNITS Albuterol 2.5 mg Q6HR NEB 02/16/25 06:45 Ipratropium Hankinson 0.5 mg Q6HR NEB 02/16/25 06:45 Gabapentin 100 mg DAILY PO 02/16/25 10:00 objective General: the patient is well developed and nourished. No acute distress. MENTAL STATUS: Subjective SPEECH, LANGUAGE, HIGHER CORTICAL FUNCTION: no aphasia CRANIAL NERVES: Pupils are equal, round and reactive. EOMs full and conjugate. Facial sensation intact in all three divisions bilaterally. Mandibular strength intact. Mild right facial weakness. Tongue midline. No fasciculations or atrophy. SENSATION: Sensation to touch and pinprick is unremarkable MOTOR: Normal tone in the upper and lower extremity. Normal muscle bulk. No fasciculations. No abnormal movements or posturing. Muscle strength of the major groups in the extremities is 4/5 but is 2-3/5 in the right upper extremity REFLEXES: Deep tendon reflexes are symmetrical. No pathological reflexes. CEREBELLAR/COORDINATION: Deferred GAIT/STATION: deferred laboratory and microbiology Laboratory Tests 02/16/25 05:41 Test 02/16/25 05:41 Range/Units Serum Glucose 268 H 74-106 mg/dL Problem List A high attenuation CT lesion in the right basal ganglia region is likely calcification Acute stroke in the nancy and left basal ganglia region Chronic multiple strokes/lacunar infarcts in bilateral basal ganglia reason Dementia, likely vascular dementia, but need to rule out Alzheimer disease and other etiology Dysphagia, possibly secondary to multiple strokes Hypertensive encephalopathy Dysphagia status post PEG feeding tube Sleep-related breathing disorder/Sleep apnea Assessment/Plan Monitoring Supportive treatment [facility] care Aspirin 81 mg daily Plavix 75 mg q.d. for 21 days Lipitor 40 mg daily Aricept 5 mg daily Pantoprazole 40 mg daily ? Wean off/ baclofen, gabapentin BiPAP Up to chair Physical therapy Nephrology on case/hemodialysis More recommendation per clinical course This medical document was created using an electronic medical record system with [employer] dictation system. Although this document has been carefully reviewed, there may still be some phonetic and typographical errors. These areas are purely typographical due to imperfections of the software programs, and do not reflect any compromise in the patient's medical care Prognosis poor Dietary Evaluation Review Comments: 1) Add 60g CCHO renal restriction to pureed diet 2) Initiate Nepro CarbSteady bid 3) Encourage optimal PO intake 4) Follow-up with nephrology and neurology 4) Continue to monitor I&O, labs, and skin integrity Expected Outcomes/Goals: 1) appetite and labs to improve 2) f/u in 3-5 days Plan discussed with: Other YURY MARQUEZ MD Feb 16, 2025 10:35
[2025-02-16] MEDS: ALBUTEROL SULF 2.5 MG/0.5ML(0.5%) NEB SOLN NEB SCH (11:28)
[2025-02-16] MEDS: IPRATROPIUM BROM 0.5 MG/2.5ML INH SOL NEB SCH (11:28)
--- NOTE | 2025-02-16 12:03 | DVH ---
Exam: XY KUB ABDOMEN SINGLE VIEW Indication: r/o obstruction Comparison: None Technique: 1 radiographic views of the abdomen. Findings: Gastrostomy tube overlies the epigastrium. Nonobstructive bowel gas pattern noted. Moderate to large volume colonic stool. There is no definite evidence for pneumoperitoneum. No abnormal calcifications noted. Impression: Nonobstructive bowel gas pattern noted. Moderate to large volume colonic stool.
--- NOTE | 2025-02-16 14:41 | DVHPNRES ---
Progress Note Date Seen: Feb 16, 2025 Resident Creating Document: CHAU SYKES RESIDENT Has the PT tested + for MRSA If YES, has PT been informed?: Yes Medical Necessity Reason Pt with a Central, PICC or Fol: Yes The following are medically ne: PICC Line, Richardson Catheter Subjective Review of Systems Siddhartha Whaley is a 59 year old male with past medical history of DM2, HTN, CVA (2023), Dementia and, CKD stage 5 (Dialysis MWF at [facility]). The patient was brought to the ED by the EMS team with chief complaint of 3 days of generalized weakness, difficulty to swallow and high blood pressure. Family member on site reports that the patient has missed his last 2 dialysis session due to feeling weak and tired. Initial evaluation in the ED showed blood pressure of 177/116 and a blood glucose of 331 mg/dl. Non contrast head CT scan showed: Subcentimeter hyperattenuating focus within the right internal capsule/thalamus may represent small intraparenchymal hemorrhage, or calcification. Correlate with symptoms and consider 6-8 hour follow-up head CT for reassessment, numerous hypodense foci within deep white matter and basal ganglia consistent with age indeterminate, but probably chronic lacunar infarcts. Underlying sequela of mild chronic microangiopathy. The patient denies fever, chills, diarrhea, nausea, vomit, sick contacts or other symptoms. 02/02/25 Patient seen at bedside. Patient is alert times 1, he is not oriented to place or time. Patient is a poor historian. Talked to the sister and she states that the patient has been having hiccups since July, has had dementia since 1 year, and underwent a stroke last year and also started having choking symptoms and having trouble swallowing since 1 week. Last week he was walking fine but now has been having balance problems, and is a fall risk, has had no trauma to the head. Yesterday he was too weak to go to the dialysis appointment. Repeat head CT shows Stable 8 mm hyperattenuating focus in the right internal capsule/ thalamus without any significant change. The etiology remains unclear since this has not changed. Patient has undergone dialysis today. Given baclofen 5 mg b.i.d. and gabapentin 100 mg t.i.d. eval was placed. Pureed diet was started. 02/03/2025 Patient seen at bedside. Patient is alert x1. General appearance is better than yesterday. PT eval placed. Social service consult case SNF placement. Wound consult placed for redness in the sacrum. Alvino September 5 mg p.o., atorvastatin 40 mg p.o., aspirin 81 mg p.o. started. Richardson's was placed. hepatitis panel negative, influenza and COVID negative. Neuro on board. Nephrology on board. 02/04/25 Patient seen at bedside. Patient is alert x1. General appearance is better than yesterday. Patient stopped hicupping, as per nurse patient had trouble swallowing 1 pill and coughed a few times but after giving a 2nd pill slowly he was fine. PT eval placed . Neuro on board. Nephrology on board. Cardiology On word and recommended TTE. Waiting for SNF placement. 02/05/25 Patient seen at bedside. He is Alert x1, is talking and appears better. No overnight events reported. Patient is not hiccuping, still taking thickened liquids to swallow pills and sometimes has cough when swallowing. He denies any pain, nausea, vomiting. TTE pending, waiting for SNF placement. 02/06/25 Patient was seen at the bedside. He is alert x1. No overnight events were reported. Patient is not hiccupping. He is unable to swallow much and coughs even with a few sips of water. We have ordered a swallow test with pureed diet, suggested patient can not take nectar thick pureed diet. 02/07/2025 Patient seen at bedside. He is alert x1, no overnight events were reported. Patient is taking pureed diet, still coughing after taking sips of water. SHARMILA shows EF of 55%. Waiting for SNF placement. 02/08/2025 Patient seen at bedside. He is alert x1, no overnight events were reported, bedside swallow study showed and failed. GI was consulted for possible PEG tube placement. Waiting for SNF placement. 02/09/25 Patient seen at bedside. He is alert x1, no overnight events were reported or. GI was consulted and pending PEG tube placement. Called the sister and informed of patient's condition. Waiting for SNF placement 02/10/25 Patient seen at Bedside. He is alert x1, no overnight event were reported. EGD, peg tube was placed. Waiting for SNF placement. 02/11/25 Patient Bedside patient seen at bedside. Patient is moved to the [facility]. Patient is started feeding from the PEG tube with Napro 50 mL/hour. 02/12/25 Patient seen at bedside. patient is looking better today, patient had dialysis today, He had hypokalemia today and was given potassium. social service contacted for SNF placement. 02/13/2025 Patient seen at bedside. He is drowsy. He did not have dialysis yesterday, but underwent dialysis today. Patient's code status has been modified to 'modified resuscitation with ACLS drugs and BiPAP' which was discussed with the daughter. I signed the documents for it. The ACLS drugs are being given as it was suggested patient required vasopressin drugs during hemodialysis because his systolic blood pressure went down to 88 during dialysis. Life Skills Coach have been contacted for SNF placement. the nurse told me that the patient was unable to tolerate the Nepro 240 mL q.4. As he has diarrhea. GI on board, Nurse will ask suggestions from Dr. Mino Portillo. 02/14/2025 Patient seen at bedside. he appears drowsy, patient had a fever with T-max of 100.4 overnight. He appeared tachycardic with a were temperature of 100.2 we ordered lactic acid, repeat CMP CBC started vancomycin, ceftriaxone IV. Ordered ABG, urine and blood concerns. Ordered chest CT without contrast for hemoptysis. Patient having brown reddish stool from PEG tube. Surgery on board, GI on board. Ordered repeat EKG, pending. 02/15/2025 Patient seen at bedside. Patient was not opening his eyes Sluggish pupils but now is blinking and is moving his legs. patient when lying flat his tidal volume and oxygen saturation decreasing. So head CT was unable to be taken. on repeat chest x-ray showed New ill-defined slightly nodular appearing lateral midlung opacity. patient was started on azithromycin IV. echo showed LVEF of 65%, moderate LVH. neurology on board, cardiology on board, GI on board and recommended Trickle feeding via PEG tube 20 mL/hour, IV Protonix q.12 b.i.d., and to transfuse if hemoglobin is less than 7. Patient's PEG tube is on intermittent suction, with 150 mL output. Ordered Repeat H&H, pending. Blood cultures, urine cultures came back negative. 02/16/2025 patient seen at bedside. Patient is appearing better than before. He is able to talk softly, he is still alert x1, shows signs of weakness in his right arm and leg. Family was at bedside, discussed options for care of patient, including hospice. Patient dialysis today. Patient is tolerating tube feeding. Hemoglobin today was 8.1 after 1 bag transfusion of PRBC. gabapentin was changed to 100 mg daily. KUB abdomen ordered which showed moderate to large volume colonic stool for which lactulose 30 mL p.o. b.i.d. ordered. Also metoclopramide 10 mg IV Q [address] Multifocal airspace disease most prominent in the lower lobes, [id number]. chest CT showed Multifocal airspace disease most prominent in the lower lobes, [id number]-right. Objective vital signs Vital Sign Date Time Temp Pulse Resp B/P (MAP) Pulse Ox O2 Delivery O2 Flow Rate FiO2 02/16/25 13:16 88 136/62 (86) 02/16/25 12:03 16 100 Room Air* 0 21 02/16/25 08:00 97.9 97.9 Total Intake and Output 02/15/25 02/15/25 02/16/25 15:00 23:00 07:00 Intake Total 1000 ml 500 ml 1520 ml Output Total 425 ml 400 ml Balance 1000 ml 75 ml 1120 ml medications Current Medications Medications Dose Ordered Sig/Kellen Route Start Time Stop Time Status Last Admin Dose Admin Dextrose 50 ml UD PRN IV 02/02/25 01:00 Cancel Lorazepam 1 mg ONCE PRN IV 02/02/25 20:00 Pantoprazole Sodium 40 mg DAILY IV 02/11/25 10:00 UNV Enteral Nutritional Formula 240 ml IQ4HR PEG 02/12/25 12:00 02/16/25 08:00 240 ML Baclofen 5 mg BID PO 02/13/25 10:00 02/14/25 10:22 5 MG Amlodipine Besylate 10 mg DAILY PO 02/13/25 10:00 02/16/25 09:30 10 MG Atorvastatin Calcium 40 mg HS PO 02/13/25 22:00 02/15/25 21:22 40 MG Donepezil HCl 5 mg HS PO 02/13/25 22:00 02/15/25 21:22 5 MG Pantoprazole Sodium 40 mg BID IV 02/13/25 10:00 02/16/25 09:29 40 MG Ondansetron HCl 4 mg Q6HPRN PRN IV 02/13/25 14:15 Hold 02/13/25 14:30 4 MG Metoclopramide HCl 5 mg Q8HPRN PRN IV 02/13/25 17:00 Norepinephrine Bitartrate 250 ml @ 3.75 mls/hr Q24H IV 02/13/25 17:00 Ceftriaxone Sodium 50 ml @ 100 mls/hr DAILY@09 IV 02/15/25 09:00 02/16/25 08:39 100 MLS/HR Vancomycin HCl 0 ml @ 0 mls/hr UD IV 02/14/25 16:30 Acetaminophen 650 mg Q6HP PRN [place] 02/14/25 17:45 02/14/25 18:17 650 MG Azithromycin 250 ml @ 125 mls/hr DAILY IV 02/16/25 10:00 02/16/25 09:30 125 MLS/HR Diagnostic Test (Pha) 1 strip ACHS 02/15/25 17:00 02/16/25 11:46 1 STRIP Insulin Human Regular HS MD 02/15/25 22:00 02/15/25 21:45 6 UNITS Insulin Human Regular AC SC 02/15/25 17:00 02/16/25 11:42 9 UNITS Dextrose 50 ml UD PRN IV 02/15/25 11:45 Insulin Glargine 10 units HS MD 02/15/25 22:00 02/15/25 21:45 10 UNITS Albuterol 2.5 mg Q6HR NEB 02/16/25 06:45 02/16/25 11:28 2.5 MG Ipratropium [place] 0.5 mg Q6HR NEB 02/16/25 06:45 02/16/25 11:28 0.5 MG Gabapentin 100 mg DAILY PO 02/16/25 10:00 Metoclopramide HCl 10 mg Q8HR IV 02/16/25 14:00 Lactulose 30 ml BID PO 02/16/25 22:00 Examination General: Patient alert and oriented in person, place and time. Patient following commands, Drowsy HEENT: Normocephalic, atraumatic, moist mucous membranes, Respiratory/pulmonary: Clear lungs bilaterally, vesicular murmurs present in almost all lung islas, no associated crackles or wheezes. Cardiovascular: Normal heart sounds S1 and S2 with no associated murmurs Abdomen: Peg tube placed for nutrition with trickle feeding. Richardson catheter in place, with yellow urine. Extremities: There is no peripheral edema present at the lower extremities. Peripheral Pulses: 3+ Radial (R). 3+ Radial (L). 3+ Dorsalis pedis (R). 3+ Dorsalis pedis(L) Skin: No rashes or pruritus, there is no sacral edema present at this time. Neurological: Weakness present in right arm and leg laboratory and microbiology Laboratory Tests 02/16/25 05:41 Test 02/16/25 05:41 Range/Units Serum Glucose 268 H 74-106 mg/dL Microbiology Date/Time Source Procedure Growth Status 02/14/25 17:40 Blood Blood Culture - Preliminary NO GROWTH AFTER 24 HOURS OF INCUBATION. Resulted 02/14/25 16:13 Voided Urine Urine Culture - Preliminary Resulted 02/10/25 21:30 Nose MRSA Screen - Final Complete Problem List/Assessment/Plan Problem List/Assessment/Plan # Hypertensive urgency-resolving - Amlodipine 10 mg po - Monitor BP # Reactive leukocytosis- monitorlab # ESRD on HD # Missed HD # Non compliance with HD # Uremia # Acidemia managed with dialysis # Hyperkalemia managed with dialysis # Anemia of Chronic kidney disease from ESRD - Dialysis MWF at [facility] - Monitor lab - HD today and tomgarrett - nephro consulted and stated Hemodialysis today then Saturday, Fluid restriction less than 1 L per day - PEG tube placement done - GI on board and recommended Trickle feeding via PEG tube 20 mL/hour, IV Protonix q.12 b.i.d., and to transfuse if hemoglobin is less than 7. -02/14/2025- patient having hemoptysis, heparin, Plavix, aspirin was held Patient has dark stool possibly blood, repeat CBC, CMP, ordered - ordered ABG, urine and blood cultures. -ordered chest CT without contrast, pending - 02/15/25 - repeat chest x-ray showed New ill-defined slightly nodular appearing lateral midlung opacity. - patient was started on azithromycin IV -echo showed LVEF of 65%, moderate LVH - 02/16/25 - patient underwent dialysis today. -discussed options regarding care of patient including hospice only - # Generalized weakness, rule out CVA # Hx of CVA - Head CT scan ,stable 8 mm hyperattenuating focus in the right internal capsule/ thalamus without any significant change - neuro consulted and recommended to give us a Aspirin 81 mg daily, Lipitor 40 mg daily, Aricept 5 mg daily - cardio consulted and recommended transesophageal echocardiogram at first availablity. TTE shows EF of 55%. - repeat head CT shows No acute intracranial abnormality. No significant interval change. # recurrent infections- aspiration pneumonia - chest CT showed Multifocal airspace disease most prominent in the lower lobes, [id number]-right. - patient was given azithromycin # dysphagia # advanced dementia, vascular # acute anemia due to GI bleed -resolved - EGD, PEG tube has been place. GI on board - patient started on Nepro # Hyponantremia -monitor lab # DM2 with hyperglycemia - Insulin sliding scale - HbA1C- 8.7 PPI prophylaxis: Protonix 40 mg DVT Prophylaxis: Heparin 5000, q.12 Goals of care discussed with family or 27 minutes Patient is CODE :DNR/DNI, confirmed with sister Case discussed with Dr. Vargas Plan discussed with: Other (sister, son, RN) My Orders My Orders Orders - CHAU SYKES RESIDENT Procedure Category Date Status Time Gabapentin Capsule PHA 02/16/25 In Process (Neurontin Capsule) 10:00 Vancomycin,Random LAB 02/17/25 Verified 04:00 Creatinine LAB 02/17/25 Verified 04:00 * Life Skills Coach CONS 02/16/25 Transmitted Consult Dietary Evaluation Review Comments: 1) Add 60g CCHO renal restriction to pureed diet 2) Initiate Nepro CarbSteady bid 3) Encourage optimal PO intake 4) Follow-up with nephrology and neurology 4) Continue to monitor I&O, labs, and skin integrity Expected Outcomes/Goals: 1) appetite and labs to improve 2) f/u in 3-5 days Date of Service: Feb 16, 2025 Billing Provider: KIMBER MORRIS MD Common Visit Codes: [id number] INP/OBS CARE(HIGH) CHAU SYKES Feb 16, 2025 14:41 KIMBER MORRIS MD Feb 17, 2025 00:43
[2025-02-16] MEDS: METOCLOPRAMIDE HCL 5MG/ml INJ 2ml VIAL IV SCH (15:17)
--- NOTE | 2025-02-16 15:52 | DVHPN2 ---
Progress Note Date Seen: Feb 16, 2025 Resident Creating Document: VANDA SMITH RESIDENT Has the PT tested + for MRSA If YES, has PT been informed?: Yes Medical Necessity Reason Pt with a Central, PICC or Fol: Yes The following are medically ne: PICC Line, Richardson Catheter Subjective Review of Systems TODAY'S PROGRESS- Patient remains nonverbal but arousable. He has tolerated PEG tube feeds at current rate without abdominal pain, distention or emesis. Patient has dark brown fluid from the PEG tube. Hemoglobin today is at 8.1, improved and stabilized compared to yesterday's trend from 6.7-7 0.0-7.7. LFTs normalized. WBC count within normal limits. Creatinine remains elevated at 5.31 consistent with ESRD. No new fevers or hemodynamic instability. Patient underwent EGD with biopsy previously, pathology pending. Based on endoscopic findings, viral esophagitis suspected with HSV/CMP remains a possible etiology . Acyclovir therapy initiated today Objective vital signs Vital Sign Date Time Temp Pulse Resp B/P (MAP) Pulse Ox O2 Delivery O2 Flow Rate FiO2 02/16/25 14:00 14 100 Room Air* 0 21 02/16/25 13:16 88 136/62 (86) 02/16/25 08:00 97.9 97.9 Total Intake and Output 02/15/25 02/15/25 02/16/25 15:00 23:00 07:00 Intake Total 1000 ml 500 ml 1520 ml Output Total 425 ml 400 ml Balance 1000 ml 75 ml 1120 ml medications Current Medications Medications Dose Ordered Sig/Kellen Route Start Time Stop Time Status Last Admin Dose Admin Dextrose 50 ml UD PRN IV 02/02/25 01:00 Cancel Lorazepam 1 mg ONCE PRN IV 02/02/25 20:00 Pantoprazole Sodium 40 mg DAILY IV 02/11/25 10:00 UNV Enteral Nutritional Formula 240 ml IQ4HR PEG 02/12/25 12:00 02/16/25 08:00 240 ML Baclofen 5 mg BID PO 02/13/25 10:00 02/14/25 10:22 5 MG Amlodipine Besylate 10 mg DAILY PO 02/13/25 10:00 02/16/25 09:30 10 MG Atorvastatin Calcium 40 mg HS PO 02/13/25 22:00 02/15/25 21:22 40 MG Donepezil HCl 5 mg HS PO 02/13/25 22:00 02/15/25 21:22 5 MG Pantoprazole Sodium 40 mg BID IV 02/13/25 10:00 02/16/25 09:29 40 MG Ondansetron HCl 4 mg Q6HPRN PRN IV 02/13/25 14:15 Hold 02/13/25 14:30 4 MG Metoclopramide HCl 5 mg Q8HPRN PRN IV 02/13/25 17:00 Norepinephrine Bitartrate 250 ml @ 3.75 mls/hr Q24H IV 02/13/25 17:00 Ceftriaxone Sodium 50 ml @ 100 mls/hr DAILY@09 IV 02/15/25 09:00 02/16/25 08:39 100 MLS/HR Vancomycin HCl 0 ml @ 0 mls/hr UD IV 02/14/25 16:30 Acetaminophen 650 mg Q6HP PRN [place] 02/14/25 17:45 02/14/25 18:17 650 MG Azithromycin 250 ml @ 125 mls/hr DAILY IV 02/16/25 10:00 02/16/25 09:30 125 MLS/HR Diagnostic Test (Pha) 1 strip ACHS 02/15/25 17:00 02/16/25 11:46 1 STRIP Insulin Human Regular HS SC 02/15/25 22:00 02/15/25 21:45 6 UNITS Insulin Human Regular AC SC 02/15/25 17:00 02/16/25 11:42 9 UNITS Dextrose 50 ml UD PRN IV 02/15/25 11:45 Insulin Glargine 10 units HS SC 02/15/25 22:00 02/15/25 21:45 10 UNITS Albuterol 2.5 mg Q6HR NEB 02/16/25 06:45 02/16/25 11:28 2.5 MG Ipratropium [place] 0.5 mg Q6HR NEB 02/16/25 06:45 02/16/25 11:28 0.5 MG Gabapentin 100 mg DAILY PO 02/16/25 10:00 Metoclopramide HCl 10 mg Q8HR IV 02/16/25 14:00 02/16/25 15:17 10 MG Lactulose 30 ml BID PO 02/16/25 22:00 Examination * General: Somnolent but arousable, nonverbal * Abdomen: PEG tube in place; draining brown fluid; abdomen soft, nondistended, non-tender, normal bowel sounds laboratory and microbiology Laboratory Tests 02/16/25 05:41 Test 02/16/25 05:41 Range/Units Serum Glucose 268 H 74-106 mg/dL Microbiology Date/Time Source Procedure Growth Status 02/14/25 17:40 Blood Blood Culture - Preliminary NO GROWTH AFTER 24 HOURS OF INCUBATION. Resulted 02/14/25 16:13 Voided Urine Urine Culture - Preliminary Resulted 02/10/25 21:30 Nose MRSA Screen - Final Complete Problem List/Assessment/Plan Problem List/Assessment/Plan Assessment 1. Possible upper GI bleed post-PEG placement * Evidence: Brown fluid in PEG drainage, Hb drop (9.7 ? 7.7), positive stool occult * Rule in: Gastric mucosal trauma, stress ulcer, PEG site ulceration, reflux gastritis * Rule out: Peptic ulcer disease, variceal bleed, malignancy 2. Nutritional compromise in ESRD patient with PEG tube in place * Currently on trickle feeding (20 mL/hr renal formula) * Risk of refeeding, electrolyte shifts, and aspiration 3. Post-PEG care * Monitoring for bleeding, infection, dislodgement, aspiration 4. Chest X-ray abnormality 5. Possible viral esophagitis HSV versus CMV Plan CONTINUE IV ACYCLOVIR FOR 5 DAYS Await EGD biopsy pathology for definitive diagnosis of HSV versus CMV. A. Upper GI Bleed / Anemia * Continue IV pantoprazole 40 mg q12h * Monitor PEG output closely (color, volume) * Serial hemoglobin/hematocrit q68h * Transfuse PRBC if Hb <7 g/dL or symptomatic * Hold NSAIDs and anticoagulants * Consider EGD if ongoing significant bleeding or Hb drop persists B. Nutrition (PEG Feeding) * Continue trickle feeds at 20 mL/hr renal formula * Advance slowly if tolerated and no ongoing bleeding * Continue daily monitoring of electrolytes, Mg, Phos (adjust for dialysis) * Strict aspiration precautions; HOB >30 * Flush PEG with sterile water 30 mL q46h (coordinate with nephrology for fluid restriction) C. Prophylaxis & Supportive Care * Stress ulcer prophylaxis: IV PPI continued * DVT prophylaxis: SCDs only (pharmacologic held due to bleeding risk) * Continue dialysis per TTS schedule * Monitor for PEG site infection; daily site care Case discussed in detail with the attending physician, including the clinical presentation, diagnostic workup, and comprehensive management sully Plan discussed with: Other (RN) Dietary Evaluation Review Comments: 1) Add 60g CCHO renal restriction to pureed diet 2) Initiate Nepro CarbSteady bid 3) Encourage optimal PO intake 4) Follow-up with nephrology and neurology 4) Continue to monitor I&O, labs, and skin integrity Expected Outcomes/Goals: 1) appetite and labs to improve 2) f/u in 3-5 days VANDA SMITH RESIDENT Feb 16, 2025 15:52
[2025-02-16] MEDS ORDERED: ACYCLOVIR 5MG/KG Q8HR PER RX 0 ML IV SCH (16:00)
--- NOTE | 2025-02-16 16:32 | DVHPN2 ---
Progress Note - Dictate Date Seen: Feb 16, 2025 Has the PT tested + for MRSA If YES, has PT been informed?: Yes Medical Necessity Reason Pt with a Central, PICC or Fol: Yes The following are medically ne: PICC Line, Richardson Catheter Subjective no new symptoms vital signs Vital Sign Date Time Temp Pulse Resp B/P (MAP) Pulse Ox O2 Delivery O2 Flow Rate FiO2 02/16/25 16:14 16 100 Nasal Cannula* 2 28 02/16/25 16:14 93 02/16/25 16:00 98.9 149/57 (87) 98.9 Total Intake and Output 02/15/25 02/15/25 02/16/25 15:00 23:00 07:00 Intake Total 1000 ml 500 ml 1520 ml Output Total 425 ml 400 ml Balance 1000 ml 75 ml 1120 ml medications Current Medications Medications Dose Ordered Sig/Kellen Route Start Time Stop Time Status Last Admin Dose Admin Dextrose 50 ml UD PRN IV 02/02/25 01:00 Cancel Lorazepam 1 mg ONCE PRN IV 02/02/25 20:00 Pantoprazole Sodium 40 mg DAILY IV 02/11/25 10:00 UNV Enteral Nutritional Formula 240 ml IQ4HR PEG 02/12/25 12:00 02/16/25 08:00 240 ML Baclofen 5 mg BID PO 02/13/25 10:00 02/14/25 10:22 5 MG Amlodipine Besylate 10 mg DAILY PO 02/13/25 10:00 02/16/25 09:30 10 MG Atorvastatin Calcium 40 mg HS PO 02/13/25 22:00 02/15/25 21:22 40 MG Donepezil HCl 5 mg HS PO 02/13/25 22:00 02/15/25 21:22 5 MG Pantoprazole Sodium 40 mg BID IV 02/13/25 10:00 02/16/25 09:29 40 MG Ondansetron HCl 4 mg Q6HPRN PRN IV 02/13/25 14:15 Hold 02/13/25 14:30 4 MG Metoclopramide HCl 5 mg Q8HPRN PRN IV 02/13/25 17:00 Norepinephrine Bitartrate 250 ml @ 3.75 mls/hr Q24H IV 02/13/25 17:00 Ceftriaxone Sodium 50 ml @ 100 mls/hr DAILY@09 IV 02/15/25 09:00 02/16/25 08:39 100 MLS/HR Vancomycin HCl 0 ml @ 0 mls/hr UD IV 02/14/25 16:30 Acetaminophen 650 mg Q6HP PRN [place] 02/14/25 17:45 02/14/25 18:17 650 MG Azithromycin 250 ml @ 125 mls/hr DAILY IV 02/16/25 10:00 02/16/25 09:30 125 MLS/HR Diagnostic Test (Pha) 1 strip ACHS 02/15/25 17:00 02/16/25 11:46 1 STRIP Insulin Human Regular HS SC 02/15/25 22:00 02/15/25 21:45 6 UNITS Insulin Human Regular AC SC 02/15/25 17:00 02/16/25 11:42 9 UNITS Dextrose 50 ml UD PRN IV 02/15/25 11:45 Insulin Glargine 10 units HS SC 02/15/25 22:00 02/15/25 21:45 10 UNITS Albuterol 2.5 mg Q6HR NEB 02/16/25 06:45 02/16/25 11:28 2.5 MG Ipratropium [place] 0.5 mg Q6HR NEB 02/16/25 06:45 02/16/25 11:28 0.5 MG Gabapentin 100 mg DAILY PO 02/16/25 10:00 Metoclopramide HCl 10 mg Q8HR IV 02/16/25 14:00 02/16/25 15:17 10 MG Lactulose 30 ml BID PO 02/16/25 22:00 Acyclovir Sodium 0 ml @ 0 mls/hr PER PHARMACY IV 02/16/25 16:00 02/21/25 16:00 UNV objective Chronically ill-appearing patient HEENT: No evidence of JVD, no oral ulcers. Pulmonary: Lungs are clear on auscultation bilaterally Cardiovascular S1-S2, no S3 or S4 Abdomen: Bowel sounds positive, soft no rebound tenderness Skin: No rash Neurological: Alert, oriented laboratory and microbiology Laboratory Tests 02/16/25 05:41 Test 02/16/25 05:41 Range/Units Serum Glucose 268 H 74-106 mg/dL Assessment/Plan Assessment: End-stage renal disease TTS, stable from renal standpoint Hypertension, better controlled Hyperkalemia , resolved Subcentimeter hypoattenuating lesion on CT, acute CVA History of CVA Anemia of Chronic kidney disease patient remains encephalopathic Plan: HD Today- Saturday HD on TTS schedule Using IV albumin during HD for hemodynamic support Fluid restriction less than 1 L per day Neurology following Will need PEG tube placement and disposition to SNF Dietary Evaluation Review Comments: 1) Add 60g CCHO renal restriction to pureed diet 2) Initiate Nepro CarbSteady bid 3) Encourage optimal PO intake 4) Follow-up with nephrology and neurology 4) Continue to monitor I&O, labs, and skin integrity Expected Outcomes/Goals: 1) appetite and labs to improve 2) f/u in 3-5 days Plan discussed with: Patient, Other DONATO RIVERA MD Feb 16, 2025 16:32
[2025-02-16] MEDS: ALBUTEROL SULF 2.5 MG/0.5ML(0.5%) NEB SOLN ONE (17:49)
[2025-02-16] MEDS: IPRATROPIUM BROM 0.5 MG/2.5ML INH SOL ONE (17:49)
[2025-02-16] MEDS: LACTULOSE 20Gm/30ML SOLN PO SCH (21:44)
[2025-02-16] MEDS: EPOETIN ALFA-EPBX 10,000 UNIT/1ML VIAL SC ONE (21:53)
[2025-02-16] MEDS: VANCOMYCIN 500mg/100mL 100 ML IV ONE (22:15)
--- NOTE | 2025-02-16 22:48 | DVHPN2 ---
Progress Note - Dictate Date Seen: Feb 16, 2025 Has the PT tested + for MRSA If YES, has PT been informed?: Yes Medical Necessity Reason Pt with a Central, PICC or Fol: Yes The following are medically ne: PICC Line, Richardson Catheter Subjective Patient was seen and evaluated in follow up in the [facility]. Patient is on 2 LPM NC. Patient has right sided weakness. Patient received dialysis today. KUB abdomen showed moderate to large volume colonic stool. Repeat head CT shows multifocal airspace disease most prominent in the lower lobes, [id number]-right. CT chest showed multifocal airspace disease most prominent in the lower lobes, [id number]-right. H&H improved s/p PRBC transfusion. BUN 85, PRODUCTION PATTERN [employer]KER 5.31. vital signs Vital Sign Date Time Temp Pulse Resp B/P (MAP) Pulse Ox O2 Delivery O2 Flow Rate FiO2 02/16/25 20:30 101 16 139/62 (87) 100 02/16/25 20:13 Nasal Cannula 2.0 02/16/25 20:13 28 02/16/25 20:00 98.6 98.6 Total Intake and Output 02/15/25 02/15/25 02/16/25 15:00 23:00 07:00 Intake Total 1000 ml 500 ml 1520 ml Output Total 425 ml 400 ml Balance 1000 ml 75 ml 1120 ml medications Current Medications Medications Dose Ordered Sig/Kellen Route Start Time Stop Time Status Last Admin Dose Admin Dextrose 50 ml UD PRN IV 02/02/25 01:00 Cancel Lorazepam 1 mg ONCE PRN IV 02/02/25 20:00 Pantoprazole Sodium 40 mg DAILY IV 02/11/25 10:00 UNV Enteral Nutritional Formula 240 ml IQ4HR PEG 02/12/25 12:00 02/16/25 08:00 240 ML Baclofen 5 mg BID PO 02/13/25 10:00 02/16/25 21:44 5 MG Amlodipine Besylate 10 mg DAILY PO 02/13/25 10:00 02/16/25 09:30 10 MG Atorvastatin Calcium 40 mg HS PO 02/13/25 22:00 02/16/25 21:44 40 MG Donepezil HCl 5 mg HS PO 02/13/25 22:00 02/16/25 21:44 5 MG Pantoprazole Sodium 40 mg BID IV 02/13/25 10:00 02/16/25 21:44 40 MG Ondansetron HCl 4 mg Q6HPRN PRN IV 02/13/25 14:15 Hold 02/13/25 14:30 4 MG Metoclopramide HCl 5 mg Q8HPRN PRN IV 02/13/25 17:00 Norepinephrine Bitartrate 250 ml @ 3.75 mls/hr Q24H IV 02/13/25 17:00 Ceftriaxone Sodium 50 ml @ 100 mls/hr DAILY@09 IV 02/15/25 09:00 02/16/25 08:39 100 MLS/HR Vancomycin HCl 0 ml @ 0 mls/hr UD IV 02/14/25 16:30 Acetaminophen 650 mg Q6HP PRN ME 02/14/25 17:45 02/14/25 18:17 650 MG Azithromycin 250 ml @ 125 mls/hr DAILY IV 02/16/25 10:00 02/16/25 09:30 125 MLS/HR Diagnostic Test (Pha) 1 strip ACHS 02/15/25 17:00 02/16/25 21:45 1 STRIP Insulin Human Regular HS FL 02/15/25 22:00 02/15/25 21:45 6 UNITS Insulin Human Regular AC FL 02/15/25 17:00 02/16/25 18:07 3 UNITS Dextrose 50 ml UD PRN IV 02/15/25 11:45 Insulin Glargine 10 units [facility] 02/15/25 22:00 02/16/25 21:45 10 UNITS Albuterol 2.5 mg Q6HR [facility] 02/16/25 06:45 02/16/25 20:13 2.5 MG Ipratropium [place] 0.5 mg Q6HR NEB 02/16/25 06:45 02/16/25 20:13 0.5 MG Gabapentin 100 mg DAILY PO 02/16/25 10:00 Metoclopramide HCl 10 mg Q8HR IV 02/16/25 14:00 02/16/25 15:17 10 MG Lactulose 30 ml BID PO 02/16/25 22:00 02/16/25 21:44 30 ML objective GENERAL: A&O x2. Somewhat non-verbal, +dysphagia EYES: PERRL, EOMI. Anicteric. HENT: Moist mucous membranes. LUNGS: Clear to auscultation bilaterally. CARDIOVASCULAR: Regular rate and rhythm. ABDOMEN: Soft, non-tender and non-distended. EXTREMITIES: No edema. SKIN: Warm, dry. laboratory and microbiology Laboratory Tests 02/16/25 05:41 Test 02/16/25 05:41 Range/Units Serum Glucose 268 H 74-106 mg/dL Problem List Acute CVA rule out cardioembolic source. History of multiple chronic strokes. Hypertensive urgency. Diabetes mellitus type 2. ESRD on HD. Medical noncompliance (missed HD). Assessment/Plan Continued all current supportive medical care. Amlodipine. Lipitor. IV antibiotics as ordered. Vasopressors for hemodynamic support. GI prophylactics. Additional plan as per the hospital course. Critical care time of 45 minutes provided to include time spent evaluation of patient at bedside, when appropriate patient/family education for diagnosis, treatment plan, review of pertinent medical information and discussion of care with specialty providers and PCP Dietary Evaluation Review Comments: 1) Add 60g CCHO renal restriction to pureed diet 2) Initiate Nepro CarbSteady bid 3) Encourage optimal PO intake 4) Follow-up with nephrology and neurology 4) Continue to monitor I&O, labs, and skin integrity Expected Outcomes/Goals: 1) appetite and labs to improve 2) f/u in 3-5 days Plan discussed with: Patient DESIREE BERNAL MD Feb 16, 2025 22:48
[2025-02-17] VITALS (58 sets, daily range): BP systolic 106–161; BP diastolic 47–75; PULSE 86–125; RESP 9–21; TEMP 97.8–99.5; O2SAT 92–100
[2025-02-17 06:08] LABS: Hemoglobin 8.2 g/dL (13.5-17.5); Nucleated Red Blood Cells % 0.0 %
[2025-02-17 06:12] LABS: Hematocrit 23.1 % (41.0-53.0); Mean Corpuscular Hemoglobin 30.4 pg (28.0-32.0); Mean Corpuscular Volume 85.4 fL (80.0-100.0)
[2025-02-17 06:47] LABS: Alanine Aminotransferase 14 U/L (7-40); Albumin 3.3 g/dL (3.2-4.8); Alkaline Phosphatase 85 U/L (46-116); Anion Gap 12 (5-15); BUN/Creatinine Ratio 8.6 (10.0-20.0); Carbon Dioxide 28 mmol/L (20-31); Chloride 101 mmol/L (98-107); Sodium 141 mmol/L (136-145); Total Protein 5.8 g/dL (5.7-8.2)
[2025-02-17 07:00] LABS: Bilirubin, Total 0.2 mg/dL (0.2-1.0); Blood Urea Nitrogen 25 mg/dL (9-23); Calcium 8.3 mg/dL (8.7-10.4); Glucose 260 mg/dL (74-106); Potassium 3.2 mmol/L (3.5-5.1)
[2025-02-17] MEDS ORDERED: POTASSIUM CHL 20MEQ/100ML 100 ML IV ONE (07:15)
[2025-02-17 07:48] LABS: COVID19 ANTIGEN SOFIA FIA NEGATIVE (NEGATIVE)
--- NOTE | 2025-02-17 09:17 | DVHPNRES ---
Progress Note Date Seen: Feb 17, 2025 Resident Creating Document: CHAU SYKES RESIDENT Has the PT tested + for MRSA If YES, has PT been informed?: Yes Medical Necessity Reason Pt with a Central, PICC or Fol: Yes The following are medically ne: PICC Line, Richardson Catheter Subjective Review of Systems Siddhartha Whaley is a 59 year old male with past medical history of DM2, HTN, CVA (2023), Dementia and, CKD stage 5 (Dialysis MWF at [facility]). The patient was brought to the ED by the EMS team with chief complaint of 3 days of generalized weakness, difficulty to swallow and high blood pressure. Family member on site reports that the patient has missed his last 2 dialysis session due to feeling weak and tired. Initial evaluation in the ED showed blood pressure of 177/116 and a blood glucose of 331 mg/dl. Non contrast head CT scan showed: Subcentimeter hyperattenuating focus within the right internal capsule/thalamus may represent small intraparenchymal hemorrhage, or calcification. Correlate with symptoms and consider 6-8 hour follow-up head CT for reassessment, numerous hypodense foci within deep white matter and basal ganglia consistent with age indeterminate, but probably chronic lacunar infarcts. Underlying sequela of mild chronic microangiopathy. The patient denies fever, chills, diarrhea, nausea, vomit, sick contacts or other symptoms. 02/02/25 Patient seen at bedside. Patient is alert times 1, he is not oriented to place or time. Patient is a poor historian. Talked to the sister and she states that the patient has been having hiccups since July, has had dementia since 1 year, and underwent a stroke last year and also started having choking symptoms and having trouble swallowing since 1 week. Last week he was walking fine but now has been having balance problems, and is a fall risk, has had no trauma to the head. Yesterday he was too weak to go to the dialysis appointment. Repeat head CT shows Stable 8 mm hyperattenuating focus in the right internal capsule/ thalamus without any significant change. The etiology remains unclear since this has not changed. Patient has undergone dialysis today. Given baclofen 5 mg b.i.d. and gabapentin 100 mg t.i.d. eval was placed. Pureed diet was started. 02/03/2025 Patient seen at bedside. Patient is alert x1. General appearance is better than yesterday. PT eval placed. Social service consult case SNF placement. Wound consult placed for redness in the sacrum. Alvino September 5 mg p.o., atorvastatin 40 mg p.o., aspirin 81 mg p.o. started. Richardson's was placed. hepatitis panel negative, influenza and COVID negative. Neuro on board. Nephrology on board. 02/04/25 Patient seen at bedside. Patient is alert x1. General appearance is better than yesterday. Patient stopped hicupping, as per nurse patient had trouble swallowing 1 pill and coughed a few times but after giving a 2nd pill slowly he was fine. PT eval placed . Neuro on board. Nephrology on board. Cardiology On word and recommended TTE. Waiting for SNF placement. 02/05/25 Patient seen at bedside. He is Alert x1, is talking and appears better. No overnight events reported. Patient is not hiccuping, still taking thickened liquids to swallow pills and sometimes has cough when swallowing. He denies any pain, nausea, vomiting. TTE pending, waiting for SNF placement. 02/06/25 Patient was seen at the bedside. He is alert x1. No overnight events were reported. Patient is not hiccupping. He is unable to swallow much and coughs even with a few sips of water. We have ordered a swallow test with pureed diet, suggested patient can not take nectar thick pureed diet. 02/07/2025 Patient seen at bedside. He is alert x1, no overnight events were reported. Patient is taking pureed diet, still coughing after taking sips of water. SHARMILA shows EF of 55%. Waiting for SNF placement. 02/08/2025 Patient seen at bedside. He is alert x1, no overnight events were reported, bedside swallow study showed and failed. GI was consulted for possible PEG tube placement. Waiting for SNF placement. 02/09/25 Patient seen at bedside. He is alert x1, no overnight events were reported or. GI was consulted and pending PEG tube placement. Called the sister and informed of patient's condition. Waiting for SNF placement 02/10/25 Patient seen at Bedside. He is alert x1, no overnight event were reported. EGD, peg tube was placed. Waiting for SNF placement. 02/11/25 Patient Bedside patient seen at bedside. Patient is moved to the [facility]. Patient is started feeding from the PEG tube with Napro 50 mL/hour. 02/12/25 Patient seen at bedside. patient is looking better today, patient had dialysis today, He had hypokalemia today and was given potassium. social service contacted for SNF placement. 02/13/2025 Patient seen at bedside. He is drowsy. He did not have dialysis yesterday, but underwent dialysis today. Patient's code status has been modified to 'modified resuscitation with ACLS drugs and BiPAP' which was discussed with the daughter. I signed the documents for it. The ACLS drugs are being given as it was suggested patient required vasopressin drugs during hemodialysis because his systolic blood pressure went down to 88 during dialysis. Wound Care Technician have been contacted for SNF placement. the nurse told me that the patient was unable to tolerate the Nepro 240 mL q.4. As he has diarrhea. GI on board, Nurse will ask suggestions from Dr. Mino Portillo. 02/14/2025 Patient seen at bedside. he appears drowsy, patient had a fever with T-max of 100.4 overnight. He appeared tachycardic with a were temperature of 100.2 we ordered lactic acid, repeat CMP CBC started vancomycin, ceftriaxone IV. Ordered ABG, urine and blood concerns. Ordered chest CT without contrast for hemoptysis. Patient having brown reddish stool from PEG tube. Surgery on board, GI on board. Ordered repeat EKG, pending. 02/15/2025 Patient seen at bedside. Patient was not opening his eyes Sluggish pupils but now is blinking and is moving his legs. patient when lying flat his tidal volume and oxygen saturation decreasing. So head CT was unable to be taken. on repeat chest x-ray showed New ill-defined slightly nodular appearing lateral midlung opacity. patient was started on azithromycin IV. echo showed LVEF of 65%, moderate LVH. neurology on board, cardiology on board, GI on board and recommended Trickle feeding via PEG tube 20 mL/hour, IV Protonix q.12 b.i.d., and to transfuse if hemoglobin is less than 7. Patient's PEG tube is on intermittent suction, with 150 mL output. Ordered Repeat H&H, pending. Blood cultures, urine cultures came back negative. 02/16/2025 patient seen at bedside. Patient is appearing better than before. He is able to talk softly, he is still alert x1, shows signs of weakness in his right arm and leg. Family was at bedside, discussed options for care of patient, including hospice. Patient dialysis today. Patient is tolerating tube feeding. Hemoglobin today was 8.1 after 1 bag transfusion of PRBC. gabapentin was changed to 100 mg daily. KUB abdomen ordered which showed moderate to large volume colonic stool for which lactulose 30 mL p.o. b.i.d. ordered. Also metoclopramide 10 mg IV Q [address] Multifocal airspace disease most prominent in the lower lobes, dwzu-[id number]-right. chest CT showed Multifocal airspace disease most prominent in the lower lobes, dndd-[id number]-sdon-right. 02/17/25 Patient seen at bedside. Patient is appearing much better today, he is awake and alert to place and person, talks softly. He is able to move and lift his arms and legs with improved muscle strength. EGD results showed mild gastritis, morbid esophagitis, with no fungal organisms or viral inclusions. Acyclovir was stopped. Objective vital signs Vital Sign Date Time Temp Pulse Resp B/P (MAP) Pulse Ox O2 Delivery O2 Flow Rate FiO2 02/17/25 06:23 101 18 100 02/17/25 06:13 Room Air* 0 21 02/17/25 05:30 140/59 (86) 02/17/25 04:00 98.2 98.2 Total Intake and Output 02/16/25 02/16/25 02/17/25 15:00 23:00 07:00 Intake Total 250 ml 185 ml 158 ml Output Total 650 ml 100 ml Balance 250 ml -465 ml 58 ml medications Current Medications Medications Dose Ordered Sig/Kellen Route Start Time Stop Time Status Last Admin Dose Admin Dextrose 50 ml UD PRN IV 02/02/25 01:00 Cancel Lorazepam 1 mg ONCE PRN IV 02/02/25 20:00 Pantoprazole Sodium 40 mg DAILY IV 02/11/25 10:00 UNV Enteral Nutritional Formula 240 ml IQ4HR PEG 02/12/25 12:00 02/16/25 08:00 240 ML Baclofen 5 mg BID PO 02/13/25 10:00 02/16/25 21:44 5 MG Amlodipine Besylate 10 mg DAILY PO 02/13/25 10:00 02/16/25 09:30 10 MG Atorvastatin Calcium 40 mg HS PO 02/13/25 22:00 02/16/25 21:44 40 MG Donepezil HCl 5 mg HS PO 02/13/25 22:00 02/16/25 21:44 5 MG Pantoprazole Sodium 40 mg BID IV 02/13/25 10:00 02/16/25 21:44 40 MG Ondansetron HCl 4 mg Q6HPRN PRN IV 02/13/25 14:15 Hold 02/13/25 14:30 4 MG Metoclopramide HCl 5 mg Q8HPRN PRN IV 02/13/25 17:00 Norepinephrine Bitartrate 250 ml @ 3.75 mls/hr Q24H IV 02/13/25 17:00 Ceftriaxone Sodium 50 ml @ 100 mls/hr DAILY@09 IV 02/15/25 09:00 02/16/25 08:39 100 MLS/HR Vancomycin HCl 0 ml @ 0 mls/hr UD IV 02/14/25 16:30 Acetaminophen 650 mg Q6HP PRN CA 02/14/25 17:45 02/14/25 18:17 650 MG Azithromycin 250 ml @ 125 mls/hr DAILY IV 02/16/25 10:00 02/16/25 09:30 125 MLS/HR Diagnostic Test (Pha) 1 strip ACHS 02/15/25 17:00 02/17/25 06:07 1 STRIP Insulin Human Regular HS SC 02/15/25 22:00 02/15/25 21:45 6 UNITS Insulin Human Regular AC SC 02/15/25 17:00 02/17/25 06:07 9 UNITS Dextrose 50 ml UD PRN IV 02/15/25 11:45 Insulin Glargine 10 units HS SC 02/15/25 22:00 02/16/25 21:45 10 UNITS Albuterol 2.5 mg Q6HR NEB 02/16/25 06:45 02/17/25 06:13 2.5 MG Ipratropium [place] 0.5 mg Q6HR NEB 02/16/25 06:45 02/17/25 06:13 0.5 MG Gabapentin 100 mg DAILY PO 02/16/25 10:00 Metoclopramide HCl 10 mg Q8HR IV 02/16/25 14:00 02/16/25 22:16 10 MG Lactulose 30 ml BID PO 02/16/25 22:00 02/16/25 21:44 30 ML Examination General: Patient alert and oriented in person, place and time. Patient following commands, HEENT: Normocephalic, atraumatic, moist mucous membranes, Respiratory/pulmonary: Clear lungs bilaterally, vesicular murmurs present in almost all lung islas, no associated crackles or wheezes. Cardiovascular: Normal heart sounds S1 and S2 with no associated murmurs Abdomen: Peg tube placed for nutrition with trickle feeding. Richardson catheter in place, with yellow urine. Extremities: There is no peripheral edema present at the lower extremities. Peripheral Pulses: 3+ Radial (R). 3+ Radial (L). 3+ Dorsalis pedis (R). 3+ Dorsalis pedis(L) Skin: No rashes or pruritus, there is no sacral edema present at this time. Neurological: Weakness present in right arm and leg laboratory and microbiology Laboratory Tests 02/17/25 05:36 Test 02/17/25 05:36 Range/Units Serum Glucose 260 H 74-106 mg/dL Microbiology Date/Time Source Procedure Growth Status 02/14/25 17:40 Blood Blood Culture - Preliminary NO GROWTH AFTER 48 HOURS OF INCUBATION. Resulted 02/14/25 16:13 Voided Urine Urine Culture - Final Complete 02/10/25 21:30 Nose MRSA Screen - Final Complete Problem List/Assessment/Plan Problem List/Assessment/Plan # Hypertensive urgency-resolving - Amlodipine 10 mg po - Monitor BP # Reactive leukocytosis- monitorlab # ESRD on HD # Missed HD # Non compliance with HD # Uremia # Acidemia managed with dialysis # Hyperkalemia managed with dialysis # Anemia of Chronic kidney disease from ESRD - Dialysis MWF at [facility] - Monitor lab - HD today and tommorrow - nephro consulted and stated Hemodialysis today then Saturday, Fluid restriction less than 1 L per day - PEG tube placement done - GI on board and recommended Trickle feeding via PEG tube 20 mL/hour, IV Protonix q.12 b.i.d., and to transfuse if hemoglobin is less than 7. -02/14/2025- patient having hemoptysis, heparin, Plavix, aspirin was held Patient has dark stool possibly blood, repeat CBC, CMP, ordered - ordered ABG, urine and blood cultures. -ordered chest CT without contrast, pending - 02/15/25 - repeat chest x-ray showed New ill-defined slightly nodular appearing lateral midlung opacity. - patient was started on azithromycin IV -echo showed LVEF of 65%, moderate LVH - # Generalized weakness, due to malnutrition # severe he calorie malnutrition # ruled out CVA # Hx of CVA - Head CT scan ,stable 8 mm hyperattenuating focus in the right internal capsule/ thalamus without any significant change - neuro consulted and recommended to give us a Aspirin 81 mg daily, Lipitor 40 mg daily, Aricept 5 mg daily - cardio consulted and recommended transesophageal echocardiogram at first availablity. TTE shows EF of 55%. -EGD, PEG tube has been place. GI on board - stomach biopsy showed no Helicobacter pylori, no malignancy, chronic inactive gastritis - esophagus biopsy showed no fungal organisms or viral inclusions, no malignancy, severe acute esophagitis with ulceration - patient started on Nepro # Hyponantremia -monitor lab # DM2 with hyperglycemia - Insulin sliding scale - HbA1C- 8.7 Purred diet PPI prophylaxis: Protonix 40 mg DVT Prophylaxis: Heparin 5000, q.12 Goals of care discussed with patient for 27 minutes Patient is CODE :DNR/DNI, confirmed with sister Case discussed with Dr. Vargas Plan discussed with: Patient, Other My Orders My Orders Orders - CHAU SYKES Procedure Category Date Status Time * Wound Care Technician CONS 02/16/25 Transmitted Consult Dietary Evaluation Review Comments: 1) Add 60g CCHO renal restriction to pureed diet 2) Initiate Nepro CarbSteady bid 3) Encourage optimal PO intake 4) Follow-up with nephrology and neurology 4) Continue to monitor I&O, labs, and skin integrity Expected Outcomes/Goals: 1) appetite and labs to improve 2) f/u in 3-5 days Date of Service: Feb 17, 2025 Billing Provider: KIMBER MORRIS MD Common Visit Codes: [id number] INP/OBS CARE(HIGH) CHAU SYKES Feb 17, 2025 09:17 KIMBER MORRIS MD Feb 21, 2025 16:45
--- NOTE | 2025-02-17 10:03 | DVHPN2 ---
Progress Note - Dictate Date Seen: Feb 17, 2025 Has the PT tested + for MRSA If YES, has PT been informed?: Yes Medical Necessity Reason Pt with a Central, PICC or Fol: Yes The following are medically ne: PICC Line, Richardson Catheter Subjective Mr. Torres is a 59 years old right-handed gentleman with a history of hypertension, diabetes, end-stage renal failure on hemodialysis, he was brought to the [facility] on 02/01/2025 with a chief complaint of general weakness, hypertension, dysphagia. I have seen examined the patient in the [facility], I have talked his nurse, he is awake, oriented to person, place, he talks with soft voice, her muscle strength is much better today He was transferred to [facility] for respiratory distress on 02/10/2025 He had a PEG tube insertion on 02/10/2025 RN: Gabapentin and baclofen may caused his mental status change Plasma alcohol, 02/01/2025: <3 UDS, 02/05/2025: Negative CBC, 02/01/2025: Unremarkable BUN/CR, 02/02/2025: 110/6.97 GFR, 02/02/2025: 9 HGB A1c, 02/02/2025: Able to seven TG/HDL/LDL/HDL, 02/02/2025: 174/124/56/38 Vitamin B12, 02/03/25: 676 Folic acid, 02/03/2025: 9.28 TSH, 02/03/2025: 0.23 FT4, 02/03/2025: 1.26 SHARMILA, 02/05/2025: * Technically good study. The patient was in a sinus rhythm. * Chamber dimension evaluation was within normal limits. * Valves appear to be structurally normal. * Left ventricular systolic function is preserved. EF is about 55% with normal RV function. * Doppler reveals mild TR, mild MR. No intraatrial or intraventricular shunt noted. * There is a small pericardial effusion, not hemodynamically significant. * No intracardiac masses, thrombi, and/or vegetation discernible. The atrial appendage is within normal limits without thrombi. * Bubble study also performed, showing no significant abnormalities Carotid doctor, 02/03/2025: Left mid and distal ICAs are not well-visualized with the distal right ICA not well-visualized. Otherwise, No hemodynamically significant stenosis within the visualized bilateral carotid arterial systems CT head, 02/02/2025 0042: 1. Subcentimeter hyperattenuating focus within the right internal capsule/thalamus may represent small intraparenchymal hemorrhage, or calcification. Correlate with symptoms and consider 6-8 hour follow-up head CT for reassessment. 2. Numerous hypodense foci within deep white matter and basal ganglia consistent with age indeterminate, but probably chronic lacunar infarcts. 3. Underlying sequela of mild chronic microangiopathy. CT head, 02/02/2025 1100: 1. Stable 8 mm hyperattenuating focus in the right internal capsule/ thalamus without any significant change. The etiology remains unclear since this has not changed. Continued short-term follow-up with noncontrast CT of the head in 6-8 hours is suggested. 2. Additional nonacute findings similar to prior CT performed earlier same date. (Chronic lacunar infarcts in the bilateral basal ganglia and thalami, I also see evidence suggestive of of bilateral pontine lacunar strokes) CT head, 02/16/2025: No acute intracranial abnormality. No significant interval change. MRI head, 02/03/2025: 1. Small chronic lacunar infarcts are seen in the right side of the nancy and left periventricular white matter. 2. Multifocal chronic ischemic changes as detailed above. 3. Multifocal areas of hemosiderin deposition from prior small hemorrhages. 4. Additional findings as detailed above. (Acute lacunar infarct in the right side of the nancy measuring up to 0.6 cm. Acute lacunar infarct in the left periventricular white matter adjacent to the body of the left ventricle measuring up to 0.8 cm.) vital signs Vital Sign Date Time Temp Pulse Resp B/P (MAP) Pulse Ox O2 Delivery O2 Flow Rate FiO2 02/17/25 06:23 101 18 100 02/17/25 06:13 Room Air* 0 21 02/17/25 05:30 140/59 (86) 02/17/25 04:00 98.2 98.2 Total Intake and Output 02/16/25 02/16/25 02/17/25 15:00 23:00 07:00 Intake Total 250 ml 185 ml 158 ml Output Total 650 ml 100 ml Balance 250 ml -465 ml 58 ml medications Current Medications Medications Dose Ordered Sig/Kellen Route Start Time Stop Time Status Last Admin Dose Admin Dextrose 50 ml UD PRN IV 02/02/25 01:00 Cancel Lorazepam 1 mg ONCE PRN IV 02/02/25 20:00 Pantoprazole Sodium 40 mg DAILY IV 02/11/25 10:00 UNV Enteral Nutritional Formula 240 ml IQ4HR PEG 02/12/25 12:00 02/16/25 08:00 240 ML Baclofen 5 mg BID PO 02/13/25 10:00 02/16/25 21:44 5 MG Amlodipine Besylate 10 mg DAILY PO 02/13/25 10:00 02/16/25 09:30 10 MG Atorvastatin Calcium 40 mg HS PO 02/13/25 22:00 02/16/25 21:44 40 MG Donepezil HCl 5 mg HS PO 02/13/25 22:00 02/16/25 21:44 5 MG Pantoprazole Sodium 40 mg BID IV 02/13/25 10:00 02/16/25 21:44 40 MG Ondansetron HCl 4 mg Q6HPRN PRN IV 02/13/25 14:15 Hold 02/13/25 14:30 4 MG Metoclopramide HCl 5 mg Q8HPRN PRN IV 02/13/25 17:00 Norepinephrine Bitartrate 250 ml @ 3.75 mls/hr Q24H IV 02/13/25 17:00 Ceftriaxone Sodium 50 ml @ 100 mls/hr DAILY@09 IV 02/15/25 09:00 02/16/25 08:39 100 MLS/HR Vancomycin HCl 0 ml @ 0 mls/hr UD IV 02/14/25 16:30 Acetaminophen 650 mg Q6HP PRN [place] 02/14/25 17:45 02/14/25 18:17 650 MG Azithromycin 250 ml @ 125 mls/hr DAILY IV 02/16/25 10:00 02/16/25 09:30 125 MLS/HR Diagnostic Test (Pha) 1 strip ACHS 02/15/25 17:00 02/17/25 06:07 1 STRIP Insulin Human Regular HS SC 02/15/25 22:00 02/15/25 21:45 6 UNITS Insulin Human Regular AC SC 02/15/25 17:00 02/17/25 06:07 9 UNITS Dextrose 50 ml UD PRN IV 02/15/25 11:45 Insulin Glargine 10 units HS SC 02/15/25 22:00 02/16/25 21:45 10 UNITS Albuterol 2.5 mg Q6HR NEB 02/16/25 06:45 02/17/25 06:13 2.5 MG Ipratropium [place] 0.5 mg Q6HR NEB 02/16/25 06:45 02/17/25 06:13 0.5 MG Gabapentin 100 mg DAILY PO 02/16/25 10:00 Metoclopramide HCl 10 mg Q8HR IV 02/16/25 14:00 02/16/25 22:16 10 MG Lactulose 30 ml BID PO 02/16/25 22:00 02/16/25 21:44 30 ML objective General: the patient is well developed and nourished. No acute distress. MENTAL STATUS: Subjective SPEECH, LANGUAGE, HIGHER CORTICAL FUNCTION: no aphasia CRANIAL NERVES: Pupils are equal, round and reactive. EOMs full and conjugate. Facial sensation intact in all three divisions bilaterally. Mandibular strength intact. Mild right facial weakness. Tongue midline. No fasciculations or atrophy. SENSATION: Sensation to touch and pinprick is unremarkable MOTOR: Normal tone in the upper and lower extremity. Normal muscle bulk. No fasciculations. No abnormal movements or posturing. Muscle strength of the major groups in the extremities is 4/5 with right arm mildly weaker REFLEXES: Deep tendon reflexes are symmetrical. No pathological reflexes. CEREBELLAR/COORDINATION: Deferred GAIT/STATION: deferred laboratory and microbiology Laboratory Tests 02/17/25 05:36 Test 02/17/25 05:36 Range/Units Serum Glucose 260 H 74-106 mg/dL Problem List A high attenuation CT lesion in the right basal ganglia region is likely calcification Acute stroke in the nancy and left basal ganglia region Chronic multiple strokes/lacunar infarcts in bilateral basal ganglia reason Dementia, likely vascular dementia, but need to rule out Alzheimer disease and other etiology Dysphagia, possibly secondary to multiple strokes Hypertensive encephalopathy Dysphagia status post PEG feeding tube Sleep-related breathing disorder/Sleep apnea Assessment/Plan Monitoring Supportive treatment [facility] care Aspirin 81 mg daily Plavix 75 mg q.d. for 21 days Lipitor 40 mg daily Aricept 5 mg daily Pantoprazole 40 mg daily ? Wean off/ baclofen, gabapentin BiPAP Up to chair Physical therapy Nephrology on case/hemodialysis More recommendation per clinical course This medical document was created using an electronic medical record system with Dragon computerized dictation system. Although this document has been carefully reviewed, there may still be some phonetic and typographical errors. These areas are purely typographical due to imperfections of the software programs, and do not reflect any compromise in the patient's medical care Prognosis Poor Dietary Evaluation Review Comments: 1) Add 60g CCHO renal restriction to pureed diet 2) Initiate Nepro CarbSteady bid 3) Encourage optimal PO intake 4) Follow-up with nephrology and neurology 4) Continue to monitor I&O, labs, and skin integrity Expected Outcomes/Goals: 1) appetite and labs to improve 2) f/u in 3-5 days Plan discussed with: Other YURY MARQUEZ MD Feb 17, 2025 10:03
[2025-02-17] MEDS: POTASSIUM EFFERVESENT TAB 25 MEQ PO ONE (11:25)
[2025-02-17] MEDS: Nepro With Carb Steady 1 Liter Bottle GT SCH (11:35)
--- NOTE | 2025-02-17 14:53 | DVHPN2 ---
Progress Note Date Seen: Feb 17, 2025 Resident Creating Document: VANDA SMITH RESIDENT Has the PT tested + for MRSA If YES, has PT been informed?: Yes Medical Necessity Reason Pt with a Central, PICC or Fol: Yes The following are medically ne: PICC Line, Richardson Catheter Subjective Review of Systems Today's progress- Today, the patient had 3 black stools, with 6 bowel movements overnight. No hematemesis or abdominal pain reported. He he remains arousable, and without acute distress. PEG tube in place and functioning, no residuals noted, patient is tolerating continuous PEG tube feeds. Reglan remains on hold. Hemoglobin stable at 8.2 grams/deciliter yesterday 8.1. LFTs are normal. WBC count normal. Most recent hemodialysis were performed yesterday. EGD biopsy results- Stomach-mild chronic inactive gastritis, negative for H pylori, no interstitial metaplasia, dysplasia or malignancy. Esophagus-severe acute esophagitis with ulceration. Negative for malignancy, no fungal organisms or viral inclusions identified. Based on biopsy, viral esophagitis ruled out Acyclovir discontinued. Patient is being planned to [place] with palliative care with ongoing hemodialysis support Objective vital signs Vital Sign Date Time Temp Pulse Resp B/P (MAP) Pulse Ox O2 Delivery O2 Flow Rate FiO2 02/17/25 11:44 161/73 02/17/25 11:32 101 18 100 02/17/25 06:13 Room Air* 0 21 02/17/25 04:00 98.2 98.2 Total Intake and Output 02/16/25 02/16/25 02/17/25 15:00 23:00 07:00 Intake Total 250 ml 185 ml 158 ml Output Total 650 ml 100 ml Balance 250 ml -465 ml 58 ml medications Current Medications Medications Dose Ordered Sig/Kellen Route Start Time Stop Time Status Last Admin Dose Admin Dextrose 50 ml UD PRN IV 02/02/25 01:00 Cancel Lorazepam 1 mg ONCE PRN IV 02/02/25 20:00 Pantoprazole Sodium 40 mg DAILY IV 02/11/25 10:00 UNV Amlodipine Besylate 10 mg DAILY PO 02/13/25 10:00 02/17/25 11:44 10 MG Atorvastatin Calcium 40 mg HS PO 02/13/25 22:00 02/16/25 21:44 40 MG Donepezil HCl 5 mg HS PO 02/13/25 22:00 02/16/25 21:44 5 MG Pantoprazole Sodium 40 mg BID IV 02/13/25 10:00 02/17/25 11:25 40 MG Ondansetron HCl 4 mg Q6HPRN PRN IV 02/13/25 14:15 Hold 02/13/25 14:30 4 MG Metoclopramide HCl 5 mg Q8HPRN PRN IV 02/13/25 17:00 Norepinephrine Bitartrate 250 ml @ 3.75 mls/hr Q24H IV 02/13/25 17:00 Ceftriaxone Sodium 50 ml @ 100 mls/hr DAILY@09 IV 02/15/25 09:00 02/17/25 11:30 100 MLS/HR Vancomycin HCl 0 ml @ 0 mls/hr UD IV 02/14/25 16:30 Acetaminophen 650 mg Q6HP PRN [place] 02/14/25 17:45 02/14/25 18:17 650 MG Azithromycin 250 ml @ 125 mls/hr DAILY IV 02/16/25 10:00 02/17/25 12:19 125 MLS/HR Diagnostic Test (Pha) 1 strip ACHS 02/15/25 17:00 02/17/25 11:36 1 STRIP Insulin Human Regular HS SC 02/15/25 22:00 02/15/25 21:45 6 UNITS Insulin Human Regular AC SC 02/15/25 17:00 02/17/25 12:10 3 UNITS Dextrose 50 ml UD PRN IV 02/15/25 11:45 Insulin Glargine 10 units HS SC 02/15/25 22:00 02/16/25 21:45 10 UNITS Albuterol 2.5 mg Q6HR NEB 02/16/25 06:45 02/17/25 11:22 2.5 MG Ipratropium [place] 0.5 mg Q6HR NEB 02/16/25 06:45 02/17/25 11:22 0.5 MG Metoclopramide HCl 10 mg Q8HR IV 02/16/25 14:00 02/16/25 22:16 10 MG Lactulose 30 ml BID PO 02/16/25 22:00 02/16/25 21:44 30 ML Enteral Nutritional Formula 1,000 ml 30ML/HR GT 02/17/25 10:30 02/17/25 11:35 1,000 ML Examination General: Somnolent but arousable, nonverbal * Abdomen: PEG tube in place; draining brown fluid; abdomen soft, nondistended, non-tender, normal bowel sounds laboratory and microbiology Laboratory Tests 02/17/25 05:36 Test 02/17/25 05:36 Range/Units Serum Glucose 260 H 74-106 mg/dL Microbiology Date/Time Source Procedure Growth Status 02/16/25 11:20 Sputum Gram Stain Pending Resulted 02/16/25 11:20 Sputum Respiratory Culture - Preliminary Resulted 02/14/25 17:40 Blood Blood Culture - Preliminary NO GROWTH AFTER 48 HOURS OF INCUBATION. Resulted 02/14/25 16:13 Voided Urine Urine Culture - Final Complete 02/10/25 21:30 Nose MRSA Screen - Final Complete Problem List/Assessment/Plan Problem List/Assessment/Plan Assessment 1. Possible upper GI bleed post-PEG placement * Evidence: Brown fluid in PEG drainage, Hb drop (9.7 ? 7.7), positive stool occult * Rule in: Gastric mucosal trauma, stress ulcer, PEG site ulceration, reflux gastritis * Rule out: Peptic ulcer disease, variceal bleed, malignancy 2. Nutritional compromise in ESRD patient with PEG tube in place * Currently on trickle feeding (20 mL/hr renal formula) * Risk of refeeding, electrolyte shifts, and aspiration 3. Post-PEG care * Monitoring for bleeding, infection, dislodgement, aspiration 4. Chest X-ray abnormality 5. Possible viral esophagitis HSV versus CMV Plan A. Upper GI Bleed / Anemia * Continue IV pantoprazole 40 mg q12h * Monitor PEG output closely (color, volume) * Serial hemoglobin/hematocrit q68h * Transfuse PRBC if Hb <7 g/dL or symptomatic * Hold NSAIDs and anticoagulants * Consider EGD if ongoing significant bleeding or Hb drop persists B. Nutrition (PEG Feeding) * Continue feeds at 30 mL/hr renal formula * Advance slowly if tolerated and no ongoing bleeding * Continue daily monitoring of electrolytes, Mg, Phos (adjust for dialysis) * Strict aspiration precautions; HOB >30 * Flush PEG with sterile water 30 mL q46h (coordinate with nephrology for fluid restriction) C. Prophylaxis & Supportive Care * Stress ulcer prophylaxis: IV PPI continued * DVT prophylaxis: SCDs only (pharmacologic held due to bleeding risk) * Continue dialysis per TTS schedule * Monitor for PEG site infection; daily site care Case discussed in detail with the attending physician, including the clinical presentation, diagnostic workup, and comprehensive management plan Plan discussed with: Other (RN) Dietary Evaluation Review Comments: 1) Add 60g CCHO renal restriction to pureed diet 2) Initiate Nepro CarbSteady bid 3) Encourage optimal PO intake 4) Follow-up with nephrology and neurology 4) Continue to monitor I&O, labs, and skin integrity Expected Outcomes/Goals: 1) appetite and labs to improve 2) f/u in 3-5 days VANDA SMITH RESIDENT Feb 17, 2025 14:53
[2025-02-17] MEDS ORDERED: DEXTROSE (50%) 50ML SYRG IV PRN (15:45)
--- NOTE | 2025-02-17 15:56 | DVHPN2 ---
Progress Note - Dictate Date Seen: Feb 17, 2025 Has the PT tested + for MRSA If YES, has PT been informed?: Yes Medical Necessity Reason Pt with a Central, PICC or Fol: Yes The following are medically ne: PICC Line, Richardson Catheter Subjective no new symptoms vital signs Vital Sign Date Time Temp Pulse Resp B/P (MAP) Pulse Ox O2 Delivery O2 Flow Rate FiO2 02/17/25 11:44 161/73 02/17/25 11:32 101 18 100 02/17/25 06:13 Room Air* 0 21 02/17/25 04:00 98.2 98.2 Total Intake and Output 02/16/25 02/16/25 02/17/25 15:00 23:00 07:00 Intake Total 250 ml 185 ml 158 ml Output Total 650 ml 100 ml Balance 250 ml -465 ml 58 ml medications Current Medications Medications Dose Ordered Sig/Kellen Route Start Time Stop Time Status Last Admin Dose Admin Dextrose 50 ml UD PRN IV 02/02/25 01:00 Cancel Lorazepam 1 mg ONCE PRN IV 02/02/25 20:00 Pantoprazole Sodium 40 mg DAILY IV 02/11/25 10:00 UNV Amlodipine Besylate 10 mg DAILY PO 02/13/25 10:00 02/17/25 11:44 10 MG Atorvastatin Calcium 40 mg HS PO 02/13/25 22:00 02/16/25 21:44 40 MG Donepezil HCl 5 mg HS PO 02/13/25 22:00 02/16/25 21:44 5 MG Pantoprazole Sodium 40 mg BID IV 02/13/25 10:00 02/17/25 11:25 40 MG Ondansetron HCl 4 mg Q6HPRN PRN IV 02/13/25 14:15 Hold 02/13/25 14:30 4 MG Metoclopramide HCl 5 mg Q8HPRN PRN IV 02/13/25 17:00 Norepinephrine Bitartrate 250 ml @ 3.75 mls/hr Q24H IV 02/13/25 17:00 Ceftriaxone Sodium 50 ml @ 100 mls/hr DAILY@09 IV 02/15/25 09:00 02/17/25 11:30 100 MLS/HR Vancomycin HCl 0 ml @ 0 mls/hr UD IV 02/14/25 16:30 Acetaminophen 650 mg Q6HP PRN [place] 02/14/25 17:45 02/14/25 18:17 650 MG Azithromycin 250 ml @ 125 mls/hr DAILY IV 02/16/25 10:00 02/17/25 12:19 125 MLS/HR Insulin Glargine 10 units HS SC 02/15/25 22:00 02/16/25 21:45 10 UNITS Albuterol 2.5 mg Q6HR NEB 02/16/25 06:45 02/17/25 11:22 2.5 MG Ipratropium [place] 0.5 mg Q6HR NEB 02/16/25 06:45 02/17/25 11:22 0.5 MG Metoclopramide HCl 10 mg Q8HR IV 02/16/25 14:00 02/16/25 22:16 10 MG Lactulose 30 ml BID PO 02/16/25 22:00 02/16/25 21:44 30 ML Enteral Nutritional Formula 1,000 ml 30ML/HR GT 02/17/25 10:30 02/17/25 11:35 1,000 ML Diagnostic Test (Pha) 1 strip Q6HR 02/17/25 18:00 Insulin Human Regular Q6HR SC 02/17/25 18:00 Dextrose 50 ml UD PRN IV 02/17/25 15:45 objective Chronically ill-appearing patient HEENT: No evidence of JVD, no oral ulcers. Pulmonary: Lungs are clear on auscultation bilaterally Cardiovascular S1-S2, no S3 or S4 Abdomen: Bowel sounds positive, soft no rebound tenderness Skin: No rash Neurological: Alert, oriented laboratory and microbiology Laboratory Tests 02/17/25 05:36 Test 02/17/25 05:36 Range/Units Serum Glucose 260 H 74-106 mg/dL Assessment/Plan Assessment: End-stage renal disease TTS, stable from renal standpoint Hypertension Hyperkalemia , resolved Subcentimeter hypoattenuating lesion on CT, acute CVA History of CVA Anemia of Chronic kidney disease patient remains encephalopathic Plan: s/p HD Saturday HD on HD on TTS schedule Using IV albumin during HD for hemodynamic support Fluid restriction less than 1 L per day Neurology following Will need PEG tube placement and disposition to SNF Dietary Evaluation Review Comments: 1) Add 60g CCHO renal restriction to pureed diet 2) Initiate Nepro CarbSteady bid 3) Encourage optimal PO intake 4) Follow-up with nephrology and neurology 4) Continue to monitor I&O, labs, and skin integrity Expected Outcomes/Goals: 1) appetite and labs to improve 2) f/u in 3-5 days Plan discussed with: Patient DONATO RIVERA MD Feb 17, 2025 15:56
[2025-02-17] MEDS: POTASSIUM EFFERVESENT TAB 25 MEQ GT ONE (16:00)
[2025-02-17] MEDS: ALBUTEROL SULF 2.5 MG/0.5ML(0.5%) NEB SOLN ONE (17:40)
[2025-02-17] MEDS: IPRATROPIUM BROM 0.5 MG/2.5ML INH SOL ONE (17:41)
[2025-02-17] MEDS: ACCU-CHEK COMFORT CURVE STRIP VI SCH (18:14)
[2025-02-17] MEDS: InsuLIN REG 1unit/0.01ml Soln (100units/ml) SC SCH (18:17)
[2025-02-17] MEDS ORDERED: METOCLOPRAMIDE HCL 5MG/ml INJ 2ml VIAL IV PRN (19:45)
--- NOTE | 2025-02-17 23:15 | DVHPN2 ---
Progress Note - Dictate Date Seen: Feb 17, 2025 Has the PT tested + for MRSA If YES, has PT been informed?: Yes Medical Necessity Reason Pt with a Central, PICC or Fol: Yes The following are medically ne: PICC Line, Richardson Catheter Subjective Patient was seen and evaluated in follow up in the [facility]. Patient is on 2 LPM NC. Patient's muscle strength is improving. PEG tube in place and functioning, no residuals noted. HGB 8.2, HCT 23.1, K 3.2, BUN 25, MASTER CERTIFIED RV TECHNICIAN 2.92, CA 8.3. EGD biopsy ruled out viral esophagitis and Acyclovir was discontinued. vital signs Vital Sign Date Time Temp Pulse Resp B/P (MAP) Pulse Ox O2 Delivery O2 Flow Rate FiO2 02/17/25 11:44 161/73 02/17/25 11:32 101 18 100 02/17/25 06:13 Room Air* 0 21 02/17/25 04:00 98.2 98.2 Total Intake and Output 02/16/25 02/16/25 02/17/25 15:00 23:00 07:00 Intake Total 250 ml 185 ml 158 ml Output Total 650 ml 100 ml Balance 250 ml -465 ml 58 ml medications Current Medications Medications Dose Ordered Sig/Kellen Route Start Time Stop Time Status Last Admin Dose Admin Dextrose 50 ml UD PRN IV 02/02/25 01:00 Cancel Lorazepam 1 mg ONCE PRN IV 02/02/25 20:00 Pantoprazole Sodium 40 mg DAILY IV 02/11/25 10:00 UNV Amlodipine Besylate 10 mg DAILY PO 02/13/25 10:00 02/17/25 11:44 10 MG Atorvastatin Calcium 40 mg HS PO 02/13/25 22:00 02/16/25 21:44 40 MG Donepezil HCl 5 mg HS PO 02/13/25 22:00 02/16/25 21:44 5 MG Pantoprazole Sodium 40 mg BID IV 02/13/25 10:00 02/17/25 11:25 40 MG Ondansetron HCl 4 mg Q6HPRN PRN IV 02/13/25 14:15 Hold 02/13/25 14:30 4 MG Metoclopramide HCl 5 mg Q8HPRN PRN IV 02/13/25 17:00 Norepinephrine Bitartrate 250 ml @ 3.75 mls/hr Q24H IV 02/13/25 17:00 Ceftriaxone Sodium 50 ml @ 100 mls/hr DAILY@09 IV 02/15/25 09:00 02/17/25 11:30 100 MLS/HR Vancomycin HCl 0 ml @ 0 mls/hr UD IV 02/14/25 16:30 Acetaminophen 650 mg Q6HP PRN [place] 02/14/25 17:45 02/14/25 18:17 650 MG Azithromycin 250 ml @ 125 mls/hr DAILY IV 02/16/25 10:00 02/17/25 12:19 125 MLS/HR Diagnostic Test (Pha) 1 strip ACHS 02/15/25 17:00 02/17/25 11:36 1 STRIP Insulin Human Regular HS SC 02/15/25 22:00 02/15/25 21:45 6 UNITS Insulin Human Regular AC SC 02/15/25 17:00 02/17/25 12:10 3 UNITS Dextrose 50 ml UD PRN IV 02/15/25 11:45 Insulin Glargine 10 units HS SC 02/15/25 22:00 02/16/25 21:45 10 UNITS Albuterol 2.5 mg Q6HR NEB 02/16/25 06:45 02/17/25 11:22 2.5 MG Ipratropium [place] 0.5 mg Q6HR NEB 02/16/25 06:45 02/17/25 11:22 0.5 MG Metoclopramide HCl 10 mg Q8HR IV 02/16/25 14:00 02/16/25 22:16 10 MG Lactulose 30 ml BID PO 02/16/25 22:00 02/16/25 21:44 30 ML Enteral Nutritional Formula 1,000 ml 30ML/HR GT 02/17/25 10:30 02/17/25 11:35 1,000 ML objective GENERAL: A&O x2. Somewhat non-verbal, +dysphagia EYES: PERRL, EOMI. Anicteric. HENT: Moist mucous membranes. LUNGS: Clear to auscultation bilaterally. CARDIOVASCULAR: Regular rate and rhythm. ABDOMEN: Soft, non-tender and non-distended. EXTREMITIES: No edema. SKIN: Warm, dry. laboratory and microbiology Laboratory Tests 02/17/25 05:36 Test 02/17/25 05:36 Range/Units Serum Glucose 260 H 74-106 mg/dL Problem List Acute CVA rule out cardioembolic source. History of multiple chronic strokes. Hypertensive urgency. Diabetes mellitus type 2. ESRD on HD. Medical noncompliance (missed HD). Assessment/Plan Continued all current supportive medical care. Amlodipine. IV antibiotics as ordered. GI prophylactics. Additional plan as per the hospital course. Critical care time of 45 minutes provided to include time spent evaluation of patient at bedside, when appropriate patient/family education for diagnosis, treatment plan, review of pertinent medical information and discussion of care with specialty providers and PCP Dietary Evaluation Review Comments: 1) Add 60g CCHO renal restriction to pureed diet 2) Initiate Nepro CarbSteady bid 3) Encourage optimal PO intake 4) Follow-up with nephrology and neurology 4) Continue to monitor I&O, labs, and skin integrity Expected Outcomes/Goals: 1) appetite and labs to improve 2) f/u in 3-5 days Plan discussed with: Patient DESIREE BERNAL MD Feb 17, 2025 14:42
[2025-02-18] VITALS (50 sets, daily range): BP systolic 112–163; BP diastolic 45–78; PULSE 83–101; RESP 10–22; TEMP 97.9–99.3; O2SAT 88–100
--- NOTE | 2025-02-18 06:25 | DVHPN2 ---
Progress Note - Dictate Date Seen: Feb 18, 2025 Has the PT tested + for MRSA If YES, has PT been informed?: Yes Medical Necessity Reason Pt with a Central, PICC or Fol: Yes The following are medically ne: PICC Line, Richardson Catheter Subjective no new symptoms vital signs Vital Sign Date Time Temp Pulse Resp B/P (MAP) Pulse Ox O2 Delivery O2 Flow Rate FiO2 02/18/25 06:00 90 10 154/77 (102) 100 02/18/25 06:00 Room Air* 0 21 02/18/25 04:00 97.9 97.9 Total Intake and Output 02/17/25 02/17/25 02/18/25 15:00 23:00 07:00 Intake Total 475 ml 256 ml 390 ml Output Total 250 ml 200 ml Balance 475 ml 6 ml 190 ml medications Current Medications Medications Dose Ordered Sig/Kellen Route Start Time Stop Time Status Last Admin Dose Admin Dextrose 50 ml UD PRN IV 02/02/25 01:00 Cancel Lorazepam 1 mg ONCE PRN IV 02/02/25 20:00 Pantoprazole Sodium 40 mg DAILY IV 02/11/25 10:00 UNV Amlodipine Besylate 10 mg DAILY PO 02/13/25 10:00 02/17/25 11:44 10 MG Atorvastatin Calcium 40 mg HS PO 02/13/25 22:00 02/17/25 21:37 40 MG Donepezil HCl 5 mg HS PO 02/13/25 22:00 02/17/25 21:37 5 MG Pantoprazole Sodium 40 mg BID IV 02/13/25 10:00 02/17/25 21:37 40 MG Ondansetron HCl 4 mg Q6HPRN PRN IV 02/13/25 14:15 Hold 02/13/25 14:30 4 MG Metoclopramide HCl 5 mg Q8HPRN PRN IV 02/13/25 17:00 Norepinephrine Bitartrate 250 ml @ 3.75 mls/hr Q24H IV 02/13/25 17:00 Ceftriaxone Sodium 50 ml @ 100 mls/hr DAILY@09 IV 02/15/25 09:00 02/17/25 11:30 100 MLS/HR Vancomycin HCl 0 ml @ 0 mls/hr UD IV 02/14/25 16:30 Acetaminophen 650 mg Q6HP PRN AR 02/14/25 17:45 02/14/25 18:17 650 MG Azithromycin 250 ml @ 125 mls/hr DAILY IV 02/16/25 10:00 02/17/25 12:19 125 MLS/HR Insulin Glargine 10 units HS SC 02/15/25 22:00 02/17/25 21:38 10 UNITS Albuterol 2.5 mg Q6HR NEB 02/16/25 06:45 02/17/25 23:50 2.5 MG Ipratropium [place] 0.5 mg Q6HR NEB 02/16/25 06:45 02/17/25 23:50 0.5 MG Lactulose 30 ml BID PO 02/16/25 22:00 02/16/25 21:44 30 ML Enteral Nutritional Formula 1,000 ml 30ML/HR GT 02/17/25 10:30 02/17/25 11:35 1,000 ML Diagnostic Test (Pha) 1 strip Q6HR 02/17/25 18:00 02/17/25 23:48 1 STRIP Insulin Human Regular Q6HR SC 02/17/25 18:00 02/17/25 23:49 6 UNITS Dextrose 50 ml UD PRN IV 02/17/25 15:45 Metoclopramide HCl 10 mg Q8HR PRN IV 02/17/25 19:45 objective Chronically ill-appearing patient HEENT: No evidence of JVD, no oral ulcers. Pulmonary: Lungs are clear on auscultation bilaterally Cardiovascular S1-S2, no S3 or S4 Abdomen: Bowel sounds positive, soft no rebound tenderness Skin: No rash Neurological: Alert, oriented laboratory and microbiology Test 02/18/25 05:30 Range/Units Serum Glucose Pending Assessment/Plan Assessment: End-stage renal disease TTS, stable from renal standpoint Hypertension Hyperkalemia , resolved Subcentimeter hypoattenuating lesion on CT, acute CVA History of CVA Anemia of Chronic kidney disease patient remains encephalopathic Plan: Scheduled for HD today () last HD was on Saturday HD on TTS schedule Using IV albumin during HD for hemodynamic support Neurology following Will need PEG tube placement and disposition to SNF Dietary Evaluation Review Comments: 1) Add 60g CCHO renal restriction to pureed diet 2) Initiate Nepro CarbSteady bid 3) Encourage optimal PO intake 4) Follow-up with nephrology and neurology 4) Continue to monitor I&O, labs, and skin integrity Expected Outcomes/Goals: 1) appetite and labs to improve 2) f/u in 3-5 days Plan discussed with: DONATO Pastrana MD Feb 18, 2025 06:25
[2025-02-18 06:27] LABS: Hematocrit 25.2 % (41.0-53.0); Hemoglobin 8.5 g/dL (13.5-17.5); Mean Corpuscular Hemoglobin 29.5 pg (28.0-32.0); Mean Corpuscular Volume 87.2 fL (80.0-100.0); Nucleated Red Blood Cells % 0.1 %
[2025-02-18 06:52] LABS: Chloride 100 mmol/L (98-107); Potassium 3.7 mmol/L (3.5-5.1); Sodium 141 mmol/L (136-145)
[2025-02-18 06:53] LABS: Anion Gap 8 (5-15)
[2025-02-18 06:58] LABS: BUN/Creatinine Ratio 7.2 (10.0-20.0)
[2025-02-18] MEDS: SODIUM CHL 0.9% 1000 ML BAG XX ONE (07:00)
[2025-02-18 07:02] LABS: Blood Urea Nitrogen 27 mg/dL (9-23); Calcium 8.5 mg/dL (8.7-10.4); Carbon Dioxide 33 mmol/L (20-31); Glucose 218 mg/dL (74-106)
--- NOTE | 2025-02-18 10:12 | DVHPN2 ---
Progress Note - Dictate Date Seen: Feb 18, 2025 Has the PT tested + for MRSA If YES, has PT been informed?: Yes Medical Necessity Reason Pt with a Central, PICC or Fol: Yes The following are medically ne: PICC Line, Richardson Catheter Subjective Mr. Torres is a 59 years old right-handed gentleman with a history of hypertension, diabetes, end-stage renal failure on hemodialysis, he was brought to the [facility] on 02/01/2025 with a chief complaint of general weakness, hypertension, dysphagia. I have seen examined the patient in the [facility], I have talked his nurse, he is awake, oriented to person, place, he talks with soft voice, he moves the arms legs, otherwise no of the changes I have discussing, he agreed to use CPAP/BiPAP He was transferred to [facility] for respiratory distress on 02/10/2025 He had a PEG tube insertion on 02/10/2025 Plasma alcohol, 02/01/2025: <3 UDS, 02/05/2025: Negative CBC, 02/01/2025: Unremarkable BUN/CR, 02/02/2025: 110/6.97 GFR, 02/02/2025: 9 HGB A1c, 02/02/2025: Able to seven TG/HDL/LDL/HDL, 02/02/2025: 174/124/56/38 Vitamin B12, 02/03/25: 676 Folic acid, 02/03/2025: 9.28 TSH, 02/03/2025: 0.23 FT4, 02/03/2025: 1.26 SHARMILA, 02/05/2025: * Technically good study. The patient was in a sinus rhythm. * Chamber dimension evaluation was within normal limits. * Valves appear to be structurally normal. * Left ventricular systolic function is preserved. EF is about 55% with normal RV function. * Doppler reveals mild TR, mild MR. No intraatrial or intraventricular shunt noted. * There is a small pericardial effusion, not hemodynamically significant. * No intracardiac masses, thrombi, and/or vegetation discernible. The atrial appendage is within normal limits without thrombi. * Bubble study also performed, showing no significant abnormalities Carotid doctor, 02/03/2025: Left mid and distal ICAs are not well-visualized with the distal right ICA not well-visualized. Otherwise, No hemodynamically significant stenosis within the visualized bilateral carotid arterial systems CT head, 02/02/2025 0042: 1. Subcentimeter hyperattenuating focus within the right internal capsule/thalamus may represent small intraparenchymal hemorrhage, or calcification. Correlate with symptoms and consider 6-8 hour follow-up head CT for reassessment. 2. Numerous hypodense foci within deep white matter and basal ganglia consistent with age indeterminate, but probably chronic lacunar infarcts. 3. Underlying sequela of mild chronic microangiopathy. CT head, 02/02/2025 1100: 1. Stable 8 mm hyperattenuating focus in the right internal capsule/ thalamus without any significant change. The etiology remains unclear since this has not changed. Continued short-term follow-up with noncontrast CT of the head in 6-8 hours is suggested. 2. Additional nonacute findings similar to prior CT performed earlier same date. (Chronic lacunar infarcts in the bilateral basal ganglia and thalami, I also see evidence suggestive of of bilateral pontine lacunar strokes) CT head, 02/16/2025: No acute intracranial abnormality. No significant interval change. MRI head, 02/03/2025: 1. Small chronic lacunar infarcts are seen in the right side of the nancy and left periventricular white matter. 2. Multifocal chronic ischemic changes as detailed above. 3. Multifocal areas of hemosiderin deposition from prior small hemorrhages. 4. Additional findings as detailed above. (Acute lacunar infarct in the right side of the nancy measuring up to 0.6 cm. Acute lacunar infarct in the left periventricular white matter adjacent to the body of the left ventricle measuring up to 0.8 cm.) vital signs Vital Sign Date Time Temp Pulse Resp B/P (MAP) Pulse Ox O2 Delivery O2 Flow Rate FiO2 02/18/25 10:00 90 12 149/68 (95) 97 02/18/25 09:53 Room Air* 0 21 02/18/25 07:30 98.5 98.5 Total Intake and Output 02/17/25 02/17/25 02/18/25 15:00 23:00 07:00 Intake Total 475 ml 256 ml 390 ml Output Total 250 ml 200 ml Balance 475 ml 6 ml 190 ml medications Current Medications Medications Dose Ordered Sig/Kellen Route Start Time Stop Time Status Last Admin Dose Admin Dextrose 50 ml UD PRN IV 02/02/25 01:00 Cancel Lorazepam 1 mg ONCE PRN IV 02/02/25 20:00 Pantoprazole Sodium 40 mg DAILY IV 02/11/25 10:00 UNV Amlodipine Besylate 10 mg DAILY PO 02/13/25 10:00 02/17/25 11:44 10 MG Atorvastatin Calcium 40 mg HS PO 02/13/25 22:00 02/17/25 21:37 40 MG Donepezil HCl 5 mg HS PO 02/13/25 22:00 02/17/25 21:37 5 MG Pantoprazole Sodium 40 mg BID IV 02/13/25 10:00 02/18/25 08:36 40 MG Ondansetron HCl 4 mg Q6HPRN PRN IV 02/13/25 14:15 Hold 02/13/25 14:30 4 MG Metoclopramide HCl 5 mg Q8HPRN PRN IV 02/13/25 17:00 Norepinephrine Bitartrate 250 ml @ 3.75 mls/hr Q24H IV 02/13/25 17:00 Ceftriaxone Sodium 50 ml @ 100 mls/hr DAILY@09 IV 02/15/25 09:00 02/18/25 08:36 100 MLS/HR Vancomycin HCl 0 ml @ 0 mls/hr UD IV 02/14/25 16:30 Acetaminophen 650 mg Q6HP PRN PA 02/14/25 17:45 02/14/25 18:17 650 MG Azithromycin 250 ml @ 125 mls/hr DAILY IV 02/16/25 10:00 02/18/25 08:37 125 MLS/HR Insulin Glargine 10 units HS SC 02/15/25 22:00 02/17/25 21:38 10 UNITS Albuterol 2.5 mg Q6HR NEB 02/16/25 06:45 02/17/25 23:50 2.5 MG Ipratropium [place] 0.5 mg Q6HR NEB 02/16/25 06:45 02/18/25 07:26 0.5 MG Lactulose 30 ml BID PO 02/16/25 22:00 02/18/25 08:36 30 ML Enteral Nutritional Formula 1,000 ml 30ML/HR GT 02/17/25 10:30 02/17/25 11:35 1,000 ML Diagnostic Test (Pha) 1 strip Q6HR 02/17/25 18:00 02/18/25 08:37 1 STRIP Insulin Human Regular Q6HR SC 02/17/25 18:00 02/18/25 06:19 6 UNITS Dextrose 50 ml UD PRN IV 02/17/25 15:45 Metoclopramide HCl 10 mg Q8HR PRN IV 02/17/25 19:45 objective General: the patient is well developed and nourished. No acute distress. MENTAL STATUS: Subjective SPEECH, LANGUAGE, HIGHER CORTICAL FUNCTION: no aphasia CRANIAL NERVES: Pupils are equal, round and reactive. EOMs full and conjugate. Facial sensation intact in all three divisions bilaterally. Mandibular strength intact. Mild right facial weakness. Tongue midline. No fasciculations or atrophy. SENSATION: Sensation to touch and pinprick is unremarkable MOTOR: Normal tone in the upper and lower extremity. Normal muscle bulk. No fasciculations. No abnormal movements or posturing. Muscle strength of the major groups in the extremities is 4/5 with right arm mildly weaker REFLEXES: Deep tendon reflexes are symmetrical. No pathological reflexes. CEREBELLAR/COORDINATION: Deferred GAIT/STATION: deferred laboratory and microbiology Laboratory Tests 02/18/25 05:30 Test 02/18/25 05:30 Range/Units Serum Glucose 218 H 74-106 mg/dL Problem List A high attenuation CT lesion in the right basal ganglia region is likely calcification Acute stroke in the nancy and left basal ganglia region Chronic multiple strokes/lacunar infarcts in bilateral basal ganglia reason Dementia, likely vascular dementia, but need to rule out Alzheimer disease and other etiology Dysphagia, possibly secondary to multiple strokes Hypertensive encephalopathy Dysphagia status post PEG feeding tube Sleep-related breathing disorder/Sleep apnea Assessment/Plan Monitoring Supportive treatment [facility] care Aspirin 81 mg daily Plavix 75 mg q.d. for 21 days Lipitor 40 mg daily Aricept 5 mg daily Pantoprazole 40 mg daily BiPAP Up to chair Physical therapy Nephrology on case/hemodialysis More recommendation per clinical course This medical document was created using an electronic medical record system with [employer] dictation system. Although this document has been carefully reviewed, there may still be some phonetic and typographical errors. These areas are purely typographical due to imperfections of the software programs, and do not reflect any compromise in the patient's medical care Prognosis poor Dietary Evaluation Review Comments: 1) Add 60g CCHO renal restriction to pureed diet 2) Initiate Nepro CarbSteady bid 3) Encourage optimal PO intake 4) Follow-up with nephrology and neurology 4) Continue to monitor I&O, labs, and skin integrity Expected Outcomes/Goals: 1) appetite and labs to improve 2) f/u in 3-5 days Plan discussed with: Other YURY MARQUEZ MD Feb 18, 2025 10:12
--- NOTE | 2025-02-18 12:14 | MEDREC ---
[facility] Intervention Section I [facility] Intervention: Review courses of therapy (Please consider d/c antibiotics, patient has been afebrile for 5 days, normal WBC, and negative cultures) JAMES NGUYEN [facility] RESIDENT Feb 18, 2025 12:14
[2025-02-18] MEDS: VANCOMYCIN 500mg/100mL 100 ML IV ONE (16:00)
--- NOTE | 2025-02-18 16:58 | DVHDSRES ---
Discharge Summary Date of Admission Resident Creating Document: VANDA SMITH SHER RESIDENT Feb 02, 2025 at 00:42 Date of Discharge: Feb 14, 2025 Admitting Diagnosis Hypertensive urgency, ESRD on HD Labs/Diagnostic Data: Laboratory Results Test 02/18/25 11:18 02/18/25 05:30 02/17/25 05:36 02/16/25 07:00 POC Glucose 145 mg/dl (70-106) White Blood Count 6.6 10^3/uL (4.4-10.8) Red Blood Count 2.89 10^6/uL (4.5-5.90) Hemoglobin 8.5 g/dL (13.5-17.5) Hematocrit 25.2 % (41.0-53.0) Mean Corpuscular Volume 87.2 fL (80.0-100.0) Mean Corpuscular Hemoglobin 29.5 pg (28.0-32.0) Mean Corpuscular Hemoglobin Concent 33.8 g/dL (32.0-36.0) Red Cell Distribution Width 15.1 % (11.8-14.3) Platelet Count 372 10^3/uL (140-450) Mean Platelet Volume 8.1 fL (6.9-10.8) Neutrophils (%) (Auto) 76.7 % (37.0-80.0) Lymphocytes (%) (Auto) 10.7 % (10.0-50.0) Monocytes (%) (Auto) 10.0 % (0.0-12.0) Eosinophils (%) (Auto) 2.0 % (0.0-7.0) Basophils (%) (Auto) 0.6 % (0.0-2.0) Neutrophils # (Auto) 5.0 10 ^3/uL (1.6-8.6) Lymphocytes # (Auto) 0.7 10 ^3/uL (0.4-5.4) Monocytes # (Auto) 0.7 10 ^3/uL (0-1.3) Eosinophils # (Auto) 0.1 10 ^3/uL (0-0.8) Basophils # (Auto) 0 10 ^3/uL (0-0.2) Nucleated Red Blood Cells 0.1 % Sodium Level 141 mmol/L (136-145) Potassium Level 3.7 mmol/L (3.5-5.1) Chloride Level 100 mmol/L (98-107) Carbon Dioxide Level 33 mmol/L (20-31) Anion Gap 8 (5-15) Blood Urea Nitrogen 27 mg/dL (9-23) Creatinine 3.66 mg/dL (0.700-1.30) Glomerular Filtration Rate Calc 19 mL/min (>90) BUN/Creatinine Ratio 7.2 (10.0-20.0) Serum Glucose 218 mg/dL (74-106) Calcium Level 8.5 mg/dL (8.7-10.4) Random Vancomycin Level 11.9 ug/mL (5-10) Total Bilirubin 0.2 mg/dL (0.2-1.0) Aspartate Amino Transferase (AST) 35 U/L (13-40) Alanine Aminotransferase (ALT) 14 U/L (7-40) Alkaline Phosphatase 85 U/L (46-116) Total Protein 5.8 g/dL (5.7-8.2) Albumin 3.3 g/dL (3.2-4.8) Influenza Type A Antigen Negative (Negative) Influenza Type B Antigen Negative (Negative) SARS-CoV-2 Antigen (Rapid) Negative (NEGATIVE) Test 02/15/25 10:00 02/15/25 06:21 02/14/25 20:27 02/14/25 17:40 Lactic Acid Level 1.0 mmol/L (0.4-2.0) Magnesium Level 2.2 mg/dL (1.6-2.6) C-Reactive Protein High Sensitivity 6.30 mg/dL (<1.0) Blood Gas Specimen Type Arterial Blood Gas Sample Site Left radial Blood Gas Patient Temperature 37.0 Arterial Blood Date Drawn [id number] Arterial Blood pH 7.463 (7.350-7.450) Arterial Blood Partial Pressure CO2 36.2 mmHg (35.0-48.0) Arterial Blood Partial Pressure O2 126.0 mmHg (83.0-108.0) Arterial Blood HCO3 25.3 mmol/L (21.0-28.0) Arterial Blood Oxygen Saturation 98.1 % (94.0-98.0) Arterial Blood Base Excess 1.5 mmol/L (-2.0-3.0) Arterial Blood Oxyhemoglobin 97.1 % (94.0-98.0) Arterial Blood Carboxyhemoglobin 0.6 % (0.5-1.5) Arterial Blood Methemoglobin 0.4 % (0.0-1.5) Wale Test Yes Blood Gas Total Hemoglobin 7.90 g/dL (13.5-17.5) Blood Gas Set Respiration Rate 16.0 Blood Gas Modality Mask - bipap FiO2 % 30.0 Blood Gas EPAP 6 Blood Gas IPAP 12 Gastric Fluid pH 4.0 Gastric Fluid Occult Blood Positive (Negative) Test 02/14/25 17:26 02/12/25 05:19 02/10/25 04:43 02/05/25 04:00 Blood Gas Liter Flow 2.00 Phosphorus Level 3.2 mg/dL (2.4-5.1) Prothrombin Time 10.9 sec (9.3-11.8) Prothrombin Time INR 1.03 (0.9-1.15) Activated Partial Thromboplast Time 32.0 SEC (24.5-34.5) Urine Color Colorless (Yellow) Urine Clarity Turbid (Clear) Urine pH 5.5 (5.0-9.0) Urine Specific [place] 1.014 (1.001-1.035) Urine Protein 1+ (Negative) Urine Ketones Negative (Negative) Urine Blood 3+ /uL (Negative) Urine Nitrite Negative (Negative) Urine Bilirubin Negative (Negative) Urine Urobilinogen Normal mg/dL (Negative) Urine Leukocyte Esterase Trace /uL (Negative) Urine RBC 267 /hpf (0 - 3) Urine Microscopic WBC 21 /HPF (0-3) Urine Squamous Epithelial Cells Few /hpf (<5) Urine Amorphous Crystals Few /hpf (None Seen) Urine Bacteria Few /hpf (None Seen) Urine Hyaline Casts Few /lpf (0 - 2) Urine Glucose 2+ mg/dL (Normal) Urine Opiates Screen Neg (NEGATIVE) Urine Fentanyl Screen Neg (NEGATIVE) Urine Barbiturates Screen Neg (NEGATIVE) Urine Phencyclidine Screen Neg (NEGATIVE) Urine Amphetamines Screen Neg (NEGATIVE) Urine Benzodiazepines Screen Neg (NEGATIVE) Urine Cocaine Screen Neg (NEGATIVE) Urine Cannabinoids Screen Neg (NEGATIVE) Test 02/03/25 06:59 02/02/25 08:30 02/01/25 19:00 Hepatitis A IgM Antibody Negative Hepatitis B Surface Antigen Negative (Negative) Hepatitis B Core IgM Antibody Negative (Negative) Hepatitis C Antibody Negative (Negative) Hemoglobin A1c 8.7 % A1C (<5.7) Ammonia < 10 umol/L (11-32) Triglycerides Level 174 mg/dL (< 150) Cholesterol Level 124 mg/dL (< 200) LDL Cholesterol 56 mg/dL (< 100) HDL Cholesterol 38 mg/dL (40-59) Vitamin B12 Level 676 pg/mL (211-911) Vitamin D 25-Hydroxy 64.3 ng/mL (30.0-100) Folic Acid 9.28 ng/mL (>5.38) Thyroid Stimulating Hormone (TSH) 0.23 uIU/mL (0.55-4.78) Free Thyroxine (T4) Calculated 1.26 ng/dL (0.89-1.76) Parathyroid Hormone (Intact) 94.7 pg/mL (18.4-80.1) Troponin I High Sensitivity 7 ng/L (</=54) Plasma/Serum Blood Alcohol < 3.0 mg/dL (<10) Other Laboratory Tests 02/18/25 05:30 Brief Hx & Hospital Course: Brief Hospital course: Mr. Siddhartha Torres is a 59-year-old male with a complex medical history including end-stage renal disease (ESRD) on hemodialysis (MWF at [facility]), diabetes mellitus type 2, hypertension, prior cerebrovascular accident (2023), dementia, and chronic kidney disease stage 5. He was admitted with hypertensive urgency, generalized weakness, dysphagia, and missed dialysis sessions. Initial evaluation revealed hyperglycemia, uremia, acidemia, and hyperkalemiaall managed with dialysis. He was started on Amlodipine 10 mg PO and blood pressure monitoring. Due to noncompliance with dialysis and severe calorie malnutrition, he developed generalized weakness and required PEG tube placement for nutrition. He remained alert but disoriented, with persistent swallowing difficulties and hiccups. Despite some improvement in general appearance, he failed a bedside swallow study and underwent PEG tube placement for nutrition. He experienced intermittent fever, diarrhea, and hypotension during dialysis, requiring vasopressors. Imaging revealed multifocal airspace disease and colonic stool burden. He was treated with antibiotics and supportive care. GI recommended trickle feeding via PEG at 20 mL/hr, IV Protonix, and transfusion if hemoglobin <7. He experienced hemoptysis and dark stools; anticoagulants were held, and infectious workup was initiated. Imaging revealed new lung opacities and multifocal airspace disease. He was treated with IV azithromycin and supportive care. Cardiology noted moderate LVH with preserved EF (65%), and neurology recommended aspirin, atorvastatin, and Aricept. GI biopsies showed severe esophagitis and chronic inactive gastritis. He had episodes of diarrhea and hypotension during dialysis requiring vasopressors. Labs showed reactive leukocytosis, hyponatremia, and anemia of CKD. His HbA1c was 8.7, and he was managed with insulin sliding scale. Despite interventions, he remained alert x1 with persistent weakness and dysphagia. Hospice care was discussed with family, and the patient is now being discharged to a facility hospice for continued supportive and palliative care. Operations or Procedures ORDERING PHYSICIAN: CINDY BURNS RESIDENT PROCEDURE(s): HWOCT - HEAD WITHOUT CONTRAST REASON: f/u on subcm focus in R IC/thalamus r/o hemmorhage ORDER NUMBER(s): [id number], ACCESSION NUMBER(s): [id number] EXAM: CT HEAD WITHOUT CONTRAST INDICATION: F/u on subcm focus in R IC/thalamus r/o hemmorhage TECHNIQUE: CT of the head without intravenous contrast. Coronal and sagittal reformatted images are submitted. Radiation Dose : 1. Head: CT Dose: CTDI volume is 51.7 mGy. Dose-length product is 826.9 mGy*cm The dose indicators for CT are the volume Computed Tomography (CT) Dose Index (CTDIvol) and the Dose Length Product (DLP), and are measured in units of mGy and mGy-cm, respectively. These indicators are not patient dose, but values generated from the CT scanner acquisition factors. The report includes radiation exposure data for exposures received during this examination. All CT scans at this medical facility are performed using dose modulation techniques as appropriate to a performed exam including the following: Automated exposure control was utilized; adjustment of the MA and/or KV according to patient size; and use of iterative reconstruction technique. COMPARISON: CT HEAD WITHOUT CONTRAST on DOS: 02/02/25, CT HEAD WITHOUT CONTRAST on DOS: 02/02/25 FINDINGS: 8 x 8 mm rounded hyperattenuating focus in the right thalamus / internal capsule is similar in appearance and size compared to the prior study. No new intracranial hemorrhage. There is no evidence of acute extra-axial collection, mass effect, midline shift, herniation or hydrocephalus. Chronic lacunar infarcts in the bilateral basal ganglia and thalami. The ventricles, sulci and cisterns are age appropriate. The hurley-white differentiation is intact. The visualized paranasal sinuses and mastoid air cells are clear. No depressed calvarial fracture. The surrounding soft tissues are unremarkable. IMPRESSION: 1. No significant interval change. ATED BY: DANUTA COMBS MD DICTATED DATE/TIME: 02/03/25 0853 ORDERING PHYSICIAN: YURY MARQUEZ MD PROCEDURE(s): MBHL - BRAIN HEAD WO CONTRAST REASON: CVA, abnormal CT head ORDER NUMBER(s): [id number], ACCESSION NUMBER(s): [id number] CLINICAL INDICATION: CVA, abnormal CT head COMPARISON: CT HEAD WITHOUT CONTRAST on DOS: 02/03/25, CT HEAD WITHOUT CONTRAST on DOS: 02/02/25, CT HEAD WITHOUT CONTRAST on DOS: 02/02/25 TECHNIQUE: Multisequence multiplanar MRI images of the brain were obtained without contrast. FINDINGS: Acute lacunar infarct in the right side of the nancy measuring up to 0.6 cm. Acute lacunar infarct in the left periventricular white matter adjacent to the body of the left ventricle measuring up to 0.8 cm. Multifocal small areas of hypointense gradient echo signal, including in the bilateral basal ganglia, bilateral thalami, right greater than left, posterior left temporal lobe, and nancy from prior hemorrhage, with likely small subacute hemorrhage in the right thalamus when correlated with recent CT exams. Scattered areas of T2/FLAIR hyperintense signal in the periventricular and subcortical white matter, as well as in the nancy and basal ganglia are nonspecific, but most likely sequelae of chronic small vessel ischemic disease and lacunar infarcts. No mass or midline shift. Ventricles and sulci are within normal limits. Basal cisterns are patent. Paranasal sinuses are clear. Right lens prosthesis incidentally noted. Orbits are otherwise grossly unremarkable. IMPRESSION: 1. Small chronic lacunar infarcts are seen in the right side of the nancy and left periventricular white matter. 2. Multifocal chronic ischemic changes as detailed above. 3. Multifocal areas of hemosiderin deposition from prior small hemorrhages. 4. Additional findings as detailed above. ATED BY: SIGRID MARTIN DO DICTATED DATE/TIME: 02/03/25 0943 ORDERING PHYSICIAN: YURY MARQUEZ MD PROCEDURE(s): CARCL - CAROTID DUPLX W COLOR DOP REASON: CVA ORDER NUMBER(s): [id number], ACCESSION NUMBER(s): [id number] Carotid Duplex Date: 02/03/2025 09:26 PM Clinical History: CVA Comparison: None Technique: Duplex Doppler evaluation of the extracranial carotid and vertebral arteries including color Doppler and spectral/pulsed waveform analysis was performed. Findings: RIGHT SIDE: The peak systolic velocities are 67 cm/s in the distal CCA and 75 cm/s in the proximal ICA.The ICA/CCA ratio is normal. The distal right ICA is not visualized The external carotid artery is patent with peak systolic velocity of 67 cm/s proximally. There is appropriate antegrade flow in the right vertebral artery. LEFT SIDE: The peak systolic velocities are 72 cm/s in the distal CCA and 32 cm/s in the proximal ICA. The ICA/CCA ratio is normal. The mid and distal left ICA is not visualized The external carotid artery is patent with peak systolic velocity of 42 cm/s proximally. There is appropriate antegrade flow in the left vertebral artery. IMPRESSION: Left mid and distal ICAs are not well-visualized with the distal right ICA not well-visualized. Otherwise, No hemodynamically significant stenosis within the visualized bilateral carotid arterial systems. Reference: Radiology 2003; 229:[id number] ATED BY: TAYA QUEZADA DO DICTATED DATE/TIME: 02/03/252154 ORDERING PHYSICIAN: DEACON KATZ PROCEDURE(s): CXRP - CHEST PORTABLE REASON: DOCTORS REQUEST ORDER NUMBER(s): [id number], ACCESSION NUMBER(s): [id number] CHEST RADIOGRAPH Indication: DOCTORS REQUEST Technique: Single frontal view of the chest was obtained COMPARISON: XY CHEST XRAY 1 VIEW on DOS: 02/14/25, XY CHEST XRAY 1 VIEW on DOS: 02/10/25, XY CHEST PORTABLE on DOS: 02/05/25 FINDINGS: Lines and Tubes: Right permCath tip projects over the superior vena cava. Lungs: New ill-defined slightly nodular appearing opacity within the lateral left mid lung measures 2.0 cm. Pleura: No effusion. No pneumothorax. Cardiomediastinal contours: Unremarkable Bones: Unremarkable IMPRESSION: 1. New ill-defined slightly nodular appearing lateral midlung opacity. 2. Right PermCath. ATED BY: AMEYA VICENTE MD DICTATED DATE/TIME: 02/15/25 0310 ORDERING PHYSICIAN: CHAU SYKES PROCEDURE(s): CX2CT - CHEST WITHOUT CONTRAST REASON: hemoptysis ORDER NUMBER(s): [id number], ACCESSION NUMBER(s): [id number] Procedure: CT CHEST WITHOUT CONTRAST Reason for study/Clinical History: hemoptysis Comparison Study: XY CHEST PORTABLE on DOS: 02/15/25, XY CHEST XRAY 1 VIEW on DOS: 02/14/25, XY CHEST XRAY 1 VIEW on DOS: 02/10/25, XY CHEST PORTABLE on DOS: 02/05/25 TECHNIQUE: Multidetector CT of the chest was performed from the lung apices to the upper abdomen without the use of intravenous contract. Axial, coronal and sagittal multiplanar reformats were performed. Radiation Dose Information: CT Dose: CTDI volume is 5.4 mGy. Dose-length product is 1070.6 mGy*cm The dose indicators for CT are the volume Computed Tomography (CT) Dose Index (CTDIvol) and the Dose Length Product (DLP), and are measured in units of mGy and mGy-cm, respectively. These indicators are not patient dose, but values generated from the CT scanner acquisition factors. The report includes radiation exposure data for exposures received during this examination. FINDINGS: Lower neck: Tunneled right central venous catheter in satisfactory position. Lungs: Multifocal airspace disease most prominent in the lower lobes, [id number]-right. Heart/Vascular Structures: Normal heart size. No pericardial effusion. Lymph Nodes: No adenopathy Pleura: No pleural effusion or significant pneumothorax. Musculoskeletal: No acute osseous abnormality. Soft tissues: Normal. Upper abdomen: Limited portions of the upper abdomen are unremarkable. IMPRESSION: Multifocal airspace disease most prominent in the lower lobes, [id number]-dshy-right. ATED BY: MAXIMO MIGUEL MD DICTATED DATE/TIME: 02/16/25525 ORDERING PHYSICIAN: YURY MARQUEZ MD PROCEDURE(s): HWOCT - HEAD WITHOUT CONTRAST REASON: ALOC ORDER NUMBER(s): [id number], ACCESSION NUMBER(s): [id number] EXAM: CT HEAD WITHOUT CONTRAST INDICATION: ALOC TECHNIQUE: CT of the head without intravenous contrast. Radiation Dose : 1. Head: CT Dose: CTDI volume is 53.95 mGy. Dose-length product is 1070.55 mGy*cm The dose indicators for CT are the volume Computed Tomography (CT) Dose Index (CTDIvol) and the Dose Length Product (DLP), and are measured in units of mGy and mGy-cm, respectively. These indicators are not patient dose, but values generated from the CT scanner acquisition factors. The report includes radiation exposure data for exposures received during this examination. COMPARISON: MRI BRAIN HEAD WO CONTRAST on DOS: 02/03/25, CT HEAD WITHOUT CONTRAST on DOS: 02/03/25, CT HEAD WITHOUT CONTRAST on DOS: 02/02/25, CT HEAD WITHOUT CONTRAST on DOS: 02/02/25 FINDINGS: There is no evidence of acute intracranial hemorrhage, extra-axial collection, mass effect, midline shift, herniation or hydrocephalus. Unchanged subcentimeter foci of hyperattenuation in the right thalamus. The ventricles, sulci and cisterns are age appropriate. The hurley-white differentiation is intact. Patchy periventricular and subcortical white matter hypoattenuation is nonspecific but may be related to small vessel ischemic disease. The visualized paranasal sinuses and mastoid air cells are clear. The surrounding soft tissues and osseous structures are unremarkable. IMPRESSION: No acute intracranial abnormality. No significant interval change. Radiation optimization: All CT scans at this facility use at least one of these dose optimization techniques: automated exposure control mA and/or kV adjustment per patient size (includes targeted exams where dose is matched to clinical indication) or iterative reconstruction. ATED BY: MAXIMO MIGUEL MD DICTATED DATE/TIME: 02/16/25517 ORDERING PHYSICIAN: CINDY BURNS PROCEDURE(s): KUB - KUB ABDOMEN SINGLE VIEW REASON: r/o obstruction ORDER NUMBER(s): [id number], ACCESSION NUMBER(s): [id number] Exam: XY KUB ABDOMEN SINGLE VIEW Indication: r/o obstruction Comparison: None Technique: 1 radiographic views of the abdomen. Findings: Gastrostomy tube overlies the epigastrium. Nonobstructive bowel gas pattern noted. Moderate to large volume colonic stool. There is no definite evidence for pneumoperitoneum. No abnormal calcifications noted. Impression: Nonobstructive bowel gas pattern noted. Moderate to large volume colonic stool. ATED BY: MAXIMO MIGUEL MD DICTATED DATE/TIME: 02/16/25 1200 Condition at Discharge: Undetermined Final Diagnosis/Problems List #ALOC secondary to vascular dementia # Hypertensive urgency-resolving # Reactive leukocytosis- monitorlab # ESRD on HD # Missed HD # Non compliance with HD # Uremia # Acidemia managed with dialysis # Hyperkalemia managed with dialysis # Anemia of Chronic kidney disease from ESRD # Generalized weakness, due to malnutrition # Severe calorie malnutrition # hypokalemia # Aspiration pneumonia # hypocalcemia # ruled out CVA # Anemia due to blood loss # Hx of CVA # Hyponantremia # Uncontrolled DM2 with hyperglycemia Pet0g-8.7 Discharge Disposition: Hospice - Home Discharge Instruct/Medications Diet: See Comment Diet comment: TUBE FEEDINGS Activity: No Restrictions, As Tolerated Medications: As per hospice Scheduled Atorvastatin Calcium (Atorvastatin Calcium), 1 TAB PO QPM, (Reported) Donepezil Hydrochloride (Donepezil Hcl), 5 MG PO DAILY, (Reported) Metoprolol Succinate (Metoprolol Succinate Er), 50 MG PO DAILY, (Reported) Nifedipine (Nifedipine Er), 1 TAB PO DAILY, (Reported) Pioglitazone Hydrochloride (Pioglitazone Hcl), 45 MG OR DAILY, (Reported) Sertraline Hcl (Sertraline Hcl), 50 MG PO DAILY, (Reported) Sucralfate (Sucralfate), 1 GM PO BID, (Reported) Tamsulosin Hcl (Tamsulosin Hcl), 0.4 MG PO QPM, (Reported) Miscellaneous Medications Pantoprazole Sodium Sesquihydr (Protonix), 40 MG PO, (Reported) Discharge Statement: "Patient was advised to return to the ER or call 911 if any headaches, dizziness, shortness of breath, chest pain, abdominal pain, bleeding, fevers, or worsening of medical condition. Patient was counseled about treatment plan, medications, possible side effects, patientverbalized understanding. All questions were answered to the best of my ability. This discharge took greater then 30 minutes in planning, reviewing documentation, counseling the patient, and discussing with other team members." ASSESSMENT ASSESSMENT Assessment Discharge Diagnosis ALOC secondary to vascular dementia Failure to thrive status post PEG tube placement 02/10/25 Date of Service: Feb 14, 2025 Billing Provider: KIMBER MORRIS MD Common Visit Codes: 48498-TUS/OBS DISCH DAY >30min CHAU SYKES RESIDENT Feb 18, 2025 16:58 KIMBER MORRIS MD Feb 21, 2025 17:40
--- NOTE | 2025-02-18 17:45 | DVHPN2 ---
Progress Note Date Seen: Feb 18, 2025 Resident Creating Document: VANDA SMITH RESIDENT Has the PT tested + for MRSA If YES, has PT been informed?: Yes Medical Necessity Reason Pt with a Central, PICC or Fol: Yes The following are medically ne: PICC Line, Richardson Catheter Subjective Review of Systems Today, the patient had 3-4 bowel movements . No hematemesis or abdominal pain reported. He he remains arousable, and without acute distress. PEG tube in place and functioning, no residuals noted, patient is tolerating continuous PEG tube feeds. Reglan remains on hold. Hemoglobin stable at 8.5 grams/deciliter yesterday 8.2. LFTs are normal. WBC count normal. Most recent hemodialysis were performed today. EGD biopsy results- Stomach-mild chronic inactive gastritis, negative for H pylori, no interstitial metaplasia, dysplasia or malignancy. Esophagus-severe acute esophagitis with ulceration. Negative for malignancy, no fungal organisms or viral inclusions identified. Based on biopsy, viral esophagitis ruled out Patient is being planned to DC with hospice + palliative care with ongoing hemodialysis support Objective vital signs Vital Sign Date Time Temp Pulse Resp B/P (MAP) Pulse Ox O2 Delivery O2 Flow Rate FiO2 02/18/25 17:00 100 11 142/65 (90) 99 02/18/25 16:05 98.6 02/18/25 15:38 Room Air* 0 21 Total Intake and Output 02/17/25 02/17/25 02/18/25 15:00 23:00 07:00 Intake Total 475 ml 256 ml 390 ml Output Total 250 ml 200 ml Balance 475 ml 6 ml 190 ml medications Current Medications Medications Dose Ordered Sig/Kellen Route Start Time Stop Time Status Last Admin Dose Admin Dextrose 50 ml UD PRN IV 02/02/25 01:00 Cancel Lorazepam 1 mg ONCE PRN IV 02/02/25 20:00 Pantoprazole Sodium 40 mg DAILY IV 02/11/25 10:00 UNV Amlodipine Besylate 10 mg DAILY PO 02/13/25 10:00 02/18/25 10:00 10 MG Atorvastatin Calcium 40 mg HS PO 02/13/25 22:00 02/17/25 21:37 40 MG Donepezil HCl 5 mg HS PO 02/13/25 22:00 02/17/25 21:37 5 MG Pantoprazole Sodium 40 mg BID IV 02/13/25 10:00 02/18/25 08:36 40 MG Ondansetron HCl 4 mg Q6HPRN PRN IV 02/13/25 14:15 Hold 02/13/25 14:30 4 MG Metoclopramide HCl 5 mg Q8HPRN PRN IV 02/13/25 17:00 Norepinephrine Bitartrate 250 ml @ 3.75 mls/hr Q24H IV 02/13/25 17:00 Ceftriaxone Sodium 50 ml @ 100 mls/hr DAILY@09 IV 02/15/25 09:00 02/18/25 08:36 100 MLS/HR Acetaminophen 650 mg Q6HP PRN WA 02/14/25 17:45 02/14/25 18:17 650 MG Azithromycin 250 ml @ 125 mls/hr DAILY IV 02/16/25 10:00 02/18/25 08:37 125 MLS/HR Insulin Glargine 10 units HS SC 02/15/25 22:00 02/17/25 21:38 10 UNITS Albuterol 2.5 mg Q6HR NEB 02/16/25 06:45 02/18/25 12:25 2.5 MG Ipratropium [place] 0.5 mg Q6HR NEB 02/16/25 06:45 02/18/25 12:25 0.5 MG Lactulose 30 ml BID PO 02/16/25 22:00 02/18/25 08:36 30 ML Enteral Nutritional Formula 1,000 ml 30ML/HR GT 02/17/25 10:30 02/17/25 11:35 1,000 ML Diagnostic Test (Pha) 1 strip Q6HR 02/17/25 18:00 02/18/25 16:34 1 STRIP Insulin Human Regular Q6HR SC 02/17/25 18:00 02/18/25 06:19 6 UNITS Dextrose 50 ml UD PRN IV 02/17/25 15:45 Metoclopramide HCl 10 mg Q8HR PRN IV 02/17/25 19:45 Examination General: Somnolent but arousable, nonverbal * Abdomen: PEG tube in place; draining brown fluid; abdomen soft, nondistended, non-tender, normal bowel sounds laboratory and microbiology Laboratory Tests 02/18/25 05:30 Test 02/18/25 05:30 Range/Units Serum Glucose 218 H 74-106 mg/dL Microbiology Date/Time Source Procedure Growth Status 02/16/25 11:20 Sputum Gram Stain - Final Resulted 02/16/25 11:20 Sputum Respiratory Culture - Preliminary Resulted 02/14/25 17:40 Blood Blood Culture - Preliminary NO GROWTH AFTER 72 HOURS OF INCUBATION. Resulted 02/14/25 16:13 Voided Urine Urine Culture - Final Complete 02/10/25 21:30 Nose MRSA Screen - Final Complete Problem List/Assessment/Plan Problem List/Assessment/Plan Assessment 1. Possible upper GI bleed post-PEG placement * Evidence: Brown fluid in PEG drainage, Hb drop (9.7 ? 7.7), positive stool occult * Rule in: Gastric mucosal trauma, stress ulcer, PEG site ulceration, reflux gastritis * Rule out: Peptic ulcer disease, variceal bleed, malignancy 2. Nutritional compromise in ESRD patient with PEG tube in place * Currently on trickle feeding (20 mL/hr renal formula) * Risk of refeeding, electrolyte shifts, and aspiration 3. Post-PEG care * Monitoring for bleeding, infection, dislodgement, aspiration 4. Chest X-ray abnormality 5. Possible viral esophagitis HSV versus CMV Plan A. Upper GI Bleed / Anemia * Continue IV pantoprazole 40 mg q12h * Monitor PEG output closely (color, volume) * Serial hemoglobin/hematocrit q68h * Transfuse PRBC if Hb <7 g/dL or symptomatic * Hold NSAIDs and anticoagulants * Consider EGD if ongoing significant bleeding or Hb drop persists B. Nutrition (PEG Feeding) * Continue feeds at 30 mL/hr renal formula * Advance slowly if tolerated and no ongoing bleeding * Continue daily monitoring of electrolytes, Mg, Phos (adjust for dialysis) * Strict aspiration precautions; HOB >30 * Flush PEG with sterile water 30 mL q46h (coordinate with nephrology for fluid restriction) C. Prophylaxis & Supportive Care * Stress ulcer prophylaxis: IV PPI continued * DVT prophylaxis: SCDs only (pharmacologic held due to bleeding risk) * Continue dialysis per TTS schedule * Monitor for PEG site infection; daily site care Case discussed in detail with the attending physician, including the clinical presentation, diagnostic workup, and comprehensive management plan Plan discussed with: Other (RN) My Orders My Orders Orders - VANDA SMITH RESIDENT Procedure Category Date Status Time Metoclopramide PHA 02/17/25 In Process Injection (Reglan 19:45 Dietary Evaluation Review Comments: 1) Add 60g CCHO renal restriction to pureed diet 2) Initiate Nepro CarbSteady bid 3) Encourage optimal PO intake 4) Follow-up with nephrology and neurology 4) Continue to monitor I&O, labs, and skin integrity Expected Outcomes/Goals: 1) appetite and labs to improve 2) f/u in 3-5 days VANDA SMITH RESIDENT Feb 18, 2025 17:45
[2025-02-18] MEDS ORDERED: EPOETIN ALFA-EPBX 10,000 UNIT/1ML VIAL SC ONE (21:00)
--- NOTE | 2025-02-18 23:31 | DVHPN2 ---
Progress Note - Dictate Date Seen: Feb 18, 2025 Has the PT tested + for MRSA If YES, has PT been informed?: Yes Medical Necessity Reason Pt with a Central, PICC or Fol: Yes The following are medically ne: PICC Line, Richardson Catheter Subjective Patient was seen and evaluated in follow up in the [facility]. Patient is on 2 LPM NC. HGB 8.5, HCT 25.2, CO2 33, BUN 27, SECOND CHEF 3.66, CA 8.5. Patient is cardiac stable for discharge. vital signs Vital Sign Date Time Temp Pulse Resp B/P (MAP) Pulse Ox O2 Delivery O2 Flow Rate FiO2 02/18/25 12:31 89 12 100 02/18/25 12:25 Room Air 02/18/25 12:25 0 21 02/18/25 12:00 98.2 123/71 (88) 98.2 Total Intake and Output 02/17/25 02/17/25 02/18/25 15:00 23:00 07:00 Intake Total 475 ml 256 ml 390 ml Output Total 250 ml 200 ml Balance 475 ml 6 ml 190 ml medications Current Medications Medications Dose Ordered Sig/Kellen Route Start Time Stop Time Status Last Admin Dose Admin Dextrose 50 ml UD PRN IV 02/02/25 01:00 Cancel Lorazepam 1 mg ONCE PRN IV 02/02/25 20:00 Pantoprazole Sodium 40 mg DAILY IV 02/11/25 10:00 UNV Amlodipine Besylate 10 mg DAILY PO 02/13/25 10:00 02/17/25 11:44 10 MG Atorvastatin Calcium 40 mg HS PO 02/13/25 22:00 02/17/25 21:37 40 MG Donepezil HCl 5 mg HS PO 02/13/25 22:00 02/17/25 21:37 5 MG Pantoprazole Sodium 40 mg BID IV 02/13/25 10:00 02/18/25 08:36 40 MG Ondansetron HCl 4 mg Q6HPRN PRN IV 02/13/25 14:15 Hold 02/13/25 14:30 4 MG Metoclopramide HCl 5 mg Q8HPRN PRN IV 02/13/25 17:00 Norepinephrine Bitartrate 250 ml @ 3.75 mls/hr Q24H IV 02/13/25 17:00 Ceftriaxone Sodium 50 ml @ 100 mls/hr DAILY@09 IV 02/15/25 09:00 02/18/25 08:36 100 MLS/HR Acetaminophen 650 mg Q6HP PRN HI 02/14/25 17:45 02/14/25 18:17 650 MG Azithromycin 250 ml @ 125 mls/hr DAILY IV 02/16/25 10:00 02/18/25 08:37 125 MLS/HR Insulin Glargine 10 units HS SC 02/15/25 22:00 02/17/25 21:38 10 UNITS Albuterol 2.5 mg Q6HR NEB 02/16/25 06:45 02/18/25 12:25 2.5 MG Ipratropium [employer] 0.5 mg Q6HR NEB 02/16/25 06:45 02/18/25 12:25 0.5 MG Lactulose 30 ml BID PO 02/16/25 22:00 02/18/25 08:36 30 ML Enteral Nutritional Formula 1,000 ml 30ML/HR GT 02/17/25 10:30 02/17/25 11:35 1,000 ML Diagnostic Test (Pha) 1 strip Q6HR 02/17/25 18:00 02/18/25 08:37 1 STRIP Insulin Human Regular Q6HR SC 02/17/25 18:00 02/18/25 06:19 6 UNITS Dextrose 50 ml UD PRN IV 02/17/25 15:45 Metoclopramide HCl 10 mg Q8HR PRN IV 02/17/25 19:45 objective GENERAL: A&O x2. Somewhat non-verbal, +dysphagia EYES: PERRL, EOMI. Anicteric. HENT: Moist mucous membranes. LUNGS: Clear to auscultation bilaterally. CARDIOVASCULAR: Regular rate and rhythm. ABDOMEN: Soft, non-tender and non-distended. EXTREMITIES: No edema. SKIN: Warm, dry. laboratory and microbiology Laboratory Tests 02/18/25 05:30 Test 02/18/25 05:30 Range/Units Serum Glucose 218 H 74-106 mg/dL Problem List Acute CVA rule out cardioembolic source. History of multiple chronic strokes. Hypertensive urgency. Diabetes mellitus type 2. ESRD on HD. Medical noncompliance (missed HD). Assessment/Plan Continued all current supportive medical care. IV antibiotics as ordered. GI prophylactics. Additional plan as per the hospital course. Critical care time of 45 minutes provided to include time spent evaluation of patient at bedside, when appropriate patient/family education for diagnosis, treatment plan, review of pertinent medical information and discussion of care with specialty providers and PCP Dietary Evaluation Review Comments: 1) Add 60g CCHO renal restriction to pureed diet 2) Initiate Nepro CarbSteady bid 3) Encourage optimal PO intake 4) Follow-up with nephrology and neurology 4) Continue to monitor I&O, labs, and skin integrity Expected Outcomes/Goals: 1) appetite and labs to improve 2) f/u in 3-5 days Plan discussed with: Patient DESIREE BERNAL MD Feb 18, 2025 12:47
== END 2025-02-18 19:40 | disposition hospice, inpatient (51) | DRG 640 ==
LOC: EDBD 17:58 → ER 17:58 → OVERFLOW 02-02 00:42 → WEST WING 02-02 04:16 → DOU 02-10 21:31
PROVIDERS: ADMIT Student in an Organized Health Care Education/Training Program; ATTEND Internal Medicine Nephrology
PROC: 5A1D70Z Performance of Urinary Filtration, Intermittent, Less than 6 Hours Per Day (ICD-10-PCS; 2025-02-02)
PROC: 5A1D70Z Performance of Urinary Filtration, Intermittent, Less than 6 Hours Per Day (ICD-10-PCS; 2025-02-03)
PROC: B24CZZ4 Ultrasonography of Pericardium, Transesophageal (ICD-10-PCS; 2025-02-05)
PROC: 5A1D70Z Performance of Urinary Filtration, Intermittent, Less than 6 Hours Per Day (ICD-10-PCS; 2025-02-05)
PROC: 5A1D70Z Performance of Urinary Filtration, Intermittent, Less than 6 Hours Per Day (ICD-10-PCS; 2025-02-07)
PROC: 5A1D70Z Performance of Urinary Filtration, Intermittent, Less than 6 Hours Per Day (ICD-10-PCS; 2025-02-09)
PROC: 0DH63UZ Insertion of Feeding Device into Stomach, Percutaneous Approach (ICD-10-PCS; 2025-02-10)
PROC: 5A09357 Assistance with Respiratory Ventilation, Less than 24 Consecutive Hours, Continuous Positive Airway Pressure (ICD-10-PCS; 2025-02-10)
PROC: 0DB58ZX Excision of Esophagus, Via Natural or Artificial Opening Endoscopic, Diagnostic (ICD-10-PCS; 2025-02-10)
PROC: 0DB68ZX Excision of Stomach, Via Natural or Artificial Opening Endoscopic, Diagnostic (ICD-10-PCS; principal; 2025-02-10 18:20)
PROC: 5A09357 Assistance with Respiratory Ventilation, Less than 24 Consecutive Hours, Continuous Positive Airway Pressure (ICD-10-PCS; 2025-02-11)
PROC: 5A1D70Z Performance of Urinary Filtration, Intermittent, Less than 6 Hours Per Day (ICD-10-PCS; 2025-02-11)
PROC: 5A09357 Assistance with Respiratory Ventilation, Less than 24 Consecutive Hours, Continuous Positive Airway Pressure (ICD-10-PCS; 2025-02-13)
PROC: 5A1D70Z Performance of Urinary Filtration, Intermittent, Less than 6 Hours Per Day (ICD-10-PCS; 2025-02-13)
PROC: 5A09357 Assistance with Respiratory Ventilation, Less than 24 Consecutive Hours, Continuous Positive Airway Pressure (ICD-10-PCS; 2025-02-15)
PROC: 30233N1 Transfusion of Nonautologous Red Blood Cells into Peripheral Vein, Percutaneous Approach (ICD-10-PCS; 2025-02-16)
PROC: 5A1D70Z Performance of Urinary Filtration, Intermittent, Less than 6 Hours Per Day (ICD-10-PCS; 2025-02-16)
PROC: 5A09357 Assistance with Respiratory Ventilation, Less than 24 Consecutive Hours, Continuous Positive Airway Pressure (ICD-10-PCS; 2025-02-17)
PROC: 5A1D70Z Performance of Urinary Filtration, Intermittent, Less than 6 Hours Per Day (ICD-10-PCS; 2025-02-18)
DX: E87.5 Hyperkalemia (principal); E43 Unspecified severe protein-calorie malnutrition; J69.0 Pneumonitis due to inhalation of food and vomit; N18.6 End stage renal disease; K29.61 Other gastritis with bleeding; K22.11 Ulcer of esophagus with bleeding; I31.39 Other pericardial effusion (noninflammatory); I67.4 Hypertensive encephalopathy; Z68.1 Body mass index [BMI] 19.9 or less, adult; I12.0 Hypertensive chronic kidney disease with stage 5 chronic kidney disease or end stage renal disease; E87.1 Hypo-osmolality and hyponatremia; E87.20 Acidosis, unspecified; I16.0 Hypertensive urgency; Z20.822 Contact with and (suspected) exposure to COVID-19; D63.1 Anemia in chronic kidney disease; R62.7 Adult failure to thrive; R13.12 Dysphagia, oropharyngeal phase; E83.51 Hypocalcemia; Z99.2 Dependence on renal dialysis; E11.65 Type 2 diabetes mellitus with hyperglycemia; E11.22 Type 2 diabetes mellitus with diabetic chronic kidney disease; D50.0 Iron deficiency anemia secondary to blood loss (chronic); F01.50 Vascular dementia, unspecified severity, without behavioral disturbance, psychotic disturbance, mood disturbance, and anxiety; E86.0 Dehydration; K44.9 Diaphragmatic hernia without obstruction or gangrene; N40.0 Benign prostatic hyperplasia without lower urinary tract symptoms; G47.30 Sleep apnea, unspecified; E78.5 Hyperlipidemia, unspecified; K21.9 Gastro-esophageal reflux disease without esophagitis; R06.6 Hiccough; E87.6 Hypokalemia; Z91.199 Patient's noncompliance with other medical treatment and regimen due to unspecified reason; Z86.73 Personal history of transient ischemic attack (TIA), and cerebral infarction without residual deficits; Z83.3 Family history of diabetes mellitus; Z82.49 Family history of ischemic heart disease and other diseases of the circulatory system; Z82.3 Family history of stroke; Z79.82 Long term (current) use of aspirin; Z79.899 Other long term (current) drug therapy; Z75.1 Person awaiting admission to adequate facility elsewhere
CPT/HCPCS: 36415; 36430; 36600; 43239; 43246; 70450; 70551; 71045; 71250; 74018; 80048; 80053; 80061; 80074; 80202; 80307; 80320; 81001; 82140; 82270; 82271; 82306; 82565; 82607; 82746; 82805; 82962; 83036; 83605; 83735; 83970; 84100; 84132; 84439; 84443; 84484; 85014; 85018; 85025; 85610; 85730; 86141; 86850; 86900; 86901; 86920; 87040; 87070; 87081; 87086; 87205; 87426; 87804; 90935; 92610; 93005; 93306; 93312; 93886; 94640; 94660; 97110; 97116; 97163; 99152; G0378; J1100; J1642; J1815; J2003; J2250; J2405; J2470; J3480; P9047

== ENCOUNTER 2025-03-04 10:45 | Emergency (ER) | payer OTHER, MEDICAID ==
[~2025-03-04] VITALS: Ht 165.1 cm; Wt 54.5 kg
[~2025-03-04 10:45] MED LIST: ATOR40TA52 PO; DONE5TAB80 PO; METO-289 PO; NIFE1TAB30 PO; PANT40TA2 PO; PIOG1TAB51 OR; SERT-206 PO; SUCR1TAB PO; TAMS0.4C39 PO
--- NOTE | 2025-03-04 12:22 | ED.PDOC ---
History of Present Illness HPI Comments This is a 59-year-old male with past medical history of hypertension, ESRD, diabetes, hypertension, CVA, and dementia brought from board care due to PEG tube malfunctioning. Per EMS report, PEG tube has been malfunction and can not pass the medicine/food since 2 days. During my assessment, patient is alert and awake but can not provide history. He reports of thirstiness, and has hiccups. Denies fever, cough, chest pain, shortness of breath, or any bowel/bladder habit changes. Chief Complaint: Tube Replacement Time Seen by MD: 10:58 Reviewed Notes: Nurses Notes, Makeup Artist Notes Allergies: Coded Allergies: NO KNOWN ALLERGIES (Unverified , 02/01/25) Home Meds Reported Medications Nifedipine (Nifedipine Er) 60 Mg Tab, 1 TAB PO DAILY, #30 TAB 5 Refills 02/02/25 Atorvastatin Calcium (ATORVASTATIN CALCIUM) 40 Mg Tab, 1 TAB PO QPM, #90 TAB 3 Refills 02/02/25 Tamsulosin Hcl (Tamsulosin Hcl) 0.4 Mg Cap, 0.4 MG PO QPM for 30 Days, MG 02/02/25 Donepezil Hydrochloride (DONEPEZIL HCL) 5 Mg Tab, 5 MG PO DAILY for 30 Days, MG 02/02/25 Pantoprazole Sodium Sesquihydr (Protonix) 40 Mg Tab, 40 MG PO, #30 TAB 02/02/25 Sucralfate (Sucralfate) 1 Gm Tab, 1 GM PO BID, GM 02/02/25 Sertraline Hcl (Sertraline Hcl) 50 Mg Tab, 50 MG PO DAILY for 30 Days, MG 02/02/25 Metoprolol Succinate (Metoprolol Succinate Er) 50 Mg Tab, 50 MG PO DAILY for 30 Days, MG 02/02/25 Pioglitazone Hydrochloride (PIOGLITAZONE HCL) 45 Mg Tab, 45 MG OR DAILY, TAB 02/02/25 Mode of Arrival: EMS Timing: Days Duration: Days Past Medical History PAST MEDICAL HISTORY: DM, ESRD, HTN Surgical History: Denies all surgeries Family History Family History: Unknown Social History Smoker: Non-Smoker Alcohol: Denies ETOH Use Drugs: Denies Drug Use Lives In: Home, Assisted Care Constitutional: reports: others (Hiccups and thirstiness); denies: chills, diaphoresis, fatigue, fever, malaise, sweats, weakness EENTM: denies: blurred vision, double vision, ear bleeding, ear discharge, ear drainage, ear pain, ear ringing, eye pain, eye redness, hearing loss, mouth pain, mouth swelling, nasal discharge, nose bleeding, nose congestion, nose pain, photophobia, tearing, throat pain, throat swelling, voice changes, others Respiratory: denies: cough, hemoptysis, orthopnea, SOB at rest, shortness of breath, SOB with excertion, stridor, wheezing, others Cardiovascular: denies: chest pain, dizzy spells, diaphoresis, Dyspnea on exertion, edema, irregular heart beat, left arm pain, lightheadedness, palpitations, PND, syncope, others Genitourinary: denies: burning, dysuria, flank pain, frequency, hematuria, incontinence, penile discharge, penile sore, pain, testicle pain, testicle swelling, urgency, others Neurological: denies: dizziness, fainting, headache, left sided numbness, left sided weakness, numbness, paresthesia, pre-existing deficit, right sided numbness, right sided weakness, seizure, speech problems, tingling, tremors, weakness, others Musculoskeletal: denies: back pain, gout, joint pain, joint swelling, muscle pain, muscle stiffness, neck pain, others Integumetry: denies: bruises, change in color, change in hair/nails, dryness, laceration, lesions, lumps, rash, wounds, others Allergic/Immunocompromised: denies: Difficulty Healing, Frequent Infections, Hives, Itching, others Hematologic/Lymphatic: denies: anemia, blood clots, easy bleeding, easy bruising, swollen glands, others Endocrine: denies: excessive hunger, excessive sweating, excessive thirst, excessive urination, flushing, intolerance to cold, intolerance to heat, unexplained weight gain, unexplained weight loss, others Psychiatric: denies: anxiety, bipolar disorder, depression, hopeless, panic disorder, schizophrenia, sleepless, suicidal, others Physical Exam General Appearance: Cachectic, Mild Distress HEENT: Normal ENT Inspection, Pharynx Normal, TMs Normal Neck: Full Range of Motion, Non-Tender, Normal, Normal Inspection Respiratory: Chest Non-Tender, Lungs Clear, No Accessory Muscle Use, No Respiratory Distress, Normal Breath Sounds Cardiovascular: No Edema, No JVD, No Murmur, No Gallop, Normal Peripheral Pulses, Regular Rate/Rhythm Breast Exam: Deferred Gastrointestinal: No Organomegaly, Non Tender, No Pulsatile Mass, Normal Bowel Sounds, Soft Genitalia: Deferred Pelvic: Deferred Rectal: Deferred Extremities: No calf tenderness, Normal capillary refill, Normal inspection, Normal range of motion, Non-tender, No pedal edema Neurologic: Alert, exceptional children 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 Was a procedure done?: Yes Sedation Sedation?: No Informed consent obtained: Yes Feeding tube Indication: Nonfunctioning, Blocked Notes PEG tube was assessed, and it was found that Ignacio valve was clogged, valve was replaced, and fluid was passing smoothly. PEG tube insertion site was clear and there was no leakage, redness or discharge. Differential Dx Considerations may include: PEG tube clogged Peg tube displacement X-Ray, Labs, Meds, VS Vital Signs Date Time Temp Pulse Resp B/P (MAP) Pulse Ox O2 Delivery O2 Flow Rate FiO2 03/04/25 11:00 98.9 104 18 136/80 95 98.9 Time of 1ST Reevaluation: 11:00 Reevaluation 1ST: Improved Patient Education/Counseling: Diagnosis, Treatment, Prognosis, Need For Follow Up Family Education/Counseling: No Family Present Comments Patient was brought from [facility] due to clogged PEG tube Upon assessment it was found that Ignacio valve was clogged Valve was replaced, and upon subsequent checkup, fluid was passing smoothly through the tube Patient was vitally stable. Patient had hiccups which is chronic PEG tube insertion area was assessed, clear with no leakage, redness, or any other sign of infection. [facility] SEPSIS Sepsis Screen Date sepsis recognized/suspect: Mar 04, 2025 Time Sepsis recognized/suspect: 1101 Recent Procedure: No On Antibiotic Therapy: No Respiratory Rate >20: No Heart Rate >90: Yes Temp<36 C (96.8 F) or >38.3 C: No SBP <90 or MAP <65 mmHG: No New Acute Mental Status Change: No Is the patient on CPAP, BIPAP,: No Vital Signs Date Time Temp Pulse Resp B/P (MAP) Pulse Ox O2 Delivery O2 Flow Rate FiO2 03/04/25 11:00 98.9 104 18 136/80 95 98.9 Departure 1 Departure Time of Disposition: 12:20 Impression: Primary Impression: PEG tube malfunction Disposition: 01 HOME / SELF CARE / HOMELESS Condition: Fair Critical Care Note Critical Care Time?: No Stability Stability form required: No Heart Score Heart Score: Heart Score Response (Comments) Value History N/A 0 EKG N/A 0 Age N/A 0 Risk Factors N/A 0 Troponin N/A 0 Total 0 DAVIAN LIZAMA RESED Mar 04, 2025 12:22
[2025-03-04 14:13] VITALS: BP 112/63; PULSE 85; RESP 16; TEMP 97.9; O2SAT 98
== END 2025-03-04 14:21 | disposition home or self-care (01) ==
LOC: ER 10:45 → EDBD 10:45 → ER 14:20
DX: K94.23 Gastrostomy malfunction (principal); I12.0 Hypertensive chronic kidney disease with stage 5 chronic kidney disease or end stage renal disease; N18.6 End stage renal disease; E11.22 Type 2 diabetes mellitus with diabetic chronic kidney disease; Z79.899 Other long term (current) drug therapy